=== PATIENT | female | born 1945 | race Caucasian/White ===

== ENCOUNTER 2018-09-21 08:41 | Emergency (ER) | payer MEDICARE, MEDICAID, SELFPAY ==
[2018-09-21] VITALS (13 sets, daily range): BP systolic 130–153; BP diastolic 58–78; PULSE 69–88; RESP 14–24; TEMP 36.5–36.7; O2SAT 95–97
--- NOTE | 2018-09-21 09:17 | W.ED.GENAD ---
Discharge Plan Disposition Patient Disposition: [facility] Discharge Details Chief Complaint: GI Bleed Clinical Impression: Acute GI bleeding Reason For Visit: [place] Primary Care Provider: Susana Apple ED Provider: Yfn Quijano Home Meds and New Rx's Prescriptions: No Action nitroglycerin 0.4 MG tablet, sublingual 0.4 mg Sublingual PRN PRNQty: 25 RF: 11 Oxygen EACH NS DAILY Qty: 2 RF: 12 POC 2 l NS continuous during da Qty: 2 RF: 12 cholecalciferol (vitamin D3) [Vitamin D3] 2,000 UNIT capsule 2,000 unit PO DAILY Qty: 90 RF: 3 shower seat w/ back 1 unit Miscellaneous DAILY PRNQty: 1 RF: 0 O2 portable device NS Qty: 1 RF: 0 diaper,brief,adult,disposable [Depend Underwear For Women S-M] 1 EACH misc 1 ea Miscellaneous QID Qty: 150 RF: 12 Atorvastatin Calcium 10 MG tablet 10 mg PO DAILY Qty: 90 RF: 3 port 02concentrator Inhalation as directed Qty: 1 RF: 1 albuterol sulfate [ProAir HFA] 8.5 GM HFA aerosol inhaler 2 puff Inhalation Q4H PRN Qty: 3 RF: 3 budesonide-formoterol [Symbicort] 10.2 GM HFA aerosol inhaler 2 puff Inhalation BID Qty: 3 RF: 4 magnesium oxide 250 MG tablet 250 mg PO DAILY Qty: 90 RF: 3 docusate sodium [Colace] 100 MG capsule 100 mg PO BID Qty: 60 RF: 12 potassium chloride 10 MEQ capsule, extended release 1 cap PO DAILY Qty: 180 RF: 3 mirtazapine 7.5 MG tablet 7.5 mg PO HS Qty: 30 RF: 3 furosemide 40 mg tablet 40 mg PO DAILY Qty: 90 RF: 3 pantoprazole 40 mg tablet,delayed release (DR/EC) 40 mg PO BID Qty: 180 RF: 3 ondansetron 4 MG tablet,disintegrating 4 mg Sublingual Q6H PRN PRN (Reason: Nausea / Vomiting) Qty: 12 RF: 0 Discharge Data Discharge Date/Time-TO BE ENTERED AT DEPARTURE: 09/21/18 11:46 Medical Decision Making Medical Records 9:22 --32-year-old female with multiple medical problems including history of alcohol dependence, GERD, gastric ulcer, status post remote gastric bypass, coronary artery disease, here with melena today as well as abdominal cramping and tender epigastric and left abdomen. Melena on rectal exam with heme positive. Concern for upper GI bleed. Hemodynamically stable. Plan to give Protonix IV bolus and drip. Will obtain CT abd/pelvis to assess for acute surgical pathology. Plan for transfer. 10:05 -- [place] with [facility] [place] (Dr. Gutierrez)and GI (Dr. Jackson) -- will accept. Awaiting CT. 11:00 --CT of the abdomen pelvis interpreted by radiology: Jejunum dilated, concern for possible partial bowel obstruction, no perforation. ECG Data Attestation: I personally reviewed and interpreted this ECG (s) as follows: (Sinus rhythm 69 bpm, left axis deviation, nonspecific QRS widening with QRS duration of 128, no STEMI, nondiagnostic) HPI General Mode of arrival: EMS. Date/Time Provider Initiated Documentation: 09/21/18 08:45. Limitations to Documentation: no limitations. Information obtained by: patient and EMS. HPI Narrative: 72-year-old female with multiple medical problems including coronary artery disease, CHF, COPD, GERD, gastric ulcer, remote gastric bite S, EtOH dependence, GI bleed in the past, presents with chief complaint of black stool. Black stool started this morning. This is severe. No modifiers. No associated bright red blood per rectum. Patient does have associated abdominal cramping. Associated nausea. She also notes associated generalized weakness. Related Data Home Medications Medication Instructions Recorded Confirmed nitroglycerin 0.4 mg SUBLINGUAL PRN PRN #25 07/16/16 09/21/18 tab-cap cholecalciferol (vitamin D3) 2,000 unit PO DAILY #90 tab-cap 05/18/17 [Vitamin D3] ondansetron 4 mg SUBLINGUAL Q6H PRN PRN #12 tab 08/30/17 09/21/18 diaper,brief,adult,disposable #150 ea 10/06/17 [Depend] albuterol sulfate [Proair Hfa] 2 puff INHALATION Q4H PRN #3 12/03/17 09/21/18 inhaler budesonide-formoterol [Symbicort 2 puff INHALATION BID #3 inhaler 12/03/17 09/21/18 80/4.5 Mcg Inhaler] magnesium oxide 250 mg PO DAILY #90 tab-cap 12/23/17 docusate sodium [Colace] 100 mg PO BID #60 cap 03/04/18 09/21/18 mirtazapine 7.5 mg PO HS #30 tab-cap 07/13/18 potassium chloride 1 cap PO DAILY #180 tab-cap 07/13/18 09/21/18 furosemide 40 mg tablet 40 mg PO DAILY #90 tab-cap 09/23/18 pantoprazole 40 mg tablet,delayed 40 mg PO BID #180 tab 09/23/18 release Previous Rx's Medication Instructions Recorded ondansetron 4 mg SUBLINGUAL Q6H PRN PRN #12 tab 08/30/17 diaper,brief,adult,disposable #150 ea 10/06/17 [Depend] albuterol sulfate [Proair Hfa] 2 puff INHALATION Q4H PRN #3 12/03/17 inhaler budesonide-formoterol [Symbicort 2 puff INHALATION BID #3 inhaler 12/03/17 80/4.5 Mcg Inhaler] magnesium oxide 250 mg PO DAILY #90 tab-cap 12/23/17 docusate sodium [Colace] 100 mg PO BID #60 cap 03/04/18 mirtazapine 7.5 mg PO HS #30 tab-cap 07/13/18 potassium chloride 1 cap PO DAILY #180 tab-cap 07/13/18 furosemide 40 mg tablet 40 mg PO DAILY #90 tab-cap 09/23/18 pantoprazole 40 mg tablet,delayed 40 mg PO BID #180 tab 09/23/18 release Allergies Allergy/AdvReac Type Severity Reaction Status Date / Time chlorpromazine Allergy Severe Skin Rash Unverified 07/13/18 13:45 Penicillins Allergy Severe HIVES Unverified 07/13/18 13:45 oxycodone Allergy Mild RASH/VOMITI Unverified 07/13/18 13:45 NG raspberry Allergy Unknown Unverified 07/13/18 13:45 General Stated Complaint: GI Bleed GENE: 2 Review of Systems Review of Systems All systems reviewed & are unremarkable except as noted in HPI and below Cardiovascular Reports chest pain (a few days ago, resolved with single nitro) Gastrointestinal Reports as per HPI PFSH Family History Mother COPD (chronic obstructive pulmonary disease) Father Diabetes Sister No problems noted. Brother No problems noted. Medical History Cor athrscl-uns vessel End stage COPD GERD (gastroesophageal reflux disease) GI bleed Marginal ulcer Oxygen dependent Sensorineural hearing loss Spinal stenosis Social History Smoking/Tobacco Use Status: Current every day Surgical History EGD - MAC Extraction of cataract (08/28/15) Gastric Bypass (~1989) Exam Const General: cooperative and no acute distress HENMT Head: normocephalic and atraumatic Mouth: moist mucous membranes Eyes Conjunctivae: normal conjunctivae Sclera: normal sclerae EOM: EOM intact bilaterally Neck Neck: trachea midline and supple Resp Auscultation: clear to auscultation bilaterally, no rales, no rhonchi and no wheezes Cardio Jugular venous pressure: no JVD Rate: regular rate and not tachycardic Rhythm: regular rhythm GI Palpation: soft, not firm, no guarding, no masses, not rigid and tender in the epigastrum, in the LLQ and in the LUQ Auscultation: normal bowel sounds Rectal Exam - female: heme positive stool (melena) Skin General skin exam: no rashes or lesions noted Neuro General: alert, awake, oriented x3 and tone normal Extrem General: no edema Psych Appearance: grossly normal Mental Status: mental status grossly normal Speech and Movement: speech and movement normal Course Vital Signs Temperature 36.5 C 09/21/18 08:50 Pulse 88 09/21/18 08:50 Respiratory Rate 18 09/21/18 08:50 Blood Pressure 130/69 09/21/18 08:50 Pulse Oximetry 97 09/21/18 08:50 Temperature 36.5 C 09/21/18 08:50 Temperature Source Skin 09/21/18 08:50 Pulse 88 09/21/18 08:50 Respiratory Rate 18 09/21/18 08:50 Blood Pressure 130/69 09/21/18 08:50 Pulse Oximetry 97 09/21/18 08:50 Oxygen Delivery Method Nasal Cannula 09/21/18 08:50 Oxygen Flow Rate 2 09/21/18 08:50 Comment 09/21/18 08:50
--- NOTE | 2018-09-21 09:23 | ED.GENADUL_ITS ---
Discharge Plan Disposition Patient Disposition: [facility] Discharge Details Chief Complaint: GI Bleed Clinical Impression: Acute GI bleeding Reason For Visit: [place] Primary Care Provider: Susana Apple ED Provider: Yfn Quijano Home Meds and New Rx's Prescriptions: No Action nitroglycerin 0.4 MG tablet, sublingual 0.4 mg Sublingual PRN PRNQty: 25 RF: 11 Oxygen EACH NS DAILY Qty: 2 RF: 12 POC 2 l NS continuous during da Qty: 2 RF: 12 cholecalciferol (vitamin D3) [Vitamin D3] 2,000 UNIT capsule 2,000 unit PO DAILY Qty: 90 RF: 3 shower seat w/ back 1 unit Miscellaneous DAILY PRNQty: 1 RF: 0 O2 portable device NS Qty: 1 RF: 0 diaper,brief,adult,disposable [Depend Underwear For Women S-M] 1 EACH misc 1 ea Miscellaneous QID Qty: 150 RF: 12 Atorvastatin Calcium 10 MG tablet 10 mg PO DAILY Qty: 90 RF: 3 port 02concentrator Inhalation as directed Qty: 1 RF: 1 albuterol sulfate [ProAir HFA] 8.5 GM HFA aerosol inhaler 2 puff Inhalation Q4H PRN Qty: 3 RF: 3 budesonide-formoterol [Symbicort] 10.2 GM HFA aerosol inhaler 2 puff Inhalation BID Qty: 3 RF: 4 magnesium oxide 250 MG tablet 250 mg PO DAILY Qty: 90 RF: 3 docusate sodium [Colace] 100 MG capsule 100 mg PO BID Qty: 60 RF: 12 potassium chloride 10 MEQ capsule, extended release 1 cap PO DAILY Qty: 180 RF: 3 mirtazapine 7.5 MG tablet 7.5 mg PO HS Qty: 30 RF: 3 furosemide 40 mg tablet 40 mg PO DAILY Qty: 90 RF: 3 pantoprazole 40 mg tablet,delayed release (DR/EC) 40 mg PO BID Qty: 180 RF: 3 ondansetron 4 MG tablet,disintegrating 4 mg Sublingual Q6H PRN PRN (Reason: Nausea / Vomiting) Qty: 12 RF: 0 Discharge Data Discharge Date/Time-TO BE ENTERED AT DEPARTURE: 09/21/18 11:46 Medical Decision Making Medical Records 9:22 --32-year-old female with multiple medical problems including history of alcohol dependence, GERD, gastric ulcer, status post remote gastric bypass, coronary artery disease, here with melena today as well as abdominal cramping and tender epigastric and left abdomen. Melena on rectal exam with heme positive. Concern for upper GI bleed. Hemodynamically stable. Plan to give Protonix IV bolus and drip. Will obtain CT abd/pelvis to assess for acute surgical pathology. Plan for transfer. 10:05 -- Spoke with [facility] [place] (Dr. Gutierrez)and GI (Dr. Jackson) -- will accept. Awaiting CT. 11:00 --CT of the abdomen pelvis interpreted by radiology: Jejunum dilated, concern for possible partial bowel obstruction, no perforation. ECG Data Attestation: I personally reviewed and interpreted this ECG (s) as follows: ( Sinus rhythm 69 bpm, left axis deviation, nonspecific QRS widening with QRS duration of 128, no STEMI, nondiagnostic) HPI General Mode of arrival: EMS . Date/Time Provider Initiated Documentation: 09/21/18 08:45 . Limitations to Documentation: no limitations . Information obtained by: patient and EMS . HPI Narrative: 72-year-old female with multiple medical problems including coronary artery disease, CHF, COPD, GERD, gastric ulcer, remote gastric bite S, EtOH dependence, GI bleed in the past, presents with chief complaint of black stool. Black stool started this morning. This is severe. No modifiers. No associated bright red blood per rectum. Patient does have associated abdominal cramping. Associated nausea. She also notes associated generalized weakness. Related Data Home Medications Medication Instructions Recorded Confirmed nitroglycerin 0.4 mg SUBLINGUAL PRN PRN #25 07/16/16 09/21/18 tab-cap cholecalciferol (vitamin D3) 2,000 unit PO DAILY #90 tab-cap 05/18/17 [Vitamin D3] ondansetron 4 mg SUBLINGUAL Q6H PRN PRN #12 tab 08/30/17 09/21/18 diaper,brief,adult,disposable #150 ea 10/06/17 [Depend] albuterol sulfate [Proair Hfa] 2 puff INHALATION Q4H PRN #3 12/03/17 09/21/18 inhaler budesonide-formoterol [Symbicort 2 puff INHALATION BID #3 inhaler 12/03/1709/21 80/4.5 Mcg Inhaler] magnesium oxide 250 mg PO DAILY #90 tab-cap 12/23/17 docusate sodium [Colace] 100 mg PO BID #60 cap 03/04/18 09/21/18 mirtazapine 7.5 mg PO HS #30 tab-cap 07/13/18 potassium chloride 1 cap PO DAILY #180 tab-cap 07/13/18 09/21/18 furosemide 40 mg tablet 40 mg PO DAILY #90 tab-cap 09/23/18 pantoprazole 40 mg tablet,delayed 40 mg PO BID #180 tab 09/23/18 release Previous Rx's Medication Instructions Recorded ondansetron 4 mg SUBLINGUAL Q6H PRN PRN #12 tab 08/30/17 diaper,brief,adult,disposable #150 ea 10/06/17 [Depend] albuterol sulfate [Proair Hfa] 2 puff INHALATION Q4H PRN #3 12/03/17 inhaler budesonide-formoterol [Symbicort 2 puff INHALATION BID #3 inhaler 12/03/17 80/4.5 Mcg Inhaler] magnesium oxide 250 mg PO DAILY #90 tab-cap 12/23/17 docusate sodium [Colace] 100 mg PO BID #60 cap 03/04/18 mirtazapine 7.5 mg PO HS #30 tab-cap 07/13/18 potassium chloride 1 cap PO DAILY #180 tab-cap 07/13/18 furosemide 40 mg tablet 40 mg PO DAILY #90 tab-cap 09/23/18 pantoprazole 40 mg tablet,delayed 40 mg PO BID #180 tab 09/23/18 release Allergies Allergy/AdvReac Type Severity Reaction Status Date / Time chlorpromazine Allergy Severe Skin Rash Unverified 07/13/18 13:45 Penicillins Allergy Severe HIVES Unverified 07/13/18 13:45 oxycodone Allergy Mild RASH/VOMITI Unverified 07/13/18 13:45 NG raspberry Allergy Unknown Unverified 07/13/18 13:45 General Stated Complaint: GI Bleed GENE: 2 Review of Systems Review of Systems All systems reviewed & are unremarkable except as noted in HPI and below Cardiovascular Reports chest pain (a few days ago, resolved with single nitro) Gastrointestinal Reports as per HPI PFSH Family History Mother COPD (chronic obstructive pulmonary disease) Father Diabetes Sister No problems noted. Brother No problems noted. Medical History Cor athrscl-uns vessel End stage COPD GERD (gastroesophageal reflux disease) GI bleed Marginal ulcer Oxygen dependent Sensorineural hearing loss Spinal stenosis Social History Smoking/Tobacco Use Status: Current every day Surgical History EGD - MAC Extraction of cataract (08/28/15) Gastric Bypass (~1989) Exam Const General: cooperative and no acute distress HENMT Head: normocephalic and atraumatic Mouth: moist mucous membranes Eyes Conjunctivae: normal conjunctivae Sclera: normal sclerae EOM: EOM intact bilaterally Neck Neck: trachea midline and supple Resp Auscultation: clear to auscultation bilaterally, no rales, no rhonchi and no wheezes Cardio Jugular venous pressure: no JVD Rate: regular rate and not tachycardic Rhythm: regular rhythm GI Palpation: soft, not firm, no guarding, no masses, not rigid and tender in the epigastrum, in the LLQ and in the LUQ Auscultation: normal bowel sounds Rectal Exam - female: heme positive stool (melena) Skin General skin exam: no rashes or lesions noted Neuro General: alert, awake, oriented x3 and tone normal Extrem General: no edema Psych Appearance: grossly normal Mental Status: mental status grossly normal Speech and Movement: speech and movement normal Course Vital Signs Temperature 36.5 C 09/21/18 08:50 Pulse 88 09/21/18 08:50 Respiratory Rate 18 09/21/18 08:50 Blood Pressure 130/69 09/21/18 08:50 Pulse Oximetry 97 09/21/18 08:50 Temperature 36.5 C 09/21/18 08:50 Temperature Source Skin 09/21/18 08:50 Pulse 88 09/21/18 08:50 Respiratory Rate 18 09/21/18 08:50 Blood Pressure 130/69 09/21/18 08:50 Pulse Oximetry 97 09/21/18 08:50 Oxygen Delivery Method Nasal Cannula 09/21/18 08:50 Oxygen Flow Rate 2 09/21/18 08:50 Comment 09/21/18 08:50
[2018-09-21] MEDS: Pantoprazole 40 MG VIAL IVP (09:28)
[2018-09-21 09:29] LABS: Abs Immature Grans 0.01 k/cumm (0.0-0.09); Absolute Basophil Count 0.06 k/cumm (0.0-0.2); Absolute Eosinophil Count 0.17 k/cumm (0.0-0.7); Absolute Lymphocyte Count 1.09 k/cumm (1.2-3.4); Absolute Monocyte Count 0.52 k/cumm (0.11-0.7); Basophils % 0.8; Eosinophils % 2.3; HCT 37.9 % (36.0-46.0); HGB 11.5 g/dL (12.0-15.5); Immature Grans % 0.1; Mean Corp. HGB Concentration 30.3 g/dL (32.0-36.0); Mean Corpuscular Hemoglobin 29.4 pg (27.0-33.0); Mean Corpuscular Volume 96.9 fL (80-95); Mean Platelet Volume 10.7 fL (8.0-11.0); Monocytes % 7.2; Neutrophils % 74.6; Platelet Count 209 x1000/uL (130-400); RBC 3.91 m/cumm (4.00-5.20); RBC Distribution Width 15.8 % (11.7-14.6); White Blood Cell Count 7.25 k/cumm (4.4-10.8)
[2018-09-21 09:31] LABS: Lactate-non-spesis 1.3 mmol/L (0.6-1.4)
[2018-09-21 09:36] LABS: Prothrombin Time 10.1 sec (9.3-10.8)
[2018-09-21 09:54] LABS: ALT 18 U/L (12-78); AST 19 U/L (15-37); Albumin 3.4 g/dL (3.4-5.0); Alkaline Phosphatase 91 U/L (46-116); Anion Gap 7.3 mmol/L (3-11); BUN 19 mg/dL (7-18); Bilirubin, Total 0.4 mg/dL (0.2-1.0); CO2 31.7 mmol/L (21.0-32.0); CREATININE 0.76 mg/dL (0.55-1.02); Chloride 101 mmol/L (98-107); Glucose 95 mg/dL (70-100); Lipase 94 U/L (73-393); Potassium 3.9 mmol/L (3.5-5.1); Sodium 140 mmol/L (136-145); Total Protein 7.3 g/dL (6.4-8.2)
[2018-09-21 09:57] LABS: Troponin I < 0.02 ng/mL (0.00-0.06)
--- NOTE | 2018-09-21 10:07 | DI.CT_ITS ---
SYMPTOM/DIAGNOSIS: EPIGASTRIC ABD PAIN ABDOMEN AND PELVIC CT: Comparison is made with 08/28/17. Images were performed from the lung bases through the ischial tuberosities after IV and without oral contrast. Suture material is again noted at the GE junction. There is a hiatal hernia. There is motion on the upper aspect of the scan, particularly in the region of the stomach. An area of air is again seen along the lesser curvature of the stomach which could represent a diverticulum. There is suture material in the jejunum. There is dilatation of a loop of jejunum near the area of the anastomosis which could indicate a partial small bowel obstruction. The distal bowel is unremarkable. There is no evidence of bowel wall thickening, free air or free fluid. The appendix appears normal. Diverticula are noted in the sigmoid colon. Gallstones are noted. There is no evidence of gallbladder wall thickening or biliary dilatation. A cyst is seen at the posterior liver. The spleen, adrenals and kidneys are unremarkable. The pancreas is not well evaluated due to motion. The aorta is normal in diameter and shows calcification. The bladder, uterus and ovaries are unremarkable. IMPRESSION: Mild dilatation of a loop of jejunum near an anastomosis. The findings could represent a partial small bowel obstruction. There has been no significant change in the appearance of the stomach with probable diverticulum along the lesser curvature. A previous surgery and hiatal hernia are also seen.
[2018-09-21] MEDS: Omnipaque 350 MG/ML 100 ML BTL IJ (10:35)
[2018-09-21] MEDS: PANTOPRAZOLE 80 MG in Normal Saline 100 ML 10 MG IV (11:42)
== END 2018-09-21 11:46 | disposition short-term general hospital (02) ==
PROVIDERS: Emergency Provider Student in an Organized Health Care Education/Training Program; PCP Nurse Practitioner
DX: K92.2 Gastrointestinal hemorrhage, unspecified (principal); J44.9 Chronic obstructive pulmonary disease, unspecified; F17.210 Nicotine dependence, cigarettes, uncomplicated
CPT/HCPCS: 36415; 80053; 83690; 86850; 86900; 86901; 93005; 96374; 99285; 74177; 83605; 84484; 85025; 85610; 93010; J3490

== ENCOUNTER 2019-01-04 14:56 | Inpatient (IN) | payer MEDICARE, MEDICAID, SELFPAY ==
[2019-01-04] VITALS (46 sets, daily range): BP systolic 91–156; BP diastolic 51–73; PULSE 72–90; RESP 8–24; TEMP 36.6–36.7; O2SAT 90–100
--- NOTE | 2019-01-04 15:51 | DI.RAD_ITS ---
SYMPTOMS/DIAGNOSIS: SHORTNESS OF BREATH, CHEST PAIN AP AND LATERAL CHEST: Comparison is made with [id number]. The heart is again noted to be grossly enlarged. Scarring is noted in the left upper lobe. Underlying emphysematous and chronic interstitial changes are seen. IMPRESSION: Cardiomegaly. No acute abnormality.
[2019-01-04] MEDS: Albuterol/Ipratropium 3 ML UPD VIAL UPD (16:00)
[2019-01-04 16:05] LABS: Abs Immature Grans 0.01 k/cumm (0.0-0.09); Absolute Basophil Count 0.05 k/cumm (0.0-0.2); Absolute Eosinophil Count 0.18 k/cumm (0.0-0.7); Absolute Monocyte Count 0.38 k/cumm (0.11-0.7); Absolute Neutrophil Count 4.41 k/cumm (1.2-6.7); Basophils % 0.8; Eosinophils % 2.8; HCT 36.2 % (36.0-46.0); HGB 10.7 g/dL (12.0-15.5); Immature Grans % 0.2; Mean Corp. HGB Concentration 29.6 g/dL (32.0-36.0); Mean Corpuscular Hemoglobin 28.9 pg (27.0-33.0); Mean Corpuscular Volume 97.8 fL (80-95); Mean Platelet Volume 10.2 fL (8.0-11.0); Monocytes % 5.8; Neutrophils % 67.4; Platelet Count 280 x1000/uL (130-400); RBC Distribution Width 16.4 % (11.7-14.6); White Blood Cell Count 6.53 k/cumm (4.4-10.8)
[2019-01-04 16:07] LABS: Lactate-non-spesis 1.1 mmol/l (0.6-1.4)
--- NOTE | 2019-01-04 16:16 | W.ED.GENAD ---
Discharge Plan Disposition Patient Disposition: [facility] INPATIENT Discharge Details Chief Complaint: GenMedical Clinical Impression: COPD with acute exacerbation, Toe necrosis, Noncompliance with medication regimen Reason For Visit: ASHLY Primary Care Provider: Susana Apple ED Provider: Yfn Quijano Home Meds and New Rx's Prescriptions: No Action furosemide 40 mg tablet 40 mg PO DAILY Qty: 90 RF: 3 nitroglycerin 0.4 MG tablet, sublingual 0.4 mg Sublingual PRN PRNQty: 25 RF: 11 POC 2 l NS continuous during da Qty: 2 RF: 12 shower seat w/ back 1 unit Miscellaneous DAILY PRNQty: 1 RF: 0 Depend Underwear For Women S-M 1 EACH misc 1 ea Miscellaneous QID Qty: 150 RF: 12 Atorvastatin Calcium 10 MG tablet 10 mg PO DAILY Qty: 90 RF: 3 port 02concentrator Inhalation as directed Qty: 1 RF: 1 ProAir HFA 8.5 GM HFA aerosol inhaler 2 puff Inhalation Q4H PRN Qty: 3 RF: 3 Symbicort 10.2 GM HFA aerosol inhaler 2 puff Inhalation BID Qty: 3 RF: 4 magnesium oxide 250 MG tablet 250 mg PO DAILY Qty: 90 RF: 3 docusate sodium [Colace] 100 MG capsule 100 mg PO BID Qty: 60 RF: 12 potassium chloride 10 MEQ capsule, extended release 1 cap PO DAILY Qty: 180 RF: 3 pantoprazole 40 mg tablet,delayed release (DR/EC) 40 mg PO BID Qty: 180 RF: 3 ondansetron 4 MG tablet,disintegrating 4 mg Sublingual Q6H PRN PRN (Reason: Nausea / Vomiting) Qty: 12 RF: 0 Medical Decision Making 73-year-old female with multiple medical problems including history of end-stage COPD, necrotic right 4th toe. Distal pulse not palpable but intact with doppler. Medication noncompliance -- Patient notes that she has not had her medications for 3 months. She has not been taking her oxygen as she is run out. ECG reviewed and interpreted by me: Sinus rhythm 76 bpm, first-degree AV block with IL interval of 276, nondiagnostic. Suspect acute COPD exacerbation complicated by medication noncompliance and lack of home O2. She has been given solu-medrol and duoneb and azithromycin IV. Considered PNA. Cxr interpreted by radiology: FINDINGS: Lungs: Stable pulmonary hyperinflation, compatible with known COPD related changes. Increased density over the left retrocardiac region is most likely related to known cardiomegaly and appears similar to the reference examination. No acute interstitial or airspace disease is grossly noted. Mild biapical scarring suggested. Pleural space: Unremarkable. No pleural effusion. No pneumothorax. Heart/Mediastinum: Stable cardiomegaly. Vasculature: Stable calcified aortic knob. Bones/joints: Degenerative changes of the a.c. joints and thoracic spine. No acute skeletal pathology. IMPRESSION: Stable examination without acute cardiopulmonary pathology grossly noted. Patient reassessed and has significantly improved here in the emergency department on oxygen. Unfortunately she does not have oxygen at home currently. I called and spoke with Dr. Barrientos who will admit the patient. HPI General Mode of arrival: ambulatory. Date/Time Provider Initiated Documentation: 01/04/19 15:14. Limitations to Documentation: no limitations. Information obtained by: patient and family. HPI Narrative: 73-year-old female with multiple medical problems including history of end-stage COPD, here with chief complaint of black toe. Patient notes she had some toe inflammation right fourth toe that started late October. Toe has been painful. More recently she is noted that the toe a black discoloration. Symptoms severe. No modifiers. No associated fever. EMS found the patient to be short of breath, hypoxic saturating in the 70s, in mild respiratory distress. She received solu-medrol 125mg and duoneb by medics. She is supposed to be on oxygen 2.5 L chronically and has run out and has none at home. Patient notes that she has not had her medications for 3 months. Related Data Home Medications Medication Instructions Recorded Confirmed nitroglycerin 0.4 mg SUBLINGUAL PRN PRN #25 07/16/16 10/07/18 tab-cap ondansetron 4 mg SUBLINGUAL Q6H PRN PRN #12 tab 08/30/17 10/07/18 diaper,brief,adult,disposable #150 ea 10/06/17 10/07/18 [Depend] albuterol sulfate [Proair Hfa] 2 puff INHALATION Q4H PRN #3 12/03/17 10/07/18 inhaler budesonide-formoterol [Symbicort 2 puff INHALATION BID #3 inhaler 12/03/17 10/07/18 80/4.5 Mcg Inhaler] magnesium oxide 250 mg PO DAILY #90 tab-cap 12/23/17 10/07/18 docusate sodium [Colace] 100 mg PO BID #60 cap 03/04/18 10/07/18 potassium chloride 1 cap PO DAILY #180 tab-cap 07/13/18 10/07/18 pantoprazole 40 mg tablet,delayed 40 mg PO BID #180 tab 09/23/18 10/07/18 release furosemide 40 mg tablet 40 mg PO DAILY #90 tab-cap 10/07/18 10/07/18 Previous Rx's Medication Instructions Recorded ondansetron 4 mg SUBLINGUAL Q6H PRN PRN #12 tab 08/30/17 diaper,brief,adult,disposable #150 ea 10/06/17 [Depend] albuterol sulfate [Proair Hfa] 2 puff INHALATION Q4H PRN #3 12/03/17 inhaler budesonide-formoterol [Symbicort 2 puff INHALATION BID #3 inhaler 12/03/17 80/4.5 Mcg Inhaler] magnesium oxide 250 mg PO DAILY #90 tab-cap 12/23/17 docusate sodium [Colace] 100 mg PO BID #60 cap 03/04/18 potassium chloride 1 cap PO DAILY #180 tab-cap 07/13/18 pantoprazole 40 mg tablet,delayed 40 mg PO BID #180 tab 09/23/18 release furosemide 40 mg tablet 40 mg PO DAILY #90 tab-cap 10/07/18 Allergies Allergy/AdvReac Type Severity Reaction Status Date / Time chlorpromazine Allergy Severe Skin Rash Unverified 10/07/18 16:16 Penicillins Allergy Severe HIVES Unverified 10/07/18 16:16 oxycodone Allergy Mild RASH/VOMITI Unverified 10/07/18 16:16 NG raspberry Allergy Unknown Unverified 10/07/18 16:16 General Stated Complaint: GenMedical GENE: 3 Review of Systems Review of Systems All systems reviewed & are unremarkable except as noted in HPI and below Constitutional Reports chills and Denies fever(s) Cardiovascular Reports dyspnea Respiratory Reports cough (chronic) and Reports dyspnea Musculoskeletal Reports as per HPI [facility] Medical History Cor athrscl-uns vessel End stage COPD GERD (gastroesophageal reflux disease) GI bleed Marginal ulcer Oxygen dependent Sensorineural hearing loss Spinal stenosis Surgical History EGD - MAC Extraction of cataract (08/28/15) Gastric Bypass (~1989) Family History Mother COPD (chronic obstructive pulmonary disease) Father Diabetes Sister No problems noted. Brother No problems noted. Social History Smoking/Tobacco Use Status: Current every day Exam Const General: cooperative Orientation: alert and awake Other: initially tachypneic HENMT Head: normocephalic Mouth: moist mucous membranes Eyes Conjunctivae: normal conjunctivae Sclera: normal sclerae EOM: EOM intact bilaterally Neck Neck: trachea midline and supple Resp Auscultation: clear to auscultation bilaterally, no rales, no rhonchi and no wheezes Cardio Rate: regular rate and not tachycardic Rhythm: regular rhythm Other: DP right not palpable, +pulse on doppler GI Palpation: soft, not firm, no guarding, no masses, not rigid and nontender Skin General skin exam: pallor Neuro General: alert, awake, oriented x3 and tone normal Extrem General: no edema Other: necrotic rt 4 th toe Psych Appearance: grossly normal Mental Status: mental status grossly normal Course Vital Signs Temperature 36.6 C 01/04/19 15:06 Pulse 73 01/04/19 15:06 Respiratory Rate 20 01/04/19 15:06 Blood Pressure 144/59 H 01/04/19 15:06 Pulse Oximetry 99 01/04/19 15:06 Temperature 36.6 C 01/04/19 15:06 Pulse 73 01/04/19 15:06 Respiratory Rate 20 01/04/19 15:06 Respiratory Effort Labored 01/04/19 15:11 Blood Pressure 144/59 H 01/04/19 15:06 Blood Pressure Position Sitting 01/04/19 15:06 Pulse Oximetry 99 01/04/19 15:06 Oxygen Delivery Method Nasal Cannula 01/04/19 15:06 Oxygen Flow Rate 2 01/04/19 15:06 Lab/Test Results Lab/Test Results: 01/04/19 15:48 Blood Blood Culture - Pending 01/04/19 15:52 Blood Blood Culture - Pending Laboratory Tests Range/Units 01/04/19 01/04/19 15:48 15:48 WBC (4.4-10.8) k/cumm 6.53 RBC (4.00-5.20) m/cumm 3.70 L Hgb (12.0-15.5) g/dL 10.7 L Hct (36.0-46.0) % 36.2 MCV (80-95) fL 97.8 H MCH (27.0-33.0) pg 28.9 MCHC (32.0-36.0) g/dL 29.6 L RDW (11.7-14.6) % 16.4 H Plt Count (130-400) x1000/uL 280 MPV (8.0-11.0) fL 10.2 Immature Gran % 0.2 Neutrophils % 67.4 Lymphocytes % 23.0 Monocytes % 5.8 Eosinophils % 2.8 Basophils % 0.8 Absolute Neutrophils (1.2-6.7) k/cumm 4.41 Absolute Lymphocytes (1.2-3.4) k/cumm 1.50 Absolute Monocytes (0.11-0.7) k/cumm 0.38 Absolute Eosinophils (0.0-0.7) k/cumm 0.18 Absolute Basophils (0.0-0.2) k/cumm 0.05 Lactate (0.6-1.4) mmol/l 1.1
[2019-01-04 16:32] LABS: ALT 13 U/L (12-78); AST 17 U/L (15-37); Albumin 3.2 g/dL (3.4-5.0); Alkaline Phosphatase 129 U/L (46-116); Anion Gap 5.5 mmol/L (3-11); BUN 16 mg/dL (7-18); Bilirubin, Total 0.3 mg/dL (0.2-1.0); CO2 32.5 mmol/L (21.0-32.0); CREATININE 0.86 mg/dL (0.55-1.02); Calcium 8.7 mg/dL (8.5-10.1); Chloride 104 mmol/L (98-107); Glucose 119 mg/dL (70-100); Magnesium 1.9 mg/dL (1.8-2.4); NT-proBNP 1122 pg/mL; Potassium 4.6 mmol/L (3.5-5.1); Sodium 142 mmol/L (136-145); Total Protein 7.6 g/dL (6.4-8.2)
[2019-01-04 16:47] LABS: Troponin I < 0.02 ng/mL (0.00-0.06)
[2019-01-04] MEDS: AZITHROMYCIN 500 MG in Normal Saline 250 ML 250 MG IVPB (17:02)
--- NOTE | 2019-01-04 17:40 | DI.VRAD_ITS ---
EXAM: XR Chest, 2 Views EXAM DATE/TIME: 01/04/2019 3:53 PM CLINICAL HISTORY: 73 years old, female; Signs and symptoms; Other: Shortness of breath, chest pain TECHNIQUE: XR of the chest, 2 views. COMPARISON: CR CHEST 2 VIEWS PA,LAT 05/31/2017 7:43 PM FINDINGS: Lungs: Stable pulmonary hyperinflation, compatible with known COPD related changes. Increased density over the left retrocardiac region is most likely related to known cardiomegaly and appears similar to the reference examination. No acute interstitial or airspace disease is grossly noted. Mild biapical scarring suggested. Pleural space: Unremarkable. No pleural effusion. No pneumothorax. Heart/Mediastinum: Stable cardiomegaly. Vasculature: Stable calcified aortic knob. Bones/joints: Degenerative changes of the a.c. joints and thoracic spine. No acute skeletal pathology. IMPRESSION: Stable examination without acute cardiopulmonary pathology grossly noted. Dictated and Authenticated by: Doug Cruz MD. Ordering:ARUN Coulter MD
--- NOTE | 2019-01-04 18:04 | ED.GENADUL_ITS ---
Discharge Plan Disposition Patient Disposition: [facility] INPATIENT Discharge Details Chief Complaint: GenMedical Clinical Impression: COPD with acute exacerbation, Toe necrosis, Noncompliance with medication regimen Reason For Visit: ASHLY Primary Care Provider: Susana Apple ED Provider: Yfn Quijano Home Meds and New Rx's Prescriptions: No Action furosemide 40 mg tablet 40 mg PO DAILY Qty: 90 RF: 3 nitroglycerin 0.4 MG tablet, sublingual 0.4 mg Sublingual PRN PRNQty: 25 RF: 11 POC 2 l NS continuous during da Qty: 2 RF: 12 shower seat w/ back 1 unit Miscellaneous DAILY PRNQty: 1 RF: 0 Depend Underwear For Women S-M 1 EACH misc 1 ea Miscellaneous QID Qty: 150 RF: 12 Atorvastatin Calcium 10 MG tablet 10 mg PO DAILY Qty: 90 RF: 3 port 02concentrator Inhalation as directed Qty: 1 RF: 1 ProAir HFA 8.5 GM HFA aerosol inhaler 2 puff Inhalation Q4H PRN Qty: 3 RF: 3 Symbicort 10.2 GM HFA aerosol inhaler 2 puff Inhalation BID Qty: 3 RF: 4 magnesium oxide 250 MG tablet 250 mg PO DAILY Qty: 90 RF: 3 docusate sodium [Colace] 100 MG capsule 100 mg PO BID Qty: 60 RF: 12 potassium chloride 10 MEQ capsule, extended release 1 cap PO DAILY Qty: 180 RF: 3 pantoprazole 40 mg tablet,delayed release (DR/EC) 40 mg PO BID Qty: 180 RF: 3 ondansetron 4 MG tablet,disintegrating 4 mg Sublingual Q6H PRN PRN (Reason: Nausea / Vomiting) Qty: 12 RF: 0 Medical Decision Making 73-year-old female with multiple medical problems including history of end-stage COPD, necrotic right 4th toe. Distal pulse not palpable but intact with doppler. Medication noncompliance -- Patient notes that she has not had her medications for 3 months. She has not been taking her oxygen as she is run out. ECG reviewed and interpreted by me: Sinus rhythm 76 bpm, first-degree AV block with [place] interval of 276, nondiagnostic. Suspect acute COPD exacerbation complicated by medication noncompliance and lack of home O2. She has been given solu-medrol and duoneb and azithromycin IV. Considered PNA. Cxr interpreted by radiology: FINDINGS: Lungs: Stable pulmonary hyperinflation, compatible with known COPD related changes. Increased density over the left retrocardiac region is most likely related to known cardiomegaly and appears similar to the reference examination. No acute interstitial or airspace disease is grossly noted. Mild biapical scarring suggested. Pleural space: Unremarkable. No pleural effusion. No pneumothorax. Heart/Mediastinum: Stable cardiomegaly. Vasculature: Stable calcified aortic knob. Bones/joints: Degenerative changes of the a.c. joints and thoracic spine. No acute skeletal pathology. IMPRESSION: Stable examination without acute cardiopulmonary pathology grossly noted. Patient reassessed and has significantly improved here in the emergency department on oxygen. Unfortunately she does not have oxygen at home currently. I called and spoke with Dr. Barrientos who will admit the patient. HPI General Mode of arrival: ambulatory . Date/Time Provider Initiated Documentation: 01/04/19 15:14 . Limitations to Documentation: no limitations . Information obtained by: patient and family . HPI Narrative: 73-year-old female with multiple medical problems including history of end-stage COPD, here with chief complaint of black toe. Patient notes she had some toe inflammation right fourth toe that started late October. Toe has been painful. More recently she is noted that the toe a black discoloration. Symptoms severe. No modifiers. No associated fever. EMS found the patient to be short of breath, hypoxic saturating in the 70s, in mild respiratory distress. She received solu-medrol 125mg and duoneb by medics. She is supposed to be on oxygen 2.5 L chronically and has run out and has none at home. Patient notes that she has not had her medications for 3 months. Related Data Home Medications Medication Instructions Recorded Confirmed nitroglycerin 0.4 mg SUBLINGUAL PRN PRN #25 07/16/16 10/07/18 tab-cap ondansetron 4 mg SUBLINGUAL Q6H PRN PRN #12 tab 08/30/17 10/07/18 diaper,brief,adult,disposable #150 ea 10/06/17 10/07/18 [Depend] albuterol sulfate [Proair Hfa] 2 puff INHALATION Q4H PRN #3 12/03/17 10/07/18 inhaler budesonide-formoterol [Symbicort 2 puff INHALATION BID #3 inhaler 12/03/17 10/07/18 80/4.5 Mcg Inhaler] magnesium oxide 250 mg PO DAILY #90 tab-cap 12/23/17 10/07/18 docusate sodium [Colace] 100 mg PO BID #60 cap 03/04/18 10/07/18 potassium chloride 1 cap PO DAILY #180 tab-cap 07/13/18 10/07/18 pantoprazole 40 mg tablet,delayed 40 mg PO BID #180 tab 09/23/18 10/07/18 release furosemide 40 mg tablet 40 mg PO DAILY #90 tab-cap 10/07/18 10/07/18 Previous Rx's Medication Instructions Recorded ondansetron 4 mg SUBLINGUAL Q6H PRN PRN #12 tab 08/30/17 diaper,brief,adult,disposable #150 ea 10/06/17 [Depend] albuterol sulfate [Proair Hfa] 2 puff INHALATION Q4H PRN #3 12/03/17 inhaler budesonide-formoterol [Symbicort 2 puff INHALATION BID #3 inhaler 12/03/17 80/4.5 Mcg Inhaler] magnesium oxide 250 mg PO DAILY #90 tab-cap 12/23/17 docusate sodium [Colace] 100 mg PO BID #60 cap 03/04/18 potassium chloride 1 cap PO DAILY #180 tab-cap 07/13/18 pantoprazole 40 mg tablet,delayed 40 mg PO BID #180 tab 09/23/18 release furosemide 40 mg tablet 40 mg PO DAILY #90 tab-cap 10/07/18 Allergies Allergy/AdvReac Type Severity Reaction Status Date / Time chlorpromazine Allergy Severe Skin Rash Unverified 10/07/18 16:16 Penicillins Allergy Severe HIVES Unverified 10/07/18 16:16 oxycodone Allergy Mild RASH/VOMITI Unverified 10/07/18 16:16 NG raspberry Allergy Unknown Unverified 10/07/18 16:16 General Stated Complaint: GenMedical GENE: 3 Review of Systems Review of Systems All systems reviewed & are unremarkable except as noted in HPI and below Constitutional Reports chills and Denies fever(s) Cardiovascular Reports dyspnea Respiratory Reports cough (chronic) and Reports dyspnea Musculoskeletal Reports as per HPI [facility] Medical History Cor athrscl-uns vessel End stage COPD GERD (gastroesophageal reflux disease) GI bleed Marginal ulcer Oxygen dependent Sensorineural hearing loss Spinal stenosis Surgical History EGD - MAC Extraction of cataract (08/28/15) Gastric Bypass (~1989) Family History Mother COPD (chronic obstructive pulmonary disease) Father Diabetes Sister No problems noted. Brother No problems noted. Social History Smoking/Tobacco Use Status: Current every day Exam Const General: cooperative Orientation: alert and awake Other: initially tachypneic HENMT Head: normocephalic Mouth: moist mucous membranes Eyes Conjunctivae: normal conjunctivae Sclera: normal sclerae EOM: EOM intact bilaterally Neck Neck: trachea midline and supple Resp Auscultation: clear to auscultation bilaterally, no rales, no rhonchi and no wheezes Cardio Rate: regular rate and not tachycardic Rhythm: regular rhythm Other: DP right not palpable, +pulse on doppler GI Palpation: soft, not firm, no guarding, no masses, not rigid and nontender Skin General skin exam: pallor Neuro General: alert, awake, oriented x3 and tone normal Extrem General: no edema Other: necrotic rt 4 th toe Psych Appearance: grossly normal Mental Status: mental status grossly normal Course Vital Signs Temperature 36.6 C 01/04/19 15:06 Pulse 73 01/04/19 15:06 Respiratory Rate 20 01/04/19 15:06 Blood Pressure 144/59 H 01/04/19 15:06 Pulse Oximetry 99 01/04/19 15:06 Temperature 36.6 C 01/04/19 15:06 Pulse 73 01/04/19 15:06 Respiratory Rate 20 01/04/19 15:06 Respiratory Effort Labored 01/04/19 15:11 Blood Pressure 144/59 H 01/04/19 15:06 Blood Pressure Position Sitting 01/04/19 15:06 Pulse Oximetry 99 01/04/19 15:06 Oxygen Delivery Method Nasal Cannula 01/04/19 15:06 Oxygen Flow Rate 2 01/04/19 15:06 Lab/Test Results Lab/Test Results: 01/04/19 15:48 Blood Blood Culture - Pending 01/04/19 15:52 Blood Blood Culture - Pending Laboratory Tests Range/Units 01/04/19 01/04/19 15:48 15:48 WBC (4.4-10.8) k/cumm 6.53 RBC (4.00-5.20) m/cumm 3.70 L Hgb (12.0-15.5) g/dL 10.7 L Hct (36.0-46.0) % 36.2 MCV (80-95) fL 97.8 H MCH (27.0-33.0) pg 28.9 MCHC (32.0-36.0) g/dL 29.6 L RDW (11.7-14.6) % 16.4 H Plt Count (130-400) x1000/uL 280 MPV (8.0-11.0) fL 10.2 Immature Gran % 0.2 Neutrophils % 67.4 Lymphocytes % 23.0 Monocytes % 5.8 Eosinophils % 2.8 Basophils % 0.8 Absolute Neutrophils (1.2-6.7) k/cumm 4.41 Absolute Lymphocytes (1.2-3.4) k/cumm 1.50 Absolute Monocytes (0.11-0.7) k/cumm 0.38 Absolute Eosinophils (0.0-0.7) k/cumm 0.18 Absolute Basophils (0.0-0.2) k/cumm 0.05 Lactate (0.6-1.4) mmol/l 1.1
--- NOTE | 2019-01-04 18:37 | W.PM.HP.N ---
Date of service: 01/04/19 Time of Service: 18:38 Assessment and Plan (1) COPD (chronic obstructive pulmonary disease): Current visit: Yes Status: Chronic COPD. Will use as needed albuterol and put her back on baseline Symbicort along with 2 L oxygen. Her cough seems to be somewhat worse than usual and will add oral antibiotics. As to the toe gangrene I will consult podiatry. Patient says she has had no help with Tylenol. She does have a history of upper GI bleeding, possibly alcohol-related, along with gastric bypass, so given the uncertainties I am inclined to avoid NSAIDs in the patient. Will try low dose as needed codeine for the pain if that Tylenol is not sufficient I did review advanced directives with the patient and she wishes to be full code. History of Present Illness Chief Complaint: foot pain Narrative: Patient is a 73-year-old female with end-stage COPD she has been out of her medications for several months now. She comes to the emergency room tonight reporting some 2 months of a painful black toe on the right. She does not recall any specific injury but does say that the heat has intermittently been off at her home. In the emergency room gangrene of the right fourth toe was noted along with O2 saturations in the 70s. The foot was reported to have a dopplerable pulse. She was put back on oxygen with saturations in the 90s. Note that she is usually on 2-1/2 L at home but, again, has been out of her medications, including oxygen. She is admitted for further evaluation and management. Past medical history: COPD, history of gastric bypass, gout, osteoporosis history of alcohol abuse Allergies to chlorpromazine, penicillin, oxycodone Medications not taking any at present Physical exam: Temp 36.6 pulse 73 blood pressure 144/59 respirations 20 O2 sat recorded at 99% on 2 L, during my exam approximately 94%.HEENT of note for poor dentition. Neck supple. Lungs diminished breath sounds but clear. Heart distant but regular rate and rhythm. Abdomen soft nontender. Pelvic and rectal exams deferred. Extremities without edema. Left pedal pulses palpable. The right the pedal pulses are nonpalpable but the foot is warm and capillary refill is less than 5 seconds. The tuft of the right fourth toe is gangrenous Laboratory: White count 6.5 hematocrit 36 platelet 280 sodium 142 potassium 4.6 chloride 104 bicarb 32 BUN 16 creatinine 0.8 glucose 119 chest x-ray shows no acute change, stable cardiomegaly Review of Systems Review of Systems All systems reviewed & are unremarkable except as noted in HPI and below PFSH Medical History Cor athrscl-uns vessel End stage COPD GERD (gastroesophageal reflux disease) GI bleed Marginal ulcer Oxygen dependent Sensorineural hearing loss Spinal stenosis Surgical History EGD - MAC Extraction of cataract (08/28/15) Gastric Bypass (~1989) Family History Mother COPD (chronic obstructive pulmonary disease) Father Diabetes Sister No problems noted. Brother No problems noted. Social History Smoking/Tobacco Use Status: Current every day Meds Home Medications Medication Instructions Recorded Confirmed Type nitroglycerin 0.4 mg SUBLINGUAL PRN PRN #25 07/16/16 01/04/19 History tab-cap Poc 2 l NS continuous during da #2 l 04/30/17 10/07/18 Clinic Shower Seat W/ Back 1 unit MISCELLANEOUS DAILY PRN #1 u 06/18/17 10/07/18 Clinic ondansetron 4 mg SUBLINGUAL Q6H PRN PRN #12 tab 08/30/17 01/04/19 Rx Atorvastatin Calcium 10 mg PO DAILY #90 tab-cap 10/06/17 10/07/18 Clinic diaper,brief,adult,disposable #150 ea 10/06/17 01/04/19 Rx [Depend] Port 02concentrator 0 INHALATION as directed #1 unit 10/26/17 10/07/18 Clinic albuterol sulfate [Proair Hfa] 2 puff INHALATION Q4H PRN #3 12/03/17 01/04/19 Rx inhaler budesonide-formoterol [Symbicort 2 puff INHALATION BID #3 inhaler 12/03/17 01/04/19 Rx 80/4.5 Mcg Inhaler] magnesium oxide 250 mg PO DAILY #90 tab-cap 12/23/17 01/04/19 Rx docusate sodium [Colace] 100 mg PO BID #60 cap 03/04/18 01/04/19 Rx potassium chloride 1 cap PO DAILY #180 tab-cap 07/13/18 01/04/19 Rx pantoprazole 40 mg tablet,delayed 40 mg PO BID #180 tab 09/23/18 01/04/19 Rx release furosemide 40 mg tablet 40 mg PO DAILY #90 tab-cap 10/07/18 01/04/19 Rx Allergies Allergy/AdvReac Type Severity Reaction Status Date / Time chlorpromazine Allergy Severe Skin Rash Unverified 10/07/18 16:16 Penicillins Allergy Severe HIVES Unverified 10/07/18 16:16 oxycodone Allergy Mild RASH/VOMITI Unverified 10/07/18 16:16 NG raspberry Allergy Unknown Unverified 10/07/18 16:16 Exam Narrative Exam Narrative: per HPI Results Labs : 01/04/19 15:48 01/04/19 15:48 Laboratory Results - last 24 hr 01/04/19 01/04/19 01/04/19 15:48 15:48 15:48 WBC 6.53 RBC 3.70 L Hgb 10.7 L Hct 36.2 MCV 97.8 H MCH 28.9 MCHC 29.6 L RDW 16.4 H Plt Count 280 MPV 10.2 Immature Gran % 0.2 Neutrophils % 67.4 Lymphocytes % 23.0 Monocytes % 5.8 Eosinophils % 2.8 Basophils % 0.8 Absolute Neutrophils 4.41 Absolute Lymphocytes 1.50 Absolute Monocytes 0.38 Absolute Eosinophils 0.18 Absolute Basophils 0.05 Sodium 142 Potassium 4.6 Chloride 104 Carbon Dioxide 32.5 H Anion Gap 5.5 BUN 16 Creatinine 0.86 Estimated GFR/1.73 m2 >= 60.00 Glucose 119 H Lactate 1.1 Calcium 8.7 Magnesium 1.9 Total Bilirubin 0.3 AST 17 ALT 13 Alkaline Phosphatase 129 H Troponin I < 0.02 NT-Pro-B Natriuret Pep 1122 H Total Protein 7.6 Albumin 3.2 L Last Vital Signs Temp 36.6 C 01/04/19 15:06 Pulse 73 01/04/19 15:06 Resp 20 01/04/19 17:25 BP 144/59 H 01/04/19 15:06 Pulse Ox 99 01/04/19 15:06
[2019-01-04] MEDS: Budesonide/Formoterol 80/4.5 6.9 GM 60 PUFF INH IH (20:51)
[2019-01-05 07:35] VITALS: BP 148/67; PULSE 71; RESP 20; TEMP 36.1; O2SAT 90
[2019-01-05] MEDS: Acetaminophen 500 MG TAB 1000 MG PO ×2 (07:40→15:46)
[2019-01-05] MEDS: Azithromycin 250 MG TAB PO (07:40)
[2019-01-05 07:52] VITALS: O2SAT 90
[2019-01-05 09:40] VITALS: O2SAT 88
[2019-01-05 09:41] VITALS: O2SAT 95
[2019-01-05] MEDS: Budesonide/Formoterol 80/4.5 6.9 GM 60 PUFF INH IH ×2 (09:41→19:47)
[2019-01-05] MEDS: Albuterol 2.5 MG/3 ML INH SOLN VIAL UPD (09:45)
--- NOTE | 2019-01-05 11:30 | PDOC.CMIN ---
- If Service Date Differs Date of service: 01/05/19 Time of Service: 11:30 Care Management Initial Assess REASON FOR HOSPITALIZATION:: COPD, (R) 4th toe gangrene PAST MEDICAL HISTORY/PAST SURGICAL HISTORY:: Cor athrscl-uns vessel. End stage COPD. GERD (gastroesophageal reflux disease). GI bleed. Marginal ulcer. Oxygen dependent. Sensorineural hearing loss. Spinal stenosis. EGD - MAC. Extraction of cataract (08/28/15). Gastric Bypass (~1989) PREVIOUS FUNCTIONAL STATUS/SOCIAL/FAMILY SUPPORTS:: Lauren is currently residing with her friend Kalen in [facility]. Lauren states that her son Brandon has been residing with Kalen as well, however is currently at . Lauren states that she was recently evicted from her home in [place]. Lauren does not drive and states that she depends on [facility] for transportation. Lauren states that the home that she is currently residing in at times does not have water in the kitchen, is not well kept, and at times has no gas. CURRENT FUNCTIONAL STATUS:: Lauren is sitting up in her chair when this marine underwriter visits this morning. She is pleasant and receptive to discussion. CM discussed the E-Cigarettes in Lauren's room, she is in agreement with these being put in the safe and using nicotine replacement which Dr. Albert will discuss with her. ADVANCE DIRECTIVES:: None on file Has patient been provided with information about the portal?: Yes Did the patient sign up for the portal?: No CODE STATUS:: Full Code INSURANCE COVERAGE / FINANCIAL ISSUES:: Medicare, Medicaid CURRENT HOME/COMMUNITY SERVICES/EQUIPMENT:: Currently Lauren has COA services and her CM is Cassy Taylor. She has oxygen through [employer] (Concentrator), a walker, shower chair, and raised toilet seat. PRIMARY CARE PHYSICIAN:: Susana Apple POTENTIAL DISCHARGE NEEDS:: F/U appointment with PCP. SNF Placement - Lauren is interested in SNF placement - She states that she is very weak and that this is ongoing. PATIENT/FAMILY EDUCATION NEEDS:: Review DC instructions, any limitations, and ongoing DC planning discussion. Discuss 'Ask Me Three' ANTICIPATED BARRIERS TO DISCHARGE:: None identified at this time. TRANSPORTATION:: Via [facility] PLAN:: Lauren is interested in SNF placement and has named [facility] as her choices. Per Elli RN, Dr. Bishop is unavailable until Thursday, CM notified Dr. Albert of this. CM to send referrals to [facility]. [facility] to transport when ready.
--- NOTE | 2019-01-05 11:49 | OT.INIE ---
Occupational Therapy Notes Inpatient Occupational Therapy Evaluation Date: 01/05/19 Referring Doctor:Cherelle Albert MD OT Orders: Eval and Treat Precautions: Fall, standard PATIENT PROFILE/ADMITTING DIAGNOSIS: Pt is a 73 year old female who was admitted through the ER on 01/04/19 for COPD exacerbation, 4th toe necrosis with black discoloration, and non compliance to medication regimen as pt has not been taking medication for 3 months. Past Medical History: Cor arthrscl- uns vessel, end stage COPD, GERD, GI bleed, marginal ulcaer, oxygen dependent, sensorineural hearing loss, spinal stenosis, EGD-MAC, extraction of cataract (2014), gastric bypass (1989), osteoporosis, alcohol abuse. Current Functional Limitations: Decreased strength (B) UE, decreased functional activity tolerance, nasal O2 canal, fall risk. Social History/Home Situation: Pt reports that she is not in a great living situation. She moved in 3 months ago with her boyfriend and her son from her apartment which she reports she lost. She bought this house with her boyfriend but left him 14 years ago and doesn't want to live with him any longer than she has too. She reports that her goal is to get an apartment with her son and that they will live together. She has 5 steps with a single rail to enter, she has multiple steps in her home but doesn't have to go up them. She reports that her son is out of the home at [facility] at this time for a self inflicted gunshot wound and she is just waited for him to get out to pursue an apartment. She reports that her baseline is (I) mobility without assistive device, she baths at the sink (I) she hasn't showered in 4 years except today with nursing which she reports was wonderful. She eats (I) at baseline, she dresses (I), she utilizes [facility] and her son/boyfriend for community mobility and toilets (I). She does not brush her teeth as she reports she only has 2 and she brushes her hair (I) standing at the sink. She has difficulty with socks and would like to get more (I) with this. She has a claw foot bath tub and this limits her (I) in showering as she does not feel safe transferring in and out of tub due to smaller seat in the shower that she reports does not have a lot of stability. Equipment owned/DME: [facility]- pt does not currently utilize SUBJECTIVE: Pt was sitting in chair when OT arrived. She was agreeable to OT consult. OBJECTIVE: General Observation: pleasant, answered questions appropriately Mental Status: A&Ox3 Pain: no c/o pain ROM: RUE AROM WNL L UE AROM WNL STRENGTH: RUE Shoulder flexion 3/5, bicep 3/5, ecosystem ecology professor is weak and symmetrical LUE Shoulder flexion 3/5, bicep 3/5, ecosystem ecology professor is weak and symmetrical BALANCE: Static sitting Normal Dynamic Sitting Normal SPECIAL TESTS: Daily Activity Limitations Standardized Measure [facility] AM -PAC ?6 clicks? Daily Activity Inpatient Short Form: Raw score: 21 Standardized score: 44.27 CMS score: 32.79% CMS modifier: CJ INFORMED CONSENT/EDUCATION: Pt instructed in purpose of OT Consult and plan of care. ASSESSMENT: Patient is a 73-year-old female referred to occupational therapy services with diagnosis of COPD exacerbation, 4th toe necrosis with black discoloration, and non compliance to medication regimen as pt has not been taking medication for 3 months.. Patient presents with clinical signs and symptoms consistent with dx, as demonstrated by the following impairment level findings/functional limitations: Decreased strength (B) UE, decreased functional activity tolerance, nasal O2 canal, fall risk. OT recommends that pt go to SNF when medically cleared per MD, pt is in agreement with this to increase her safety during ADL/IADL routines. OT also recommends that pt have shower bench if she returns home and grab bars to increase her (I) in bathing routine as this is a limitation as to why she does not perform showering routine. AMPAC score 21, CMS score 32.79% Patient is assessed as a Moderate 43608 complexity based on the following: History: See Above Examination: See Above Presentation: Evolving Decision Making: AMPAC score 21, CMS score 32.79% GOALS Goals x1 week 1. Dressing- Pt will be able to (I) don and doff socks with sock aid. 2. Bathing- Pt will be able to perform bathing routine standing at sink with progression to ideal transfer into shower with shower bench. PLAN OF CARE/TREATMENT PLAN: 1x/day, 5 days/ week x 1week Initiate Occupational Therapy Services for bathing, dressing, grooming, toileting, eating, transfer training. DISCHARGE RECOMMENDATIONS OT recommends that pt go to SNF when medically cleared per MD. Shower bench that comes out of tub/shower combination to increase pts (I) in showering routine TREATMENT TIME/MINUTES/CODES 10022, 15 minutes (11:35) Mer Ibrahim OTR/L [facility]
--- NOTE | 2019-01-05 11:53 | OTIE_ITS ---
Occupational Therapy Notes Inpatient Occupational Therapy Evaluation Date: 01/05/19 Referring Doctor:Cherelle Albert MD OT Orders: Eval and Treat Precautions: Fall, standard PATIENT PROFILE/ADMITTING DIAGNOSIS: Pt is a 73 year old female who was admitted through the ER on 01/04/19 for COPD exacerbation, 4th toe necrosis with black discoloration, and non compliance to medication regimen as pt has not been taking medication for 3 months. Past Medical History: Cor arthrscl- uns vessel, end stage COPD, GERD, GI bleed, marginal ulcaer, oxygen dependent, sensorineural hearing loss, spinal stenosis, EGD-MAC, extraction of cataract (2014), gastric bypass (1989), osteoporosis, alcohol abuse. Current Functional Limitations: Decreased strength (B) UE, decreased functional activity tolerance, nasal O2 canal, fall risk. Social History/Home Situation: Pt reports that she is not in a great living situation. She moved in 3 months ago with her boyfriend and her son from her apartment which she reports she lost. She bought this house with her boyfriend but left him 14 years ago and doesn't want to live with him any longer than she has too. She reports that her goal is to get an apartment with her son and that they will live together. She has 5 steps with a single rail to enter, she has multiple steps in her home but doesn't have to go up them. She reports that her son is out of the home at [facility] at this time for a self inflicted gunshot wound and she is just waited for him to get out to pursue an apartment. She reports that her baseline is (I) mobility without assistive device, she baths at the sink (I) she hasn't showered in 4 years except today with nursing which she reports was wonderful. She eats (I) at baseline, she dresses (I), she utilizes [facility] and her son/boyfriend for community mobility and toilets (I). She does not brush her teeth as she reports she only has 2 and she brushes her hair (I) standing at the sink. She has difficulty with socks and would like to get more (I) with this. She has a claw foot bath tub and this limits her (I) in showering as she does not feel safe transferring in and out of tub due to smaller seat in the shower that she reports does not have a lot of stability. Equipment owned/DME: [facility]- pt does not currently utilize SUBJECTIVE: Pt was sitting in chair when OT arrived. She was agreeable to OT consult. OBJECTIVE: General Observation: pleasant, answered questions appropriately Mental Status: A&Ox3 Pain: no c/o pain ROM: RUE AROM WNL L UE AROM WNL STRENGTH: RUE Shoulder flexion 3/5, bicep 3/5, ornamental metal fabricator apprentice is weak and symmetrical LUE Shoulder flexion 3/5, bicep 3/5, ornamental metal fabricator apprentice is weak and symmetrical BALANCE: Static sitting Normal Dynamic Sitting Normal SPECIAL TESTS: Daily Activity Limitations Standardized Measure [facility] AM -PAC ?6 clicks? Daily Activity Inpatient Short Form: Raw score: 21 Standardized score: 44.27 CMS score: 32.79% CMS modifier: CJ INFORMED CONSENT/EDUCATION: Pt instructed in purpose of OT Consult and plan of care. ASSESSMENT: Patient is a 73-year-old female referred to occupational therapy services with diagnosis of COPD exacerbation, 4th toe necrosis with black discoloration, and non compliance to medication regimen as pt has not been taking medication for 3 months.. Patient presents with clinical signs and symptoms consistent with dx, as demonstrated by the following impairment level findings/functional limitations: Decreased strength (B) UE, decreased functional activity tolerance, nasal O2 canal, fall risk. OT recommends that pt go to SNF when medically cleared per MD, pt is in agreement with this to increase her safety during ADL/IADL routines. OT also recommends that pt have shower bench if she returns home and grab bars to increase her (I) in bathing routine as this is a limitation as to why she does not perform showering routine. AMPAC score 21, CMS score 32.79% Patient is assessed as a Moderate 24108 complexity based on the following: History: See Above Examination: See Above Presentation: Evolving Decision Making: AMPAC score 21, CMS score 32.79% GOALS Goals x1 week 1. Dressing- Pt will be able to (I) don and doff socks with sock aid. 2. Bathing- Pt will be able to perform bathing routine standing at sink with progression to ideal transfer into shower with shower bench. PLAN OF CARE/TREATMENT PLAN: 1x/day, 5 days/ week x 1week Initiate Occupational Therapy Services for bathing, dressing, grooming, toileting, eating, transfer training. DISCHARGE RECOMMENDATIONS OT recommends that pt go to SNF when medically cleared per MD. Shower bench that comes out of tub/shower combination to increase pts (I) in showering routine TREATMENT TIME/MINUTES/CODES 58631, 15 minutes (11:35) Mer Ibrahim OTR/L [facility]
--- NOTE | 2019-01-05 13:15 | INITIAL_ITS ---
- If Service Date Differs Date of service: 01/05/19 Time of Service: 11:30 Care Management Initial Assess REASON FOR HOSPITALIZATION:: COPD, (R) 4th toe gangrene PAST MEDICAL HISTORY/PAST SURGICAL HISTORY:: Cor athrscl-uns vessel. End stage COPD. GERD (gastroesophageal reflux disease). GI bleed. Marginal ulcer. Oxygen dependent. Sensorineural hearing loss. Spinal stenosis. EGD - MAC. Extraction of cataract (08/28/15). Gastric Bypass (~1989) PREVIOUS FUNCTIONAL STATUS/SOCIAL/FAMILY SUPPORTS:: Lauren is currently residing with her friend Kalen in [facility]. Lauren states that her son Brandon has been residing with Kalen as well, however is currently at . Lauren states that she was recently evicted from her home in [place]. Lauren does not drive and states that she depends on [facility] for transportation. Lauren states that the home that she is currently residing in at times does not have water in the kitchen, is not well kept, and at times has no gas. CURRENT FUNCTIONAL STATUS:: Lauren is sitting up in her chair when this securities underwriter visits this morning. She is pleasant and receptive to discussion. CM discussed the E-Cigarettes in Lauren's room, she is in agreement with these being put in the safe and using nicotine replacement which Dr. Albert will discuss with her. ADVANCE DIRECTIVES:: None on file Has patient been provided with information about the portal?: Yes Did the patient sign up for the portal?: No CODE STATUS:: Full Code INSURANCE COVERAGE / FINANCIAL ISSUES:: Medicare, Medicaid CURRENT HOME/COMMUNITY SERVICES/EQUIPMENT:: Currently Lauren has COA services and her CM is Cassy Taylor. She has oxygen through [employer] (Concentrator), a walker, shower chair, and raised toilet seat. PRIMARY CARE PHYSICIAN:: Susana Apple POTENTIAL DISCHARGE NEEDS:: F/U appointment with PCP. SNF Placement - Lauren is interested in SNF placement - She states that she is very weak and that this is ongoing. PATIENT/FAMILY EDUCATION NEEDS:: Review DC instructions, any limitations, and ongoing DC planning discussion. Discuss 'Ask Me Three' ANTICIPATED BARRIERS TO DISCHARGE:: None identified at this time. TRANSPORTATION:: Via [facility] PLAN:: Lauren is interested in SNF placement and has named [facility] as her choices. Per Elli RN, Dr. Bishop is unavailable until Thursday, CM notifi ed Dr. Albert of this. CM to send referrals to [facility] for SNF. [facility] to transport when ready.
--- NOTE | 2019-01-05 13:32 | PT.INIE ---
Date of service: 01/05/19 Time of Service: 13:00 PT Notes Inpatient Physical Therapy Evaluation Date: 01/05/19 Referring Doctor:Cherelle Albert MD OT Orders: Eval and Treat Precautions: Fall, standard PATIENT PROFILE/ADMITTING DIAGNOSIS: Pt is a 73 year old female who was admitted through the ER on 01/04/19 for COPD exacerbation, 4th toe necrosis with black discoloration, and non compliance with medication regimen. Past Medical History: end stage COPD, GERD, GI bleed, marginal ulcaer, oxygen dependent, sensorineural hearing loss, spinal stenosis, EGD-MAC, extraction of cataract (2014), gastric bypass (1989), osteoporosis, alcohol abuse. Social History/Home Situation: Pt reports a complicated home situation. States that she recently lost her apartment, and has been staying with an ex-boyfriend. She is hoping to get an apartment with her son when she returns home. In her current living situation she does have multiple steps to enter the home. She states that she is extremely sedentary, and walks only to go to the bathroom or get food. She sometimes uses a walker or cane. She does have home supplemental oxygen, although states that she prefers not to use this as she continues to smoke. Equipment owned/DME: [facility] and cane, which patient reports she uses sometimes SUBJECTIVE: Pt was sitting in chair when PT arrived. She was agreeable to PT consult. Objective: General Observation: Resting in chair, with supplemental oxygen via nasal cannula. No additional lines. Mental Status: A and O x3 Pain: Patient reports right foot pain Vital Signs: Resting SaO2 on 1 L supplemental oxygen is 89%. Post ambulation she is a 87%, with significant PRATHER. ROM: Right Upper Extremity: WFL Left Upper Extremity: WFL Right Lower Extremity: WFL Left Lower Extremity: WFL Strength: Right Upper Extremity: Shoulder flexion 3+/5. Biceps 3+/5. Triceps 3+/5. Road Grader Operator is weak but equal. Left Upper Extremity: Shoulder flexion 3+/5. Biceps 3+/5. Triceps 3+/5. Road Grader Operator is weak but equal. Right Lower Extremity: Hip Flexion 3-/5. Quads 3+/5. Ankle dorsiflexion 3/5 or greater Left Lower Extremity: Hip Flexion 3-/5. Quads 3+/5. Ankle dorsiflexion 3/5 or greater Bed Mobility/Transfers: Stand: Supervision Stand to sit: Supervision Bed to chair: Contact-guard with FW W, with patient requiring max cues for technique and safety. Gait: Patient ambulates 30 feet with FW W, contact-guard, max cues for safety and assistance for management of O2 lines. Balance: Static Sitting: Normal Dynamic Sitting: good Static Standing: Fair Dynamic Standing: Fair Special Tests: Mobility Limitations Standardized Measure [facility] AM-PAC 6 clicks Basic Mobility Inpatient Short Form: Raw Score: 20 CMS Score: 36% deficit Informed Consent/Education: Patient instructed in purpose of PT consult and plan of care. Treatment: Today's session consisted of evaluation, followed by introduction of therapeutic exercise program. Patient's oxygen saturation was closely monitored throughout, with requirement of frequent breaks for pursed lip breathing due to dropping O2 saturations. Please see flow sheet for full program. Assessment: Patient is a 73 year old female referred to physical therapy services with the diagnosis of COPD exacerbation. Patient presents with clinical signs and symptoms consistent with diagnosis, as demonstrated by the following impairment level findings: 1. Decreased upper extremity strength 2. Decreased lower extremity strength 3. Decreased activity tolerance 4. Decreased safety awareness Impairments are contributing to the following functional limitations: 1. High fall risk 2. Unable to tolerate household distance ambulation due to oxygen desaturation 3. Decreased safety with transfers 4. Unable to manage stairs due to limitations in activity tolerance Patient is assessed as moderate complexity (91495) based on the following: History: 73-year-old female admitted for COPD exacerbation. Patient is a comp located medical history including recently identified necrosis in the fourth digit of the right foot. She is also been historically noncompliant with medications and supplemental oxygen use, and has a complicated social history, with no firm plan for discharge. Examination: Functional limitations as noted above Presentation: Unstable Decision Making: Moderate complexity Goals: Goals X1 week 1. Supine-Sit: Supervision 2. Sit-Supine : Supervision 3. Sit-Stand : Supervision 4. Stand-Sit : Supervision 5. Bed-Chair : Supervision with FWW 6. Chair-Bed : Supervision with FWW 7. Gait : Patient able to tolerate supervised ambulation with FW W times 50 feet Plan of Care/Treatment Plan: 1-2x/day, 7 days/week x 1 week. Plan of care has been reviewed with the RECEIVING DOCK CHECKER providing the service under Physical Therapy direction. Initiate Physical Therapy intervention for strengthening, bed mobility, transfers, gait, stairs, balance training, use of assistive device. DISCHARGE RECOMMENDATIONS: Anticipate need for transition to retirement facility due to patient's severe limitations in strength and activity tolerance. No equipment needs anticipated. TREATMENT CODE/TIME: 20 minutes ([id number])
--- NOTE | 2019-01-05 13:44 | IN_ITS ---
Date of service: 01/05/19 Time of Service: 13:00 PT Notes Inpatient Physical Therapy Evaluation Date: 01/05/19 Referring Doctor:Cherelle Albert MD OT Orders: Eval and Treat Precautions: Fall, standard PATIENT PROFILE/ADMITTING DIAGNOSIS: Pt is a 73 year old female who was admitted through the ER on 01/04/19 for COPD exacerbation, 4th toe necrosis with black discoloration, and non compliance with medication regimen. Past Medical History: end stage COPD, GERD, GI bleed, marginal ulcaer, oxygen dependent, sensorineural hearing loss, spinal stenosis, EGD-MAC, extraction of cataract (2014), gastric bypass (1989), osteoporosis, alcohol abuse. Social History/Home Situation: Pt reports a complicated home situation. States that she recently lost her apartment, and has been staying with an ex-boyfriend. She is hoping to get an apartment with her son when she returns home. In her current living situation she does have multiple steps to enter the home. She states that she is extremely sedentary, and walks only to go to the bathroom or get food. She sometimes uses a walker or cane. She does have home supplemental oxygen, although states that she prefers not to use this as she continues to smoke. Equipment owned/DME: FWW and cane, which patient reports she uses sometimes SUBJECTIVE: Pt was sitting in chair when PT arrived. She was agreeable to PT consult. Objective: General Observation: Resting in chair, with supplemental oxygen via nasal cannula. No additional lines. Mental Status: A and O x3 Pain: Patient reports right foot pain Vital Signs: Resting SaO2 on 1 L supplemental oxygen is 89%. Post ambulation she is a 87%, with significant PRATHER. ROM: Right Upper Extremity: WFL Left Upper Extremity: WFL Right Lower Extremity: WFL Left Lower Extremity: WFL Strength: Right Upper Extremity: Shoulder flexion 3+/5. Biceps 3+/5. Triceps 3+/5. Curtain Cleaner is weak but equal. Left Upper Extremity: Shoulder flexion 3+/5. Biceps 3+/5. Triceps 3+/5. Curtain Cleaner is weak but equal. Right Lower Extremity: Hip Flexion 3-/5. Quads 3+/5. Ankle dorsiflexion 3/5 or greater Left Lower Extremity: Hip Flexion 3-/5. Quads 3+/5. Ankle dorsiflexion 3/5 or greater Bed Mobility/Transfers: Stand: Supervision Stand to sit: Supervision Bed to chair: Contact-guard with FW W, with patient requiring max cues for technique and safety. Gait: Patient ambulates 30 feet with FW W, contact-guard, max cues for safety and assistance for management of O2 lines. Balance: Static Sitting: Normal Dynamic Sitting: good Static Standing: Fair Dynamic Standing: Fair Special Tests: Mobility Limitations Standardized Measure [facility] AM-PAC 6 clicks Basic Mobility Inpatient Short Form: Raw Score: 20 CMS Score: 36% deficit Informed Consent/Education: Patient instructed in purpose of PT consult and plan of care. Treatment: Today's session consisted of evaluation, followed by introduction of therapeutic exercise program. Patient's oxygen saturation was closely monitored throughout, with requirement of frequent breaks for pursed lip breathing due to dropping O2 saturations. Please see flow sheet for full program. Assessment: Patient is a 73 year old female referred to physical therapy services with the diagnosis of COPD exacerbation. Patient presents with clinical signs and symptoms consistent with diagnosis, as demonstrated by the following impairment level findings: 1. Decreased upper extremity strength 2. Decreased lower extremity strength 3. Decreased activity tolerance 4. Decreased safety awareness Impairments are contributing to the following functional limitations: 1. High fall risk 2. Unable to tolerate household distance ambulation due to oxygen desaturation 3. Decreased safety with transfers 4. Unable to manage stairs due to limitations in activity tolerance Patient is assessed as moderate complexity (83507) based on the following: History: 73-year-old female admitted for COPD exacerbation. Patient is a comp located medical history including recently identified necrosis in the fourth digit of the right foot. She is also been historically noncompliant with medications and supplemental oxygen use, and has a complicated social history, with no firm plan for discharge. Examination: Functional limitations as noted above Presentation: Unstable Decision Making: Moderate complexity Goals: Goals X1 week 1. Supine-Sit: Supervision 2. Sit-Supine : Supervision 3. Sit-Stand : Supervision 4. Stand-Sit : Supervision 5. Bed-Chair : Supervision with FWW 6. Chair-Bed : Supervision with FWW 7. Gait : Patient able to tolerate supervised ambulation with FW W times 50 feet Plan of Care/Treatment Plan: 1-2x/day, 7 days/week x 1 week. Plan of care has been reviewed with the PATIENT RELATIONS LIAISON providing the service under Physical Therapy direction. Initiate Physical Therapy intervention for strengthening, bed mobility, transfers, gait, stairs, balance training, use of assistive device. DISCHARGE RECOMMENDATIONS: Anticipate need for transition to longterm facility due to patient's severe limitations in strength and activity tolerance. No equipment needs anticipated. TREATMENT CODE/TIME: 20 minutes (02260)
[2019-01-05 15:47] VITALS: BP 108/65; PULSE 77; RESP 16; TEMP 36.9; O2SAT 94
--- NOTE | 2019-01-05 17:47 | PGE_ITS ---
Date of Service Date of service: 01/05/19 Time of Service: 15:00 Assessment and Plan (1) Acute exacerbation of chronic obstructive pulmonary disease (COPD): Current visit: Yes Status: Acute Continue azithromycin. I scheduled nebs, added PO steroids. Supplement O2. (2) Gangrene due to peripheral vascular disease: Current visit: Yes Status: Acute Obtain BHASKAR's. Will consult ortho in am. Patient advised that smoking is a big component of PAD which she clinically has. (3) Tobacco abuse: Current visit: Yes Status: Chronic Cessation advised. Nicotine patch + nicotrol inhaler ordered. (4) Macrocytic anemia: Current visit: Yes Status: Chronic Obtain anemia studies (5) Ambulatory dysfunction: Current visit: Yes Status: Acute PT/OT consults Recommend rehab on discharge (6) Discharge planning issues: Current visit: Yes Status: Acute Difficult living arrangement. Patient is recommended to go to rehab on discharge. (7) DVT prophylaxis: Current visit: Yes Status: Acute Lovenox - but checking hematest stool as well as patient has a history of a gastric ulcer. (8) History of GI bleed: Current visit: Yes Status: Chronic PPI Check hematest stool. Low threshold for d/c'ing lovenox Subjective Interval history since last seen: The patient states she understands that Dr Bishop of Podiatry is not here until Thursday, but that she does not want to see the orthopedist who is soa integration developer today for her gangrenous toe. She states her breathing is better. Cough has been productive of white sputum x 3 days. Denies dizziness, chest pain, nausea, vomiting. Exam Narrative Exam Narrative: General: elderly female, sitting in a chair, hard of hearing HEENT: EOMI, MMM Heart: RRR, no m/r/g Lungs: quiet wheezing on auscultation B, diminished GI: abdomen is soft, nontender, nondistended Extremities: trace pedal pulses B; both feet are warm. R 4th toe with distal phalanx gangrene Objective Objective Clinical Data: Vital Signs Temperature 36.9 C 01/05/19 15:47 Temperature Source Tympanic 01/05/19 15:47 Pulse 77 01/05/19 15:47 Pulse Rhythm Regular 01/05/19 16:59 Pulse 83 01/04/19 19:31 Respiratory Rate 16 01/05/19 15:47 Respiratory Effort 01/05/19 16:59 Respiratory Depth Normal 01/05/19 16:59 Respiratory Pattern Normal 01/05/19 16:59 Blood Pressure 108/65 01/05/19 15:47 Blood Pressure Mean 74 01/04/19 19:31 Blood Pressure Position Sitting 01/04/19 15:06 Pulse Oximetry 94 L 01/05/19 15:47 Oxygen Delivery Method Nasal Cannula 01/05/19 15:47 Oxygen Flow Rate 1 01/05/19 15:47 Pain Level 6 01/05/19 15:46 Intake & Output 01/04/19 01/05/19 01/05/19 23:59 11:59 23:59 Intake Total 250 / 250 240 / 480 240 / 480 Output Total 200 / 200 Balance 250 / 250 240 / 280 40 / 280 Weight 59.7 kg Intake: IV 250 / 250 Oral 240 / 480 240 / 480 Output: Urine 200 / 200 Other: Urine Color Yellow Yellow Urine Appearance Clear Urine Odor Normal Voiding Methods Incontinent Bedside Commode Laboratory Results WBC 6.53 k/cumm (4.4-10.8) 01/04/19 15:48 RBC 3.70 m/cumm (4.00-5.20) L 01/04/19 15:48 Hgb 10.7 g/dL (12.0-15.5) L 01/04/19 15:48 Hct 36.2 % (36.0-46.0) 01/04/19 15:48 MCV 97.8 fL (80-95) H 01/04/19 15:48 MCH 28.9 pg (27.0-33.0) 01/04/19 15:48 MCHC 29.6 g/dL (32.0-36.0) L 01/04/19 15:48 RDW 16.4 % (11.7-14.6) H 01/04/19 15:48 Plt Count 280 x1000/uL (130-400) 01/04/19 15:48 MPV 10.2 fL (8.0-11.0) 01/04/19 15:48 Immature Gran % 0.2 01/04/19 15:48 Neutrophils % 67.4 01/04/19 15:48 Lymphocytes % 23.0 01/04/19 15:48 Monocytes % 5.8 01/04/19 15:48 Eosinophils % 2.8 01/04/19 15:48 Basophils % 0.8 01/04/19 15:48 Absolute Neutrophils 4.41 k/cumm (1.2-6.7) 01/04/19 15:48 Absolute Lymphocytes 1.50 k/cumm (1.2-3.4) 01/04/19 15:48 Absolute Monocytes 0.38 k/cumm (0.11-0.7) 01/04/19 15:48 Absolute Eosinophils 0.18 k/cumm (0.0-0.7) 01/04/19 15:48 Absolute Basophils 0.05 k/cumm (0.0-0.2) 01/04/19 15:48 Sodium 142 mmol/L (136-145) 01/04/19 15:48 Potassium 4.6 mmol/L (3.5-5.1) 01/04/19 15:48 Chloride 104 mmol/L (98-107) 01/04/19 15:48 Carbon Dioxide 32.5 mmol/L (21.0-32.0) H 01/04/19 15:48 Anion Gap 5.5 mmol/L (3-11) 01/04/19 15:48 BUN 16 mg/dL (7-18) 01/04/19 15:48 Creatinine 0.86 mg/dL (0.55-1.02) 01/04/19 15:48 Estimated GFR/1.73 m2 >= 60.00 (mL/min/1.73m2) 01/04/19 15:48 Glucose 119 mg/dL (70-100) H 01/04/19 15:48 Lactate 1.1 mmol/l (0.6-1.4) 01/04/19 15:48 Calcium 8.7 mg/dL (8.5-10.1) 01/04/19 15:48 Magnesium 1.9 mg/dL (1.8-2.4) 01/04/19 15:48 Total Bilirubin 0.3 mg/dL (0.2-1.0) 01/04/19 15:48 AST 17 U/L (15-37) 01/04/19 15:48 ALT 13 U/L (12-78) 01/04/19 15:48 Alkaline Phosphatase 129 U/L (46-116) H 01/04/19 15:48 Troponin I < 0.02 ng/mL (0.00-0.06) 01/04/19 15:48 NT-Pro-B Natriuret Pep 1122 pg/mL (-299) H 01/04/19 15:48 Total Protein 7.6 g/dL (6.4-8.2) 01/04/19 15:48 Albumin 3.2 g/dL (3.4-5.0) L 01/04/19 15:48
[2019-01-05] MEDS: Nicotine 21 MG/24 HR PATCH TD (18:27)
[2019-01-05] MEDS: predniSONE 20 MG TAB 40 MG PO (18:55)
[2019-01-05] MEDS: Normal Saline Flush 10 ML SYR IVP (18:55)
[2019-01-05] MEDS: Thiamine 100 MG TAB PO (19:48)
[2019-01-05] MEDS: Docusate Sodium 100 MG CAP PO (19:48)
[2019-01-05 22:49] VITALS: BP 121/68; PULSE 72; RESP 19; TEMP 36; O2SAT 94
--- NOTE | 2019-01-06 04:46 | NUR.NOTE ---
Nursing Note: Patient was medicated for right 4th toe pain with tylenol with codeine and with good relief. She is hard of hearing, slept in short interval, watching TV in so loud sound. Minimal assist to bathroom. Educated on spacer use for puffer but refused , has poor understanding. Stated that I have that at home but I threw it away as if I'm not getting or benefit with it Voiding in large amount of pale urine. Bed alarm in progress.
[2019-01-06 07:22] LABS: Abs Immature Grans 0.01 k/cumm (0.0-0.09); Absolute Basophil Count 0.01 k/cumm (0.0-0.2); Absolute Lymphocyte Count 0.51 k/cumm (1.2-3.4); Absolute Monocyte Count 0.07 k/cumm (0.11-0.7); Basophils % 0.1; HCT 34.1 % (36.0-46.0); HGB 9.9 g/dL (12.0-15.5); Immature Grans % 0.1; Lymphocytes % 7.6; Mean Corpuscular Hemoglobin 28.7 pg (27.0-33.0); Mean Corpuscular Volume 98.8 fL (80-95); Mean Platelet Volume 10.5 fL (8.0-11.0); Neutrophils % 91.2; Platelet Count 251 x1000/uL (130-400); RBC 3.45 m/cumm (4.00-5.20); RBC Distribution Width 16.2 % (11.7-14.6)
[2019-01-06 07:30] VITALS: BP 159/64; PULSE 59; RESP 18; TEMP 36.3; O2SAT 95
[2019-01-06 07:40] LABS: Anion Gap 4.7 mmol/L (3-11); BUN 27 mg/dL (7-18); CO2 33.3 mmol/L (21.0-32.0); CREATININE 0.92 mg/dL (0.55-1.02); Calcium 8.9 mg/dL (8.5-10.1); Chloride 105 mmol/L (98-107); Cholesterol 184 mg/dL (50-200); Glucose 130 mg/dL (70-100); HDL Cholesterol 56 mg/dL (40-60); LDL CHOLESTEROL 115 mg/dL (<100); Potassium 5.2 mmol/L (3.5-5.1); Sodium 143 mmol/L (136-145); Triglyceride 58 mg/dL (30-150)
[2019-01-06 07:56] LABS: Iron 22 ug/dL (50-175); Total Iron Binding Capacity 333 ug/dL (250-450); Transferrin Sat 7 % (15-50)
[2019-01-06 08:06] LABS: Ferritin 10 ng/mL (8-388); Folate 9.3 ng/mL (8.6-20.0); Vitamin B12 305 pg/mL (193-986)
[2019-01-06] MEDS: predniSONE 20 MG TAB 40 MG PO (08:13)
[2019-01-06] MEDS: Nicotine 21 MG/24 HR PATCH TD (08:13)
[2019-01-06] MEDS: Enoxaparin 40 MG/0.4 ML SYR SC (08:14)
[2019-01-06] MEDS: Docusate Sodium 100 MG CAP PO ×2 (08:14→19:39)
[2019-01-06] MEDS: Aspirin 81 MG CHEW PO (08:14)
[2019-01-06] MEDS: Azithromycin 250 MG TAB PO (08:14)
[2019-01-06] MEDS: Acetaminophen 500 MG TAB 1000 MG PO ×2 (08:14→18:28)
[2019-01-06] MEDS: Thiamine 100 MG TAB PO (08:14)
[2019-01-06] MEDS: Pantoprazole 40 MG TABCR PO (08:14)
[2019-01-06] MEDS: Multivitamin TAB 1 TAB PO (08:14)
[2019-01-06] MEDS: Albuterol 2.5 MG/3 ML INH SOLN VIAL UPD (09:44)
[2019-01-06 09:45] VITALS: O2SAT 94
[2019-01-06] MEDS: Budesonide/Formoterol 80/4.5 6.9 GM 60 PUFF INH IH ×2 (09:46→19:30)
--- NOTE | 2019-01-06 11:16 | OT.INTREAT ---
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 She was agreeable to OT session. OBJECTIVE: PAIN:c/o pain in toe which she reports is just painful all the time. FUNCTIONAL MOBILITY with nasal canal O2 Sit-stand: S, FWW Stand-sit: S, FWW Bathroom-Chair: S, FWW Chair-Bathroom: S, FWW BATHING: Standing at sink with FWW Upper Body: (I) washing face, (B) UE and abdomen with min vc for weight shifting and using FWW for support Lower Body: (I) upper thighs, pt reports that she does not need to wash LE as she was washed up yesterday and she hasn't done anything to make her dirty. DRESSING: Standing at sink with FWW Upper Extremity: (I) don and doffing hospital gown. Lower Extremity: Sitting in chair (I) don and doff (B) socks GROOMING: Standing at sink with FWW (I) brushing hair. TOILETING: Device: Toilet Assist: S for functional mobility, (I) toileting hygiene. ASSESSMENT: Pt is demonstrating increased functional activity tolerance and (I) in ADLs/IADLs. She does require vc for use of FWW during ADLs. Pt would benefit from continued skilled OT intervention for progression of bathing routine with good technique for transferring to increase pts (I) in home setting. PLAN: Work with pt on transfer techniques into tub/shower combination to increase pts (I) in bathing routine. TREATMENT CODES/TIME: [id number], 20 minutes (10:20) Mer Ibrahim OTR/[facility]
--- NOTE | 2019-01-06 11:25 | OTTR_ITS ---
Date of service: 01/06/19 Time of Service: 10:20 Occupational Therapy Notes Occupational Therapy Inpatient Treatment Note Date: 01/06/19 PRECAUTIONS: standard, fall SUBJECTIVE: Pt was working with [employer]ODU[employer] DISTRICT SUPERVISOR when OT arrived. She was agreeable to OT session. OBJECTIVE: PAIN:c/o pain in toe which she reports is just painful all the time. FUNCTIONAL MOBILITY with nasal canal O2 Sit-stand: S, FWW Stand-sit: S, FWW Bathroom-Chair: S, FWW Chair-Bathroom: S, FWW BATHING: Standing at sink with FWW Upper Body: (I) washing face, (B) UE and abdomen with min vc for weight shifting and using FWW for support Lower Body: (I) upper thighs, pt reports that she does not need to wash LE as she was washed up yesterday and she hasn't done anything to make her dirty. DRESSING: Standing at sink with FWW Upper Extremity: (I) don and doffing hospital gown. Lower Extremity: Sitting in chair (I) don and doff (B) socks GROOMING: Standing at sink with FWW (I) brushing hair. TOILETING: Device: Toilet Assist: S for functional mobility, (I) toileting hygiene. ASSESSMENT: Pt is demonstrating increased functional activity tolerance and (I) in ADLs/IADLs. She does require vc for use of FWW during ADLs. Pt would benefit from continued skilled OT intervention for progression of bathing routine with good technique for transferring to increase pts (I) in home setting. PLAN: Work with pt on transfer techniques into tub/shower combination to increase pts (I) in bathing routine. TREATMENT CODES/TIME: [id number], 20 minutes (10:20) Mer Ibrahim OTR/[facility]
[2019-01-06 11:40] VITALS: BP 140/62; PULSE 66; RESP 18; TEMP 36.4; O2SAT 94
--- NOTE | 2019-01-06 12:00 | PHARADMIT ---
Admission Pharmacy Clinical Review COPD, TOE GANGRENE Code Status Full Code Current Weight Wgt-59.7 kg Renally Cleared and Narrow Therapeutic Index Meds CrCl~ 39.7 mL/min Meds-OK QTc Value / Action Taken QYc-465 BP Control, Fever BP-159/64 Tmax- 36.7C Electrolytes reviewed Na- 143 K+5.2 Mag- 2.0 DVT Prophylaxis ASA, Opiate Usage / Scheduled Bowel Regimen Ordered Yes Yes Plt/SCr for Heparin / Enoxaparin Plts-251 SCr-0.92 INR for Warfarin na H/H stable, WBC/Bands H&H- 9.9/34.1 WBC- 6.70 Antibiotic appropriateness Azithromycin, Cultures and Sensitivities Blood-No Growth Surgical ABX d/c within 24 hr na DM control / Insulin Dosing BG-130 Heart Failure (Check EF%) (HOLLIS's, B-Block, Diuretics) none IV to PO Switch No Home Meds Reviewed Yes Home Meds Not Ordered Lipitor,Lasix, Vit-D, MagOx,Mirtazapine, NTG, Zofran, kcl, Comments
--- NOTE | 2019-01-06 12:46 | PDOC.CMPRO ---
- If Service Date Differs Date of service: 01/06/19 Time of Service: 12:46 Care Management Progress Note S/O: Lauren is sitting up in her chair when this technical report writer visits this morning. Lauren states that she is doing okay. She reports that her friend Kalen is purchasing a laptop for her today and that he will be bringing it in for her to use at the hospital. Lauren has a patient laptop in her room, and states that it is old and slow, and that she likes to play pogo games. CM discussed SNF referrals with Lauren, she states that [facility] is her first choice and [facility] her second. CM faxed referrals to both facilities this morning. A: 73 y/o female admitted 01/04/19 for COPD, Toe Gangrene P: Referrals have been sent to [facility] and [facility] today, awaiting response.
--- NOTE | 2019-01-06 14:14 | CMPROGNOTE_ITS ---
- If Service Date Differs Date of service: 01/06/19 Time of Service: 12:46 Care Management Progress Note S/O: Lauren is sitting up in her chair when this conventional mortgage underwriter visits this morning. Lauren states that she is doing okay. She reports that her friend Kalen is purchasing a laptop for her today and that he will be bringing it in for her to use at the hospital. Lauren has a patient laptop in her room, and states that it is old and slow, and that she likes to play pogo games. CM discussed SNF re ferrals with Lauren, she states that [facility] is her first choice and [facility] her second. CM faxed referrals to both facilities this morning. A: 73 y/o female admitted 01/04/19 for COPD, Toe Gangrene P: Referrals have been sent to [facility] and [facility] today, awaiting response.
[2019-01-06 14:34] LABS: Anion Gap 5.1 mmol/L (3-11); BUN 30 mg/dL (7-18); CO2 30.9 mmol/L (21.0-32.0); CREATININE 1.18 mg/dL (0.55-1.02); Calcium 8.7 mg/dL (8.5-10.1); Chloride 103 mmol/L (98-107); Estimated GFR 45.02 (mL/min/1.73m2); Glucose 137 mg/dL (70-100); Potassium 5.1 mmol/L (3.5-5.1); Sodium 139 mmol/L (136-145)
--- NOTE | 2019-01-06 14:59 | CHAPLAIN ---
Dietary staff person, Gertrude Marshall, suggested I visit Lauren today. Lauren tells me that she needs vascular surgery and so she'll be transferred to [facility] later today. Then she'll llikely return to [facility], she said and eventually have a toe amputated, maybe a foot, and this scares her. She won't know the extent of the needed toe or foot surgery until after she has the vascular surgery at [facility]. Lauren said her brother and sister may be able to visit her at [facility], but they both work. She has been passing the time reading, and said at home she reads a book a day. She has borrowed book from the [facility] [email or web address] bookshelves to take with her to [facility]. I offered Lauren a prayer shawl and was able to find a yellow one, the color she requested, and also offered ongoing support.
[2019-01-06 15:30] VITALS: BP 124/71; PULSE 87; RESP 20; TEMP 37; O2SAT 94
--- NOTE | 2019-01-06 15:58 | PT.INTREAT ---
Date of service: 01/06/19 Time of Service: 15:58 PT Notes Inpatient Physical Therapy Treatment Note [facility] Date: 01/06/19 PRECAUTIONS: Fall SUBJECTIVE: Lauren is agreeable to participating in PT today. She is asking to speak with the hospitalist. OBJECTIVE: PAIN: No c/o pain BED MOBILITY/TRANSFERS Sit-stand: S Stand-sit: S GAIT Assistive Device: FWW Weight bearing: Full Assist: SBA Distance: 20' x4 in a.m.; 15 minutes in p.m. Deviation: Cueing for FWW mechanics THEREX: Patient completed a LE strengthening program in a seated position, as per flow sheet. Patient also completed functional squatting exercise as well as forward bending exercise in p.m. ASSESSMENT: Patient tolerated sessions well with some c/o increased fatigue and SOB. She was able to tolerate a progression in gait with FWW support and SBA, requiring cueing for safety with navigating a variety of surfaces with FWW. She would benefit from continued gait training and strengthening for improved activity tolerance. PLAN: Continue with PT's POC TREATMENT CODE/TIME: Session 1: 25 minutes; [id number], [id number] Session 2: 30 minutes; 21039 x2
--- NOTE | 2019-01-06 16:04 | PTTR_ITS ---
Date of service: 01/06/19 Time of Service: 15:58 PT Notes Inpatient Physical Therapy Treatment Note [facility] Date: 01/06/19 PRECAUTIONS: Fall SUBJECTIVE: Lauren is agreeable to participating in PT today. She is asking to speak with the hospitalist. OBJECTIVE: PAIN: No c/o pain BED MOBILITY/TRANSFERS Sit-stand: S Stand-sit: S GAIT Assistive Device: FWW Weight bearing: Full Assist: SBA Distance: 20' x4 in a.m.; 15 minutes in p.m. Deviation: Cueing for FWW mechanics THEREX: Patient completed a LE strengthening program in a seated position, as per flow sheet. Patient also completed functional squatting exercise as well as forward bending exercise in p.m. ASSESSMENT: Patient tolerated sessions well with some c/o increased fatigue and SOB. She was able to tolerate a progression in gait with FWW support and SBA, requiring cueing for safety with navigating a variety of surfaces with FWW. She would benefit from continued gait training and strengthening for improved activity tolerance. PLAN: Continue with PT's POC TREATMENT CODE/TIME: Session 1: 25 minutes; 40172, [id number] Session 2: 30 minutes; 71627 x2
--- NOTE | 2019-01-06 18:22 | W.PM.PROGNOT ---
Date of Service Date of service: 01/06/19 Time of Service: 13:25 Assessment and Plan (1) Acute exacerbation of chronic obstructive pulmonary disease (COPD): Current visit: Yes Status: Acute Continue azithromycin, PO steroids, nebs. (2) Gangrene due to peripheral vascular disease: Current visit: Yes Status: Acute BHASKAR with evidence of PAD, LLE >RLE. I have discussed the case briefly with Dr Faulkner, who feels the patient requires a vascular surgery consult. I have contacted [facility] to request a transfer - the patient is expected to be transferred tomorrow under the care of Dr Bills. Dr Ascencio of vascular surgery will be seing the patient in consult. Start atorvastatin. Continue asa. (3) Tobacco abuse: Current visit: Yes Status: Chronic Cessation advised - the patient states today that she is not having any cravings. Nicotine patch + nicotrol inhaler ordered. (4) Macrocytic anemia: Current visit: Yes Status: Chronic Obtain anemia studies (5) Ambulatory dysfunction: Current visit: Yes Status: Acute PT/OT consults Recommend rehab on discharge (6) Discharge planning issues: Current visit: Yes Status: Acute Difficult living arrangement. Being planned for transfer to [facility] tomorrow. Patient is recommended to go to rehab on discharge. (7) DVT prophylaxis: Current visit: Yes Status: Acute Lovenox d/c'ed due to borderline hyperkalemia. (8) History of GI bleed: Current visit: Yes Status: Chronic PPI Check hematest stool. Lovenox d/c'ed. Subjective Interval history since last seen: Ms Martel states that her R foot hurts - specifically, the 4th toe. She denies dizziness, chest pain, shortness of breath, nausea, vomiting. Her breathing, she feels, is much better. Exam Narrative Exam Narrative: General: elderly female, sitting in a chair, hard of hearing HEENT: EOMI, MMM Heart: RRR, no m/r/g Lungs: quiet wheezing on expiration B, diminished GI: abdomen is soft, nontender, nondistended Extremities: pulses harder to palpate today; both feet are warm. R 4th toe with distal phalanx gangrene Objective Objective Clinical Data: Abnormal lab results 01/06/19 01/06/19 01/06/19 Range/Units 06:45 06:45 06:45 RBC 3.45 L (4.00-5.20) m/cumm Hgb 9.9 L (12.0-15.5) g/dL Hct 34.1 L (36.0-46.0) % MCV 98.8 H (80-95) fL MCHC 29.0 L (32.0-36.0) g/dL RDW 16.2 H (11.7-14.6) % Absolute Lymphocytes 0.51 L (1.2-3.4) k/cumm Absolute Monocytes 0.07 L (0.11-0.7) k/cumm Potassium 5.2 H (3.5-5.1) mmol/L Carbon Dioxide 33.3 H (21.0-32.0) mmol/L BUN 27 H D (7-18) mg/dL Creatinine (0.55-1.02) mg/dL Glucose 130 H (70-100) mg/dL Iron 22 L (50-175) ug/dL Transferrin % Sat 7 L (15-50) % LDL Cholesterol Direct 115 H (<100) mg/dL 01/06/19 Range/Units 13:55 RBC (4.00-5.20) m/cumm Hgb (12.0-15.5) g/dL Hct (36.0-46.0) % MCV (80-95) fL MCHC (32.0-36.0) g/dL RDW (11.7-14.6) % Absolute Lymphocytes (1.2-3.4) k/cumm Absolute Monocytes (0.11-0.7) k/cumm Potassium (3.5-5.1) mmol/L Carbon Dioxide (21.0-32.0) mmol/L BUN 30 H (7-18) mg/dL Creatinine 1.18 H (0.55-1.02) mg/dL Glucose 137 H (70-100) mg/dL Iron (50-175) ug/dL Transferrin % Sat (15-50) % LDL Cholesterol Direct (<100) mg/dL Vital Signs Temperature 37.0 C 01/06/19 15:30 Temperature Source Tympanic 01/06/19 15:30 Pulse 87 01/06/19 15:30 Pulse Rhythm Regular 01/06/19 16:00 Pulse 83 01/04/19 19:31 Respiratory Rate 20 01/06/19 15:30 Respiratory Effort 01/06/19 16:00 Respiratory Depth Normal 01/06/19 16:00 Respiratory Pattern Normal 01/06/19 16:00 Blood Pressure 124/71 01/06/19 15:30 Blood Pressure Mean 74 01/04/19 19:31 Blood Pressure Position Sitting 01/04/19 15:06 Pulse Oximetry 94 L 01/06/19 15:30 Oxygen Delivery Method Nasal Cannula 01/06/19 15:30 Oxygen Flow Rate 2 01/06/19 15:30 Pain Level 3 01/06/19 07:30 Comment Left - PAD 01/05/19 19:08 Intake & Output 01/05/19 01/06/19 01/06/19 23:59 11:59 23:59 Intake Total 480 / 720 1120 / 1480 360 / 1480 Output Total 700 / 700 2500 / 3150 650 / 3150 Balance -220 / 20 -1380 / -1670 -290 / -1670 Intake: Oral 480 / 720 1120 / 1480 360 / 1480 Output: Urine 700 / 700 2500 / 3150 650 / 3150 Other: Urine Color Yellow Yellow Yellow Urine Appearance Clear Clear Clear Urine Odor Normal None None Stool Occult Blood Negative Stool Size Moderate Stool Characteristics Soft Formed Voiding Methods Toilet Toilet Toilet Laboratory Results WBC 6.70 k/cumm (4.4-10.8) 01/06/19 06:45 RBC 3.45 m/cumm (4.00-5.20) L 01/06/19 06:45 Hgb 9.9 g/dL (12.0-15.5) L 01/06/19 06:45 Hct 34.1 % (36.0-46.0) L 01/06/19 06:45 MCV 98.8 fL (80-95) H 01/06/19 06:45 MCH 28.7 pg (27.0-33.0) 01/06/19 06:45 MCHC 29.0 g/dL (32.0-36.0) L 01/06/19 06:45 RDW 16.2 % (11.7-14.6) H 01/06/19 06:45 Plt Count 251 x1000/uL (130-400) 01/06/19 06:45 MPV 10.5 fL (8.0-11.0) 01/06/19 06:45 Immature Gran % 0.1 01/06/19 06:45 Neutrophils % 91.2 01/06/19 06:45 Lymphocytes % 7.6 01/06/19 06:45 Monocytes % 1.0 01/06/19 06:45 Eosinophils % 0.0 01/06/19 06:45 Basophils % 0.1 01/06/19 06:45 Absolute Neutrophils 6.10 k/cumm (1.2-6.7) 01/06/19 06:45 Absolute Lymphocytes 0.51 k/cumm (1.2-3.4) L 01/06/19 06:45 Absolute Monocytes 0.07 k/cumm (0.11-0.7) L 01/06/19 06:45 Absolute Eosinophils 0.00 k/cumm (0.0-0.7) 01/06/19 06:45 Absolute Basophils 0.01 k/cumm (0.0-0.2) 01/06/19 06:45 Sodium 139 mmol/L (136-145) 01/06/19 13:55 Potassium 5.1 mmol/L (3.5-5.1) 01/06/19 13:55 Chloride 103 mmol/L (98-107) 01/06/19 13:55 Carbon Dioxide 30.9 mmol/L (21.0-32.0) 01/06/19 13:55 Anion Gap 5.1 mmol/L (3-11) 01/06/19 13:55 BUN 30 mg/dL (7-18) H 01/06/19 13:55 Creatinine 1.18 mg/dL (0.55-1.02) H 01/06/19 13:55 Estimated GFR/1.73 m2 45.02 (mL/min/1.73m2) 01/06/19 13:55 Glucose 137 mg/dL (70-100) H 01/06/19 13:55 Lactate 1.1 mmol/l (0.6-1.4) 01/04/19 15:48 Calcium 8.7 mg/dL (8.5-10.1) 01/06/19 13:55 Magnesium 2.0 mg/dL (1.8-2.4) 01/06/19 06:45 Iron 22 ug/dL (50-175) L 01/06/19 06:45 TIBC 333 ug/dL (250-450) 01/06/19 06:45 Transferrin % Sat 7 % (15-50) L 01/06/19 06:45 Ferritin 10 ng/mL (8-388) 01/06/19 06:45 Total Bilirubin 0.3 mg/dL (0.2-1.0) 01/04/19 15:48 AST 17 U/L (15-37) 01/04/19 15:48 ALT 13 U/L (12-78) 01/04/19 15:48 Alkaline Phosphatase 129 U/L (46-116) H 01/04/19 15:48 Troponin I < 0.02 ng/mL (0.00-0.06) 01/04/19 15:48 NT-Pro-B Natriuret Pep 1122 pg/mL (-299) H 01/04/19 15:48 Total Protein 7.6 g/dL (6.4-8.2) 01/04/19 15:48 Albumin 3.2 g/dL (3.4-5.0) L 01/04/19 15:48 Triglycerides 58 mg/dL (30-150) 01/06/19 06:45 Total Cholesterol 184 mg/dL (50-200) 01/06/19 06:45 LDL Cholesterol Direct 115 mg/dL (<100) H 01/06/19 06:45 HDL Cholesterol 56 mg/dL (40-60) 01/06/19 06:45 Vitamin B12 305 pg/mL (193-986) 01/06/19 06:45 Folate 9.3 ng/mL (8.6-20.0) 01/06/19 06:45
[2019-01-06] MEDS: Normal Saline Flush 10 ML SYR IVP (18:29)
[2019-01-06 19:32] VITALS: BP 126/54; PULSE 76; RESP 18; TEMP 36.9; O2SAT 95
[2019-01-06] MEDS: Ferrous Sulfate 325 MG TAB PO (19:39)
[2019-01-06] MEDS: Ascorbic Acid 500 MG TAB PO (19:39)
[2019-01-06] MEDS: Atorvastatin 20 MG TAB PO (19:39)
[2019-01-06 23:43] VITALS: BP 143/72; PULSE 87; RESP 18; TEMP 36.4; O2SAT 93
[2019-01-07 03:51] VITALS: BP 119/53; PULSE 72; RESP 18; TEMP 36.4; O2SAT 90
[2019-01-07 08:00] VITALS: BP 154/84; PULSE 61; RESP 18; TEMP 35.8; O2SAT 96
[2019-01-07] MEDS: Multivitamin TAB 1 TAB PO (08:15)
[2019-01-07] MEDS: Ascorbic Acid 500 MG TAB PO (08:15)
[2019-01-07] MEDS: Docusate Sodium 100 MG CAP PO (08:16)
[2019-01-07] MEDS: Azithromycin 250 MG TAB PO (08:16)
[2019-01-07] MEDS: Thiamine 100 MG TAB PO (08:16)
[2019-01-07] MEDS: Ferrous Sulfate 325 MG TAB PO (08:16)
[2019-01-07] MEDS: Cyanocobalamin 500 MCG TAB 1000 MCG PO (08:17)
[2019-01-07] MEDS: predniSONE 20 MG TAB 40 MG PO (08:17)
[2019-01-07] MEDS: Aspirin 81 MG CHEW PO (08:18)
[2019-01-07] MEDS: Pantoprazole 40 MG TABCR PO (08:18)
[2019-01-07] MEDS: Nicotine 21 MG/24 HR PATCH TD (08:20)
[2019-01-07] MEDS: Acetaminophen 500 MG TAB 1000 MG PO (10:32)
[2019-01-07] MEDS: Budesonide/Formoterol 80/4.5 6.9 GM 60 PUFF INH IH (11:03)
[2019-01-07 12:03] VITALS: BP 131/76; PULSE 71; RESP 20; TEMP 37.1; O2SAT 93
--- NOTE | 2019-01-07 13:06 | PT.INTREAT ---
Date of service: 01/07/19 Time of Service: 12:45 PT Notes Inpatient Physical Therapy Treatment Note [facility] Date: 01/07/19 PRECAUTIONS: Fall SUBJECTIVE: Lauren is agreeable to participating in PT today. She states that she is having worsened foot pain after walking, and would like to stay off her leg today. She's currently awaiting transfer to [facility] for vascular surgery consult. OBJECTIVE: GAIT : declines THEREX: Patient completed a LE strengthening program in a seated position, as per flow sheet. She required verbal cues throughout, as well as tactile cues for appropriate upright positioning. Requires rest period x 2 due to PRATHER. ASSESSMENT: Patient tolerated sessions well with some c/o increased fatigue and PRATHER. She's having increased foot pain with WBing activity; will plan to progress cardiovascular activity in NWB positions to reduce stress to her gangrenous foot. PLAN: Continue per established POC TREATMENT CODE/TIME: 20 minutes; 60710
--- NOTE | 2019-01-07 13:10 | PTTR_ITS ---
Date of service: 01/07/19 Time of Service: 12:45 PT Notes Inpatient Physical Therapy Treatment Note [facility] Date: 01/07/19 PRECAUTIONS: Fall SUBJECTIVE: Lauren is agreeable to participating in PT today. She states that she is having worsened foot pain after walking, and would like to stay off her leg today. She's currently awaiting transfer to [facility] for vascular surgery consult. OBJECTIVE: GAIT : declines THEREX: Patient completed a LE strengthening program in a seated position, as per flow sheet. She required verbal cues throughout, as well as tactile cues for appropriate upright positioning. Requires rest period x 2 due to PRATHER. ASSESSMENT: Patient tolerated sessions well with some c/o increased fatigue and PRATHER. She's having increased foot pain with WBing activity; will plan to progress cardiovascular activity in NWB positions to reduce stress to her gangrenous foot. PLAN: Continue per established POC TREATMENT CODE/TIME: 20 minutes; 85740
--- NOTE | 2019-01-07 13:48 | PDOC.CMPRO ---
- If Service Date Differs Date of service: 01/07/19 Time of Service: 13:48 Care Management Progress Note S/O: Lauren is sitting up in her chair when this technical writer and editor visits this morning. Lauren is playing on the laptop in her room. Per Dr. Albert, Lauren has been accepted at [facility] for transfer and we are currently awaiting a bed to become available. also spoke with [facility], today whom states that they could accept Lauren in transport. Discussed with [facility] that Lauren will be transferred to [facility] when a bed becomes available and that [facility] will potentially reach out to [facility] in regards to DC planning. A: 73 y/o female admitted 01/04/19 for COPD, Toe Gangrene P: Lauren will transfer to [facility] once a bed is available. She will transport via ambulance.
--- NOTE | 2019-01-07 14:16 | CMPROGNOTE_ITS ---
- If Service Date Differs Date of service: 01/07/19 Time of Service: 13:48 Care Management Progress Note S/O: Lauren is sitting up in her chair when this verse writer visits this morning. Lauren is playing on the laptop in her room. Per Dr. Albert, Lauren has been accepted at [facility] for transfer and we are currently awaiting a bed to become available. also spoke with [facility], today whom states that they could accept Lauren in transport. Discussed with Campbell that Lauren will be transferred to [facility] when a bed becomes available and that [facility] will potentially reach out to [facility] in regards to DC planning. A: 73 y/o female admitted 01/04/19 for COPD, Toe Gangrene P: Lauren will transfer to [facility] once a bed is available. She will transport via ambulance.
--- NOTE | 2019-01-07 14:28 | CHAPLAIN ---
Lauren was sitting up in her chair, using a laptop, when I visited. She said she is still waiting for a bed to open up at [facility]. She is nervous about having vascular surgery, she said, because she is not sure if it will lead to her having a toe amputated, or possibly a foot. She said her boyfriend complained about Lauren having to go to [facility], but she said she tried to explain to him that the vascular surgeons are at [facility]. The more she is asked about when she is going and how she is feeling, the worse she feels, Lauren said.
[2019-01-07 14:37] LABS: Abs Immature Grans 0.01 k/cumm (0.0-0.09); Absolute Basophil Count 0.01 k/cumm (0.0-0.2); Absolute Eosinophil Count 0.01 k/cumm (0.0-0.7); Absolute Lymphocyte Count 0.53 k/cumm (1.2-3.4); Absolute Monocyte Count 0.04 k/cumm (0.11-0.7); Absolute Neutrophil Count 8.03 k/cumm (1.2-6.7); Basophils % 0.1; Eosinophils % 0.1; HCT 36.3 % (36.0-46.0); HGB 10.7 g/dL (12.0-15.5); Immature Grans % 0.1; Lymphocytes % 6.1; Mean Corp. HGB Concentration 29.5 g/dL (32.0-36.0); Mean Corpuscular Hemoglobin 29.2 pg (27.0-33.0); Mean Corpuscular Volume 98.9 fL (80-95); Mean Platelet Volume 10.2 fL (8.0-11.0); Monocytes % 0.5; Neutrophils % 93.1; Platelet Count 269 x1000/uL (130-400); RBC 3.67 m/cumm (4.00-5.20); RBC Distribution Width 16.1 % (11.7-14.6); White Blood Cell Count 8.63 k/cumm (4.4-10.8)
[2019-01-07 14:38] LABS: Anion Gap 4.6 mmol/L (3-11); BUN 34 mg/dL (7-18); CO2 32.4 mmol/L (21.0-32.0); CREATININE 0.95 mg/dL (0.55-1.02); Calcium 8.6 mg/dL (8.5-10.1); Chloride 105 mmol/L (98-107); Estimated GFR 57.82 (mL/min/1.73m2); Glucose 188 mg/dL (70-100); Potassium 5.2 mmol/L (3.5-5.1); Sodium 142 mmol/L (136-145)
--- NOTE | 2019-01-07 15:31 | PT.INTREAT ---
Date of service: 01/07/19 Time of Service: 10:00 PT Notes Inpatient Physical Therapy Treatment Note [facility] Date: 01/07/19 PRECAUTIONS: Fall SUBJECTIVE: Lauren reports that her R foot is painful this morning. She attributes this to walking too much yesterday. OBJECTIVE: PAIN: Patient c/o R foot pain with weight bearing. BED MOBILITY/TRANSFERS Sit-stand: S Stand-sit: S GAIT Assistive Device: FWW Weight bearing: WBAT on R Assist: SBA Distance: 60' x2 Deviation: Cueing for FWW mechanics THEREX: Patient completed a LE strengthening program in a seated position, as per flow sheet. ASSESSMENT: Patient tolerated session well with complaints of pain in R foot with weight bearing. Patient continues to require cueing for FWW mechanics with gait training for safety. Patient would benefit from continued training as well as strengthening for improved activity tolerance. PLAN: Continue with PT's POC TREATMENT CODE/TIME: 25 minutes; 97649, [id number]
[2019-01-07 16:43] VITALS: BP 150/64; PULSE 78; RESP 20; TEMP 36.9; O2SAT 93
[2019-01-07] MEDS: Normal Saline Flush 10 ML SYR IVP (18:09)
--- NOTE | 2019-01-07 18:18 | W.PM.DS.N ---
Date of service: 01/07/19 Time of Service: 18:18 DS: Diagnosis Discharge Diagnosis (1) Acute exacerbation of chronic obstructive pulmonary disease (COPD): Status: Acute (2) Gangrene due to peripheral vascular disease: Status: Acute (3) Tobacco abuse: Status: Chronic (4) Macrocytic anemia: Status: Chronic (5) Ambulatory dysfunction: Status: Acute (6) History of GI bleed: Status: Chronic Discharge Plan Disposition Patient Disposition: [facility] Condition: Serious Discharge Details Reason For Visit: COPD, TOE GANGRENE Admit Date/Time: 01/04/19 18:51 Admit Provider: Radames Barrientos Attending Provider: Radames Barrinetos Primary Care Provider: Susana Apple Hospital Course Hospital Course: Mr Martel is a 73 year old female with PMHx of oxygen-dependent severe COPD, macrocytic anemia, hyperlipidemia, tobacco abuse, past alcohol abuse (abstinent for at least 1 year) who was admitted to [facility] on 01/04/19 for acute exacerbation of COPD as well as gangrene of her right 4th digit of RLE. The COPD is now near baseline, with patient's O2 sats in low 90's on 2L of O2 by NC and diminished breath sounds. As far as gangrene, BHASKAR's were obtained, results being 0.5 in RLE and <0.5 in LLE. Patient's pedal pulses are very difficult to palpate. She does not appear to be having infection in the toe, but it is quite painful to her. [facility] does not have vascular surgery consultants, and Ms Martel requires vascular surgery evaluation and intervention on this admission. She was accepted in transfer by the hospitalist service at [facility] (Dr Bills) with Dr Ascencio of vascular surgery consulting. Smoking cessation was reinforced on a number of occasions with this patient. We appreciate the help of our [facility] colleagues and wish the patient well! Home Meds and New Rx's Prescriptions: New multivitamin [Multiple Vitamins] Tablet 1 tab PO DAILY Qty: 0 RF: 0 atorvastatin [Lipitor] 20 mg Tablet 20 mg PO QPM Qty: 0 RF: 0 ipratropium-albuterol 0.5 mg-3 mg(2.5 mg base)/3 mL Solution For Nebulization 3 ml UPD Q6H PRN PRNQty: 0 RF: 0 albuterol sulfate 2.5 mg /3 mL (0.083 %) Solution For Nebulization 2.5 mg UPD Q2H PRN PRNQty: 0 RF: 0 azithromycin 250 mg Tablet 250 mg PO DAILY Qty: 0 RF: 0 prednisone 20 mg Tablet 40 mg PO DAILY Qty: 0 RF: 0 acetaminophen-codeine [Tylenol-Codeine #3] 300-30 mg Tablet 1 tab PO Q6H PRN PRNQty: 0 RF: 0 acetaminophen [Mapap Extra Strength] 500 mg Tablet 1,000 mg PO Q8H PRN PRNQty: 0 RF: 0 cyanocobalamin (vitamin B-12) [Vitamin B-12] 500 mcg Tablet 1,000 mcg PO DAILY Qty: 0 RF: 0 ascorbic acid (vitamin C) [Vitamin C] 500 mg Tablet 500 mg PO BID Qty: 0 RF: 0 pantoprazole 40 mg Tablet,Delayed Release (Dr/Ec) 40 mg PO DAILY@0730 Qty: 0 RF: 0 ferrous sulfate 325 mg (65 mg iron) Tablet 325 mg PO BID Qty: 0 RF: 0 docusate sodium [Colace] 100 mg Capsule 100 mg PO BID Qty: 0 RF: 0 aspirin 81 mg Tablet,Chewable 81 mg PO DAILY Qty: 0 RF: 0 thiamine mononitrate (vit B1) [Vitamin B-1 (mononitrate)] 100 mg Tablet 100 mg PO DAILY Qty: 0 RF: 0 Continued furosemide 40 mg tablet 40 mg PO DAILY Qty: 90 RF: 3 nitroglycerin 0.4 MG tablet, sublingual 0.4 mg Sublingual PRN PRNQty: 25 RF: 11 POC 2 l NS continuous during da Qty: 2 RF: 12 shower seat w/ back 1 unit Miscellaneous DAILY PRNQty: 1 RF: 0 Depend Underwear For Women S-M 1 EACH misc 1 ea Miscellaneous QID Qty: 150 RF: 12 port 02concentrator Inhalation as directed Qty: 1 RF: 1 Symbicort 10.2 GM HFA aerosol inhaler 2 puff Inhalation BID Qty: 3 RF: 4 magnesium oxide 250 MG tablet 250 mg PO DAILY Qty: 90 RF: 3 docusate sodium [Colace] 100 MG capsule 100 mg PO BID Qty: 60 RF: 12 pantoprazole 40 mg tablet,delayed release (DR/EC) 40 mg PO BID Qty: 180 RF: 3 ondansetron 4 MG tablet,disintegrating 4 mg Sublingual Q6H PRN PRN (Reason: Nausea / Vomiting) Qty: 12 RF: 0 Discontinued Atorvastatin Calcium 10 MG tablet 10 mg PO DAILY Qty: 90 RF: 3 ProAir HFA 8.5 GM HFA aerosol inhaler 2 puff Inhalation Q4H PRN Qty: 3 RF: 3 potassium chloride 10 MEQ capsule, extended release 1 cap PO DAILY Qty: 180 RF: 3 Discharge Instructions Activity:: Activity as Tolerated Equipment/Supplies:: No Equipment Needed Diet:: Heart Healthy Discharge Orders Discharge Orders: Discharge Order (Routine); Ordered 01/07/19 Ordered By: Cherelle Albert Exam Narrative Exam Narrative: General: elderly female, sitting in a chair, hard of hearing HEENT: EOMI, MMM Heart: RRR, no m/r/g Lungs: Diminished breath sounds B GI: abdomen is soft, nontender, nondistended Extremities: pedal pulses are difficult to appreciate; both feet are warm. R 4th toe with distal phalanx gangrene DS: Data Vitals/I&O Vitals and I&O: Vital Signs Temperature 36.9 C 01/07/19 16:43 Temperature Source Tympanic 01/07/19 16:43 Pulse 78 01/07/19 16:43 Pulse Rhythm Regular 01/07/19 17:44 Pulse 83 01/04/19 19:31 Respiratory Rate 20 01/07/19 16:43 Respiratory Effort Incrsd Work of Breathing 01/07/19 17:44 Respiratory Depth Normal 01/07/19 17:44 Respiratory Pattern Normal 01/07/19 17:44 Blood Pressure 150/64 H 01/07/19 16:43 Blood Pressure Mean 74 01/04/19 19:31 Blood Pressure Position Sitting 01/04/19 15:06 Pulse Oximetry 93 L 01/07/19 16:43 Oxygen Delivery Method Nasal Cannula 01/07/19 16:43 Oxygen Flow Rate 2 01/07/19 16:43 Pain Level 5 01/07/19 10:32 Comment Left - PAD 01/05/19 19:08 Intake & Output 01/06/19 01/07/19 01/07/19 23:59 11:59 23:59 Intake Total 370 / 1490 340 / 840 500 / 840 Output Total 800 / 3300 400 / 400 Balance -430 / -1810 -60 / 440 500 / 440 Intake: IV Oral 360 / 1480 340 / 830 490 / 830 Output: Urine 800 / 3300 400 / 400 Other: Urine Color Yellow Straw Urine Appearance Clear Clear Urine Odor None Strong Stool Occult Blood Negative Negative Stool Size Moderate Small Stool Characteristics Soft Soft Formed Formed Voiding Methods Toilet Toilet Completed studies during hospitalization [Text1]: CXR 01/04/19: Cardiomegaly. No acute abnormality. Labs on day of discharge: Labs from last 24 hours 01/07/19 01/07/19 14:25 14:25 WBC 8.63 RBC 3.67 L Hgb 10.7 L Hct 36.3 MCV 98.9 H MCH 29.2 MCHC 29.5 L RDW 16.1 H Plt Count 269 MPV 10.2 Immature Gran % 0.1 Neutrophils % 93.1 Lymphocytes % 6.1 Monocytes % 0.5 Eosinophils % 0.1 Basophils % 0.1 Absolute Neutrophils 8.03 H Absolute Lymphocytes 0.53 L Absolute Monocytes 0.04 L Absolute Eosinophils 0.01 Absolute Basophils 0.01 Sodium 142 Potassium 5.2 H Chloride 105 Carbon Dioxide 32.4 H Anion Gap 4.6 BUN 34 H Creatinine 0.95 Estimated GFR/1.73 m2 57.82 Glucose 188 H Calcium 8.6 Magnesium 2.0 Preliminary micro results at discharge 01/04/19 15:48 Blood Culture - Preliminary Blood NO GROWTH 72 HOURS 01/04/19 14:35 Blood Culture - Preliminary Blood NO GROWTH 48 HOURS [facility] Medical History Cor athrscl-uns vessel End stage COPD GERD (gastroesophageal reflux disease) GI bleed Marginal ulcer Oxygen dependent Sensorineural hearing loss Spinal stenosis Surgical History EGD - MAC Extraction of cataract (08/28/15) Gastric Bypass (~1989) Family History Mother COPD (chronic obstructive pulmonary disease) Father Diabetes Sister No problems noted. Brother No problems noted. Social History Smoking and Tabacco status: Current every day
--- NOTE | 2019-01-07 19:47 | NUR.NOTE ---
Nursing Note: Report phoned to Phyllis at [facility]. All questions answered
--- NOTE | 2019-01-10 08:07 | OT.INDS ---
Date of service: 01/10/19 Time of Service: 08:07 Occupational Therapy Notes Occupational Therapy Inpatient Discharge Summary Dates of Service: 01/05/19-01/06/19 Date: 01/10/19 for 01/06/19 Referring Doctor:Cherelle Albert MD OT Orders: Eval and Treat Precautions: Fall, standard THIS PROVIDES A SUMMARY OF CARE NO SKILLED OT SERVICES PERFORMED FOR THIS DOCUMENTATION: PATIENT PROFILE/ADMITTING DIAGNOSIS: Pt is a 73 year old female who was admitted through the ER on 01/04/19 for COPD exacerbation, 4th toe necrosis with black discoloration, and non compliance to medication regimen as pt has not been taking medication for 3 months. Past Medical History: Cor arthrscl- uns vessel, end stage COPD, GERD, GI bleed, marginal ulcaer, oxygen dependent, sensorineural hearing loss, spinal stenosis, EGD-MAC, extraction of cataract (2014), gastric bypass (1989), osteoporosis, alcohol abuse. Current Functional Limitations: Decreased strength (B) UE, decreased functional activity tolerance, nasal O2 canal, fall risk. Social History/Home Situation: Pt reported at initial evaluation that she is not in a great living situation. She moved in 3 months ago with her boyfriend and her son from her apartment which she reports she lost. She bought this house with her boyfriend but left him 14 years ago and doesn't want to live with him any longer than she has too. She reports that her goal is to get an apartment with her son and that they will live together. She has 5 steps with a single rail to enter, she has multiple steps in her home but doesn't have to go up them. She reports that her son is out of the home at [facility] at this time for a self inflicted gunshot wound and she is just waited for him to get out to pursue an apartment. She reports that her baseline is (I) mobility without assistive device, she baths at the sink (I) she hasn't showered in 4 years except today with nursing which she reports was wonderful. She eats (I) at baseline, she dresses (I), she utilizes [facility] and her son/boyfriend for community mobility and toilets (I). She does not brush her teeth as she reports she only has 2 and she brushes her hair (I) standing at the sink. She has difficulty with socks and would like to get more (I) with this. She has a claw foot bath tub and this limits her (I) in showering as she does not feel safe transferring in and out of tub due to smaller seat in the shower that she reports does not have a lot of stability. Equipment owned/DME: [facility]- pt does not currently utilize SUBJECTIVE: NT OBJECTIVE: General Observation: pleasant, answered questions appropriately Mental Status: A&Ox3 Pain: no c/o pain ROM: RUE AROM WNL L UE AROM WNL STRENGTH: RUE Shoulder flexion 3/5, bicep 3/5, workers' compensation claims supervisor is weak and symmetrical LUE Shoulder flexion 3/5, bicep 3/5, workers' compensation claims supervisor is weak and symmetrical BALANCE: Static sitting Normal Dynamic Sitting Normal SPECIAL TESTS: Daily Activity Limitations Standardized Measure [facility] AM -PAC ?6 clicks? Daily Activity Inpatient Short Form: Raw score: 21 Standardized score: 44.27 CMS score: 32.79% [facility] modifier: CJ INFORMED CONSENT/EDUCATION: Pt instructed in purpose of OT Consult and plan of care. ASSESSMENT: Patient is a 73-year-old female referred to occupational therapy services with diagnosis of COPD exacerbation, 4th toe necrosis with black discoloration, and non compliance to medication regimen as pt has not been taking medication for 3 months. Pt was seen for 2 OT sessions. She demonstrated (I) in ADLs/IADLs and was able to perform ADLs standing at sink which was her premorbid level of function. She was discharged on 01/06/19 and transferred to [facility]. GOALS Goals x1 week 1. Dressing- Pt will be able to (I) don and doff socks with sock aid. (MET) 2. Bathing- Pt will be able to perform bathing routine standing at sink with progression to ideal transfer into shower with shower bench. (Partially met, pt did not progress to shower) PLAN OF CARE/TREATMENT PLAN: Discharged on 01/06/19 DISCHARGE RECOMMENDATIONS OT recommends that pt go to SNF when medically cleared per MD. Shower bench that comes out of tub/shower combination to increase pts (I) in showering routine TREATMENT TIME/MINUTES/CODES N/A Mer Ibrahim OTR/[facility]
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
== END 2019-01-07 18:53 | DRG 191 ==
LOC: ER 19:13 → MS 19:48
PROVIDERS: Admitting Provider General Practice; Emergency Provider Student in an Organized Health Care Education/Training Program; PCP Nurse Practitioner; Visit Provider Internal Medicine
DX: J44.1 Chronic obstructive pulmonary disease with (acute) exacerbation (principal); I96 Gangrene, not elsewhere classified; I73.9 Peripheral vascular disease, unspecified; D53.9 Nutritional anemia, unspecified; R26.2 Difficulty in walking, not elsewhere classified; Z87.19 Personal history of other diseases of the digestive system; Z98.84 Bariatric surgery status
CPT/HCPCS: 36415; 80048; 80053; 80061; 83721; 87040; 93005; 94640; 96365; 97110; 97162; 97166; 97530; 97535; 99222; 99232; 99239; 99285; J1650; 71046; 82607; 82728; 82746; 83540; 83550; 83605; 83735; 83880; 84484; 85025; 93010; J0456; J7512; J7613; J7620

== ENCOUNTER 2019-02-24 19:23 | Emergency (ER) | payer MEDICARE, MEDICAID, SELFPAY ==
[2019-02-24] VITALS (52 sets, daily range): BP systolic 112–160; BP diastolic 49–101; PULSE 59–89; RESP 24; TEMP 38; O2SAT 93–98
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
[2019-02-24] MEDS: Acetaminophen 500 MG TAB 1000 MG PO (20:00)
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
--- NOTE | 2019-02-24 21:45 | NUR.NOTE ---
Nursing Note: VSP with patient at present
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
--- NOTE | 2019-02-25 00:08 | NUR.NOTE ---
Addendum entered by Patricia Pickens 02/25/19 00:10: patient resting quietly, noo complaiints offered Original Note: Nursing Note: 2330 patient eating, soft diet taken well.
[2019-02-25] MEDS: Apixaban 5 MG TAB PO ×2 (00:14→08:05)
--- NOTE | 2019-02-25 07:37 | CMPROGNOTE_ITS ---
Care Management Progress Note [phone] CM called the [facility] in [place] and spoke with Cece. Cece is unaware of Lauren at this time and states they have multiple admissions today. Cece states she will have Nora or Phuong call as soon as they get in. If [facility] can not offer a bed this am, will pursue returning back to [facility].
[2019-02-25 07:48] VITALS: BP 120/54; PULSE 84; RESP 18; TEMP 36.7; O2SAT 92
[2019-02-25] MEDS: Pantoprazole 40 MG TABCR PO (07:56)
[2019-02-25] MEDS: dilTIAZem CD 120 MG CAPCR PO (08:05)
[2019-02-25] MEDS: Magnesium Oxide 400 MG TAB PO (08:05)
[2019-02-25] MEDS: predniSONE 20 MG TAB 40 MG PO (08:05)
[2019-02-25] MEDS: Furosemide 40 MG TAB PO (08:05)
[2019-02-25] MEDS: Budesonide/Formoterol 160/4.5 6 GM 60 PUFF INH IH (08:15)
[2019-02-25 10:50] VITALS: BP 116/50; PULSE 83; RESP 18; TEMP 36.6; O2SAT 92
[2019-02-25 12:24] VITALS: BP 116/50; PULSE 83; RESP 18; TEMP 36.6; O2SAT 92
== END 2019-02-25 12:05 | disposition other institution (70) ==
PROVIDERS: Emergency Provider Student in an Organized Health Care Education/Training Program; PCP Nurse Practitioner
DX: S00.83XA Contusion of other part of head, initial encounter (principal); J44.9 Chronic obstructive pulmonary disease, unspecified; Y04.0XXA Assault by unarmed brawl or fight, initial encounter; Z99.11 Dependence on respirator [ventilator] status
CPT/HCPCS: 99284; 70450; 72125; J7512

== ENCOUNTER 2019-04-04 13:18 | Emergency (ER) | payer MEDICARE, MEDICAID, SELFPAY ==
--- NOTE | 2019-04-04 12:51 | NUR.NOTE ---
pt arrived via EMS for infection 4th digit right foot. toe is blackened +2 edema right lower leg +1 edema left lower leg. noted warmness on right leg
[2019-04-04 12:53] VITALS: BP 136/57; PULSE 81; RESP 17; O2SAT 94
--- NOTE | 2019-04-04 13:05 | DI.RAD_ITS ---
SYMPTOMS/DIAGNOSIS: RIGHT 4TH TOE GANGRENE, RIGHT FOOT/ANKLE PAIN, ? OSTEOMYELITIS RIGHT ANKLE AND RIGHT FOOT: Four views of the ankle and three views of the foot were obtained. There are multiple vascular calcifications noted in the soft tissues. There is soft tissue swelling adjacent to medial and lateral malleoli. Ankle mortise appears well maintained. There is diffuse patchy demineralization of the bones of the ankle and foot. There are degenerative changes of the joints of the ankle, hindfoot, mid foot and forefoot, which may be characterized as mild to moderate. No gross erosive or destructive lesions seen to suggest the presence of osteomyelitis. If there is a high clinical suspicion of osteomyelitis, additional evaluation with MRI may be considered.
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
[2019-04-04 13:35] LABS: Lactate-non-spesis 3.4 mmol/l (0.6-1.4)
--- NOTE | 2019-04-04 13:38 | NUR.NOTE ---
bilateral pedal pulses noted on doppler
[2019-04-04] MEDS: Normal Saline 250 ML 500 ML IV (13:44)
[2019-04-04 13:52] LABS: ALT 16 U/L (12-78); AST 21 U/L (15-37); Albumin 2.7 g/dL (3.4-5.0); Alkaline Phosphatase 106 U/L (46-116); Anion Gap 3.3 mmol/L (3-11); BUN 12 mg/dL (7-18); Bilirubin, Total 0.2 mg/dL (0.2-1.0); CO2 36.7 mmol/L (21.0-32.0); CREATININE 1.11 mg/dL (0.55-1.02); Calcium 8.4 mg/dL (8.5-10.1); Chloride 104 mmol/L (98-107); Estimated GFR 48.32 (mL/min/1.73m2); Glucose 109 mg/dL (70-100); Magnesium 1.9 mg/dL (1.8-2.4); Potassium 4.6 mmol/L (3.5-5.1); Sodium 144 mmol/L (136-145); Total Protein 6.5 g/dL (6.4-8.2); Troponin I 0.02 ng/mL (0.00-0.06)
[2019-04-04 14:55] LABS: Absolute Basophil Count 0.05 k/cumm (0.0-0.2); Absolute Eosinophil Count 0.14 k/cumm (0.0-0.7); Absolute Lymphocyte Count 1.47 k/cumm (1.2-3.4); Absolute Neutrophil Count 3.07 k/cumm (1.2-6.7); Eosinophils % 2.7; HGB 10.7 g/dL (12.0-15.5); Lymphocytes % 28.1; Mean Corp. HGB Concentration 29.7 g/dL (32.0-36.0); Mean Corpuscular Hemoglobin 30.1 pg (27.0-33.0); Mean Corpuscular Volume 101.1 fL (80-95); Mean Platelet Volume 10.2 fL (8.0-11.0); Monocytes % 9.6; Neutrophils % 58.6; Platelet Count 271 x1000/uL (130-400); RBC 3.56 m/cumm (4.00-5.20); RBC Distribution Width 14.8 % (11.7-14.6); White Blood Cell Count 5.23 k/cumm (4.4-10.8)
[2019-04-04] MEDS: VANCOMYCIN 1,250 MG in Normal Saline 250 ML 166.6666 MG IVPB (15:26)
[2019-04-04] MEDS: Ciprofloxacin 500 MG TAB PO ×2 (15:34→18:22)
--- NOTE | 2019-04-04 16:41 | NUR.NOTE ---
Nursing Note: Appointment made with [facility] Vascular Surgery for April 06 @ 3pm. [place] [facility] will arrange a ride for the patient with [facility] for this appointment. If there are any changes for the ride the patient will contact [facility] herself with the change. Nora Seo.
--- NOTE | 2019-04-04 17:43 | NUR.NOTE ---
RN recommended that PT go by wheelchair. strongly encouraged but refused
--- NOTE | 2019-04-04 18:23 | NUR.NOTE ---
recommended to PT that she take RCT home with wheelchair however PT refuse and states my sister will pick me up no way im waiting for that pt the preceded to use her vape pen after being asked not to
[2019-04-04 18:26] VITALS: BP 138/58; PULSE 78; RESP 17; O2SAT 96
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
== END 2019-04-04 18:30 | disposition left against medical advice (07) ==
PROVIDERS: Emergency Provider Physician Assistant; PCP Nurse Practitioner
DX: I96 Gangrene, not elsewhere classified (principal); I73.9 Peripheral vascular disease, unspecified; I50.9 Heart failure, unspecified; R60.9 Edema, unspecified; J44.9 Chronic obstructive pulmonary disease, unspecified; Z87.891 Personal history of nicotine dependence
CPT/HCPCS: 36415; 80053; 87040; 96361; 96365; 96366; 99284; 73610; 73630; 83605; 83735; 84484; 85025

== ENCOUNTER 2019-04-18 15:09 | Outpatient (CLI) | payer MEDICARE, MEDICAID, SELFPAY ==
[2019-04-18 15:36] LABS: Abs Immature Grans 0.02 k/cumm (0.0-0.09); Absolute Basophil Count 0.05 k/cumm (0.0-0.2); Absolute Eosinophil Count 0.14 k/cumm (0.0-0.7); Absolute Lymphocyte Count 1.18 k/cumm (1.2-3.4); Absolute Monocyte Count 0.89 k/cumm (0.11-0.7); Absolute Neutrophil Count 7.88 k/cumm (1.2-6.7); Basophils % 0.5; Eosinophils % 1.4; HCT 31.9 % (36.0-46.0); HGB 9.6 g/dL (12.0-15.5); Immature Grans % 0.2; Lymphocytes % 11.6; Mean Corp. HGB Concentration 30.1 g/dL (32.0-36.0); Mean Corpuscular Hemoglobin 29.7 pg (27.0-33.0); Mean Corpuscular Volume 98.8 fL (80-95); Mean Platelet Volume 10.5 fL (8.0-11.0); Monocytes % 8.8; Neutrophils % 77.5; Platelet Count 217 x1000/uL (130-400); RBC 3.23 m/cumm (4.00-5.20); RBC Distribution Width 14.5 % (11.7-14.6); White Blood Cell Count 10.16 k/cumm (4.4-10.8)
--- NOTE | 2019-04-18 15:42 | DI.RAD_ITS ---
SYMPTOMS/DIAGNOSIS: CELLULITIS, TOE OF RIGHT FOOT; GANGRENE, TOE OF RIGHT FOOT; ASSESS FOR OSTEOMYELITIS, J96, L03.031 RIGHT FOOT: Comparison is made with March,. There is soft tissue swelling over the metatarsal region. There is soft tissue swelling over the 4th toe. There is some erosion of the distal phalanx compared with the previous exam, which is suspicious for osteomyelitis. A chronic-appearing deformity is seen of the middle phalanx of the 4th toe. The bones are again noted to be demineralized. IMPRESSION: Bony erosion of the distal phalanx of the 4th toe suspicious for osteomyelitis.
[2019-04-18 16:50] LABS: Diff Comment RBC Morph Reviewed
[2019-04-18 16:51] LABS: Basophilic Stippling Present; Macrocytosis 2+; Polychromasia Present
== END 2019-04-18 15:29 ==
PROVIDERS: PCP Nurse Practitioner; Visit Provider Nurse Practitioner Adult Health
DX: M86.671 Other chronic osteomyelitis, right ankle and foot (principal); L03.031 Cellulitis of right toe; L03.119 Cellulitis of unspecified part of limb; I96 Gangrene, not elsewhere classified
CPT/HCPCS: 36415; 73630; 85025

== ENCOUNTER 2019-04-19 16:48 | Inpatient (IN) | payer MEDICARE, MEDICAID, SELFPAY ==
[2019-04-19 16:56] VITALS: BP 141/49; PULSE 91; RESP 20; TEMP 36.6; O2SAT 87
[2019-04-19 18:09] LABS: Absolute Basophil Count 0.02 k/cumm (0.0-0.2); Absolute Eosinophil Count 0.37 k/cumm (0.0-0.7); Absolute Lymphocyte Count 0.48 k/cumm (1.2-3.4); Absolute Monocyte Count 0.33 k/cumm (0.11-0.7); Absolute Neutrophil Count 6.78 k/cumm (1.2-6.7); Basophils % 0.3; Eosinophils % 4.6; HCT 31.2 % (36.0-46.0); HGB 9.4 g/dL (12.0-15.5); Mean Corp. HGB Concentration 30.1 g/dL (32.0-36.0); Mean Corpuscular Hemoglobin 29.8 pg (27.0-33.0); Mean Platelet Volume 10.6 fL (8.0-11.0); Monocytes % 4.1; Platelet Count 221 x1000/uL (130-400); RBC 3.15 m/cumm (4.00-5.20); RBC Distribution Width 14.4 % (11.7-14.6); White Blood Cell Count 7.98 k/cumm (4.4-10.8)
[2019-04-19 18:21] LABS: ALT 17 U/L (12-78); AST 16 U/L (15-37); Albumin 2.7 g/dL (3.4-5.0); Alkaline Phosphatase 104 U/L (46-116); Anion Gap 3.8 mmol/L (3-11); BUN 23 mg/dL (7-18); Bilirubin, Total 0.3 mg/dL (0.2-1.0); CO2 35.2 mmol/L (21.0-32.0); CREATININE 1.11 mg/dL (0.55-1.02); Calcium 8.4 mg/dL (8.5-10.1); Chloride 102 mmol/L (98-107); Estimated GFR 48.32 (mL/min/1.73m2); Glucose 108 mg/dL (70-100); Potassium 3.9 mmol/L (3.5-5.1); Sodium 141 mmol/L (136-145); Total Protein 6.8 g/dL (6.4-8.2)
[2019-04-19] MEDS: VANCOMYCIN 1,000 MG in Normal Saline 250 ML 166.6666 MG IVPB (19:02)
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
[2019-04-19 20:52] VITALS: BP 110/92; PULSE 88; RESP 18; TEMP 36.6; O2SAT 94
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
[2019-04-19 21:30] VITALS: BP 136/65; PULSE 61; RESP 21; TEMP 36.4; O2SAT 90
[2019-04-19] MEDS: Budesonide/Formoterol 80/4.5 6.9 GM 60 PUFF INH IH (23:06)
[2019-04-19 23:45] VITALS: BP 99/48; PULSE 83; RESP 21; TEMP 37.3; O2SAT 86
[2019-04-19 23:57] VITALS: O2SAT 90
[2019-04-20] MEDS: Acetaminophen 500 MG TAB 1000 MG PO ×2 (06:42→20:29)
[2019-04-20 07:10] VITALS: BP 121/52; PULSE 86; RESP 20; TEMP 36.8; O2SAT 90
[2019-04-20 07:40] VITALS: O2SAT 92
[2019-04-20] MEDS: Budesonide/Formoterol 80/4.5 6.9 GM 60 PUFF INH IH (07:43)
[2019-04-20 07:47] LABS: CREATININE 0.88 mg/dL (0.55-1.02)
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
[2019-04-20] MEDS: Pantoprazole 40 MG TABCR PO ×2 (08:30→16:31)
[2019-04-20] MEDS: Magnesium Oxide 400 MG TAB PO (08:30)
[2019-04-20] MEDS: Atorvastatin 40 MG TAB PO (08:30)
[2019-04-20] MEDS: Normal Saline Flush 10 ML SYR IVP ×2 (08:31→20:32)
[2019-04-20] MEDS: Furosemide 40 MG TAB PO (08:31)
[2019-04-20] MEDS: Docusate Sodium 100 MG CAP PO ×3 (09:56→20:29)
[2019-04-20] MEDS: Doxycycline Hyclate 100 MG CAP PO ×2 (11:20→20:29)
[2019-04-20] MEDS: Nicotine 21 MG/24 HR PATCH TD (11:20)
[2019-04-20] MEDS: Ciprofloxacin 250 MG TAB PO ×2 (11:21→20:30)
[2019-04-20] MEDS: Furosemide 20 MG TAB PO (11:21)
--- NOTE | 2019-04-20 12:59 | PDOC.CMIN ---
- If Service Date Differs Date of service: 04/20/19 Time of Service: 13:01 Care Management Initial Assess REASON FOR HOSPITALIZATION:: Cellulitis PAST MEDICAL HISTORY/PAST SURGICAL HISTORY:: Cor athrscl-uns vessel. End stage COPD. GERD (gastroesophageal reflux disease). GI bleed. Marginal ulcer. Oxygen dependent. Sensorineural hearing loss. Spinal stenosisEGD - MAC. Extraction of cataract (08/28/15). Gastric Bypass (~1989) PREVIOUS FUNCTIONAL STATUS/SOCIAL/FAMILY SUPPORTS:: Lauren resides at the [facility] in [place]. She reports that she has been staying there for a while and that things are going well for her. Lauren states that she has been working with [employer] , and that her main supports locally are her son and other family members. Lauren does not drive, and depends on [facility] for transportation. CURRENT FUNCTIONAL STATUS:: Currently Lauren is lying in bed when this mortgage underwriter visits, she is pleasant and receptive to discussion ADVANCE DIRECTIVES:: None on file Has patient been provided with information about the portal?: Yes Did the patient sign up for the portal?: No CODE STATUS:: Full Code INSURANCE COVERAGE / FINANCIAL ISSUES:: MCR, HOLLY CURRENT HOME/COMMUNITY SERVICES/EQUIPMENT:: Currently Lauren has home health RN services in the community, as well [facility] Lauren has home oxygen through [facility] as well as a 4ww PRIMARY CARE PHYSICIAN:: Susana Apple POTENTIAL DISCHARGE NEEDS:: F/U appointment with PCP. Resume home health services. [facility] for transportation PATIENT/FAMILY EDUCATION NEEDS:: Review DC instructions, any limitations, and ongoing DC planning discussion. Discuss 'Ask Me Three' ANTICIPATED BARRIERS TO DISCHARGE:: None identified at this time TRANSPORTATION:: Via private vehicle with [facility] PLAN:: Lauren will return to the [facility] once medically cleared. She will F/U with PCP and plan of care as prescribed. Lauren to also continue to receive home health as well as VNA support. Lauren to transport via [facility].
--- NOTE | 2019-04-20 13:41 | INITIAL_ITS ---
- If Service Date Differs Date of service: 04/20/19 Time of Service: 13:01 Care Management Initial Assess REASON FOR HOSPITALIZATION:: Cellulitis PAST MEDICAL HISTORY/PAST SURGICAL HISTORY:: Cor athrscl-uns vessel. End stage COPD. GERD (gastroesophageal reflux disease). GI bleed. Marginal ulcer. Oxygen dependent. Sensorineural hearing loss. Spinal stenosisEGD - MAC. Extraction of cataract (08/28/15). Gastric Bypass (~1989) PREVIOUS FUNCTIONAL STATUS/SOCIAL/FAMILY SUPPORTS:: Lauren resides at the [facility] in [place]. She reports that she has been staying there for a while and that things are going well for her. Lauren states that she has been working with [employer] , and that her main supports locally are her son and other family members. Lauren does not drive, and depends on [facility] for transportation. CURRENT FUNCTIONAL STATUS:: Currently Lauren is lying in bed when this typewriter assembler visits, she is pleasant and receptive to discussion ADVANCE DIRECTIVES:: None on file Has patient been provided with information about the portal?: Yes Did the patient sign up for the portal?: No CODE STATUS:: Full Code INSURANCE COVERAGE / FINANCIAL ISSUES:: MCR, [place]LLY CURRENT HOME/COMMUNITY SERVICES/EQUIPMENT:: Currently Lauren has home health RN services in the community, as well as [facility]. Lauren has home oxygen through [facility] as well as a 4ww PRIMARY CARE PHYSICIAN:: Susana Apple POTENTIAL DISCHARGE NEEDS:: F/U appointment with PCP. Resume home health services. [facility] for transportation PATIENT/FAMILY EDUCATION NEEDS:: Review DC instructions, any limitations, and ongoing DC planning discussion. Discuss 'Ask Me Three' ANTICIPATED BARRIERS TO DISCHARGE:: None identified at this time TRANSPORTATION:: Via private vehicle with [facility] PLAN:: Lauren will return to the [facility] once medically cleared. She will F/U with PCP and plan of care as prescribed. Lauren to also continue to receive home health as well as VNA support. Lauren to transport via [facility].
--- NOTE | 2019-04-20 14:58 | CHAPLAIN ---
Lauren and I remembered each other from a previous stay. 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 She said she is comfortable there. She asked me to find her some books to read, mysteries, and Jimena Nugent, so I did.
--- NOTE | 2019-04-20 16:48 | W.PM.PROGNOT ---
Date of Service Date of service: 04/20/19 Time of Service: 16:48 Assessment and Plan (1) Cellulitis of both lower extremities: Current visit: Yes Status: Acute Switched to cipro + doxy, per my discussion with Dr Bishop. Will reassess tomorrow - if erythema has improved, can be discharged home on PO abx. If not, will speak with [facility] vascular. (2) Gangrene due to peripheral vascular disease: Current visit: No Status: Acute For amputation R foot scheduled for the end of March at [facility] (3) Tobacco dependence syndrome: Current visit: Yes Status: Acute provide nicotine replacement (4) Ambulatory dysfunction: Current visit: No Status: Acute PT eval (5) COPD (chronic obstructive pulmonary disease): Current visit: No Status: Chronic Not in acute exacerbation. Continue home therapy. (6) Gastroesophageal reflux disease: Current visit: No Status: Acute PPI (7) Discharge planning issues: Current visit: Yes Status: Acute full code. Likely discharge home tomorrow with PO abx and outpatient follow up with [facility] vascular (8) DVT prophylaxis: Current visit: Yes Status: Acute TEDs + SCD's (no chemical DVT ppx due to history of GI bleed). Subjective Interval history since last seen: Ms Martel states that her feet don't hurt. She does not want to go to [facility] on this admission. She wants to follow up with them as outpatient. She denies dizziness, chest pain, shortness of breath, nausea, vomiting. Exam Narrative Exam Narrative: General: Frail elderly male, appears older than stated age, sitting comfortably in bed, A&Ox3, hard of hearing HEENT: EOMI, MMM Heart: RRR with occasional extra beats Lungs: CTAB GI: abdomen is soft, nontender, nondistended Extremities: 1+ Bilateral foot edema and erythema, R 4th digit gangrene - dry Objective Objective Clinical Data: Abnormal lab results 04/19/19 04/19/19 Range/Units 17:55 17:55 RBC 3.15 L (4.00-5.20) m/cumm Hgb 9.4 L (12.0-15.5) g/dL Hct 31.2 L (36.0-46.0) % MCV 99.0 H (80-95) fL MCHC 30.1 L (32.0-36.0) g/dL Absolute Neutrophils 6.78 H (1.2-6.7) k/cumm Absolute Lymphocytes 0.48 L (1.2-3.4) k/cumm Carbon Dioxide 35.2 H (21.0-32.0) mmol/L BUN 23 H (7-18) mg/dL Creatinine 1.11 H (0.55-1.02) mg/dL Glucose 108 H (70-100) mg/dL Calcium 8.4 L (8.5-10.1) mg/dL Albumin 2.7 L (3.4-5.0) g/dL Vital Signs Temperature 36.8 C 04/20/19 07:10 Temperature Source Tympanic 04/20/19 07:10 Pulse 86 04/20/19 07:10 Pulse Rhythm Regular 04/20/19 16:14 Respiratory Rate 20 04/20/19 07:10 Respiratory Effort Non-Labored 04/20/19 16:14 Respiratory Depth Normal 04/20/19 16:14 Respiratory Pattern Irregular 04/20/19 16:14 Blood Pressure 121/52 L 04/20/19 07:10 Pulse Oximetry 92 L 04/20/19 07:40 Oxygen Delivery Method Nasal Cannula 04/20/19 07:40 Oxygen Flow Rate 2 04/20/19 07:40 Pain Level 0 04/20/19 07:10 Comment 04/19/19 23:57 Intake & Output 04/19/19 04/20/19 04/20/19 23:59 11:59 23:59 Intake Total 250 / 250 240 / 240 Output Total 350 / 600 250 / 600 Balance 250 / 250 -350 / -360 -10 / -360 Weight 58.967 kg Intake: IV 250 / 250 Oral 240 / 240 Output: Urine 350 / 600 250 / 600 Other: Urine Color Yellow Light Maria Guadalupe Urine Appearance Clear Urine Odor Strong Voiding Methods Bedside Commode Bedside Commode Laboratory Results WBC 7.98 k/cumm (4.4-10.8) 04/19/19 17:55 RBC 3.15 m/cumm (4.00-5.20) L 04/19/19 17:55 Hgb 9.4 g/dL (12.0-15.5) L 04/19/19 17:55 Hct 31.2 % (36.0-46.0) L 04/19/19 17:55 MCV 99.0 fL (80-95) H 04/19/19 17:55 MCH 29.8 pg (27.0-33.0) 04/19/19 17:55 MCHC 30.1 g/dL (32.0-36.0) L 04/19/19 17:55 RDW 14.4 % (11.7-14.6) 04/19/19 17:55 Plt Count 221 x1000/uL (130-400) 04/19/19 17:55 MPV 10.6 fL (8.0-11.0) 04/19/19 17:55 Immature Gran % 0.0 04/19/19 17:55 Neutrophils % 85.0 04/19/19 17:55 Lymphocytes % 6.0 04/19/19 17:55 Monocytes % 4.1 04/19/19 17:55 Eosinophils % 4.6 04/19/19 17:55 Basophils % 0.3 04/19/19 17:55 Absolute Neutrophils 6.78 k/cumm (1.2-6.7) H 04/19/19 17:55 Absolute Lymphocytes 0.48 k/cumm (1.2-3.4) L 04/19/19 17:55 Absolute Monocytes 0.33 k/cumm (0.11-0.7) 04/19/19 17:55 Absolute Eosinophils 0.37 k/cumm (0.0-0.7) 04/19/19 17:55 Absolute Basophils 0.02 k/cumm (0.0-0.2) 04/19/19 17:55 Sodium 141 mmol/L (136-145) 04/19/19 17:55 Potassium 3.9 mmol/L (3.5-5.1) 04/19/19 17:55 Chloride 102 mmol/L (98-107) 04/19/19 17:55 Carbon Dioxide 35.2 mmol/L (21.0-32.0) H 04/19/19 17:55 Anion Gap 3.8 mmol/L (3-11) 04/19/19 17:55 BUN 23 mg/dL (7-18) H 04/19/19 17:55 Creatinine 0.88 mg/dL (0.55-1.02) 04/20/19 07:20 Estimated GFR/1.73 m2 >= 60.00 (mL/min/1.73m2) 04/20/19 07:20 Glucose 108 mg/dL (70-100) H 04/19/19 17:55 Lactate 1.0 mmol/L (0.6-1.4) 04/19/19 17:55 Calcium 8.4 mg/dL (8.5-10.1) L 04/19/19 17:55 Total Bilirubin 0.3 mg/dL (0.2-1.0) 04/19/19 17:55 AST 16 U/L (15-37) 04/19/19 17:55 ALT 17 U/L (12-78) 04/19/19 17:55 Alkaline Phosphatase 104 U/L (46-116) 04/19/19 17:55 Total Protein 6.8 g/dL (6.4-8.2) 04/19/19 17:55 Albumin 2.7 g/dL (3.4-5.0) L 04/19/19 17:55
--- NOTE | 2019-04-20 16:51 | PGE_ITS ---
Date of Service Date of service: 04/20/19 Time of Service: 16:48 Assessment and Plan (1) Cellulitis of both lower extremities: Current visit: Yes Status: Acute Switched to cipro + doxy, per my discussion with Dr Bishop. Will reassess tomorrow - if erythema has improved, can be discharged home on PO abx. If not, will speak with [facility] vascular. (2) Gangrene due to peripheral vascular disease: Current visit: No Status: Acute For amputation R foot scheduled for the end of March at [facility] (3) Tobacco dependence syndrome: Current visit: Yes Status: Acute provide nicotine replacement (4) Ambulatory dysfunction: Current visit: No Status: Acute PT eval (5) COPD (chronic obstructive pulmonary disease): Current visit: No Status: Chronic Not in acute exacerbation. Continue home therapy. (6) Gastroesophageal reflux disease: Current visit: No Status: Acute PPI (7) Discharge planning issues: Current visit: Yes Status: Acute full code. Likely discharge home tomorrow with PO abx and outpatient follow up with [facility] vascular (8) DVT prophylaxis: Current visit: Yes Status: Acute TEDs + SCD's (no chemical DVT ppx due to history of GI bleed). Subjective Interval history since last seen: Ms Martel states that her feet don't hurt. She does not want to go to [facility] on this admission. She wants to follow up with them as outpatient. She denies dizziness, chest pain, shortness of breath, nausea, vomiting. Exam Narrative Exam Narrative: General: Frail elderly male, appears older than stated age, sitting comfortably in bed, A&Ox3, hard of hearing HEENT: EOMI, MMM Heart: RRR with occasional extra beats Lungs: CTAB GI: abdomen is soft, nontender, nondistended Extremities: 1+ Bilateral foot edema and erythema, R 4th digit gangrene - dry Objective Objective Clinical Data: Abnormal lab results 04/19/19 04/19/19 Range/Units 17:55 17:55 RBC 3.15 L (4.00-5.20) m/cumm Hgb 9.4 L (12.0-15.5) g/dL Hct 31.2 L (36.0-46.0) % MCV 99.0 H (80-95) fL MCHC 30.1 L (32.0-36.0) g/dL Absolute Neutrophils 6.78 H (1.2-6.7) k/cumm Absolute Lymphocytes 0.48 L (1.2-3.4) k/cumm Carbon Dioxide 35.2 H (21.0-32.0) mmol/L BUN 23 H (7-18) mg/dL Creatinine 1.11 H (0.55-1.02) mg/dL Glucose 108 H (70-100) mg/dL Calcium 8.4 L (8.5-10.1) mg/dL Albumin 2.7 L (3.4-5.0) g/dL Vital Signs Temperature 36.8 C 04/20/19 07:10 Temperature Source Tympanic 04/20/19 07:10 Pulse 86 04/20/19 07:10 Pulse Rhythm Regular 04/20/19 16:14 Respiratory Rate 20 04/20/19 07:10 Respiratory Effort Non-Labored 04/20/19 16:14 Respiratory Depth Normal 04/20/19 16:14 Respiratory Pattern Irregular 04/20/19 16:14 Blood Pressure 121/52 L 04/20/19 07:10 Pulse Oximetry 92 L 04/20/19 07:40 Oxygen Delivery Method Nasal Cannula 04/20/19 07:40 Oxygen Flow Rate 2 04/20/19 07:40 Pain Level 0 04/20/19 07:10 Comment 04/19/19 23:57 Intake & Output 04/19/19 04/20/19 04/20/19 23:59 11:59 23:59 Intake Total 250 / 250 240 / 240 Output Total 350 / 600 250 / 600 Balance 250 / 250 -350 / -360 -10 / -360 Weight 58.967 kg Intake: IV 250 / 250 Oral 240 / 240 Output: Urine 350 / 600 250 / 600 Other: Urine Color Yellow Light Maria Guadalupe Urine Appearance Clear Urine Odor Strong Voiding Methods Bedside Commode Bedside Commode Laboratory Results WBC 7.98 k/cumm (4.4-10.8) 04/19/19 17:55 RBC 3.15 m/cumm (4.00-5.20) L 04/19/19 17:55 Hgb 9.4 g/dL (12.0-15.5) L 04/19/19 17:55 Hct 31.2 % (36.0-46.0) L 04/19/19 17:55 MCV 99.0 fL (80-95) H 04/19/19 17:55 MCH 29.8 pg (27.0-33.0) 04/19/19 17:55 MCHC 30.1 g/dL (32.0-36.0) L 04/19/19 17:55 RDW 14.4 % (11.7-14.6) 04/19/19 17:55 Plt Count 221 x1000/uL (130-400) 04/19/19 17:55 MPV 10.6 fL (8.0-11.0) 04/19/19 17:55 Immature Gran % 0.0 04/19/19 17:55 Neutrophils % 85.0 04/19/19 17:55 Lymphocytes % 6.0 04/19/19 17:55 Monocytes % 4.1 04/19/19 17:55 Eosinophils % 4.6 04/19/19 17:55 Basophils % 0.3 04/19/19 17:55 Absolute Neutrophils 6.78 k/cumm (1.2-6.7) H 04/19/19 17:55 Absolute Lymphocytes 0.48 k/cumm (1.2-3.4) L 04/19/19 17:55 Absolute Monocytes 0.33 k/cumm (0.11-0.7) 04/19/19 17:55 Absolute Eosinophils 0.37 k/cumm (0.0-0.7) 04/19/19 17:55 Absolute Basophils 0.02 k/cumm (0.0-0.2) 04/19/19 17:55 Sodium 141 mmol/L (136-145) 04/19/19 17:55 Potassium 3.9 mmol/L (3.5-5.1) 04/19/19 17:55 Chloride 102 mmol/L (98-107) 04/19/19 17:55 Carbon Dioxide 35.2 mmol/L (21.0-32.0) H 04/19/19 17:55 Anion Gap 3.8 mmol/L (3-11) 04/19/19 17:55 BUN 23 mg/dL (7-18) H 04/19/19 17:55 Creatinine 0.88 mg/dL (0.55-1.02) 04/20/19 07:20 Estimated GFR/1.73 m2 >= 60.00 (mL/min/1.73m2) 04/20/19 07:20 Glucose 108 mg/dL (70-100) H 04/19/19 17:55 Lactate 1.0 mmol/L (0.6-1.4) 04/19/19 17:55 Calcium 8.4 mg/dL (8.5-10.1) L 04/19/19 17:55 Total Bilirubin 0.3 mg/dL (0.2-1.0) 04/19/19 17:55 AST 16 U/L (15-37) 04/19/19 17:55 ALT 17 U/L (12-78) 04/19/19 17:55 Alkaline Phosphatase 104 U/L (46-116) 04/19/19 17:55 Total Protein 6.8 g/dL (6.4-8.2) 04/19/19 17:55 Albumin 2.7 g/dL (3.4-5.0) L 04/19/19 17:55
[2019-04-20 17:04] VITALS: BP 109/46; PULSE 81; RESP 20; TEMP 36.1; O2SAT 92
[2019-04-20 17:47] VITALS: O2SAT 92
[2019-04-20 20:33] VITALS: O2SAT 93
[2019-04-21 05:43] VITALS: BP 132/53; PULSE 85; RESP 18; TEMP 37; O2SAT 92
[2019-04-21 07:18] LABS: Absolute Basophil Count 0.02 k/cumm (0.0-0.2); Absolute Eosinophil Count 0.58 k/cumm (0.0-0.7); Absolute Monocyte Count 0.47 k/cumm (0.11-0.7); Absolute Neutrophil Count 2.97 k/cumm (1.2-6.7); Basophils % 0.4; HCT 30.8 % (36.0-46.0); HGB 8.9 g/dL (12.0-15.5); Lymphocytes % 16.5; Mean Corp. HGB Concentration 28.9 g/dL (32.0-36.0); Mean Corpuscular Hemoglobin 28.9 pg (27.0-33.0); Mean Platelet Volume 10.7 fL (8.0-11.0); Monocytes % 9.7; Neutrophils % 61.4; Platelet Count 227 x1000/uL (130-400); RBC 3.08 m/cumm (4.00-5.20); RBC Distribution Width 14.7 % (11.7-14.6); White Blood Cell Count 4.84 k/cumm (4.4-10.8)
[2019-04-21 07:35] VITALS: O2SAT 94
[2019-04-21 07:37] LABS: Anion Gap 4.9 mmol/L (3-11); BUN 21 mg/dL (7-18); C-Reactive Protein 5.72 mg/dL (0.0-0.3); CO2 35.1 mmol/L (21.0-32.0); CREATININE 1.03 mg/dL (0.55-1.02); Calcium 8.6 mg/dL (8.5-10.1); Chloride 103 mmol/L (98-107); Estimated GFR 52.67 (mL/min/1.73m2); Glucose 90 mg/dL (70-100); Magnesium 1.8 mg/dL (1.8-2.4); Potassium 3.8 mmol/L (3.5-5.1); Sodium 143 mmol/L (136-145)
[2019-04-21] MEDS: Budesonide/Formoterol 80/4.5 6.9 GM 60 PUFF INH IH (07:37)
[2019-04-21] MEDS: Nicotine 21 MG/24 HR PATCH TD (07:46)
[2019-04-21] MEDS: Normal Saline Flush 10 ML SYR IVP (07:46)
[2019-04-21] MEDS: Furosemide 20 MG TAB 60 MG PO (07:47)
[2019-04-21] MEDS: Docusate Sodium 100 MG CAP PO (07:48)
[2019-04-21] MEDS: Doxycycline Hyclate 100 MG CAP PO (07:48)
[2019-04-21] MEDS: Atorvastatin 40 MG TAB PO (07:48)
[2019-04-21] MEDS: Ciprofloxacin 250 MG TAB PO (07:49)
[2019-04-21] MEDS: Magnesium Oxide 400 MG TAB PO (07:49)
[2019-04-21] MEDS: Pantoprazole 40 MG TABCR PO (07:49)
[2019-04-21 08:01] VITALS: BP 129/70; PULSE 72; RESP 22; TEMP 36.9; O2SAT 94
[2019-04-21 08:12] VITALS: O2SAT 94
[2019-04-21 08:28] LABS: Vancomycin, Trough 6.1 ug/mL (10.0-20.0)
--- NOTE | 2019-04-21 11:45 | PDOC.CMPRO ---
- If Service Date Differs Date of service: 04/21/19 Time of Service: 11:45 Care Management Progress Note S/O:Lauren was sitting up in bed dozing when CM came to visit. She was easily aroused and willing to converse. Lauren states she feels pretty well. She relayed that she currently lives alone and has nurses, Meals on Wheels and other assistance at home. Her brother also helps her. Lauren feels that she is managing quite well at home. She is scheduled for surgery on her foot at [facility] on 04/26/19 but is afraid that she may need to have the surgery postponed because of the infection. She says that she may need short term rehab after surgery but does not feel she will need to be therefor very long. A:Lauren is a 73 year old woman admitted to [facility] on 04/19/19 with a diagnosis of cellulitis. P:Lauren will return to the [facility] later today. She will F/U with PCP and plan of care as prescribed. Lauren to also continue to receive home health as well as VNA support. Lauren will be transported by her brother via private automobile. CM coordinated with RT to provide an oxygen tank for the ride home. cc:
--- NOTE | 2019-04-21 12:28 | PT.INIE ---
Date of service: 04/21/19 Time of Service: 12:28 PT Notes Date: 04/21/2019 Referring: Tierra Albert MD MD diagnosis: Cellulitis lower extremities PT orders: Evaluate and treat Precautions: Fall risk Patient profile/admitting diagnosis: 73-year-old female with COPD, GERD, spinal stenosis, gangrenous fourth toe right foot who was recently admitted with lower leg cellulitis. Social history/Home situation: Was a resident of the [facility] up until 5 weeks ago and she has been staying at the [facility], which is a motel room with a microwave. She is estranged from her boyfriend, who apparently she had home with and her belongings are still there. She is hoping to eventually rent an apartment. Current functional limitations: She spends most of her day in the room, and walks about with a extended O2 hose by holding onto the furniture. She owns a cane and a walker but she prefers not using these. Her brother will take her out periodically and she holds onto his arm for stability. She has wheels on meals once per day, and home health nurse periodically. She takes sponge baths and notes that she is independent with her dressing Equipment owned: Raised toilet seat, she does not use the shower tub for bathing Subjective: No complaints of pain offered and is anxious to return to the [facility]. Objective: General observation: Pleasant, cooperative and set in her ways. Sitting upright in bed while wearing lower extremity compressive devices which she dislikes Mental status: Alert and oriented x3 Pain: No complaints of pain offered Vital signs: Her resting pulse is 80 bpm and O2 sat is 98%; following ambulation her O2 sat is 92% and her pulse is 94 bpm Articular: She has full functional range of motion actively of her upper extremities. Her active assistive hip motion is not irritable with good range of motion and her knees are limited to approximately 110 degrees of flexion with full extension. Her talocrural and subtalar movements are hypomobile Strength: Has full motor control throughout and strength is generally rated 4/5 Neuro: Reflexes not tested, fingertips to nose is accurate without ataxia and rapid repetitive arm movements are intact Bed mobility/transfers: Independent with assuming the supine to sitting to standing positions Gait: Ambulate approximately 30 feet with a wheeled walker with contact guarding. She is able to walk without the walker but requires significant contact guarding Balance: Her static and dynamic sitting balance is good, static standing balance is fair and her dynamic standing balance is poor. She is unable to balance herself on one foot and this requires contact guarding Special test: Pedal pulses are nonpalpable she has poor capillary refill AM-PAC scores: Raw score is 21, standardized score: 50.21, CMS score 28.97%, and CMS modifier CJ Informed consent/education: Patient instructed the purpose of PT consult and plan of care Assessment: Patient is a 73-year-old female referred to PT services diagnosis of bilateral lower extremity cellulitis. Patient presents with clinical signs and symptoms consistent with his diagnosis as demonstrated by the following impairment level findings of poor exercise tolerance, fall risk. These impairments contribute the following function limitations of limited distance walking, etc. Because she is a fall risk, I discussed use of a walker or at least a cane around her room rather than hand furniture, but she had no interest in doing so. She is comfortable with her current functional status and has no interest in modifying it. Patient is assessed as a moderate 55508 complexity based on the following: History: See comorbidities and social history Examination: See above for functional limitations and impairments Presentation: Evolving Decision making: Moderate complexity based on her functional status Plan: Patient is independent with her bed mobility and has a stable gait function is using a wheeled walker. She is now interested in and using a walker or cane and feels content with her current ambulatory status and function, even though she is a fall risk. She is being discharged from the hospital later today or tomorrow and will not require formalized physical therapy. Treatment time/minutes/codes 11:40 AM to 12:10 PM/30 minutes/9 [id number] Disclaimer: This note was created using [employer] voice recognition software. It was reviewed for major content. However, there may be multiple small discrepancies and errors due to the voice recognition aspects of the software.
--- NOTE | 2019-04-21 12:49 | IN_ITS ---
Date of service: 04/21/19 Time of Service: 12:28 PT Notes Date: 04/21/2019 Referring: Tierra Albert MD MD diagnosis: Cellulitis lower extremities PT orders: Evaluate and treat Precautions: Fall risk Patient profile/admitting diagnosis: 73-year-old female with COPD, GERD, spinal stenosis, gangrenous fourth toe right foot who was recently admitted with lower leg cellulitis. Social history/Home situation: Was a resident of the [facility] up until 5 weeks ago and she has been staying at the [facility], which is a motel room with a microwave. She is estranged from her boyfriend, who apparently she had home with and her belongings are still there. She is hoping to eventually rent an apartment. Current functional limitations: She spends most of her day in the room, and walks about with a extended O2 hose by holding onto the furniture. She owns a cane and a walker but she prefers not using these. Her brother will take her out periodically and she holds onto his arm for stability. She has wheels on meals once per day, and home health nurse periodically. She takes sponge baths and notes that she is independent with her dressing Equipment owned: Raised toilet seat, she does not use the shower tub for bathing Subjective: No complaints of pain offered and is anxious to return to the [facility]. Objective: General observation: Pleasant, cooperative and set in her ways. Sitting upright in bed while wearing lower extremity compressive devices which she dislikes Mental status: Alert and oriented x3 Pain: No complaints of pain offered Vital signs: Her resting pulse is 80 bpm and O2 sat is 98%; following ambulation her O2 sat is 92% and her pulse is 94 bpm Articular: She has full functional range of motion actively of her upper extremities. Her active assistive hip motion is not irritable with good range of motion and her knees are limited to approximately 110 degrees of flexion with full extension. Her talocrural and subtalar movements are hypomobile Strength: Has full motor control throughout and strength is generally rated 4/5 Neuro: Reflexes not tested, fingertips to nose is accurate without ataxia and rapid repetitive arm movements are intact Bed mobility/transfers: Independent with assuming the supine to sitting to standing positions Gait: Ambulate approximately 30 feet with a wheeled walker with contact guarding. She is able to walk without the walker but requires significant contact guarding Balance: Her static and dynamic sitting balance is good, static standing balance is fair and her dynamic standing balance is poor. She is unable to balance herself on one foot and this requires contact guarding Special test: Pedal pulses are nonpalpable she has poor capillary refill AM-PAC scores: Raw score is 21, standardized score: 50.21, CMS score 28.97%, and CMS modifier CJ Informed consent/education: Patient instructed the purpose of PT consult and plan of care Assessment: Patient is a 73-year-old female referred to PT services diagnosis of bilateral lower extremity cellulitis. Patient presents with clinical signs and symptoms consistent with his diagnosis as demonstrated by the following impairment level findings of poor exercise tolerance, fall risk. These impairments contribute the following function limitations of limited distance walking, etc. Because she is a fall risk, I discussed use of a walker or at least a cane around her room rather than hand furniture, but she had no interest in doing so. She is comfortable with her current functional status and has no interest in modifying it. Patient is assessed as a moderate [id number] complexity based on the following: History: See comorbidities and social history Examination: See above for functional limitations and impairments Presentation: Evolving Decision making: Moderate complexity based on her functional status Plan: Patient is independent with her bed mobility and has a stable gait functi on is using a wheeled walker. She is now interested in and using a walker or cane and feels content with her current ambulatory status and function, even though she is a fall risk. She is being discharged from the hospital later today or tomorrow and will not require formalized physical therapy. Treatment time/minutes/codes 11:40 AM to 12:10 PM/30 minutes/9 [id number] Disclaimer: This note was created using [employer] voice recognition software. It was reviewed for major content. However, there may be multiple small discrepancies and errors due to the voice recognition aspects of the software.
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
[2019-04-21 16:14] VITALS: BP 128/58; PULSE 91; RESP 18; TEMP 36.5; O2SAT 96
== END 2019-04-21 16:30 | disposition home health service (06) | DRG 603 ==
LOC: ER 20:50 → MS 21:14
PROVIDERS: Admitting Provider General Practice; Emergency Provider Nurse Practitioner Family; PCP Nurse Practitioner; Visit Provider Internal Medicine
DX: L03.115 Cellulitis of right lower limb (principal); J96.11 Chronic respiratory failure with hypoxia; L03.116 Cellulitis of left lower limb; I73.9 Peripheral vascular disease, unspecified; F17.210 Nicotine dependence, cigarettes, uncomplicated; R26.2 Difficulty in walking, not elsewhere classified; K21.9 Gastro-esophageal reflux disease without esophagitis; J44.9 Chronic obstructive pulmonary disease, unspecified; Z79.01 Long term (current) use of anticoagulants; Z99.81 Dependence on supplemental oxygen; Z87.891 Personal history of nicotine dependence; Z88.0 Allergy status to penicillin
CPT/HCPCS: 36415; 80048; 80053; 87040; 94640; 96365; 96366; 97161; 99222; 99232; 99239; 99285; 80202; 82565; 83605; 83735; 85025; 86140; 99284; J3490

== ENCOUNTER 2019-05-02 13:34 | Emergency (ER) | payer MEDICARE, MEDICAID, SELFPAY ==
[2019-05-02 13:36] VITALS: BP 151/64; PULSE 82; RESP 20; TEMP 37.1; O2SAT 94
[2019-05-02 13:45] VITALS: O2SAT 94
--- NOTE | 2019-05-02 13:48 | DI.RAD_ITS ---
SYMPTOMS/DIAGNOSIS: H/O OSTEOMYELITIS, EVALUATE 4TH TOE RIGHT FOOT: Three views were obtained. Examination is compared with previous examination of 04/18/2019. Note is again made of suspected erosion or destruction of the distal phalanx of the 4th toe, little interval change in appearance in comparison with the previous examination. No other focal abnormality seen. Diffuse patchy demineralization of the bones of the foot noted. Moderate degenerative changes noted at multiple sites. CONCLUSION: Findings raising the possibility of osteomyelitis of the distal phalanx of the 4th toe as described above.
--- NOTE | 2019-05-02 13:50 | W.ED.GENAD ---
Discharge Plan Disposition Patient Disposition: HOME Condition: Good Discharge Details Chief Complaint: GenMedical Clinical Impression: Chronic osteomyelitis Primary Care Provider: Susana Apple ED Provider: Wade Tirado Home Meds and New Rx's Prescriptions: No Action furosemide 40 mg tablet 40 mg PO DAILY Qty: 90 RF: 3 nicotine 21 mg/24 hr patch 24 hour 1 patch TD Q24H Qty: 28 RF: 1 Depend Underwear For Women S-M misc 1 ea Miscellaneous QID Qty: 150 RF: 12 ciprofloxacin HCl 500 mg tablet 500 mg PO BID Qty: 20 RF: 0 diltiazem HCl [Tiazac] 120 mg capsule,extended release 24 hr 120 mg PO DAILY Qty: 90 RF: 3 Spiriva with HandiHaler 18 mcg capsule, w/inhalation device 1 cap IH BID Qty: 180 RF: 3 magnesium oxide 400 mg (241.3 mg magnesium) tablet 400 mg PO DAILY Qty: 90 RF: 3 nitroglycerin 0.4 mg tablet, sublingual 0.4 mg Sublingual PRN PRN (Reason: chest pain) Qty: 25 RF: 12 atorvastatin 40 mg tablet 40 mg PO DAILY RF: 0 albuterol sulfate 90 mcg/actuation HFA aerosol inhaler 2 puff IH Q6H PRNRF: 0 port 02concentrator Inhalation as directed Qty: 1 RF: 1 Symbicort 10.2 GM HFA aerosol inhaler 2 puff Inhalation BID Qty: 3 RF: 4 Oxygen Tank .ROUTE .MEDSUPPLY Qty: 1 RF: 0 aspirin [Adult Low Dose Aspirin] 81 mg tablet,delayed release (DR/EC) 81 mg PO DAILY RF: 0 clopidogrel [Plavix] 75 mg tablet 75 mg PO DAILY RF: 0 acetaminophen [Mapap Extra Strength] 500 mg Tablet 1,000 mg PO Q8H PRN PRNQty: 0 RF: 0 calcium carbonate 200 mg calcium (500 mg) Tablet,Chewable 200 mg PO QID PRN (Reason: Acid Reflux) RF: 0 pantoprazole 40 mg tablet,delayed release (DR/EC) 40 mg PO BID RF: 0 docusate sodium [Colace] 100 mg capsule 100 mg PO BID PRN (Reason: Constipation) RF: 0 doxycycline hyclate 100 mg Capsule 100 mg PO BID Qty: 20 RF: 0 Discharge Instructions Additional Instructions: Please continue taking the doxycycline and Plavix as directed by the [facility]. Please follow-up promptly with your primary care provider tomorrow, and your vascular surgeon later this week. If you notice any redness, warmth, pain, or change in your chronic symptoms in your toe please return immediately for reassessment. If you notice any worsening of your symptoms, or any new symptoms such as vomiting, diarrhea, fever, chills, shortness of breath, chest pain, numbness, weakness, or fainting , please return immediately to the emergency department for reevaluation. Please follow up with your primary care provider as soon as possible for reassessment and reevaluation. As always, it was a pleasure participating in your medical care today. 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 She recently had vascular evaluation and surgery at the [facility] less than a week ago, and she is scheduled to see the vascular surgeon for reevaluation and potential toe removal on 11 May which is in less than 10 days. At the [facility] on 27 April she had ballooning of the right popliteal artery and ballooning of the right superficial femoral artery which was felt to be therapeutic for her chronic recurrent episodes of cellulitis. Patient states that her home health nurse evaluated the toe today and recommended that she come in for evaluation to the ED for further assessment out of concern for infection. The patient states that her symptoms are unchanged, she states that she has been taking the antibiotic doxycycline she was prescribed from the [facility] as directed. She is taking the Plavix that she was discharged with. we will get CBC to evaluate for leukocytosis, and an x-ray to evaluate for any worsening of her chronic condition. 3:32 PM Patient's laboratory work-up has returned, she has no elevation of white count, x-ray of the toe shows unchanged osteomyelitis, no significant worsening per radiology when compared to previous x-rays. Patient continues to remain asymptomatic, stable, and in no acute distress. No evidence of tachycardia or fever. I do not think that there is any acute component to her symptoms, and she does have the follow-up as needed on an outpatient basis with her vascular surgeon, and her family doctor tomorrow. No indication for admission for IV antibiotics clinically at this time. Recommend continuation of the doxycycline and Plavix, as this seems to be keeping down any significant infection with no evidence of erythema, abscess or redness. Discussed the importance of prompt follow-up with her PCP tomorrow. I have extensively reviewed the treatment plan and discharge instructions with the patient. I have addressed all patient concerns at this time. The patient was made aware of what symptoms to monitor for that would warrant a return to the emergency department. Discussed the plan with the patient, they demonstrate verbal understanding and agreement with our assessment and plan at this time. HPI General Date/Time Provider Initiated Documentation: 05/02/19 13:37. HPI Narrative: This is a 73-year-old female with a past medical history of PAD, CHF, COPD, GERD, GI bleed and cor pulmonale who is seen at the [facility] for her gangrenous toes, she had surgery on 26 April which was 5 days ago, and is scheduled for follow-up in 9 days at the [facility]. She is currently on doxycycline. The patient's home health nurse saw her today and recommended that she come in to be evaluated for infection. Patient denies any redness, change in her symptoms of her chronic gangrenous right fourth toe. She denies any significant changes since surgery. She denies fever or chills. She denies any other complaints or modifying factors. She states that she feels fine, has been taking her doxycycline as prescribed, has no other complaints. Related Data Home Medications Medication Instructions Recorded Confirmed Symbicort 2 puff INHALATION BID #3 inhaler 12/03/17 05/02/19 furosemide 40 mg tablet 40 mg PO DAILY #90 tab-cap 10/07/18 05/02/19 acetaminophen [Mapap Extra 1,000 mg PO Q8H PRN PRN #0 tab 01/07/19 05/02/19 Strength] Oxygen #1 each 02/23/19 04/18/19 albuterol sulfate HFA 90 2 puff IH Q6H PRN 02/24/19 05/02/19 mcg/actuation aerosol inhaler atorvastatin 40 mg tablet 40 mg PO DAILY 02/24/19 05/02/19 calcium carbonate 200 mg PO QID PRN 02/24/19 05/02/19 docusate sodium [Colace] 100 mg PO BID PRN 02/24/19 05/02/19 pantoprazole 40 mg PO BID 02/24/19 05/02/19 diaper,brief,adult,disposable #150 each 03/16/19 04/18/19 nicotine 21 mg/24 hr daily 1 patch TD Q24H #28 each 03/16/19 05/02/19 transdermal patch ciprofloxacin 500 mg tablet 500 mg PO BID #20 tab 04/18/19 05/02/19 diltiazem ER 120 mg capsule,24 120 mg PO DAILY #90 cap 04/18/19 05/02/19 hr,extended release magnesium oxide 400 mg (241.3 mg 400 mg PO DAILY #90 tab 04/18/19 05/02/19 magnesium) tablet nitroglycerin 0.4 mg sublingual 0.4 mg SUBLINGUAL PRN PRN #25 04/18/19 05/02/19 tablet tab-cap tiotropium bromide 18 mcg capsule 1 cap IH BID #180 inh 04/18/19 05/02/19 with inhalation device doxycycline hyclate 100 mg PO BID #20 cap 04/21/19 05/02/19 aspirin 81 mg tablet,delayed 81 mg PO DAILY 04/27/19 05/02/19 release clopidogrel 75 mg tablet 75 mg PO DAILY 04/27/19 05/02/19 Previous Rx's Medication Instructions Recorded Symbicort 2 puff INHALATION BID #3 inhaler 12/03/17 furosemide 40 mg tablet 40 mg PO DAILY #90 tab-cap 10/07/18 acetaminophen [Mapap Extra 1,000 mg PO Q8H PRN PRN #0 tab 01/07/19 Strength] diaper,brief,adult,disposable #150 each 03/16/19 nicotine 21 mg/24 hr daily 1 patch TD Q24H #28 each 03/16/19 transdermal patch ciprofloxacin 500 mg tablet 500 mg PO BID #20 tab 04/18/19 diltiazem ER 120 mg capsule,24 120 mg PO DAILY #90 cap 04/18/19 hr,extended release magnesium oxide 400 mg (241.3 mg 400 mg PO DAILY #90 tab 04/18/19 magnesium) tablet nitroglycerin 0.4 mg sublingual 0.4 mg SUBLINGUAL PRN PRN #25 05/20/19 tablet tab-cap tiotropium bromide 18 mcg capsule 1 cap IH BID #180 inh 04/18/19 with inhalation device doxycycline hyclate 100 mg PO BID #20 cap 04/21/19 Allergies Allergy/AdvReac Type Severity Reaction Status Date / Time chlorpromazine Allergy Severe Skin Rash Unverified 05/02/19 13:40 Penicillins Allergy Severe HIVES Unverified 05/02/19 13:40 oxycodone Allergy Mild RASH/VOMITI Unverified 05/02/19 13:40 NG raspberry Allergy Unknown Unverified 05/02/19 13:40 General Stated Complaint: GenMedical GENE: 3 Review of Systems Review of Systems All systems reviewed & are unremarkable except as noted in HPI and below PFSH Social History Smoking/Tobacco Use Status: Former Tobacco Use Alcohol Intake: never Drug use: Never In current or past relationships, have you been: threatened and made to feel afraid Do you feel safe at home: Yes Do you feel safe in your relationship?: Yes Exam Narrative Exam Narrative: 1.Const: Well-nourished, Well-developed, appearing stated age 2.Eyes: PERRL, no conjunctival injection, and symmetrical lids. 3.ENT: Atraumatic external nose and ears. Moist MM. Neck: Symmetric, trachea midline, No thyromegaly. 4.CVS: +S1/S2, No murmurs or gallops. Peripheral pulses 2+ and equal in all extremities. Brisk capillary refill in all extremities. 5.RESP: Unlabored respiratory effort. Clear to auscultation bilaterally. No wheezes rales or rhonchi 6.GI: Soft, Nontender/Nondistended, No hepatosplenomegaly. No guarding or rebound. 7.MSK: Normocephalic/Atraumatic. No cyanosis or clubbing. Patient's feet bilaterally the same temperature, and appropriate. They are not cold and pale, or hot or erythematous. Patient's demonstrates capillary refill less than 3 seconds on all toes on both feet. Dorsalis pedis pulses present but reduced. The patient's right fourth toe demonstrates a chronically necrotic distal tip, no pain, no swelling, or significant redness. No tracking redness up the foot. 8.Skin: Warm, Dry. No rashes or lesions. 9.Neuro: job trainer II-XII grossly intact. Sensation grossly intact, no focal neurologic deficits. 10.Psych: (AAO) x3. Appropriate mood and affect Course Vital Signs Temperature 37.1 C 05/02/19 13:36 Pulse 82 05/02/19 13:36 Respiratory Rate 20 05/02/19 13:36 Blood Pressure 151/64 H 05/02/19 13:36 Pulse Oximetry 94 L 05/02/19 13:36 Temperature 37.1 C 05/02/19 13:36 Temperature Source Temporal Artery Scan 05/02/19 13:36 Pulse 82 05/02/19 13:36 Respiratory Rate 20 05/02/19 13:36 Respiratory Effort 05/02/19 13:36 Blood Pressure 151/64 H 05/02/19 13:36 Blood Pressure Position Sitting 05/02/19 13:36 Pulse Oximetry 94 L 05/02/19 13:36 Oxygen Delivery Method Nasal Cannula 05/02/19 13:36 Oxygen Flow Rate 3 05/02/19 13:36 Pain Level 2 05/02/19 13:36
--- NOTE | 2019-05-02 13:54 | ED.GENADUL_ITS ---
Discharge Plan Disposition Patient Disposition: HOME Condition: Good Discharge Details Chief Complaint: GenMedical Clinical Impression: Chronic osteomyelitis Primary Care Provider: Susana Apple ED Provider: Wade Tirado Home Meds and New Rx's Prescriptions: No Action furosemide 40 mg tablet 40 mg PO DAILY Qty: 90 RF: 3 nicotine 21 mg/24 hr patch 24 hour 1 patch TD Q24H Qty: 28 RF: 1 Depend Underwear For Women S-M misc 1 ea Miscellaneous QID Qty: 150 RF: 12 ciprofloxacin HCl 500 mg tablet 500 mg PO BID Qty: 20 RF: 0 diltiazem HCl [Tiazac] 120 mg capsule,extended release 24 hr 120 mg PO DAILY Qty: 90 RF: 3 Spiriva with HandiHaler 18 mcg capsule, w/inhalation device 1 cap IH BID Qty: 180 RF: 3 magnesium oxide 400 mg (241.3 mg magnesium) tablet 400 mg PO DAILY Qty: 90 RF: 3 nitroglycerin 0.4 mg tablet, sublingual 0.4 mg Sublingual PRN PRN (Reason: chest pain) Qty: 25 RF: 12 atorvastatin 40 mg tablet 40 mg PO DAILY RF: 0 albuterol sulfate 90 mcg/actuation HFA aerosol inhaler 2 puff IH Q6H PRNRF: 0 port 02concentrator Inhalation as directed Qty: 1 RF: 1 Symbicort 10.2 GM HFA aerosol inhaler 2 puff Inhalation BID Qty: 3 RF: 4 Oxygen Tank .ROUTE .MEDSUPPLY Qty: 1 RF: 0 aspirin [Adult Low Dose Aspirin] 81 mg tablet,delayed release (DR/EC) 81 mg PO DAILY RF: 0 clopidogrel [Plavix] 75 mg tablet 75 mg PO DAILY RF: 0 acetaminophen [Mapap Extra Strength] 500 mg Tablet 1,000 mg PO Q8H PRN PRNQty: 0 RF: 0 calcium carbonate 200 mg calcium (500 mg) Tablet,Chewable 200 mg PO QID PRN (Reason: Acid Reflux) RF: 0 pantoprazole 40 mg tablet,delayed release (DR/EC) 40 mg PO BID RF: 0 docusate sodium [Colace] 100 mg capsule 100 mg PO BID PRN (Reason: Constipation) RF: 0 doxycycline hyclate 100 mg Capsule 100 mg PO BID Qty: 20 RF: 0 Discharge Instructions Additional Instructions: Please continue taking the doxycycline and Plavix as directed by the [facility]. Please follow-up promptly with your primary care provider tomorrow, and your vascular surgeon later this week. If you notice any redness, warmth, pain, or change in your chronic symptoms in your toe please return immediately for reassessment. If you notice any worsening of your symptoms, or any new symptoms such as vomiting, diarrhea, fever, chills, shortness of breath, chest pain, numbness, weakness, or fainting , please return immediately to the emergency department for reevaluation. Please follow up with your primary care provider as soon as possible for reassessment and reevaluation. As always, it was a pleasure participating in your medical care today. 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 She recently had vascular evaluation and surgery at the [facility] less than a week ago, and she is scheduled to see the vascular surgeon for reevaluation and potential toe removal on 11 May which is in less than 10 days. At the [facility] on 27 April she had ballooning of the right popliteal artery and ballooning of the right superficial femoral artery which was felt to be therapeutic for her chronic recurrent episodes of cellulitis. Patient states that her home health nurse evaluated the toe today and recommended that she come in for evaluation to the ED for further assessment out of concern for infection. The patient states that her symptoms are unchanged, she states that she has been taking the antibiotic doxycycline she was prescribed from the [facility] as directed. She is taking the Plavix that she was discharged with. we will get CBC to evaluate for leukocytosis, and an x-ray to evaluate for any worsening of her chronic condition. 3:32 PM Patient's laboratory work-up has returned, she has no elevation of white count, x-ray of the toe shows unchanged osteomyelitis, no significant worsening per radiology when compared to previous x-rays. Patient continues to remain asymp tomatic, stable, and in no acute distress. No evidence of tachycardia or fever. I do not think that there is any acute component to her symptoms, and she does have the follow-up as needed on an outpatient basis with her vascular surgeon, and her family doctor tomorrow. No indication for admission for IV antibiotics clinically at this time. Recommend continuation of the doxycycline and Plavix, as this seems to be keeping down any significant infection with no evidence of erythema, abscess or redness. Discussed the importance of prompt follow-up with her PCP tomorrow. I have extensively reviewed the treatment plan and discharge instructions with the patient. I have addressed all patient concerns at this time. The patient was made aware of what symptoms to monitor for that would warrant a return to the emergency department. Discussed the plan with the patient, they demonstrate verbal understanding and agreement with our assessment and plan at this time. HPI General Date/Time Provider Initiated Documentation: 05/02/19 13:37 . HPI Narrative: This is a 73-year-old female with a past medical history of PAD, CHF, COPD, GERD, GI bleed and cor pulmonale who is seen at the [facility] for her gangrenous toes, she had surgery on 26 April which was 5 days ago, and is scheduled for follow-up in 9 days at the [facility]. She is currently on doxycycline. The patient's home health nurse saw her today and recommended that she come in to be evaluated for infection. Patient denies any redness, change in her symptoms of her chronic gangrenous right fourth toe. She denies any significant changes since surgery. She denies fever or chills. She denies any other complaints or modifying factors. She states that she feels fine, has been taking her doxycycline as prescribed, has no other complaints. Related Data Home Medications Medication Instructions Recorded Confirmed Symbicort 2 puff INHALATION BID #3 inhaler 12/03/17 05/02/19 furosemide 40 mg tablet 40 mg PO DAILY #90 tab-cap 10/07/18 05/02/19 acetaminophen [Mapap Extra 1,000 mg PO Q8H PRN PRN #0 tab 01/07/19 05/02/19 Strength] Oxygen #1 each 02/23/19 04/18/19 albuterol sulfate HFA 90 2 puff IH Q6H PRN 02/24/19 05/02/19 mcg/actuation aerosol inhaler atorvastatin 40 mg tablet 40 mg PO DAILY 02/24/19 05/02/19 calcium carbonate 200 mg PO QID PRN 02/24/19 05/02/19 docusate sodium [Colace] 100 mg PO BID PRN 02/24/19 05/02/19 pantoprazole 40 mg PO BID 02/24/19 05/02/19 diaper,brief,adult,disposable #150 each 03/16/19 04/18/19 nicotine 21 mg/24 hr daily 1 patch TD Q24H #28 each 03/16/19 05/02/19 transdermal patch ciprofloxacin 500 mg tablet 500 mg PO BID #20 tab 04/18/19 05/02/19 diltiazem ER 120 mg capsule,24 120 mg PO DAILY #90 cap 04/18/19 05/02/19 hr,extended release magnesium oxide 400 mg (241.3 mg 400 mg PO DAILY #90 tab 04/18/19 05/02/19 magnesium) tablet nitroglycerin 0.4 mg sublingual 0.4 mg SUBLINGUAL PRN PRN #25 04/18/19 05/02/19 tablet tab-cap tiotropium bromide 18 mcg capsule 1 cap IH BID #180 inh 04/18/19 05/02/19 with inhalation device doxycycline hyclate 100 mg PO BID #20 cap 04/21/19 05/02/19 aspirin 81 mg tablet,delayed 81 mg PO DAILY 04/27/19 05/02/19 release clopidogrel 75 mg tablet 75 mg PO DAILY 04/27/19 05/02/19 Previous Rx's Medication Instructions Recorded Symbicort 2 puff INHALATION BID #3 inhaler 12/03/17 furosemide 40 mg tablet 40 mg PO DAILY #90 tab-cap 10/07/18 acetaminophen [Mapap Extra 1,000 mg PO Q8H PRN PRN #0 tab 01/07/19 Strength] diaper,brief,adult,disposable #150 each 03/16/19 nicotine 21 mg/24 hr daily 1 patch TD Q24H #28 each 03/16/19 transdermal patch ciprofloxacin 500 mg tablet 500 mg PO BID #20 tab 04/18/19 diltiazem ER 120 mg capsule,24 120 mg PO DAILY #90 cap 04/18/19 hr,extended release magnesium oxide 400 mg (241.3 mg 400 mg PO DAILY #90 tab 04/18/19 magnesium) tablet nitroglycerin 0.4 mg sublingual 0.4 mg SUBLINGUAL PRN PRN #25 04/18/19 tablet tab-cap tiotropium bromide 18 mcg capsule 1 cap IH BID #180 inh 04/18/19 with inhalation device doxycycline hyclate 100 mg PO BID #20 cap 04/21/19 Allergies Allergy/AdvReac Type Severity Reaction Status Date / Time chlorpromazine Allergy Severe Skin Rash Unverified 05/02/19 13:40 Penicillins Allergy Severe HIVES Unverified 05/02/19 13:40 oxycodone Allergy Mild RASH/VOMITI Unverified 05/02/19 13:40 NG raspberry Allergy Unknown Unverified 05/02/19 13:40 General Stated Complaint: GenMedical GENE: 3 Review of Systems Review of Systems All systems reviewed & are unremarkable except as noted in HPI and below PFSH Social History Smoking/Tobacco Use Status: Former Tobacco Use Alcohol Intake: never Drug use: Never In current or past relationships, have you been: threatened and made to feel afraid Do you feel safe at home: Yes Do you feel safe in your relationship?: Yes Exam Narrative Exam Narrative: 1.Const: Well-nourished, Well-developed, appearing stated age 2.Eyes: PERRL, no conjunctival injection, and symmetrical lids. 3.ENT: Atraumatic external nose and ears. Moist MM. Neck: Symmetric, trachea midline, No thyromegaly. 4.CVS: +S1/S2, No murmurs or gallops. Peripheral pulses 2+ and equal in all extremities. Brisk capillary refill in all extremities. 5.RESP: Unlabored respiratory effort. Clear to auscultation bilaterally. No wheezes rales or rhonchi 6.GI: Soft, Nontender/Nondistended, No hepatosplenomegaly. No guarding or rebound. 7.MSK: Normocephalic/Atraumatic. No cyanosis or clubbing. Patient's feet bilat erally the same temperature, and appropriate. They are not cold and pale, or hot or erythematous. Patient's demonstrates capillary refill less than 3 seconds on all toes on both feet. Dorsalis pedis pulses present but reduced. The patient's right fourth toe demonstrates a chronically necrotic distal tip, no pain, no swelling, or significant redness. No tracking redness up the foot. 8.Skin: Warm, Dry. No rashes or lesions. 9.Neuro: job training specialist II-XII grossly intact. Sensation grossly intact, no focal neurologic deficits. 10.Psych: (AAO) x3. Appropriate mood and affect Course Vital Signs Temperature 37.1 C 05/02/19 13:36 Pulse 82 05/02/19 13:36 Respiratory Rate 20 05/02/19 13:36 Blood Pressure 151/64 H 05/02/19 13:36 Pulse Oximetry 94 L 05/02/19 13:36 Temperature 37.1 C 05/02/19 13:36 Temperature Source Temporal Artery Scan 05/02/19 13:36 Pulse 82 05/02/19 13:36 Respiratory Rate 20 05/02/19 13:36 Respiratory Effort 05/02/19 13:36 Blood Pressure 151/64 H 05/02/19 13:36 Blood Pressure Position Sitting 05/02/19 13:36 Pulse Oximetry 94 L 05/02/19 13:36 Oxygen Delivery Method Nasal Cannula 05/02/19 13:36 Oxygen Flow Rate 3 05/02/19 13:36 Pain Level 2 05/02/19 13:36
[2019-05-02 14:15] LABS: Abs Immature Grans 0.04 k/cumm (0.0-0.09); Absolute Basophil Count 0.05 k/cumm (0.0-0.2); Absolute Eosinophil Count 0.33 k/cumm (0.0-0.7); Absolute Lymphocyte Count 1.29 k/cumm (1.2-3.4); Absolute Monocyte Count 0.39 k/cumm (0.11-0.7); Absolute Neutrophil Count 4.23 k/cumm (1.2-6.7); Basophils % 0.8; Eosinophils % 5.2; HCT 30.6 % (36.0-46.0); Immature Grans % 0.6; Lymphocytes % 20.4; Mean Corp. HGB Concentration 29.4 g/dL (32.0-36.0); Mean Corpuscular Volume 98.7 fL (80-95); Monocytes % 6.2; Neutrophils % 66.8; Platelet Count 270 x1000/uL (130-400); RBC Distribution Width 14.1 % (11.7-14.6); White Blood Cell Count 6.33 k/cumm (4.4-10.8)
[2019-05-02 15:02] VITALS: BP 131/41; PULSE 73; RESP 18; TEMP 36.6; O2SAT 100
== END 2019-05-02 16:41 | disposition home or self-care (01) ==
PROVIDERS: Emergency Provider Student in an Organized Health Care Education/Training Program; PCP Nurse Practitioner
DX: M86.671 Other chronic osteomyelitis, right ankle and foot (principal); I73.9 Peripheral vascular disease, unspecified; I50.9 Heart failure, unspecified; J44.9 Chronic obstructive pulmonary disease, unspecified
CPT/HCPCS: 36415; 99283; 73630; 85025; 99282

== ENCOUNTER 2019-06-09 11:42 | Emergency (ER) | payer MEDICARE, MEDICAID, SELFPAY ==
[2019-06-09 11:46] VITALS: BP 138/90; PULSE 93; RESP 20; TEMP 36.6; O2SAT 94
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
[2019-06-09 13:15] VITALS: BP 132/88; PULSE 87; RESP 18; TEMP 37.6; O2SAT 97
[2019-06-09 13:58] VITALS: BP 138/90; PULSE 93; RESP 20; TEMP 36.6; O2SAT 94
--- NOTE | 2019-06-09 14:00 | NUR.NOTE ---
pt dc home ambulatory steady with o2 in place Nursing Note:
--- NOTE | 2019-06-09 14:20 | PDOC.ERCMPRO ---
- If Service Date Differs Date of service: 06/09/19 Time of Service: 14:21 Care Management Progress Note S/O: CM met with Lauren at the bedside she states she has kasaan on aging, Cassy Taylor who is helping her with housing. 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 [facility] she states she will not return to the [facility]. Lauren states she has meals on wheels, daily home health nursing. She states the last time she went home with antibiotics she did not take them states she is to busy to take her medications. CM reviewed the importance of taking her medications, contacted Donna Sanders RN CCC reviewed concerns related to Lauren's follow through with treatment. Lauren is not willing to be discharged to a rehab today but will consider it in the future. A:Lauren is a 73 year old female being evaluated in the ED for complaints of right 4th toe, she also has a large fluid blister on the left melvin She has a significance history of CAD, CHF, O2 dependence and arterial vascular disease. She missed her vascular appointment this week at [facility]. P: Lauren will return to [facility] today and continued community supports through [facility], HH, and [facility]. CM will contact [facility] and schedule trip for pcp office on Thursday. CM contacted home health to follow up antibiotic regimen and request medication management through the agency.
--- NOTE | 2019-06-10 09:31 | PDOC.ERCMPRO ---
- If Service Date Differs Date of service: 06/10/19 Time of Service: 09:31 Care Management Progress Note CM contacted [facility] and set up transport for Lauren's appointment this morning. Lauren reports that she will be riding with her family to her doctors appointment today and does not need transportation. CM canceled [facility] as requested per the patient.
== END 2019-06-09 14:06 | disposition home or self-care (01) ==
PROVIDERS: Emergency Provider Physician Assistant; PCP Nurse Practitioner
DX: L03.116 Cellulitis of left lower limb (principal); I73.9 Peripheral vascular disease, unspecified; J44.9 Chronic obstructive pulmonary disease, unspecified; Z87.891 Personal history of nicotine dependence; I10 Essential (primary) hypertension; Z99.81 Dependence on supplemental oxygen
CPT/HCPCS: 99283

== ENCOUNTER 2019-06-30 10:55 | Emergency (ER) | payer MEDICARE, MEDICAID, SELFPAY ==
[2019-06-30] VITALS (7 sets, daily range): BP systolic 77–148; BP diastolic 28–68; PULSE 78–84; RESP 16–29; TEMP 36.4; O2SAT 99–100
--- NOTE | 2019-06-30 10:54 | ED.GENADUL_ITS ---
Discharge Plan Disposition Patient Disposition: SNF (LEVEL 1) [facility] Condition: Good Discharge Details Chief Complaint: Chest Pain Clinical Impression: End stage COPD, Depressive disorder Primary Care Provider: Suasna Apple ED Provider: Lucía Handy Home Meds and New Rx's Prescriptions: Continued nicotine 21 mg/24 hr patch 24 hour 1 patch TD Q24H Qty: 28 RF: 1 diltiazem HCl [Tiazac] 120 mg capsule,extended release 24 hr 120 mg PO DAILY Qty: 90 RF: 3 Spiriva with HandiHaler 18 mcg capsule, w/inhalation device 1 cap IH BID Qty: 180 RF: 3 magnesium oxide 400 mg (241.3 mg magnesium) tablet 400 mg PO DAILY Qty: 90 RF: 3 nitroglycerin 0.4 mg tablet, sublingual 0.4 mg Sublingual PRN PRN (Reason: chest pain) Qty: 25 RF: 12 atorvastatin 40 mg tablet 40 mg PO DAILY RF: 0 albuterol sulfate 90 mcg/actuation HFA aerosol inhaler 2 puff IH Q6H PRNRF: 0 furosemide 40 mg tablet 60 mg PO DAILY Qty: 135 RF: 3 potassium chloride 20 mEq tablet extended release 40 meq PO BID Qty: 180 RF: 1 prednisone 20 mg tablet 40 mg PO DAILY Qty: 10 RF: 0 (DME) Depend Underwear For Women S-M misc 1 ea Miscellaneous QID Qty: 150 RF: 12 Probiotic 15 billion cell capsule, sprinkle 1 cap PO DAILY Qty: 30 RF: 1 port 02concentrator 0 Inhalation as directed Qty: 1 RF: 1 Symbicort 10.2 GM HFA aerosol inhaler 2 puff Inhalation BID Qty: 3 RF: 4 (DME) Oxygen Tank See Dose Instructions .ROUTE .MEDSUPPLY Qty: 1 RF: 0 aspirin [Adult Low Dose Aspirin] 81 mg tablet,delayed release (DR/EC) 81 mg PO DAILY RF: 0 clopidogrel [Plavix] 75 mg tablet 75 mg PO DAILY RF: 0 acetaminophen [Mapap Extra Strength] 500 mg Tablet 1,000 mg PO Q8H PRN PRNQty: 0 RF: 0 calcium carbonate 200 mg calcium (500 mg) Tablet,Chewable 200 mg PO QID PRN (Reason: Acid Reflux) RF: 0 pantoprazole 40 mg tablet,delayed release (DR/EC) 40 mg PO BID RF: 0 docusate sodium [Colace] 100 mg capsule 100 mg PO BID PRN (Reason: Constipation) RF: 0 clindamycin HCl 150 mg capsule 450 mg PO Q6H Qty: 84 RF: 0 Discharge Instructions Instructions: COPD (Chronic Obstructive Pulmonary Disease) (ED) Additional Instructions: You are being transferred to [facility] for further care. Stop smoking. You will need to have a urinalysis to evaluate for possible infection. If you develop increased shortness of breath, difficulty breathing, or other new/worsening symptoms please seek care urgently once again. Please follow up with primary care in one week for reevaluation. Referrals: Susana Apple NP [Primary Care Provider] - Discharge Data Discharge Date/Time-TO BE ENTERED AT DEPARTURE: 06/30/19 15:12 Medical Decision Making Patient 71-year-old female presenting today because she is not safe in her current residence. Patient is hoping to get placement into facility. Is also endorsing chest tightness. She does not feel this is cardiac or respiratory nature. Patient does have history of COPD and is chronically on 3 L nasal cannula oxygen. She is not currently endorsing any change in her shortness of breath. States the tightness is associated only with moments of increased anxiety. Feels that this is subsided at this time, is feeling safer now that she is here. Patient has been working with care coordinators regarding placement into permanent facility. She has been residing at local in for quite some time now. She is endorsing audible hallucinations which is not new for her. States she often hears her sister's voice. Also hearing a male voice. These are not threatening or prompting her to do anything. Rather, they are talking to her and trying to hypnotized me. States that she is been having this for quite some time and that this is exacerbated with stress. She reports that she had a recent change in her room which greatly exacerbated her auditory hallucinations. EKg reviewed by Dr. Reyes, no acute changes from previous. NSR, rate 85. First degree block noted, again unchanged from previous dated 01/18 Laboratory evaluation obtained, patient is anemic but this is stable compared to her baseline. Bicarb is elevated 34.2, this is typical for the patient. Labs are otherwise unremarkable. Initial urinalysis is heavily contaminated and not appropriate for testing. Will order repeat. Spoke with respiratory care specialist who is aware of the patient's current situation. She right consistent with respiratory care specialist regarding disposition of the patient. UA pending. CXR reviewed by radiologist. COPD and cardiomegatly noted, no evidence of acute cardiopulmonary disease. UA heavily contaminated, will obtain another, coil cleaner catch. Patient does not want straight cath. At this time, with no evidence of acute medical concern. I would like to further evaluate the patient for urinary tract infection but she is able to get another sample at this time. Patient has been except [facility] for placement. I feel this will be very beneficial for the patient. She does appear disheveled and does not appear to be able to care for herself at this time. They will continue with analysis for possible urinary tract infection given her exacerbation of auditory hallucinations. Patient was cooperative and appropriate while here. She is alert and oriented x4. Patient transferred to their facility. She is excited about this transfer HPI General Mode of arrival: EMS . Date/Time Provider Initiated Documentation: 06/30/19 11:01 . Limitations to Documentation: no limitations . Information obtained by: patient, EMS and RN notes reviewed . HPI Narrative: Patient is a 73-year-old female presenting today, brought in via EMS, feeling that she needs to get away from where I am living. Patient is currently residing at the [facility]. Patient was recently homeless and was placed there by local facility. She is awaiting placement at local group home. States she is having chest tightness at this time but reports this also with anxiety. She does not feel safe where she currently is. She reports that she often hears people talking and is concerned for her safety. States that she has been hearing voices. Seems very concerned about where she is no with. Reports that recently, she had to change rooms, this was greatly distressing to the patient and will increase her anxiety. She reports she has been taking her medications as prescribed, denies any recent medication changes. Denies any chest pain. Is not having exertional chest discomfort. Feels that this tightness she is been experiencing it has been associated purely with anxiety. States that when she arrived here, it subsided. Patient has history of COPD and is oxygen dependent. Patient also has history of GI bleed, anemia, continues to smoke, has hearing loss, spinal stenosis, hyperlipidemia, obesity, GERD, edema, depression. Surgical history of gastric bypass Related Data Home Medications Medication Instructions Recorded Confirmed Symbicort 2 puff INHALATION BID #3 inhaler 12/03/17 06/30/19 acetaminophen [Mapap Extra 1,000 mg PO Q8H PRN PRN #0 tab 01/07/19 06/30/19 Strength] Oxygen #1 each 02/23/19 06/13/19 albuterol sulfate 90 mcg/actuation 2 puff IH Q6H PRN 02/24/19 06/30/19 aerosol inhaler atorvastatin 40 mg tablet 40 mg PO DAILY 02/24/19 06/30/19 calcium carbonate 200 mg PO QID PRN 02/24/19 06/30/19 docusate sodium [Colace] 100 mg PO BID PRN 02/24/19 06/30/19 pantoprazole 40 mg PO BID 02/24/19 06/30/19 nicotine 21 mg/24 hr daily 1 patch TD Q24H #28 each 03/16/19 06/30/19 transdermal patch diltiazem HCl 120 mg capsule,24 120 mg PO DAILY #90 cap 04/18/19 06/30/19 hr,extended release magnesium oxide 400 mg (241.3 mg 400 mg PO DAILY #90 tab 04/18/19 06/30/19 magnesium) tablet nitroglycerin 0.4 mg sublingual 0.4 mg SUBLINGUAL PRN PRN #25 04/18/19 06/30/19 tablet tab-cap tiotropium bromide 18 mcg capsule 1 cap IH BID #180 inh 04/18/19 06/30/19 with inhalation device aspirin 81 mg tablet,delayed 81 mg PO DAILY 04/27/19 06/30/19 release clopidogrel 75 mg tablet 75 mg PO DAILY 04/27/19 06/30/19 furosemide 40 mg tablet 60 mg PO DAILY #135 tab-cap 05/16/19 06/30/19 potassium chloride 20 mEq 40 meq PO BID #180 tab 05/16/19 06/30/19 tablet,extended release clindamycin HCl 450 mg PO Q6H #84 cap 06/09/19 06/30/19 lactobacillus combo no.11 15 1 cap PO DAILY #30 cap 06/10/19 06/30/19 billion cell sprinkle capsule diaper,brief,adult,disposable #150 each 06/13/19 06/13/19 prednisone 20 mg tablet 40 mg PO DAILY #10 tab 06/13/19 06/30/19 Previous Rx's Medication Instructions Recorded Symbicort 2 puff INHALATION BID #3 inhaler 12/03/17 acetaminophen [Mapap Extra 1,000 mg PO Q8H PRN PRN #0 tab 01/07/19 Strength] nicotine 21 mg/24 hr daily 1 patch TD Q24H #28 each 03/16/19 transdermal patch diltiazem HCl 120 mg capsule,24 120 mg PO DAILY #90 cap 04/18/19 hr,extended release magnesium oxide 400 mg (241.3 mg 400 mg PO DAILY #90 tab 04/18/19 magnesium) tablet nitroglycerin 0.4 mg sublingual 0.4 mg SUBLINGUAL PRN PRN #25 04/18/19 tablet tab-cap tiotropium bromide 18 mcg capsule 1 cap IH BID #180 inh 04/18/19 with inhalation device furosemide 40 mg tablet 60 mg PO DAILY #135 tab-cap 05/16/19 potassium chloride 20 mEq 40 meq PO BID #180 tab 05/16/19 tablet,extended release clindamycin HCl 450 mg PO Q6H #84 cap 06/09/19 lactobacillus combo no.11 15 1 cap PO DAILY #30 cap 06/10/19 billion cell sprinkle capsule diaper,brief,adult,disposable #150 each 06/13/19 prednisone 20 mg tablet 40 mg PO DAILY #10 tab 06/13/19 Allergies Allergy/AdvReac Type Severity Reaction Status Date / Time chlorpromazine Allergy Severe Skin Rash Verified 06/30/19 12:27 Penicillins Allergy Severe HIVES Verified 06/30/19 12:27 oxycodone Allergy Mild RASH/VOMITI Verified 06/30/19 12:27 NG raspberry Allergy Unknown Verified 06/30/19 12:27 General GENE: 3 Review of Systems Constitutional Reports as per HPI, Denies chills, Denies fever(s), Denies headache(s), Denies lethargy and Denies poor appetite Eyes Denies change in vision ENT Denies dizziness and Denies headache(s) Cardiovascular Reports as per HPI, Denies chest pain, Denies chest pain at rest, Denies chest pain with activity, Denies syncope, Denies rapid heart rate, Denies lightheadedness, Denies radiating jaw, neck or arm pain, Denies palpitations and Reports dyspnea on exertion (baseline, on home O2 associated with COPD) Respiratory Reports as per HPI, Denies chest congestion, Denies cough, Denies pain on inspiration, Denies pain with cough, Reports dyspnea on exertion (baseline, on home O2 associated with COPD) and Denies wheezing Gastrointestinal Reports as per HPI, Denies abdominal pain, Denies diarrhea, Denies nausea and Denies vomiting Musculoskeletal Reports as per HPI and Denies back pain Integumentary/Breasts Reports as per HPI and Denies rash Neurologic Reports as per HPI, Denies dizziness, Denies syncope and Denies headache(s) Psychiatric Reports hallucinations (patient admits to long standing auditory hallucinations that have been incr), Denies homicidal ideation and Denies suicidal ideation Endocrine Denies palpitations Allergic/Immunologic Denies wheezing PFSH Medical History Cor athrscl-uns vessel End stage COPD GERD (gastroesophageal reflux disease) GI bleed Marginal ulcer Oxygen dependent Sensorineural hearing loss Spinal stenosis Surgical History EGD - MAC Extraction of cataract (08/28/15) Gastric Bypass (~1989) Social History Smoking/Tobacco Use Status: Former Tobacco Use Tobacco: How many years used: 57 Alcohol Intake: never Drug use: Never Adopted: No Household members: none Number of Children: 2 Communication Needs: Hard of Hearing and Corrective Lenses Do you need help understanding health information?: Rarely current occupation: disabled What is your relationship status?: Panel score (0-1 are the most socially isolated patients): 0 What type of physical activity do you participate in: none Seatbelt use: always Drive intox or ride w/intox patient transportation driver: No Working smoke detector in home: Yes Carbon monox detector in home: Yes In current or past relationships, have you been: threatened and made to feel afraid Do you feel safe at home: Yes Do you feel safe in your relationship?: Yes Exam Const General: cooperative, comfortable, well developed, No well groomed (disheveled), anxious and ill appearing chronically Nutritional Appearance: average body habitus and well nourished Orientation: alert, awake and oriented x3 HENMT Head: normal to inspection Ears: hearing grossly normal bilaterally Mouth: moist mucous membranes Chest Chest: normal inspection of the chest, normal palpation of entire chest wall and no crepitus Resp Effort & Inspection: normal respiratory effort, able to speak in complete sentences and no respiratory distress Auscultation: clear to auscultation bilaterally, no rales, no rhonchi and no wheezes Cardio Rate: regular rate Rhythm: regular rhythm Heart Sounds: S1 normal and S2 normal GI Inspection: normal to inspection, no edema and non-distended Palpation: soft, no hepatosplenomegaly, not firm, no guarding, not rigid and nontender Auscultation: normal bowel sounds Back/Spine/Pelvis Back: no CVA tenderness Thoracic/Lumbar Spine: thoracic and lumbar spine normal to inspection Skin General skin exam: no rashes or lesions noted Trauma: no lacerations or abrasions Neuro General: alert, awake and oriented x3 Cognition: normal cognition Speech: speech normal Extrem General: normal to inspection, normal capillary refill, no pedal edema, no calf tenderness and normal gait Psych Appearance: grossly normal and well kempt Mental Status: mental status grossly normal Speech and Movement: speech and movement normal
--- NOTE | 2019-06-30 11:01 | DI.RAD_ITS ---
SYMPTOM/DIAGNOSIS: CHEST TIGHTNESS AP AND LATERAL CHEST: There is evidence of COPD. No infiltrate, mass or pleural effusion is identified. The heart is enlarged. The hilar structures, mediastinum and tracheal air column are intact. SUMMARY COPD and cardiomegaly. No evidence of acute cardiopulmonary disease.
[2019-06-30 11:34] LABS: Absolute Basophil Count 0.04 k/cumm (0.0-0.2); Absolute Eosinophil Count 0.18 k/cumm (0.0-0.7); Absolute Lymphocyte Count 1.13 k/cumm (1.2-3.4); Absolute Neutrophil Count 4.01 k/cumm (1.2-6.7); Basophils % 0.7; Eosinophils % 3.1; HCT 32.5 % (36.0-46.0); HGB 9.7 g/dL (12.0-15.5); Lymphocytes % 19.3; Mean Corp. HGB Concentration 29.8 g/dL (32.0-36.0); Mean Corpuscular Hemoglobin 27.1 pg (27.0-33.0); Mean Corpuscular Volume 90.8 fL (80-95); Mean Platelet Volume 9.7 fL (8.0-11.0); Monocytes % 8.5; Neutrophils % 68.4; Platelet Count 253 x1000/uL (130-400); RBC 3.58 m/cumm (4.00-5.20); RBC Distribution Width 14.9 % (11.7-14.6); White Blood Cell Count 5.86 k/cumm (4.4-10.8)
[2019-06-30 11:46] LABS: Anisocytosis 1+; Diff Comment RBC Morph Reviewed; Polychromasia Present
[2019-06-30 11:48] LABS: PTT Activated 21.9 sec (21.0-31.4); Prothrombin Time 9.7 sec (9.3-11.0)
[2019-06-30 11:56] LABS: ALT 15 U/L (12-78); AST 13 U/L (15-37); Albumin 3.5 g/dL (3.4-5.0); Alkaline Phosphatase 114 U/L (46-116); Anion Gap 5.8 mmol/L (3-11); BUN 13 mg/dL (7-18); Bilirubin, Total 0.3 mg/dL (0.2-1.0); CO2 34.2 mmol/L (21.0-32.0); CREATININE 0.99 mg/dL (0.55-1.02); Calcium 9.2 mg/dL (8.5-10.1); Chloride 100 mmol/L (98-107); Estimated GFR 55.14 (mL/min/1.73m2); Glucose 110 mg/dL (70-100); Magnesium 2.2 mg/dL (1.8-2.4); Potassium 3.5 mmol/L (3.5-5.1); Sodium 140 mmol/L (136-145); Total Protein 7.9 g/dL (6.4-8.2)
[2019-06-30 11:59] LABS: Troponin I < 0.05 ng/mL (0.00-0.06)
[2019-06-30 13:25] LABS: Bacteria Moderate HPF (Negative); C & S Indicated? No/Sq. Contamination; Epithelial Cells Many HPF (Negative); WBC >50 HPF (0-5)
--- NOTE | 2019-06-30 14:40 | PDOC.ERCMPRO ---
Care Management Progress Note CM coordinated SNF placement at [facility] for Lauren. CM completed forms and faxed to [facility], as well as notified [facility] that Lauren was currently on 3L O2. CM coordinated transport through [facility] private vehicle. CM met with Lauren who was sitting up on the side of her bed. She reported Cassy Taylor from [facility] had been working towards [facility] Medicaid and Lauren had identified [facility] as her disposition of choice. She did report wanting to find a way to the Bank to retrieve money for needs as well as her medication. CM rec'd call from [facility] after discharge stating Lauren wanted to leave via taxi. She was supported to stay. MARTI notified Donna Martinez CCC and Cassy Taylor CM of this information and requested they support Lauren to stay. Donna offered alternatives but did not offer to support the patient. Cassy reported this is baseline behavior for Lauren.
== END 2019-06-30 15:12 | disposition skilled nursing facility (03) ==
PROVIDERS: Emergency Provider Physician Assistant; PCP Nurse Practitioner
DX: J44.9 Chronic obstructive pulmonary disease, unspecified (principal); R07.9 Chest pain, unspecified
CPT/HCPCS: 36415; 80053; 93005; 99285; 71046; 81003; 81015; 82140; 83735; 84484; 85025; 85610; 85730; 93010

== ENCOUNTER 2019-07-09 14:09 | Outpatient (REF) | payer MEDICARE, MEDICAID, SELFPAY ==
[2019-07-09 14:34] LABS: Bilirubin Negative (Negative); Blood Negative (Negative); Clarity Clear (Clear); Glucose Negative (Negative); Ketones Negative (Negative); Leukocyte Esterase Negative (Negative); Nitrite Negative (Negative); Urobilinogen 0.2 EU/dL (Up TO 0.2); pH 5.5 (5-8)
== END 2019-07-09 14:29 ==
LOC: LBN 14:09
PROVIDERS: PCP Nurse Practitioner; Visit Provider Nurse Practitioner Adult Health
DX: N39.0 Urinary tract infection, site not specified (principal)
CPT/HCPCS: 81003

== ENCOUNTER 2019-07-14 20:25 | Observation (INO) | payer MEDICARE, MEDICAID, SELFPAY ==
[2019-07-14] VITALS (44 sets, daily range): BP systolic 110–145; BP diastolic 41–74; PULSE 62–88; RESP 15–30; TEMP 36.8; O2SAT 94–100
--- NOTE | 2019-07-14 20:48 | W.ED.GENAD ---
Discharge Plan Discharge Details Chief Complaint: Chest Pain Primary Care Provider: Susana Apple ED Provider: Chrissie Quijano Home Meds and New Rx's Prescriptions: No Action nicotine 21 mg/24 hr patch 24 hour 1 patch TD Q24H Qty: 28 RF: 1 diltiazem HCl [Tiazac] 120 mg capsule,extended release 24 hr 120 mg PO DAILY Qty: 90 RF: 3 Spiriva with HandiHaler 18 mcg capsule, w/inhalation device 1 cap IH BID Qty: 180 RF: 3 magnesium oxide 400 mg (241.3 mg magnesium) tablet 400 mg PO DAILY Qty: 90 RF: 3 nitroglycerin 0.4 mg tablet, sublingual 0.4 mg Sublingual PRN PRN (Reason: chest pain) Qty: 25 RF: 12 atorvastatin 40 mg tablet 40 mg PO DAILY RF: 0 albuterol sulfate 90 mcg/actuation HFA aerosol inhaler 2 puff IH Q6H PRNRF: 0 furosemide 40 mg tablet 60 mg PO DAILY Qty: 135 RF: 3 potassium chloride 20 mEq tablet extended release 40 meq PO BID Qty: 180 RF: 1 prednisone 20 mg tablet 40 mg PO DAILY Qty: 10 RF: 0 (DME) Depend Underwear For Women S-M misc 1 ea Miscellaneous QID Qty: 150 RF: 12 Probiotic 15 billion cell capsule, sprinkle 1 cap PO DAILY Qty: 30 RF: 1 port 02concentrator 0 Inhalation as directed Qty: 1 RF: 1 Symbicort 10.2 GM HFA aerosol inhaler 2 puff Inhalation BID Qty: 3 RF: 4 (DME) Oxygen Tank See Dose Instructions .ROUTE .MEDSUPPLY Qty: 1 RF: 0 aspirin [Adult Low Dose Aspirin] 81 mg tablet,delayed release (DR/EC) 81 mg PO DAILY RF: 0 clopidogrel [Plavix] 75 mg tablet 75 mg PO DAILY RF: 0 acetaminophen [Mapap Extra Strength] 500 mg Tablet 1,000 mg PO Q8H PRN PRNQty: 0 RF: 0 calcium carbonate 200 mg calcium (500 mg) Tablet,Chewable 200 mg PO QID PRN (Reason: Acid Reflux) RF: 0 pantoprazole 40 mg tablet,delayed release (DR/EC) 40 mg PO BID RF: 0 docusate sodium [Colace] 100 mg capsule 100 mg PO BID PRN (Reason: Constipation) RF: 0 clindamycin HCl 150 mg capsule 450 mg PO Q6H Qty: 84 RF: 0 Medical Decision Making Lauren Martel is a 73-year-old woman with a history of COPD, CHF, coronary artery disease with stent placement 2004 on Plavix, hyperlipidemia who resides at [facility] for difficulty caring for herself who presented to the emergency department with chest pressure and lightheadedness. On exam patient is elderly but nontoxic appearing. Benign cardiopulmonary exam. Benign abdominal exam. Concern for ACS versus GERD versus other, doubt PE. Exam/history is not consistent with acute aortic etiology, sepsis, acute emergent abdominal process. Plan for EKG, chest x-ray, screening labs, nitroglycerin, telemetry, IV. Patient received aspirin from EMS en route. Will monitor and reassess. D-dimer elevated but within normal range when adjusted for age. Troponin negative. Patient with anemia essentially at baseline. BNP at baseline. Patient now reporting some worsening of her chest pain. Plan for nitroglycerin. Chest pain resolved after sublingual nitroglycerin 0.4 mg x 1. Plan for admission for chest pain, heart score is not low risk. Medical Records Medical records reviewed: Yes I reviewed the patient's medical records. Imaging Data Radiologic Study: Attestation: I personally reviewed and interpreted this imaging study as follows: Radiologist's impression: EXAM: XR Chest, 1 View EXAM DATE/TIME: 07/14/2019 8:51 PM CLINICAL HISTORY: 73 years old, female; Other: Chest pain TECHNIQUE: Imaging protocol: XR of the chest, 1 view. COMPARISON: CR XR CHEST 2V PA LATERAL 06/30/2019 11:39 AM. 01/04/2019 FINDINGS: Lungs: There is a persistent hyperaerated appearance to the lungs most consistent with COPD. No consolidation. Pleural space: No pneumothorax. Heart/Mediastinum: There is cardiomegaly, similar to prior exam. The mediastinal contours are not well assessed secondary to patient rotation. If there is concern for abnormality, a repeat frontal radiograph, nonrotated, could be considered. Vasculature: Vascular calcifications are seen. Bones/joints: Skeletal degenerative changes. IMPRESSION: 1. No focal consolidation or pneumothorax. 2.The mediastinal contours are not well assessed secondary to patient rotation. If there is concern for abnormality, a repeat frontal radiograph, nonrotated, could be considered. 3. other findings/details as above. Lab Data Lab results reviewed: Yes I reviewed the patient's lab results. 07/14/19 22:46 Nose MRSA Screen - Pending Laboratory Tests Range/Units 07/14/19 07/14/19 07/14/19 21:10 21:10 21:10 WBC (4.4-10.8) k/cumm 6.72 RBC (4.00-5.20) m/cumm 3.43 L Hgb (12.0-15.5) g/dL 9.1 L Hct (36.0-46.0) % 31.3 L MCV (80-95) fL 91.3 MCH (27.0-33.0) pg 26.5 L MCHC (32.0-36.0) g/dL 29.1 L RDW (11.7-14.6) % 15.7 H Plt Count (130-400) x1000/uL 282 MPV (8.0-11.0) fL 9.9 Immature Gran % 0.0 Neutrophils % 74.9 Lymphocytes % 14.9 Monocytes % 6.5 Eosinophils % 3.3 Basophils % 0.4 Absolute Neutrophils (1.2-6.7) k/cumm 5.03 Absolute Lymphocytes (1.2-3.4) k/cumm 1.00 L Absolute Monocytes (0.11-0.7) k/cumm 0.44 Absolute Eosinophils (0.0-0.7) k/cumm 0.22 Absolute Basophils (0.0-0.2) k/cumm 0.03 RBC Morphology See below Hypochromasia 2+ Anisocytosis 1+ D-Dimer (<500) ng/mlFEU 689 H Sodium (136-145) mmol/L 144 Potassium (3.5-5.1) mmol/L 4.1 Chloride (98-107) mmol/L 105 Carbon Dioxide (21.0-32.0) mmol/L 32.1 H Anion Gap (3-11) mmol/L 6.9 BUN (7-18) mg/dL 28 H Creatinine (0.55-1.02) mg/dL 1.20 H Estimated GFR/1.73 m2 (mL/min/1.73m2) 44.16 Glucose (70-100) mg/dL 128 H Calcium (8.5-10.1) mg/dL 8.2 L Magnesium (1.8-2.4) mg/dL 1.8 Total Bilirubin (0.2-1.0) mg/dL 0.3 AST (15-37) U/L 36 ALT (12-78) U/L 45 Alkaline Phosphatase (46-116) U/L 161 H Troponin I (0.00-0.06) ng/mL < 0.05 NT-Pro-B Natriuret Pep ( - 299) pg/mL 963 H Total Protein (6.4-8.2) g/dL 7.1 Albumin (3.4-5.0) g/dL 3.2 L ECG Data Attestation: I personally reviewed and interpreted this ECG (s) as follows: Interpretation: EKG #1 shows likely sinus rhythm with first-degree AV block at rate of 80, ectopic beats, left axis, bundle branch block, no STEMI, nondiagnostic EKG EKG #2 shows likely sinus rhythm at 78 with first-degree AV block and frequent ectopic beats, left axis, bundle branch block no STEMI, nondiagnostic EKG HPI General Mode of arrival: EMS. Date/Time Provider Initiated Documentation: 07/14/19 20:48. Limitations to Documentation: no limitations. Information obtained by: patient, EMS, RN notes reviewed and old records reviewed. HPI Narrative: Lauren Martel is a 73-year-old woman with history of COPD, coronary artery disease, CHF, GERD, high cholesterol presenting to the emergency department chest pain. Patient resides at [facility], was previously homeless and unable to take her medications as prescribed and care for herself. Patient reports that this afternoon she developed chest pressure and lightheadedness. She denies shortness of breath, cough, fainting. No diarrhea, no vomiting, no fever. Previously in her usual state of health. Patient is a poor historian. It is unclear if her pain has modifiers or is exertional. Per [facility] patient is at her baseline mental status. Related Data Home Medications Medication Instructions Recorded Confirmed Symbicort 2 puff INHALATION BID #3 inhaler 12/03/17 07/14/19 acetaminophen [Mapap Extra 1,000 mg PO Q8H PRN PRN #0 tab 01/07/19 07/14/19 Strength] Oxygen #1 each 02/23/19 06/13/19 albuterol sulfate 90 mcg/actuation 2 puff IH Q6H PRN 02/24/19 07/14/19 aerosol inhaler atorvastatin 40 mg tablet 40 mg PO DAILY 02/24/19 07/14/19 calcium carbonate 200 mg PO QID PRN 02/24/19 07/14/19 docusate sodium [Colace] 100 mg PO BID PRN 02/24/19 07/14/19 pantoprazole 40 mg PO BID 02/24/19 07/14/19 nicotine 21 mg/24 hr daily 1 patch TD Q24H #28 each 03/16/19 07/14/19 transdermal patch diltiazem HCl 120 mg capsule,24 120 mg PO DAILY #90 cap 04/18/19 07/14/19 hr,extended release magnesium oxide 400 mg (241.3 mg 400 mg PO DAILY #90 tab 04/18/19 07/14/19 magnesium) tablet nitroglycerin 0.4 mg sublingual 0.4 mg SUBLINGUAL PRN PRN #25 04/18/19 07/14/19 tablet tab-cap tiotropium bromide 18 mcg capsule 1 cap IH BID #180 inh 04/18/19 07/14/19 with inhalation device aspirin 81 mg tablet,delayed 81 mg PO DAILY 04/27/19 07/14/19 release clopidogrel 75 mg tablet 75 mg PO DAILY 04/27/19 07/14/19 furosemide 40 mg tablet 60 mg PO DAILY #135 tab-cap 05/16/19 07/14/19 potassium chloride 20 mEq 40 meq PO BID #180 tab 05/16/19 07/14/19 tablet,extended release clindamycin HCl 450 mg PO Q6H #84 cap 06/09/19 07/14/19 lactobacillus combo no.11 15 1 cap PO DAILY #30 cap 06/10/19 07/14/19 billion cell sprinkle capsule diaper,brief,adult,disposable #150 each 06/13/19 06/13/19 prednisone 20 mg tablet 40 mg PO DAILY #10 tab 06/13/19 07/14/19 Previous Rx's Medication Instructions Recorded Symbicort 2 puff INHALATION BID #3 inhaler 12/03/17 acetaminophen [Mapap Extra 1,000 mg PO Q8H PRN PRN #0 tab 01/07/19 Strength] nicotine 21 mg/24 hr daily 1 patch TD Q24H #28 each 03/16/19 transdermal patch diltiazem HCl 120 mg capsule,24 120 mg PO DAILY #90 cap 04/18/19 hr,extended release magnesium oxide 400 mg (241.3 mg 400 mg PO DAILY #90 tab 04/18/19 magnesium) tablet nitroglycerin 0.4 mg sublingual 0.4 mg SUBLINGUAL PRN PRN #25 04/18/19 tablet tab-cap tiotropium bromide 18 mcg capsule 1 cap IH BID #180 inh 04/18/19 with inhalation device furosemide 40 mg tablet 60 mg PO DAILY #135 tab-cap 05/16/19 potassium chloride 20 mEq 40 meq PO BID #180 tab 05/16/19 tablet,extended release clindamycin HCl 450 mg PO Q6H #84 cap 06/09/19 lactobacillus combo no.11 15 1 cap PO DAILY #30 cap 06/10/19 billion cell sprinkle capsule diaper,brief,adult,disposable #150 each 06/13/19 prednisone 20 mg tablet 40 mg PO DAILY #10 tab 06/13/19 Allergies Allergy/AdvReac Type Severity Reaction Status Date / Time chlorpromazine Allergy Severe Skin Rash Verified 07/14/19 20:30 Penicillins Allergy Severe HIVES Verified 07/14/19 20:30 oxycodone Allergy Mild RASH/VOMITI Verified 07/14/19 20:30 NG raspberry Allergy Unknown Verified 07/14/19 20:30 General Stated Complaint: Chest Pain GENE: 3 Review of Systems Review of Systems Constitutional: denies fevers Eyes: denies eye pain ENT: denies facial pain, dental pain, sore throat Cardiovascular: denies edema, reports lightheadedness, chest pain Respiratory: denies SOB, cough GI: denies abdominal pain, vomiting, diarrhea : denies flank pain MSK: denies back pain, neck pain, arthralgias, myalgias Skin: denies rash Neuro: denies headaches, numbness, weakness PFSH Medical History Cor athrscl-uns vessel End stage COPD GERD (gastroesophageal reflux disease) GI bleed Marginal ulcer Oxygen dependent Sensorineural hearing loss Spinal stenosis Social History Smoking/Tobacco Use Status: Former Tobacco Use Tobacco: How many years used: 57 Alcohol Intake: never Drug use: Never Adopted: No Household members: none Number of Children: 2 Communication Needs: Hard of Hearing and Corrective Lenses Do you need help understanding health information?: Rarely current occupation: disabled What is your relationship status?: Panel score (0-1 are the most socially isolated patients): 0 What type of physical activity do you participate in: none Seatbelt use: always Drive 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 Working smoke detector in home: Yes Carbon monox detector in home: Yes In current or past relationships, have you been: threatened and made to feel afraid Do you feel safe at home: Yes Do you feel safe in your relationship?: Yes Exam Narrative Exam Narrative: Constitutional: Elderly and frail but [id number], pleasant, conversing normally, hard of hearing HENT: head atraumatic/normocephalic/normal inspection, mucous membranes moist Eyes: conjunctiva normal, sclera normal, pupils 3mm b/l Neck: no stridor, normal ROM, trachea midline Chest: normal inspection Resp: normal work of breathing, LCTAB Cardio: normal rate, normal rhythm, no murmur appreciated GI: abdomen soft, non-tender, non-distended Back: normal inspection, no rash Skin: warm, dry, normal color, no rash Neuro: alert, not altered, grossly non-focal, normal tone Ext: no edema Psych: normal mood, normal affect, normal behavior Course Vital Signs Temperature 36.8 C 07/14/19 20:29 Pulse 73 07/14/19 20:29 Respiratory Rate 23 07/14/19 20:29 Blood Pressure 145/56 H 07/14/19 20:29 Pulse Oximetry 100 07/14/19 20:29 Temperature 36.8 C 07/14/19 20:29 Pulse 73 07/14/19 20:29 Respiratory Rate 20 07/14/19 20:32 Respiratory Effort Non-Labored 07/14/19 20:32 Respiratory Depth Normal 07/14/19 20:32 Respiratory Pattern Normal 07/14/19 20:32 Blood Pressure 145/56 H 07/14/19 20:29 Pulse Oximetry 100 07/14/19 20:29 Oxygen Delivery Method Room Air 07/14/19 20:29 Oxygen Flow Rate 0 07/14/19 20:29 Pain Level 0 07/14/19 20:29
[2019-07-14 21:17] LABS: Absolute Basophil Count 0.03 k/cumm (0.0-0.2); Absolute Eosinophil Count 0.22 k/cumm (0.0-0.7); Absolute Monocyte Count 0.44 k/cumm (0.11-0.7); Absolute Neutrophil Count 5.03 k/cumm (1.2-6.7); Basophils % 0.4; Eosinophils % 3.3; HCT 31.3 % (36.0-46.0); HGB 9.1 g/dL (12.0-15.5); Lymphocytes % 14.9; Mean Corp. HGB Concentration 29.1 g/dL (32.0-36.0); Mean Corpuscular Hemoglobin 26.5 pg (27.0-33.0); Mean Corpuscular Volume 91.3 fL (80-95); Mean Platelet Volume 9.9 fL (8.0-11.0); Monocytes % 6.5; Neutrophils % 74.9; Platelet Count 282 x1000/uL (130-400); RBC 3.43 m/cumm (4.00-5.20); RBC Distribution Width 15.7 % (11.7-14.6); White Blood Cell Count 6.72 k/cumm (4.4-10.8)
--- NOTE | 2019-07-14 21:25 | DI.RAD_ITS ---
SYMPTOM/DIAGNOSIS: CHEST PAIN PORTABLE AP CHEST: 2130 HOURS 07/14 Patient is rotated to the left. Cardiac size may be mildly enlarged. Diffuse changes of presumed pulmonary fibrosis noted. No focal consolidation. No pleural effusion. CONCLUSION: No evidence of acute change.
[2019-07-14 21:37] LABS: ALT 45 U/L (12-78); AST 36 U/L (15-37); Albumin 3.2 g/dL (3.4-5.0); Alkaline Phosphatase 161 U/L (46-116); Anion Gap 6.9 mmol/L (3-11); Anisocytosis 1+; BUN 28 mg/dL (7-18); Bilirubin, Total 0.3 mg/dL (0.2-1.0); CO2 32.1 mmol/L (21.0-32.0); Calcium 8.2 mg/dL (8.5-10.1); Chloride 105 mmol/L (98-107); Estimated GFR 44.16 (mL/min/1.73m2); Glucose 128 mg/dL (70-100); Hypochromasia 2+; Magnesium 1.8 mg/dL (1.8-2.4); Potassium 4.1 mmol/L (3.5-5.1); Sodium 144 mmol/L (136-145); Total Protein 7.1 g/dL (6.4-8.2)
[2019-07-14 21:43] LABS: Troponin I < 0.05 ng/mL (0.00-0.06)
--- NOTE | 2019-07-14 21:46 | DI.VRAD_ITS ---
EXAM: XR Chest, 1 View EXAM DATE/TIME: 07/14/2019 8:51 PM CLINICAL HISTORY: 73 years old, female; Other: Chest pain TECHNIQUE: Imaging protocol: XR of the chest, 1 view. COMPARISON: CR XR CHEST 2V PA LATERAL 06/30/2019 11:39 AM. 01/04/2019 FINDINGS: Lungs: There is a persistent hyperaerated appearance to the lungs most consistent with COPD. No consolidation. Pleural space: No pneumothorax. Heart/Mediastinum: There is cardiomegaly, similar to prior exam. The mediastinal contours are not well assessed secondary to patient rotation. If there is concern for abnormality, a repeat frontal radiograph, nonrotated, could be considered. Vasculature: Vascular calcifications are seen. Bones/joints: Skeletal degenerative changes. IMPRESSION: 1. No focal consolidation or pneumothorax. 2.The mediastinal contours are not well assessed secondary to patient rotation. If there is concern for abnormality, a repeat frontal radiograph, nonrotated, could be considered. 3. other findings/details as above. Dictated and Authenticated by: Millie Corey MD. Ordering:MARINA Dickens MD
[2019-07-14 21:57] LABS: D-Dimer 689 ng/mlFEU (<500)
[2019-07-14 22:02] LABS: NT-proBNP 963 pg/mL
--- NOTE | 2019-07-14 23:30 | W.PM.HP.N ---
Date of service: 07/14/19 Time of Service: 23:30 Assessment and Plan (1) Chest pain: Current visit: Yes Status: Acute continue to cycle her troponin levels and if negative then arrange stress MPI w/ Lexiscan either here or as outpatient; (echocardiogram was done in Dec 2018 at [facility] and was normal (i.e. normal LV size and function and RV size and function; LVEF 60-65%). Therefore I am not going to repeat it unless her enzymes rise or she has signs/symptoms of acute CHF. Her pro-BNP is actually lower than her prior levels. I have held her lasix for now d/t prerenal azotemia. Her d-dimer is within her age adjusted normal levels and therefore I do not feel she needs CTA to rule out P.E. Qualifiers: Chest pain type: unspecified Qualified Code(s): R07.9 - Chest pain, unspecified (2) Prerenal azotemia: Current visit: Yes Status: Acute hold her lasix and potassium for now. probably can resume later at a lower dose. She has no signs of CHF. (3) COPD (chronic obstructive pulmonary disease): Current visit: No Status: Chronic stable. continue her current meds. Need to get MAR from [facility] and have pharmacy reconcile her list in the a.m. Qualifiers: COPD type: emphysema Emphysema type: unspecified Qualified Code(s): J43.9 - Emphysema, unspecified (4) Macrocytic anemia: Current visit: No Status: Chronic she no longer has macrocytic changes on her CBC but she has a stable chronic anemia. I will recheck her iron stores in the a.m. She has hx of GI bleed and given her anemia, I have not put her on enoxaparin for DVT prophylaxis. I will resume her PPI. Further treatment of her anemia such as iron replacement (either po or iv)can be determined on outpatient management. History of Present Illness Chief Complaint: chest pain Narrative: 73 yr old female w/ COPD requiring oxygen 3 lpm constantly, CAD s/p stent, HLD, PAD w/ gangreen of her R. 4th toe, GERD, remote GI bleeding, spinal stenosis w/ neurogenic claudication, chronic anemia, who resides at [facility] and was sent to [facility] ER this evening d/t acute SSCP pressure and dyspnea. No nausea or vomiting and no radiation of her CP into her arms or back. Initially CP was more a pressure but then became more severe. CP was relieve w/ one NTG. She is now free of any CP or dyspnea. Evaluation in the ER included labs, CXR, EKG. Labs demonstrated stable chronic anemia w/ Hb 9.1 gm/HCT 31%, normocytic w/ incr. RDW 15.7%, No leukocytosis or thrombocytopenia. CMP demonstrated mild azotemia BUN 28, creatinine 1.20 (baseline is 13 and 0.99). Troponin less than 0.05 and proBNP of 963. Chest x-ray demonstrated cardiomegaly with no pleural effusions and no infiltrates but demonstrated emphysema. EKG demonstrated sinus rhythm at a rate of 80 bpm with first-degree AV block and left anterior fascicular block along with poor R wave progression across the anterior precordial leads and isolated PVCs and PACs. Patient is now admitted for further evaluation of chest pain. Review of Systems Review of Systems All systems reviewed & are unremarkable except as noted in HPI and below Cardiovascular Reports as per HPI Respiratory Reports as per HPI Gastrointestinal Denies abdominal pain, Denies nausea and Denies vomiting PFSH Medical History Cor athrscl-uns vessel End stage COPD GERD (gastroesophageal reflux disease) GI bleed Marginal ulcer Oxygen dependent Sensorineural hearing loss Spinal stenosis Surgical History EGD - MAC Extraction of cataract (08/28/15) Gastric Bypass (~1989) Family History Mother COPD (chronic obstructive pulmonary disease) Father Diabetes Sister No problems noted. Brother No problems noted. 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 Working smoke detector in home: Yes Carbon monox detector in home: Yes In current or past relationships, have you been: threatened and made to feel afraid Do you feel safe at home: Yes Do you feel safe in your relationship?: Yes Meds Home Medications Medication Instructions Recorded Confirmed Type Port 02concentrator 0 INHALATION as directed #1 unit 10/26/17 06/13/19 Clinic Symbicort 2 puff INHALATION BID #3 inhaler 12/03/17 07/14/19 Rx acetaminophen [Mapap Extra 1,000 mg PO Q8H PRN PRN #0 tab 01/07/19 07/14/19 Rx Strength] Oxygen #1 each 02/23/19 06/13/19 History albuterol sulfate 90 mcg/actuation 2 puff IH Q6H PRN 02/24/19 07/14/19 History aerosol inhaler atorvastatin 40 mg tablet 40 mg PO DAILY 02/24/19 07/14/19 History calcium carbonate 200 mg PO QID PRN 02/24/19 07/14/19 History docusate sodium [Colace] 100 mg PO BID PRN 02/24/19 07/14/19 History pantoprazole 40 mg PO BID 02/24/19 07/14/19 History nicotine 21 mg/24 hr daily 1 patch TD Q24H #28 each 03/16/19 07/14/19 Rx transdermal patch diltiazem HCl 120 mg capsule,24 120 mg PO DAILY #90 cap 04/18/19 07/14/19 Rx hr,extended release magnesium oxide 400 mg (241.3 mg 400 mg PO DAILY #90 tab 04/18/19 07/14/19 Rx magnesium) tablet nitroglycerin 0.4 mg sublingual 0.4 mg SUBLINGUAL PRN PRN #25 04/18/19 07/14/19 Rx tablet tab-cap tiotropium bromide 18 mcg capsule 1 cap IH BID #180 inh 04/18/19 07/14/19 Rx with inhalation device aspirin 81 mg tablet,delayed 81 mg PO DAILY 04/27/19 07/14/19 History release clopidogrel 75 mg tablet 75 mg PO DAILY 04/27/19 07/14/19 History furosemide 40 mg tablet 60 mg PO DAILY #135 tab-cap 05/16/19 07/14/19 Rx potassium chloride 20 mEq 40 meq PO BID #180 tab 05/16/19 07/14/19 Rx tablet,extended release clindamycin HCl 450 mg PO Q6H #84 cap 06/09/19 07/14/19 Rx lactobacillus combo no.11 15 1 cap PO DAILY #30 cap 06/10/19 07/14/19 Rx billion cell sprinkle capsule diaper,brief,adult,disposable #150 each 06/13/19 06/13/19 Rx prednisone 20 mg tablet 40 mg PO DAILY #10 tab 06/13/19 07/14/19 Rx Allergies Allergy/AdvReac Type Severity Reaction Status Date / Time chlorpromazine Allergy Severe Skin Rash Verified 07/14/19 20:30 Penicillins Allergy Severe HIVES Verified 07/14/19 20:30 oxycodone Allergy Mild RASH/VOMITI Verified 07/14/19 20:30 NG raspberry Allergy Unknown Verified 07/14/19 20:30 Exam Const General: cooperative, no acute distress, frail appearing and ill appearing chronically Nutritional Appearance: underweight Orientation: alert, awake and oriented x3 Eyes Visual Valladares: normal visual valladares by confrontation Alignment and Position: alignment normal Periorbital: periorbital findings normal Eyelids: eyelids normal Conjunctivae: conjunctivae normal Sclera: sclerae normal Cornea: corneas normal Pupils: PERRL EOM: EOM intact bilaterally Neck Neck: normal visual inspection, full ROM, no lymphadenopathy, no meningeal signs, trachea midline, supple and no JVD Thyroid: thyroid normal Carotids: bruit on the right Lymphatic: no lymphadenopathy noted Resp Effort & Inspection: normal respiratory effort, able to speak in complete sentences and prolonged expiratory phase Auscultation: clear to auscultation bilaterally Cardio Jugular venous pressure: no JVD Palpation: normal PMI Rate: regular rate Rhythm: regular rhythm Heart Sounds: S1 normal, S2 normal, normal, physiologic split S2, no gallops, no murmurs and no rubs Bruits: no abdominal aortic bruits and carotid bruit on the right Pulses: posterior tibial pulses present bilaterally 1+ and diminished and dorsalis pedis pulses present on the right 2+ and on the left 2+ GI Inspection: normal to inspection Palpation: soft and no hepatosplenomegaly Percussion: normal to percussion Auscultation: normal bowel sounds Extrem General: full ROM and no clubbing, cyanosis or edema Right lower extremity: foot Details: other (right 4th toe w/ dry gangrene to distal tip) Psych Appearance: grossly normal Mental Status: mental status grossly normal Mood: congruent mood Affect: normal affect Attitude: cooperative Thought Process: normal Thought Content: normal Insight: insight good Judgment: judgment good Results Imaging Chest x-ray: image reviewed EKG: image reviewed Labs : 07/14/19 21:10 07/14/19 21:10 Laboratory Results - last 24 hr 07/14/19 07/14/19 07/14/19 21:10 21:10 21:10 WBC 6.72 RBC 3.43 L Hgb 9.1 L Hct 31.3 L MCV 91.3 MCH 26.5 L MCHC 29.1 L RDW 15.7 H Plt Count 282 MPV 9.9 Immature Gran % 0.0 Neutrophils % 74.9 Lymphocytes % 14.9 Monocytes % 6.5 Eosinophils % 3.3 Basophils % 0.4 Absolute Neutrophils 5.03 Absolute Lymphocytes 1.00 L Absolute Monocytes 0.44 Absolute Eosinophils 0.22 Absolute Basophils 0.03 RBC Morphology See below Hypochromasia 2+ Anisocytosis 1+ D-Dimer 689 H Sodium 144 Potassium 4.1 Chloride 105 Carbon Dioxide 32.1 H Anion Gap 6.9 BUN 28 H Creatinine 1.20 H Estimated GFR/1.73 m2 44.16 Glucose 128 H Calcium 8.2 L Magnesium 1.8 Total Bilirubin 0.3 AST 36 ALT 45 Alkaline Phosphatase 161 H Troponin I < 0.05 NT-Pro-B Natriuret Pep 963 H Total Protein 7.1 Albumin 3.2 L Last Vital Signs Temp 36.8 C 07/14/19 20:29 Pulse 70 07/14/19 23:01 Resp 23 07/14/19 23:01 BP 128/57 L 07/14/19 23:01 Pulse Ox 97 07/14/19 23:01
[2019-07-15 00:25] VITALS: BP 155/52; PULSE 72; RESP 24; TEMP 36.2; O2SAT 100
[2019-07-15 00:43] LABS: Troponin I < 0.05 ng/mL (0.00-0.06)
[2019-07-15 01:05] LABS: Iron 16 ug/dL (50-175); Total Iron Binding Capacity 322 ug/dL (250-450); Transferrin Sat 5 % (15-50)
[2019-07-15 01:19] LABS: Ferritin 11 ng/mL (8-388)
[2019-07-15 03:21] VITALS: BP 95/52; PULSE 79; RESP 18; TEMP 36.7; O2SAT 95
[2019-07-15 07:21] LABS: Abs Immature Grans 0.01 k/cumm (0.0-0.09); Absolute Basophil Count 0.04 k/cumm (0.0-0.2); Absolute Eosinophil Count 0.32 k/cumm (0.0-0.7); Absolute Lymphocyte Count 1.04 k/cumm (1.2-3.4); Absolute Monocyte Count 0.49 k/cumm (0.11-0.7); Absolute Neutrophil Count 3.69 k/cumm (1.2-6.7); Basophils % 0.7; Eosinophils % 5.7; HCT 27.6 % (36.0-46.0); Immature Grans % 0.2; Lymphocytes % 18.6; Mean Corpuscular Hemoglobin 26.7 pg (27.0-33.0); Mean Platelet Volume 10.6 fL (8.0-11.0); Monocytes % 8.8; Platelet Count 241 x1000/uL (130-400); RBC Distribution Width 15.6 % (11.7-14.6); White Blood Cell Count 5.59 k/cumm (4.4-10.8)
[2019-07-15 07:38] VITALS: PULSE 87
[2019-07-15 07:40] VITALS: BP 121/68; PULSE 66; RESP 17; TEMP 36.4; O2SAT 100
[2019-07-15 07:44] LABS: Anion Gap 5.7 mmol/L (3-11); BUN 27 mg/dL (7-18); CO2 31.3 mmol/L (21.0-32.0); CREATININE 1.11 mg/dL (0.55-1.02); Calcium 8.1 mg/dL (8.5-10.1); Chloride 109 mmol/L (98-107); Estimated GFR 48.32 (mL/min/1.73m2); Glucose 94 mg/dL (70-100); Potassium 4.2 mmol/L (3.5-5.1); Sodium 146 mmol/L (136-145)
[2019-07-15 07:46] LABS: Troponin I < 0.05 ng/mL (0.00-0.06)
[2019-07-15] MEDS: dilTIAZem CD 120 MG CAPCR PO (09:22)
[2019-07-15] MEDS: Normal Saline Flush 10 ML SYR IVP (09:22)
[2019-07-15] MEDS: Magnesium Oxide 400 MG TAB PO (09:22)
[2019-07-15] MEDS: Pantoprazole 40 MG TABCR PO (09:22)
[2019-07-15] MEDS: Aspirin E.C. 81 MG TABEC PO (09:23)
[2019-07-15] MEDS: predniSONE 20 MG TAB 40 MG PO (09:23)
[2019-07-15] MEDS: Clopidogrel 75 MG TAB PO (09:23)
[2019-07-15] MEDS: Lactobacillus Acidophilus CAP 1 CAP PO (09:23)
[2019-07-15] MEDS: Atorvastatin 40 MG TAB PO (09:24)
[2019-07-15] MEDS: Tiotropium Bromide-Respimat 10 PUFF INH IH (10:10)
[2019-07-15] MEDS: Budesonide/Formoterol 80/4.5 6.9 GM 60 PUFF INH IH (10:12)
[2019-07-15 12:09] VITALS: BP 164/74; PULSE 73; RESP 20; TEMP 36.5; O2SAT 97
--- NOTE | 2019-07-15 12:52 | CMDISCH_ITS ---
- If Service Date Differs Date of service: 07/15/19 Time of Service: 12:52 LACE Index Scoring Tool - Questions: Length of Stay (in days): 1 Acuity (Admit via E.D.?): Yes Comorbidities: Chronic Pulmonary Disease E.D. Visits: 9 - Answers: Total Score: 10 Risk of Readmission: High Risk Care Management Discharge Reason for Hospitalization: chest pain Discharge Plan: Lauren will be discharged back to [facility]. She will resume her prescribed plan of care. She will transport via wheelchair van provided by the facility. Patient/Family Education Needs: Determined by providers at [facility]. Discharge plan, limitations, Ask Me Three. Services Needed at Discharge: [facility]
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
[2019-07-15 13:19] VITALS: PULSE 67
== END 2019-07-15 15:44 | disposition skilled nursing facility (03) ==
LOC: ER 23:30 → MS 07-15 00:19
PROVIDERS: Admitting Provider Internal Medicine; Emergency Provider Student in an Organized Health Care Education/Training Program; PCP Nurse Practitioner; Visit Provider Internal Medicine
DX: R07.9 Chest pain, unspecified (principal); R39.2 Extrarenal uremia; I49.9 Cardiac arrhythmia, unspecified; J44.9 Chronic obstructive pulmonary disease, unspecified; D53.9 Nutritional anemia, unspecified; F17.210 Nicotine dependence, cigarettes, uncomplicated; F17.290 Nicotine dependence, other tobacco product, uncomplicated
CPT/HCPCS: 36415; 80048; 80053; 87081; 93005; 94640; 99217; 99220; 99285; 71045; 82728; 83540; 83550; 83735; 83880; 84484; 85025; 85379; 93010; G0378; J7512

== ENCOUNTER 2019-07-17 20:56 | Outpatient (REF) | payer MEDICARE, MEDICAID, SELFPAY | END 2019-07-17 21:16 | LOC: LBN 20:56 | PROVIDERS: PCP Nurse Practitioner; Visit Provider Family Medicine | DX: K92.2 Gastrointestinal hemorrhage, unspecified (principal) | CPT/HCPCS: 82272 ==

== ENCOUNTER 2019-10-23 03:16 | Emergency (ER) | payer MEDICARE, MEDICAID, SELFPAY ==
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
[2019-10-23 03:24] VITALS: BP 162/72; PULSE 72; RESP 22; TEMP 37.7; O2SAT 94
--- NOTE | 2019-10-23 03:28 | DI.CT_ITS ---
EXAM: CT HEAD WO CLINICAL HISTORY: confusion TECHNIQUE: The exam was performed according to the usual protocol without contrast material. COMPARISON: CT HEAD CERVICAL SPINE WO from 02/24/2019 FINDINGS: There is no significant atrophy. There is stable symmetric dilatation of the lateral ventricles. No a cute hemorrhage, mass or infarct is seen. No skull fracture or sinus opacification is seen. Mastoid a ir cells appear clear. IMPRESSION: No acute abnormality.
--- NOTE | 2019-10-23 04:28 | DI.VRAD_ITS ---
PROCEDURE INFORMATION: Exam: CT Head Without Contrast Exam date and time: 10/23/2019 3:29 AM Age: 73 years old Clinical history: Altered mental status/memory loss; Confusion or disorientation TECHNIQUE: Imaging protocol: Computed tomography of the head without contrast. COMPARISON: CT HEAD CERVICAL SPINE WO 02/24/2019 8:20 PM FINDINGS: Brain: Minimal chronic ischemic white matter disease. No acute territorial infarct. Ventricles: Normal. No ventriculomegaly. Bones/joints: Unremarkable. No acute fracture. Sinuses: Visualized sinuses are unremarkable. No fluid levels. Mastoid air cells: Visualized mastoid air cells are well aerated. Soft tissues: Unremarkable. IMPRESSION: No acute intracranial findings. Dictated and Authenticated by: Campbell Song MD. Ordering:DORINDA Olvera MD
[2019-10-23 05:21] VITALS: BP 146/65; PULSE 68; RESP 22; TEMP 37.7; O2SAT 94
== END 2019-10-23 06:33 | disposition home or self-care (01) ==
PROVIDERS: Emergency Provider Student in an Organized Health Care Education/Training Program; PCP Nurse Practitioner
DX: R41.0 Disorientation, unspecified (principal); J44.9 Chronic obstructive pulmonary disease, unspecified; Z99.81 Dependence on supplemental oxygen; Z53.29 Procedure and treatment not carried out because of patient's decision for other reasons; Z87.891 Personal history of nicotine dependence
CPT/HCPCS: 36415; 80053; 82805; 99284; 70450; 82140; 84443; 85025

== ENCOUNTER 2019-10-25 16:06 | Outpatient (REF) | payer MEDICARE, MEDICAID, SELFPAY ==
[2019-10-25 18:23] LABS: HCT 39.9 % (36.0-46.0); HGB 12.1 g/dL (12.0-15.5); Mean Corp. HGB Concentration 30.3 g/dL (32.0-36.0); Mean Corpuscular Hemoglobin 28.9 pg (27.0-33.0); Mean Corpuscular Volume 95.2 fL (80-95); Mean Platelet Volume 12.1 fL (8.0-11.0); Platelet Count 215 x1000/uL (130-400); RBC 4.19 m/cumm (4.00-5.20); RBC Distribution Width 15.8 % (11.7-14.6); White Blood Cell Count 6.11 k/cumm (4.4-10.8)
[2019-10-25 18:54] LABS: ALT 21 U/L (14-59); AST 25 U/L (15-37); Albumin 4.1 g/dL (3.4-5.0); Alkaline Phosphatase 140 U/L (46-116); Anion Gap 6.8 mmol/L (3-11); BUN 17 mg/dL (7-18); Bilirubin, Direct 0.15 mg/dL (0.00-0.20); Bilirubin, Total 0.5 mg/dL (0.2-1.0); CO2 35.2 mmol/L (21.0-32.0); CREATININE 1.06 mg/dL (0.55-1.02); Calcium 9.4 mg/dL (8.5-10.1); Chloride 106 mmol/L (98-107); Estimated GFR 50.96 (mL/min/1.73m2); Glucose 121 mg/dL (74-106); Potassium 4.8 mmol/L (3.5-5.1); Sodium 148 mmol/L (136-145); TSH (W/Ref FT4) 1.71 uIU/mL (0.36-3.74); Total Protein 7.8 g/dL (6.4-8.2)
[2019-10-25 19:32] LABS: Vitamin B12 443 pg/mL (193-986)
[2019-10-28 10:27] LABS: HIV-1/2 Ag & Ab Screen Negative (Negative)
[2019-10-28 11:54] LABS: Syphilis Serology (RPR) Negative (Negative)
== END 2019-10-25 16:26 ==
LOC: LBN 16:06
PROVIDERS: PCP Nurse Practitioner; Visit Provider Nurse Practitioner
DX: I10 Essential (primary) hypertension (principal); J43.9 Emphysema, unspecified; R44.0 Auditory hallucinations; Z11.4 Encounter for screening for human immunodeficiency virus [HIV]
CPT/HCPCS: 80053; 80076; 85027; 87389; 82607; 84443; 86592

== ENCOUNTER 2019-11-22 13:45 | Outpatient (REF) | payer MEDICARE, MEDICAID, SELFPAY ==
[2019-11-22 14:23] LABS: Bilirubin Negative (Negative); Blood Trace-intact (Negative); Clarity Clear (Clear); Glucose Negative (Negative); Ketones Trace mg/dL (Negative); Leukocyte Esterase Small (Negative); Nitrite Negative (Negative); Specific Gravity 1.025 (1.005-1.025); Urobilinogen 0.2 EU/dL (Up TO 0.2); pH 5.5 (5-8)
[2019-11-22 14:36] LABS: Bacteria Many HPF (Negative); C & S Indicated? No; Casts Negative LPF (Negative); Crystals Negative HPF (Negative); Epithelial Cells Many HPF (Negative); Mucus Negative (Negative); RBC Negative HPF (0-2)
== END 2019-11-22 14:05 ==
LOC: LBN 13:45
PROVIDERS: PCP Nurse Practitioner; Visit Provider Family Medicine
DX: N39.0 Urinary tract infection, site not specified (principal); R41.3 Other amnesia
CPT/HCPCS: 81003; 81015

== ENCOUNTER → 2019-12-21 12:15 | Outpatient (BNVA) | payer MEDICARE, MEDICAID, SELFPAY | PROVIDERS: PCP Nurse Practitioner; Referring Provider Nurse Practitioner; Visit Provider Psychiatry & Neurology Neurology | DX: R44.0 Auditory hallucinations (principal); G20 Parkinson's disease; H90.3 Sensorineural hearing loss, bilateral; G91.9 Hydrocephalus, unspecified | CPT/HCPCS: 99205; 99215 ==

== ENCOUNTER 2019-12-27 01:01 | Outpatient (CLI) | payer MEDICARE, MEDICAID, SELFPAY ==
--- NOTE | 2019-12-27 10:32 | DI.MRI_ITS ---
EXAM: MR BRAIN WO CLINICAL HISTORY: NPH vs early FTD AUDITORY HALLUCINATIONS R44.0. TECHNIQUE: Multiplanar multisequence MRI was performed. The exam is limited by patient motion. COMPARISON: CT HEAD WO from 10/23/2019 FINDINGS: There is again noted to be dilatation of the ventricles, particularly the lateral ventricles. There is mild to moderate cerebral atrophy. There is no gross interval change. There are scattered high s ignal foci in the white matter consistent with small vessel disease. No acute infarct, hemorrhage or mass is seen. Vascular flow voids appear intact. The orbits, sinuses and pituitary are unremarkabl e as visualized. IMPRESSION: Limited exam due to patient motion. There is stable ventricular dilatation. No mass, hemorrhage or acute infarct is seen.
== END 2019-12-27 01:21 ==
PROVIDERS: PCP Nurse Practitioner; Visit Provider Psychiatry & Neurology Neurology
DX: R44.0 Auditory hallucinations (principal); I67.89 Other cerebrovascular disease
CPT/HCPCS: 70551

== ENCOUNTER 2020-06-02 06:24 | Emergency (ER) | payer MEDICARE, MEDICAID, SELFPAY ==
--- NOTE | 2020-06-02 06:15 | DI.RAD_ITS ---
EXAM: XR FOREARM RT CLINICAL HISTORY: PAIN S/P FALL. TECHNIQUE: 2D digital imaging was performed. COMPARISON: CR,XR XR WRIST RT COMPLETE from 06/02/2020 FINDINGS: There is a fracture seen extending transversely through the distal radial metaphysis. There is poste rior displacement as well as impaction and comminution. Bones appear osteoporotic. There is extensi on to the articular surface. The distal ulna is also fractured, but not significantly displaced. Th e elbow is unremarkable as visualized. There is soft tissue swelling around the wrist and distal for earm. IMPRESSION: Distal radial and ulnar fractures. DATA REPOSITORY: RADIATION DOSE DELIVERED:
--- NOTE | 2020-06-02 06:15 | DI.RAD_ITS ---
EXAM: XR CHEST 2V PA LATERAL CLINICAL HISTORY: FALL, RIGHT SIDED PAIN TECHNIQUE: 2D digital imaging was performed. COMPARISON: CR XR PORTABLE CHEST AP from 07/14/2019 FINDINGS: The cardiac and mediastinal contours have a stable appearance. The lungs are well inflated. There i s scarring in the left upper lobe. There are underlying emphysematous changes. No infiltrate, effus ion or pneumothorax is seen. No spine or rib fracture is identified. IMPRESSION: Emphysematous changes and left upper lobe scarring. No acute abnormality.
[2020-06-02 06:24] VITALS: BP 148/65; PULSE 70; RESP 16; TEMP 36.8; O2SAT 95
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
[2020-06-02] MEDS: Acetaminophen 500 MG TAB 1000 MG PO (06:38)
[2020-06-02] MEDS: Ibuprofen 600 MG TAB PO (06:39)
--- NOTE | 2020-06-02 07:16 | DI.VRAD_ITS ---
PROCEDURE INFORMATION: Exam: XR Chest, 2 Views Exam date and time: 06/02/2020 6:50 AM Age: 74 years old Clinical indication: Injury or trauma; Fall; Initial encounter; Blunt trauma (contusions or hematomas); Injury date: 06/02/20 TECHNIQUE: Imaging protocol: XR of the chest Views: 2 views. COMPARISON: CR XR PORTABLE CHEST AP 07/14/2019 9:23 PM FINDINGS: Lungs: Hyperinflation compatible with COPD Linear atelectasis left paramediastinal upper lobe Pleural space: Unremarkable. No pleural effusion. No pneumothorax. Heart/Mediastinum: Unremarkable. No cardiomegaly. Bones/joints: Subtle contour irregularity involving right lateral basilar ribs. A right lateral inferior fracture is not excluded. Clinical correlation is recommended. IMPRESSION: Subtle contour irregularity involving right lateral basilar ribs. A right lateral inferior fracture is not excluded. Clinical correlation is recommended. Dictated and Authenticated by: Paxton Tena MD. Ordering:APPLE Hightower MD
--- NOTE | 2020-06-02 07:18 | DI.VRAD_ITS ---
PROCEDURE INFORMATION: Exam: XR Right Forearm Exam date and time: 06/02/2020 6:59 AM Age: 74 years old Clinical indication: Injury or trauma; Fall; Initial encounter; Blunt trauma (contusions or hematomas; Arm, lower; Right; Injury date: 06/02/20 TECHNIQUE: Imaging protocol: XR Right forearm. Views: 2 views. COMPARISON: No relevant prior studies available. FINDINGS: Bones/joints: Displaced/impacted Colles fracture of the distal radius. Impacted distal ulnar fracture. Soft tissues: Normal. IMPRESSION: 1. Displaced/impacted Colles fracture of the distal radius. 2. Impacted distal ulnar fracture. Dictated and Authenticated by: Paxton Tena MD. Ordering:APPLE Hightower MD
--- NOTE | 2020-06-02 07:21 | DI.VRAD_ITS ---
PROCEDURE INFORMATION: Exam: XR Right Wrist Exam date and time: 06/02/2020 6:55 AM Age: 74 years old Clinical indication: Injury or trauma; Fall; Initial encounter; Blunt trauma (contusions or hematomas; Wrist; Right; Injury date: 06/02/20 TECHNIQUE: Imaging protocol: XR Right wrist. Views: 3 or more views. COMPARISON: No relevant prior studies available. FINDINGS: Bones/joints: Impacted angulated slightly displaced distal radial Colles fracture. Angulated impacted fracture of the distal ulna. Soft tissues: Normal. IMPRESSION: 1. Impacted angulated slightly displaced distal radial Colles fracture. 2. Angulated impacted fracture of the distal ulna. Dictated and Authenticated by: Paxton Tena MD. Ordering:APPLE Hightower MD
[2020-06-02 19:04] VITALS: BP 148/65; PULSE 70; RESP 16; TEMP 36.8; O2SAT 95
--- NOTE | 2020-06-05 09:46 | CMPROGNOTE_ITS ---
- If Service Date Differs Date of service: 06/05/20 Time of Service: 09:46 Care Management Progress Note CM received a telephone call from Donna, chronic care transport nurse at [facility], yesterday. Donna advised Lauren is not doing well at home and is in need of in-home services. CM coordinates a new referral to Home Health for RN, PT, OT, and BUDGET CLERK.
== END 2020-06-02 10:25 | disposition home or self-care (01) ==
PROVIDERS: Emergency Provider Student in an Organized Health Care Education/Training Program; PCP Nurse Practitioner
DX: S52.531A Colles' fracture of right radius, initial encounter for closed fracture (principal); S52.691A Other fracture of lower end of right ulna, initial encounter for closed fracture; S20.221A Contusion of right back wall of thorax, initial encounter; W01.0XXA Fall on same level from slipping, tripping and stumbling without subsequent striking against object, initial encounter; J44.9 Chronic obstructive pulmonary disease, unspecified; Z87.891 Personal history of nicotine dependence; Z99.81 Dependence on supplemental oxygen
CPT/HCPCS: 25600; 99284; 71046; 73090; 73110; 99283; L3908

== ENCOUNTER 2020-06-13 00:43 | Outpatient (CLI) | payer MEDICARE, MEDICAID, SELFPAY ==
--- NOTE | 2020-06-13 13:45 | DI.RAD_ITS ---
EXAM: XR CHEST 2V PA LATERAL CLINICAL HISTORY: R05 cough, R06.02 SOB, J44.9 COPD TECHNIQUE: COMPARISON: CR XR CHEST 2V PA LATERAL from 06/30/2019 CR XR PORTABLE CHEST AP from 07/14/2019 CR,XR XR CHEST 2V PA LATERAL from 06/02/2020 FINDINGS: The heart is not enlarged. There is linear radiodensity in the left upper lobe consistent with atele ctasis and/or scarring. Mild fibrotic changes seen bilaterally. No significant pleural effusion. N o gross consolidation. No gross interval change in appearance in comparison with previous examinatio n of June 02. IMPRESSION:
== END 2020-06-13 01:03 ==
PROVIDERS: PCP Nurse Practitioner; Visit Provider Nurse Practitioner
DX: R06.02 Shortness of breath (principal); R05 Cough; J44.9 Chronic obstructive pulmonary disease, unspecified; J98.4 Other disorders of lung; S52.501A Unspecified fracture of the lower end of right radius, initial encounter for closed fracture; S52.611A Displaced fracture of right ulna styloid process, initial encounter for closed fracture; W01.0XXA Fall on same level from slipping, tripping and stumbling without subsequent striking against object, initial encounter; Z99.81 Dependence on supplemental oxygen
CPT/HCPCS: 99204; 99215; L3984; 71046

== ENCOUNTER 2020-06-13 15:28 | Outpatient (CLI) | payer MEDICARE, MEDICAID, SELFPAY ==
--- NOTE | 2020-06-13 14:45 | DI.RAD_ITS ---
EXAM: XR WRIST RT COMPLETE CLINICAL HISTORY: right wrist pain TECHNIQUE: COMPARISON: CR,XR XR WRIST RT COMPLETE from 06/02/2020 FINDINGS: Two views of the wrist were obtained. In comparison with the prior radiographs of June 02, there is a question of increased impaction and mildly increased dorsal angulation of distal radial fracture f ragments. There is evidence of callus formation at the radial fracture site and also at the fracture site of the fracture of the distal ulna, which appears grossly unchanged in alignment. IMPRESSION:
== END 2020-06-13 15:48 ==
PROVIDERS: PCP Nurse Practitioner; Referring Provider Nurse Practitioner; Visit Provider Student in an Organized Health Care Education/Training Program
DX: M25.531 Pain in right wrist (principal); S52.531D Colles' fracture of right radius, subsequent encounter for closed fracture with routine healing; S52.691D Other fracture of lower end of right ulna, subsequent encounter for closed fracture with routine healing; R06.02 Shortness of breath; R05 Cough; J44.9 Chronic obstructive pulmonary disease, unspecified; J98.4 Other disorders of lung; S52.501A Unspecified fracture of the lower end of right radius, initial encounter for closed fracture; S52.611A Displaced fracture of right ulna styloid process, initial encounter for closed fracture; W01.0XXA Fall on same level from slipping, tripping and stumbling without subsequent striking against object, initial encounter; Z99.81 Dependence on supplemental oxygen
CPT/HCPCS: 99215; L3984; 71046; 73110

== ENCOUNTER 2020-07-11 13:28 | Outpatient (CLI) | payer MEDICARE, MEDICAID, SELFPAY ==
--- NOTE | 2020-07-11 13:40 | DI.RAD_ITS ---
EXAM: XR WRIST RT LIMITED CLINICAL HISTORY: f/u of right wrist fracture. TECHNIQUE: 2D digital imaging was performed. COMPARISON: CR XR WRIST RT COMPLETE from 06/13/2020 FINDINGS: BONES: There has been no change in alignment of the distal radial and ulnar fractures. Callus format ion has developed about both fracture sites. No bony destructive lesion is seen. Diffuse osteopenia. JOINTS: The carpal bones are normally aligned. Mild degenerative changes of the hand and wrist. SOFT TISSUE: Mild diffuse soft tissue swelling. IMPRESSION: Stable distal radial and ulnar fractures. DATA REPOSITORY: RADIATION DOSE DELIVERED:
== END 2020-07-11 13:48 ==
PROVIDERS: PCP Nurse Practitioner; Referring Provider Nurse Practitioner; Visit Provider Student in an Organized Health Care Education/Training Program
DX: S52.611D Displaced fracture of right ulna styloid process, subsequent encounter for closed fracture with routine healing; S52.501D Unspecified fracture of the lower end of right radius, subsequent encounter for closed fracture with routine healing; W01.0XXD Fall on same level from slipping, tripping and stumbling without subsequent striking against object, subsequent encounter; J44.9 Chronic obstructive pulmonary disease, unspecified
CPT/HCPCS: 99213; 73100

== ENCOUNTER 2020-08-22 13:41 | Outpatient (CLI) | payer MEDICARE, MEDICAID, SELFPAY ==
--- NOTE | 2020-08-22 13:15 | DI.RAD_ITS ---
EXAM: XR WRIST RT LIMITED CLINICAL HISTORY: fu fracture. TECHNIQUE: 2D digital imaging was performed. COMPARISON: CR XR WRIST RT LIMITED from 07/11/2020 FINDINGS: BONES: The distal radial and ulnar fractures are stable in alignment. Increased sclerosis is seen ab out the fractures consistent with interval healing. Osteopenia. No new fractures. JOINTS: The carpal bones are normally aligned. Mild degenerative changes in the wrist. SOFT TISSUE: Normal. IMPRESSION: Stable healing radial and ulnar fractures. DATA REPOSITORY: RADIATION DOSE DELIVERED:
== END 2020-08-22 14:01 ==
PROVIDERS: PCP Nurse Practitioner; Referring Provider Nurse Practitioner; Visit Provider Student in an Organized Health Care Education/Training Program
DX: S52.591A Other fractures of lower end of right radius, initial encounter for closed fracture; S52.691A Other fracture of lower end of right ulna, initial encounter for closed fracture; S52.611D Displaced fracture of right ulna styloid process, subsequent encounter for closed fracture with routine healing; S52.501D Unspecified fracture of the lower end of right radius, subsequent encounter for closed fracture with routine healing; W01.0XXD Fall on same level from slipping, tripping and stumbling without subsequent striking against object, subsequent encounter; J44.9 Chronic obstructive pulmonary disease, unspecified; Z99.81 Dependence on supplemental oxygen
CPT/HCPCS: 99213; 73100

== ENCOUNTER 2021-08-01 19:32 | Outpatient (REF) | payer MEDICARE, MEDICAID, SELFPAY ==
[2021-08-01 19:56] LABS: HCT 34.6 % (36.0-46.0); HGB 10.4 g/dL (11.2-15.7); MCH 29.7 pg (27.0-33.0); MCHC 30.1 % (32.0-36.0); MCV 98.9 fL (80-95); MPV 10.9 fL (8.0-11.0); Platelet Count 194 10^3/uL (130-400); RDW 13.5 % (11.7-14.6); RDW-SD 49.6 fL; WBC 5.86 10^3/uL (4.4-10.8)
[2021-08-01 20:01] LABS: ALT 28 U/L (14-59); AST 24 U/L (15-37); Albumin 3.7 g/dL (3.4-5.0); Alkaline Phosphatase 105 U/L (46-116); Anion Gap 5.2 mmol/L (3-11); BUN 22 mg/dL (7-18); Bilirubin, Total 0.4 mg/dL (0.2-1.0); CO2 38.8 mmol/L (21.0-32.0); Calcium 8.8 mg/dL (8.5-10.1); Calculated LDL 84 mg/dL (<100); Chloride 98 mmol/L (98-107); Cholesterol 179 mg/dL (<200); Glucose 94 mg/dL (74-106); HDL Cholesterol 85 mg/dL (40-60); Potassium 4.1 mmol/L (3.5-5.1); Sodium 142 mmol/L (136-145); Total Protein 7.1 g/dL (6.4-8.2); Triglyceride 50 mg/dL (<150)
== END 2021-08-01 19:33 | disposition home or self-care (01) ==
LOC: LBN 19:32
PROVIDERS: PCP Nurse Practitioner; Visit Provider Nurse Practitioner
DX: I25.10 Atherosclerotic heart disease of native coronary artery without angina pectoris (principal); E78.5 Hyperlipidemia, unspecified; J44.9 Chronic obstructive pulmonary disease, unspecified; M48.061 Spinal stenosis, lumbar region without neurogenic claudication
CPT/HCPCS: 80053; 80061; 85027

== ENCOUNTER 2021-09-01 15:56 | Emergency (ER) | payer MEDICARE, MEDICAID, SELFPAY ==
[2021-09-01] VITALS (27 sets, daily range): BP systolic 112–155; BP diastolic 39–87; PULSE 66–100; RESP 17–34; TEMP 36.9; O2SAT 97–100
--- NOTE | 2021-09-01 16:00 | RT.EKG_ITS ---
APPROVED REPORT Exam: Resting ECG Reason for Exam: sob Patient Location: E HR:92 bpm ECG Measurements Heart Rate 92 AXIS AR 274 P 36 QRSd 125 QRS -65 QT 374 T 84 QTc 463 Conclusion Sinus rhythm...normal P axis, V-rate 60- 99 Prolonged AR interval...AR >215, V-rate 91-120 Left bundle branch block...QRSd>120, broad/notched R negative sgarbossa criteria
--- NOTE | 2021-09-01 16:30 | DI.RAD_ITS ---
Exam(s) XR PORTABLE CHEST AP EXAM: XR PORTABLE CHEST AP CLINICAL HISTORY: shortness of breath TECHNIQUE: 2D digital imaging was performed. COMPARISON: CR XR CHEST 2V PA LATERAL from 06/13/2020 FINDINGS: The exam is limited by poor pulmonary inflation. There are chronic interstitial changes. Increased densities at the left lung base which could indicate infiltrate versus atelectasis. Heart size is wi thin normal limits. The aorta is calcified. No effusion or pneumothorax. IMPRESSION: Left lower lobe infiltrate versus atelectasis. Underlying emphysematous and fibrotic changes. DATA REPOSITORY: RADIATION DOSE DELIVERED:
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
[2021-09-01 16:41] LABS: Source Nasal/Nares
[2021-09-01] MEDS: methylPREDNISolone SUCC 125 MG VIAL IVP (16:43)
[2021-09-01 16:48] LABS: Abs Immature Grans 0.27 10^3/uL (0.0-0.06); Absolute Basophil Count 0.07 10^3/uL (0.0-0.2); Absolute Monocyte Count 1.62 10^3/uL (0.1-0.8); Basophils % 0.3; HCT 37.5 % (36.0-46.0); HGB 11.2 g/dL (11.2-15.7); Immature Grans % 1.2; Lymphocytes % 3.1; MCH 30.6 pg (27.0-33.0); MCHC 29.9 % (32.0-36.0); MCV 102.5 fL (80-95); MPV 10.7 fL (8.0-11.0); Monocytes % 7.2; Neutrophils % 88.2; Nucleated RBC 0 %; Platelet Count 208 10^3/uL (130-400); RBC 3.66 10^6/uL (3.93-5.22); RDW 13.8 % (11.7-14.6); RDW-SD 52.1 fL; WBC 22.45 10^3/uL (4.4-10.8)
[2021-09-01] MEDS: Albuterol/Ipratropium 3 ML UPD VIAL UPD (16:52)
[2021-09-01 17:05] LABS: ALT 21 U/L (14-59); AST 18 U/L (15-37); Alkaline Phosphatase 98 U/L (46-116); Anion Gap 0.2 mmol/L (3-11); BUN 19 mg/dL (7-18); Bilirubin, Total 0.4 mg/dL (0.2-1.0); CO2 40.8 mmol/L (21.0-32.0); CREATININE 1.1 mg/dL (0.55-1.02); Calcium 9.1 mg/dL (8.5-10.1); Chloride 103 mmol/L (98-107); Diff Comment Agrees w/ Instrument; Estimated GFR 48.55 (mL/min/1.73m2); Glucose 122 mg/dL (74-106); Hypochromasia 1+; Magnesium 1.8 mg/dL (1.8-2.4); NT-proBNP 3299 pg/mL (<300); Potassium 3.8 mmol/L (3.5-5.1); Sodium 144 mmol/L (136-145); Total Protein 8.3 g/dL (6.4-8.2)
[2021-09-01 17:06] LABS: Poikilocytes 1+
[2021-09-01 17:08] LABS: Troponin I < 0.05 ng/mL (<0.06)
--- NOTE | 2021-09-01 17:17 | DI.VRAD_ITS ---
PROCEDURE INFORMATION: Exam: XR Chest Exam date and time: 09/01/2021 4:33 PM Age: 75 years old Clinical indication: Other: Shortness of breath TECHNIQUE: Imaging protocol: XR of the chest. Views: 1 view. COMPARISON: CR XR CHEST 2V PA LATERAL 06/13/2020 2:05 PM FINDINGS: Lungs: Hyperexpanded lungs suggestive of COPD. There are ill-defined hazy opacities at the right lung base.. Dense retrocardiac opacity. Pleural spaces: No pneumothorax. No sizable pleural effusion. Heart/Mediastinum: Cardiac silhouette similarly enlarged compared to prior exam. Vasculature: Aortic arch calcifications. Bones/joints: Osteopenia. No acute displaced fracture. Bony degenerative changes. IMPRESSION: Findings concerning for multifocal pneumonia/infection. Hyperexpanded lungs suggestive of COPD. Dictated and Authenticated by: Fadi Berrios MD. Ordering:CHARLENE Gunn MD
[2021-09-01 17:18] LABS: D-Dimer 993 ng/mlFEU (<500)
--- NOTE | 2021-09-01 17:28 | NUR.NOTE ---
1656 Duo-Neb completed. Nursing Note:
[2021-09-01 17:40] LABS: COVID-19 PCR Negative (Negative)
[2021-09-01 18:52] LABS: Procalcitonin 0.4 ng/mL
--- NOTE | 2021-09-01 19:30 | DI.CT_ITS ---
Exam(s) CT CHEST WO EXAM: CT CHEST WO CLINICAL HISTORY: elevated ddimer TECHNIQUE: Imaging Protocol: Axial computed tomography images with coronal and sagittal reformatted images were created and reviewed CONTRAST MATERIAL: Noncontrast. No IV access could be obtained. COMPARISON: CR,XR XR CHEST 2V PA LATERAL from 06/02/2020 CR,XR XR CHEST 2V PA LATERAL from 06/02/2020 CR,XR XR PORTABLE CHEST AP from 09/01/2021 CR,XR XR PORTABLE CHEST AP from 09/01/2021 FINDINGS: Exam is somewhat limited by patient motion. There is no evidence of pleural or pericardial effusion or pneumothorax. The aorta is normal in diameter and shows moderate calcification. There are saldaña es of moderate centrilobular emphysema. There is scarring at the right upper lobe. There are patchy infiltrates in the left lower lobe, at the lung base is well as at the superior segment. No adenopa thy. No compression fractures. Suture material noted at the stomach with anastomosis. Portion of t he stomach projects above the diaphragm. Visualized portion of liver and spleen are unremarkable. IMPRESSION: Left lower lobe infiltrates. Underlying emphysematous changes. RADIATION DOSE DELIVERED: 344.51mGy.cm Total DLP DATA REPOSITORY: All CT scans at this facility are submitted to the National Radiology Data Registry (NRDR) Dose Index Registry (DIR) with the [employer] (A[employer]). RADIATION OPTIMIZATION: All CT scans at this facility use at least one of these dose optimization te chniques: automated exposure control; mA and/or kV adjustment per patient size (includes targeted exa ms where dose is matched to clinical indication); or iterative reconstruction.
--- NOTE | 2021-09-01 20:24 | DI.VRAD_ITS ---
PROCEDURE INFORMATION: Exam: CT Chest Without Contrast; Diagnostic Exam date and time: 09/01/2021 7:41 PM Age: 75 years old Clinical indication: Patient HX: Chest pain, elevated d-dimer TECHNIQUE: Imaging protocol: Diagnostic computed tomography of the chest without contrast. 3D rendering (Not supervised by radiologist): MIP and/or 3D reconstructed images were created by the technologist. Radiation optimization: All CT scans at this facility use at least one of these dose optimization techniques: automated exposure control; mA and/or kV adjustment per patient size (includes targeted exams where dose is matched to clinical indication); or iterative reconstruction. COMPARISON: CT CHEST PE CTA 09/01/2021 6:31 PM not available or not performed. Chest radiograph 09/01/2021 at 4:45 p.m. FINDINGS: Lungs: Moderate centrilobular emphysema. Pleuroparenchymal scar right lung apex. Multifocal consolidations noted in the left lower lobe, superior segment and also the posterior and anteromedial basilar segment. No significant ground-glass opacity observed. Pleural spaces: Negative for pleural effusion or pneumothorax. Heart: Unremarkable. No cardiomegaly. No pericardial effusion. Aorta: Thoracic aorta is negative for aneurysm. Moderate calcifications are present. Lymph nodes: Unremarkable. No enlarged lymph nodes. Stomach: Complex hiatal hernia noted, with postoperative changes also noted on the stomach. Correlate for Merissa-en-Y gastric bypass. The gastro jejunal anastomosis appears displaced into the chest. Bones/joints: Negative for compression fracture. Thoracic kyphosis is exaggerated. Mild retrolisthesis noted of L1 and L2. Moderate degenerative changes in the cervical spine are partially visualized. Soft tissues: Unremarkable. IMPRESSION: 1. Left lower lobe consolidations concerning for pneumonia. 2. Moderate centrilobular emphysema. Dictated and Authenticated by: Campbell Benson MD. Ordering:CHARLENE Gunn MD
[2021-09-01] MEDS: levoFLOXacin 500 MG, levoFLOXacin 250 MG 750 MG PO (21:06)
== END 2021-09-01 21:00 | disposition home or self-care (01) ==
PROVIDERS: Emergency Provider Nurse Practitioner Acute Care; PCP Nurse Practitioner
DX: J18.9 Pneumonia, unspecified organism (principal); R06.02 Shortness of breath; F17.210 Nicotine dependence, cigarettes, uncomplicated; R79.1 Abnormal coagulation profile
CPT/HCPCS: 36415; 71250; 80053; 84145; 87040; 87635; 93005; 94640; 96374; 99285; 71045; 83735; 83880; 84484; 85025; 85379; 93010; 99284; J2930; J7620

== ENCOUNTER 2021-09-05 13:17 | Inpatient (IN) | payer MEDICARE, MEDICAID, SELFPAY ==
[2021-09-05] VITALS (50 sets, daily range): BP systolic 122–190; BP diastolic 55–128; PULSE 63–99; RESP 4–31; TEMP 36.6–37.3; O2SAT 77–99
--- NOTE | 2021-09-05 13:15 | DI.RAD_ITS ---
Exam(s) XR PORTABLE CHEST AP EXAM: XR PORTABLE CHEST AP CLINICAL HISTORY: Cough, hypoxia TECHNIQUE: 2D digital imaging was performed of the chest. One image was obtained. An AP view was ob tained. COMPARISON: CR,XR XR PORTABLE CHEST AP from 09/01/2021 FINDINGS: MEDIASTINUM: Normal. HEART: Normal. PULMONARY VASCULATURE: Atherosclerosis of the thoracic aorta. LUNGS: No focal consolidating infiltrates. PLEURAL SPACE: No pleural effusion or pneumothorax. BONE:Within normal limits for the patient's age. OTHER FINDINGS:Normal. IMPRESSION: No acute pulmonary findings. DATA REPOSITORY: RADIATION DOSE DELIVERED:
--- NOTE | 2021-09-05 13:15 | RT.EKG_ITS ---
APPROVED REPORT Exam: Resting ECG Reason for Exam: cough, hypoxia Patient Location: E HR:83 bpm ECG Measurements Heart Rate 83 AXIS IL 76 P 0 QRSd 125 QRS -60 QT 427 T 67 QTc 485 Conclusion Sinus rhythm.. Left bundle branch block, similar to previous
--- NOTE | 2021-09-05 13:32 | ED.GENADUL_ITS ---
Discharge Plan Disposition Patient Disposition: [facility] INPATIENT Condition: Stable Discharge Details Clinical Impression: Acute right-sided CHF (congestive heart failure) Primary Care Provider: Susana Apple ED Provider: José Worthy Home Meds and New Rx's Prescriptions: No Action nicotine 21 mg/24 hr patch 24 hour 1 patch TD Q24H Qty: 28 RF: 1 divalproex [Depakote] 250 mg tablet,delayed release (DR/EC) 250 mg PO HS RF: 0 isosorbide mononitrate 30 mg tablet extended release 24 hr 30 mg PO DAILY RF: 0 atorvastatin 40 mg tablet 40 mg PO DAILY Qty: 90 RF: 3 budesonide-formoterol [Symbicort] 80-4.5 mcg/actuation HFA aerosol inhaler 2 puff Inhalation BID Qty: 3 RF: 4 Proair Digihaler 90 mcg/actuation aero powdr breath act w/sensor 180 mcg inhalation Q4H PRN (Reason: shortness of breath or wheezing) Qty: 1 RF: 12 port 02concentrator 0 Inhalation as directed Qty: 1 RF: 1 (DME) Oxygen Tank See Rx Instructions .ROUTE .MEDSUPPLY Qty: 1 RF: 0 ondansetron HCl [Zofran] 4 mg tablet 4 mg PO Q8H PRN (Reason: nausea and vomiting) Qty: 20 RF: 0 (DME) Depend Underwear For Women S-M Misc 1 ea Miscellaneous QID Qty: 150 RF: 12 magnesium oxide 400 mg (241.3 mg magnesium) tablet 400 mg PO DAILY Qty: 90 RF: 3 pantoprazole 40 mg tablet,delayed release (DR/EC) 40 mg PO DAILY Qty: 30 RF: 2 nitroglycerin 0.4 mg tablet, sublingual 0.4 mg Sublingual PRN PRN (Reason: chest pain) Qty: 25 RF: 12 diltiazem HCl [Tiazac] 120 mg capsule,extended release 24 hr 120 mg PO DAILY Qty: 90 RF: 0 potassium chloride 20 mEq tablet extended release 40 meq PO BID Qty: 180 RF: 1 furosemide 40 mg tablet 60 mg PO DAILY Qty: 135 RF: 0 acetaminophen [Tylenol] 325 mg Tablet 650 mg PO Q6H PRNRF: 0 ibuprofen 600 mg Tablet 600 mg PO Q6H PRNRF: 0 Spiriva with HandiHaler 18 mcg capsule, w/inhalation device 18 mcg INHALATION BID RF: 0 prednisone 20 mg tablet 40 mg PO DAILY Qty: 10 RF: 0 levofloxacin 750 mg tablet 750 mg PO DAILY Qty: 6 RF: 0 Medical Decision Making 75-year-old female presents via EMS from a local [facility]. She was seen in emergency [place] on September 01 where she was diagnosed with a left lower lobe pneumonia, COPD exacerbation, and was discharged home on Levaquin and prednisone. The custodial noted hypoxia with question of confusion today and also note of incontinence. At that previous visit she had tested negative for COVID-[address] scan of the chest without evidence of PE. Patient is oxygen dependent 3 to 5 L at home, has a history of COPD. She presents to the ER interactive, alert and not confused on my exam, able to tell me that she is 5 L ambulatory, 3 L at rest. She is quite wheezy throughout her lung valladares. Patient placed on a bus driver/monitor, screening labs and EKG obtained, she is given DuoNeb updraft, retested for COVID-19. The patient's laboratories note a white blood cell count of 8.4, hematocrit 34, platelets 211. Procalcitonin is normal. Renal function has worsened to a BUN of 52 with creatinine 1.7. AST and ALT are elevated with a normal total bili. Troponin is 0.36 and BNP is 17,537. The elevated liver enzymes likely represent congestive hepatopathy. Chest x-ray: No pulmonary infiltrates, see formal report. Patient has an exacerbation of congestive heart failure, likely right-sided, congestive hepatopathy, renal insufficiency, and elevated troponin. Patient is on a bus driver/monitor, repeat troponin obtained and remains in the indeterminate range but has decreased. Case discussed with Dr. Purvis and patient to be admitted. HPI General Mode of arrival: EMS . Date/Time Provider Initiated Documentation: 09/05/21 14:28 . Limitations to Documentation: no limitations . Information obtained by: patient and EMS . History of Present Illness 75 year old F presents to the emergency department with the chief complaint of Recent pneumonia, dropped oxygen and seemed confused earlier at [facility], described as moderate, and is localized to the chest. Patient reports no radiation. Patient started experiencing this day(s) No relieving factors improve symptom(s), No exacerbating factors reported . Patient notes cough and shortness of breath; denies nausea/vomiting. Patient did receive the following treatments prior to arrival, other (On Levaquin) Related Data Home Medications Medication Instructions Recorded Confirmed nicotine 21 mg/24 hr daily 1 patch TD Q24H #28 each 03/16/19 09/05/21 transdermal patch isosorbide mononitrate 30 mg 30 mg PO DAILY 12/21/19 09/05/21 tablet,extended release 24 hr Oxygen #1 each 06/06/20 08/01/21 divalproex 250 mg tablet,delayed 250 mg PO HS tab 06/06/20 09/05/21 release ondansetron HCl 4 mg tablet 4 mg PO Q8H PRN #20 tab 06/15/20 09/05/21 diaper,brief,adult,disposable #150 each 06/28/20 08/01/21 magnesium oxide 400 mg (241.3 mg 400 mg PO DAILY #90 tab 09/08/20 09/05/21 magnesium) tablet pantoprazole 40 mg tablet,delayed 40 mg PO DAILY #30 tab 01/08/21 09/05/21 release albuterol sulfate 90 mcg/actuation 180 mcg INHALATION Q4H PRN #1 ea 03/12/21 09/05/21 breath activated powder inhaler,sensor atorvastatin 40 mg tablet 40 mg PO DAILY #90 tab 03/12/21 09/05/21 budesonide-formoterol HFA 80 2 puff INHALATION BID #3 inhaler 03/12/21 09/05/21 mcg-4.5 mcg/actuation aerosol inhaler nitroglycerin 0.4 mg sublingual 0.4 mg SUBLINGUAL PRN PRN #25 06/27/21 09/05/21 tablet tab-cap diltiazem HCl 120 mg capsule,24 120 mg PO DAILY #90 cap 07/25/21 09/05/21 hr,extended release potassium chloride 20 mEq 40 meq PO BID #180 tab 08/19/21 09/05/21 tablet,extended release levofloxacin 750 mg PO DAILY #6 tab 09/01/21 09/05/21 prednisone 40 mg PO DAILY #10 tab 09/01/21 09/05/21 furosemide 40 mg tablet 60 mg PO DAILY #135 tab-cap 09/02/21 09/05/21 acetaminophen [Tylenol] 650 mg PO Q6H PRN 09/05/21 09/05/21 ibuprofen 600 mg PO Q6H PRN 09/05/21 09/05/21 tiotropium bromide [Spiriva with 18 mcg INHALATION BID 09/05/21 09/05/21 HandiHaler] Previous Rx's Medication Instructions Recorded nicotine 21 mg/24 hr daily 1 patch TD Q24H #28 each 03/16/19 transdermal patch ondansetron HCl 4 mg tablet 4 mg PO Q8H PRN #20 tab 06/15/20 diaper,brief,adult,disposable #150 each 06/28/20 magnesium oxide 400 mg (241.3 mg 400 mg PO DAILY #90 tab 09/08/20 magnesium) tablet pantoprazole 40 mg tablet,delayed 40 mg PO DAILY #30 tab 01/08/21 release albuterol sulfate 90 mcg/actuation 180 mcg INHALATION Q4H PRN #1 ea 03/12/21 breath activated powder inhaler,sensor atorvastatin 40 mg tablet 40 mg PO DAILY #90 tab 03/12/21 budesonide-formoterol HFA 80 2 puff INHALATION BID #3 inhaler 03/12/21 mcg-4.5 mcg/actuation aerosol inhaler nitroglycerin 0.4 mg sublingual 0.4 mg SUBLINGUAL PRN PRN #25 06/27/21 tablet tab-cap diltiazem HCl 120 mg capsule,24 120 mg PO DAILY #90 cap 07/25/21 hr,extended release potassium chloride 20 mEq 40 meq PO BID #180 tab 08/19/21 tablet,extended release levofloxacin 750 mg PO DAILY #6 tab 09/01/21 prednisone 40 mg PO DAILY #10 tab 09/01/21 furosemide 40 mg tablet 60 mg PO DAILY #135 tab-cap 09/02/21 Allergies Allergy/AdvReac Type Severity Reaction Status Date / Time chlorpromazine Allergy Severe Skin Rash Verified 09/05/21 14:16 Penicillins Allergy Severe HIVES Verified 09/05/21 14:16 oxycodone Allergy Mild RASH/VOMITI Verified 09/05/21 14:16 NG raspberry Allergy Unknown Verified 09/05/21 14:16 General Stated Complaint: SOB GENE: 2 Review of Systems Narrative: Seen in the emergency department on September 01, prescribed Levaquin and prednisone. Covid negative at that time. Reports that she feels worse today. Ported to have urinary incontinence and some transient confusion at halfway. [facility] Medical History (Updated 09/05/21 @ 18:19 by José Worthy MD) Auditory hallucination CAD (coronary artery disease) Cellulitis of both lower extremities CHF (congestive heart failure) Depressive disorder (02/19/12) 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) 06/2008 FEV1 35% severe, nocturnal hypoxia; nocturnal O2 2.5LPM 10/2016 FEV1 26% difffusion mod reduced GERD (gastroesophageal reflux disease) Gout, unspecified (04/27/13) H/O ETOH abuse History of GI bleed Low back pain without sciatica (02/19/12) Macrocytosis (05/05/13) nl B12 Marginal ulcer Obesity, unspecified (02/19/12) Gastric Bypass Osteoarth NOS-unspec (02/19/12) Other and unspecified hyperlipidemia (04/27/13) ASCVD; LDL baseline 170-180 Oxygen dependent PAD (peripheral artery disease) RLS (restless legs syndrome) Sensorineural hearing loss Spinal stenosis Tobacco dependence syndrome (11/25/13) Surgical History Bariatric surgery status (07/08/17) EGD - MAC 08/2017-Dr. Thornton Extraction of cataract (08/28/15) right eye with lens implantation Dr. Landry History of umbilical hernia repair S/P carpal tunnel release S/P peripheral artery angioplasty Family History Mother , COPD at age 79. COPD (chronic obstructive pulmonary disease) Heart disease Father Diabetes Dementia Social History (Updated 06/13/20 @ 14:40 by Donna Jung RN, RN) Smoking/Tobacco Use Status: Current every day Tobacco Type: cigarettes and e- cigarettes Tobacco: How many years used: 57 Smokeless tobacco user: other Smoking risk assessment performed?: Yes Alcohol Intake: never Drug use: Never Substance use type: does not use Adopted: No Household members: none Number of Children: 2 Communication Needs: Hard of Hearing and Corrective Lenses Education Level: college Details: did 3 years Do you need help understanding health information?: Rarely 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 Pleasant, well groomed, interactive. HEAD: Normocephalic, atraumatic ENT: Mucous membranes dry, oropharynx edentulous, External ear exam unremarkable EYES: PERRL, EOMI NECK: Full ROM, no RON, no menigismus CHEST/RESP: Nontender, bilateral end expiratory wheeze, left base rhonchi CARDIOVASCULAR: Distant, RRR, no murmur, rub saira. 2+ Rad pulse bilateral ABDOMEN: Soft, nontender, no mass. +Bowel sounds EXT: Full ROM, no edema, no rash Neuro: Grossly normal neurologic exam, conversant, interactive. Psych: Speech fluent, thoughts congruent, affect normal Course Vital Signs Vital signs: Vital Signs Pulse 89 09/05/21 13:25 Respiratory Rate 20 09/05/21 13:25 Blood Pressure 148/70 H 09/05/21 13:25 Pulse Oximetry 96 09/05/21 13:25 Pulse 89 09/05/21 13:25 Respiratory Rate 20 09/05/21 13:25 Blood Pressure 148/70 H 09/05/21 13:25 Blood Pressure Position Sitting 09/05/21 13:25 Pulse Oximetry 96 09/05/21 13:25 Oxygen Delivery Method Nasal Cannula 09/05/21 13:25 Oxygen Flow Rate 3 09/05/21 13:25 Lab/Test Results Lab/Test Results: 09/05/21 13:22 Blood Blood Culture - Pending 09/05/21 13:22 Blood Blood Culture - Pending
[2021-09-05] MEDS: Normal Saline 1,000 ML 125 ML IV (13:45)
[2021-09-05] MEDS: methylPREDNISolone SUCC 125 MG VIAL IVP (13:48)
[2021-09-05 13:56] LABS: Lactate 1.1 mmol/L (0.6-1.4)
[2021-09-05 14:00] LABS: Abs Immature Grans 0.07 10^3/uL (0.0-0.06); Absolute Basophil Count 0.01 10^3/uL (0.0-0.2); Absolute Lymphocyte Count 0.59 10^3/uL (1.2-3.4); Absolute Neutrophil Count 7.32 10^3/uL (1.2-6.7); Basophils % 0.1; HCT 34.6 % (36.0-46.0); HGB 10.1 g/dL (11.2-15.7); Immature Grans % 0.8; Lymphocytes % 6.9; MCH 29.5 pg (27.0-33.0); MCHC 29.2 % (32.0-36.0); MCV 101.2 fL (80-95); MPV 10.5 fL (8.0-11.0); Monocytes % 5.9; Neutrophils % 86.3; Nucleated RBC 0 %; Platelet Count 211 10^3/uL (130-400); RBC 3.42 10^6/uL (3.93-5.22); RDW 14.1 % (11.7-14.6); RDW-SD 52.5 fL; WBC 8.49 10^3/uL (4.4-10.8)
[2021-09-05 14:03] LABS: Source Nasal/Nares
[2021-09-05 14:18] LABS: ALT 903 U/L (14-59); Albumin 3.3 g/dL (3.4-5.0); Alkaline Phosphatase 73 U/L (46-116); Anion Gap 0.6 mmol/L (3-11); BUN 52 mg/dL (7-18); Bilirubin, Total 0.3 mg/dL (0.2-1.0); CO2 38.4 mmol/L (21.0-32.0); CREATININE 1.7 mg/dL (0.55-1.02); Calcium 8.6 mg/dL (8.5-10.1); Chloride 106 mmol/L (98-107); Estimated GFR 29.38 (mL/min/1.73m2); Glucose 135 mg/dL (74-106); Potassium 4.1 mmol/L (3.5-5.1); Sodium 145 mmol/L (136-145); Total Protein 7.1 g/dL (6.4-8.2)
[2021-09-05 14:19] LABS: AST 1084 U/L (15-37)
[2021-09-05 14:20] LABS: Troponin I 0.36 ng/mL (<0.06)
[2021-09-05 14:31] LABS: Procalcitonin 0.1 ng/mL
[2021-09-05 14:55] LABS: COVID-19 PCR Negative (Negative)
[2021-09-05 14:57] LABS: NT-proBNP 17537 pg/mL (<300)
[2021-09-05 14:59] LABS: Bilirubin Negative (Negative); Blood Negative (Negative); Clarity Clear (Clear); Glucose Negative (Negative); Ketones Negative (Negative); Leukocyte Esterase Negative (Negative); Nitrite Negative (Negative); Specific Gravity 1.025 (1.005-1.025); Urobilinogen 0.2 EU/dL (Up TO 0.2); pH 5.5 (5-8)
[2021-09-05] MEDS: Aspirin 325 MG TAB PO (15:01)
[2021-09-05] MEDS: Albuterol/Ipratropium 3 ML UPD VIAL UPD ×2 (15:06→16:15)
[2021-09-05 15:46] LABS: INR 1.2 (0.9-1.1); PTT Activated 23.1 sec (21.0-27.5); Prothrombin Time 12.2 sec (9.3-11.0)
[2021-09-05] MEDS: Furosemide 40 MG/4 ML VIAL IVP (16:14)
--- NOTE | 2021-09-05 17:15 | RT.EKG_ITS ---
APPROVED REPORT Exam: Resting ECG Reason for Exam: difficulty breathing Patient Location: E HR:72 bpm ECG Measurements Heart Rate 72 AXIS TX 220 P 0 QRSd 135 QRS -63 QT 414 T 81 QTc 476 Conclusion Sinus rhythm...normal P axis, V-rate 60- 99 Left bundle branch block.
[2021-09-05 18:00] LABS: Troponin I 0.32 ng/mL (<0.06)
--- NOTE | 2021-09-05 21:43 | W.PM.HP.N ---
Date of service: 09/05/21 Time of Service: 21:44 Assessment and Plan Assessment and plan (1) Transaminitis: Start date: 09/06/21 Start time: 21:30 Status: Acute Assessment and plan: Dx with LLL CAP and placed on levaquin returns today with no leukocytosis however AST and [place] 1084/903 [place] [address], as patient does not appear to be volume overloaded but very dry. Her mucus membranes are very dry her skin is very dry, therefore will hydrate her IVF and monitor levels. Hold lasix at this time Repeat labs in am Will treat CAP with ceftriaxone and doxy Hold statin This could have also caused a troponin leak vs NSTEMI will monitor trop and place patient on telemetry for the time being. EKG was SR with L BBB which is not new shown on previous EKGs Echo for tomorrow (2) NSTEMI (non-ST elevated myocardial infarction): Start date: 09/06/21 Start time: 21:30 Status: Suspected Assessment and plan: Being r/o as above trend trop (3) Community acquired pneumonia: Start date: 09/06/21 Start time: 21:30 Status: Chronic Assessment and plan: Found [employer] [facility] on 09/01, as above Qualifiers: Laterality: left Lung location: lower lobe of lung Qualified Code(s): J18.9 - Pneumonia, unspecified organism (4) Acute right-sided CHF (congestive heart failure): Start date: 09/06/21 Start time: 21:30 Status: Chronic Assessment and plan: Even with elevated BNP patient appears very dry this is likely not due to acute exacerbation rather elevated liver enzymes She has not had an echo since 2019 will repeat one tomorrow (5) End stage COPD: Start date: 09/06/21 Start time: 21:30 Status: Chronic Assessment and plan: Oxygen dependent. Continue home regimen (6) Ambulatory dysfunction: Start date: 09/06/21 Start time: 21:30 Status: Chronic Assessment and plan: Will have PT work with Patient (7) DVT prophylaxis: Start date: 09/06/21 Start time: 21:30 Status: Acute Assessment and plan: Enoxaparin 30 mg (8) Discharge planning issues: Start date: 09/06/21 Start time: 21:30 Status: Acute Assessment and plan: Back to Center home when medically stable Discussed with Dr. Vazquez History of Present Illness History of Present Illness Chief Complaint: PNA,Transnaminitis, NSTEMI ? Narrative: 75 y.o female with PMH of CHF, End stage COPD oxygen dependant, OA, Hydrocephalus, presented to ED from from group home with question of hypoixa, confusion and incontinence. She was previously seen on 09/01 and diagnosed with LLL pneumonia, discharged home on levaquin and prednisone. Returning today. ED labs significant for no WBC on 09/01 noted to be 22 however creatinine is 1.7, elevated from baseline, Cardiac troponin of 0.36 second one was 0.32 will trend, BNP 17,537 with AST of 1084 and ALT of 903. Patient has been asked to be admitted to hospitalists group for further management. Upon evaluation patient appears very dry. Will hold diuretics, d/c levaquin, blood cultures done in the ED. Procal was 0.1. Place on ceftriaxone and doxy at this time. Monitor on telemetry, trend trops. Give LR at 125, hold statin. Monitor I/O with bonilla. Repeat labs in am. Patient states she is already feeling better from arrival to the ED. Review of Systems All systems reviewed & are unremarkable except as noted in HPI and below [facility] Medical History (Updated 09/06/21 @ 00:25 by Veronique Samayoa NP) Auditory hallucination CAD (coronary artery disease) Cellulitis of both lower extremities CHF (congestive heart failure) Depressive disorder (02/19/12) DVT prophylaxis 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) 06/2008 FEV1 35% severe, nocturnal hypoxia; nocturnal O2 2.5LPM 10/2016 FEV1 26% difffusion mod reduced GERD (gastroesophageal reflux disease) Gout, unspecified (04/27/13) H/O ETOH abuse History of GI bleed Low back pain without sciatica (02/19/12) Macrocytosis (05/05/13) nl B12 Marginal ulcer Obesity, unspecified (02/19/12) Gastric Bypass Osteoarth NOS-unspec (02/19/12) Other and unspecified hyperlipidemia (04/27/13) ASCVD; LDL baseline 170-180 Oxygen dependent PAD (peripheral artery disease) RLS (restless legs syndrome) Sensorineural hearing loss Spinal stenosis Tobacco dependence syndrome (11/25/13) Surgical History Bariatric surgery status (07/08/17) EGD - MAC 08/2017-Dr. Thornton Extraction of cataract (08/28/15) right eye with lens implantation Dr. Landry History of umbilical hernia repair S/P carpal tunnel release S/P peripheral artery angioplasty Family History Mother , COPD at age 79. COPD (chronic obstructive pulmonary disease) Heart disease Father Diabetes Dementia Social History (Updated 06/13/20 @ 14:40 by Donna Jung RN, RN) Smoking/Tobacco Use Status: Current every day Tobacco Type: cigarettes and e-cigarettes Tobacco: How many years used: 57 Smokeless tobacco user: other Smoking risk assessment performed?: Yes Alcohol Intake: never Drug use: Never Substance use type: does not use Adopted: No Household members: none Number of Children: 2 Communication Needs: Hard of Hearing and Corrective Lenses Education Level: college Details: did 3 years Do you need help understanding health information?: Rarely 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; 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 Current gender identity: female What is your relationship status?: Panel score (0-1 are the most socially isolated patients): 0 What type of physical activity do you participate in: none Seatbelt use: always Drive intox or ride w/intox port cdl a driver: No Working smoke detector in home: Yes Carbon monox detector in home: Yes In current or past relationships, have you been: threatened and made to feel afraid Do you feel safe at home: Yes Do you feel safe in your relationship?: Yes Meds Allergies and Home Medications Allergies Allergy/AdvReac Type Severity Reaction Status Date / Time chlorpromazine Allergy Severe Skin Rash Verified 09/05/21 14:16 Penicillins Allergy Severe HIVES Verified 09/05/21 14:16 oxycodone Allergy Mild RASH/VOMITI Verified 09/05/21 14:16 NG raspberry Allergy Unknown Verified 09/05/21 14:16 Home Medications Medication Instructions Recorded Confirmed Type Port 02concentrator 0 INHALATION as directed #1 unit 10/26/17 06/13/19 Clinic nicotine 21 mg/24 hr daily 1 patch TD Q24H #28 each 03/16/19 09/05/21 Rx transdermal patch isosorbide mononitrate 30 mg 30 mg PO DAILY 12/21/19 09/05/21 History tablet,extended release 24 hr Oxygen #1 each 06/06/20 08/01/21 History divalproex 250 mg tablet,delayed 250 mg PO HS tab 06/06/20 09/05/21 History release ondansetron HCl 4 mg tablet 4 mg PO Q8H PRN #20 tab 06/15/20 09/05/21 Rx diaper,brief,adult,disposable #150 each 06/28/20 08/01/21 Rx magnesium oxide 400 mg (241.3 mg 400 mg PO DAILY #90 tab 09/08/20 09/05/21 Rx magnesium) tablet pantoprazole 40 mg tablet,delayed 40 mg PO DAILY #30 tab 01/08/21 09/05/21 Rx release albuterol sulfate 90 mcg/actuation 180 mcg INHALATION Q4H PRN #1 ea 03/12/21 09/05/21 Rx breath activated powder inhaler,sensor atorvastatin 40 mg tablet 40 mg PO DAILY #90 tab 03/12/21 09/05/21 Rx budesonide-formoterol HFA 80 2 puff INHALATION BID #3 inhaler 03/12/21 09/05/21 Rx mcg-4.5 mcg/actuation aerosol inhaler nitroglycerin 0.4 mg sublingual 0.4 mg SUBLINGUAL PRN PRN #25 06/27/21 09/05/21 Rx tablet tab-cap diltiazem HCl 120 mg capsule,24 120 mg PO DAILY #90 cap 07/25/21 09/05/21 Rx hr,extended release potassium chloride 20 mEq 40 meq PO BID #180 tab 08/19/21 09/05/21 Rx tablet,extended release levofloxacin 750 mg PO DAILY #6 tab 09/01/21 09/05/21 Rx prednisone 40 mg PO DAILY #10 tab 09/01/21 09/05/21 Rx furosemide 40 mg tablet 60 mg PO DAILY #135 tab-cap 09/02/21 09/05/21 Rx acetaminophen [Tylenol] 650 mg PO Q6H PRN 09/05/21 09/05/21 History ibuprofen 600 mg PO Q6H PRN 09/05/21 09/05/21 History tiotropium bromide [Spiriva with 18 mcg INHALATION BID 09/05/21 09/05/21 History HandiHaler] Exam Const General: cooperative, comfortable, no acute distress and frail appearing Nutritional Appearance: thin Orientation: alert, awake, oriented x3 and other (cognitively slow) HENMT Mouth: moist mucous membranes abnormal (DRY) Eyes Eyelids: eyelids normal Pupils: PERRL EOM: EOM intact bilaterally Neck Neck: normal visual inspection, no lymphadenopathy and no JVD Lymphatic: no lymphadenopathy noted Resp Effort & Inspection: normal respiratory effort and able to speak in complete sentences Auscultation: wheezes scattered wheezes Other: requires oxygen at all times Cardio Jugular venous pressure: no JVD Rate: regular rate Rhythm: regular rhythm Heart Sounds: S1 normal GI Inspection: normal to inspection Palpation: soft Auscultation: normal bowel sounds General: No CVA tenderness and deferred Skin General skin exam: decreased turgor (tenting) and dry skin Neuro General: patient alert, patient awake and patient oriented x3 Speech: speech normal Gait: normal gait Extrem General: full ROM and no clubbing, cyanosis or edema Results Labs Result diagrams: 09/05/21 13:35 09/05/21 13:35 Labs: Laboratory Results - last 24 hr 09/05/21 09/05/21 09/05/21 13:25 13:35 13:35 WBC 8.49 RBC 3.42 L Hgb 10.1 L Hct 34.6 L MCV 101.2 H MCH 29.5 MCHC 29.2 L RDW 14.1 Plt Count 211 MPV 10.5 Immature Gran % 0.8 Neutrophils % 86.3 Lymphocytes % 6.9 Monocytes % 5.9 Eosinophils % 0.0 Basophils % 0.1 Nucleated RBC % 0 Absolute Neutrophils 7.32 H Absolute Lymphocytes 0.59 L Absolute Monocytes 0.50 Absolute Eosinophils 0.00 Absolute Basophils 0.01 PT INR APTT VBG Lactate Sodium 145 Potassium 4.1 Chloride 106 Carbon Dioxide 38.4 H Anion Gap 0.6 L BUN 52 H Creatinine 1.7 H Estimated GFR/1.73 m2 29.38 Glucose 135 H Calcium 8.6 Total Bilirubin 0.3 AST 1084 H ALT 903 H Alkaline Phosphatase 73 Troponin I 0.36 H* NT-Pro-B Natriuret Pep Total Protein 7.1 Albumin 3.3 L Procalcitonin Urine Color Urine Clarity Urine pH Ur Specific [place] Urine Protein Urine Ketones Urine Blood Urine Nitrite Urine Bilirubin Urine Urobilinogen Ur Leukocyte Esterase Urine Glucose COVID-19 Source Nasal/Nares SARS-CoV-2 (PCR) Negative 09/05/21 09/05/21 09/05/21 13:35 13:35 13:35 WBC RBC Hgb Hct MCV MCH MCHC RDW Plt Count MPV Immature Gran % Neutrophils % Lymphocytes % Monocytes % Eosinophils % Basophils % Nucleated RBC % Absolute Neutrophils Absolute Lymphocytes Absolute Monocytes Absolute Eosinophils Absolute Basophils PT 12.2 H INR 1.2 H APTT 23.1 VBG Lactate 1.1 Sodium Potassium Chloride Carbon Dioxide Anion Gap BUN Creatinine Estimated GFR/1.73 m2 Glucose Calcium Total Bilirubin AST ALT Alkaline Phosphatase Troponin I NT-Pro-B Natriuret Pep 35224 H Total Protein Albumin Procalcitonin 0.1 Urine Color Urine Clarity Urine pH Ur Specific [place] Urine Protein Urine Ketones Urine Blood Urine Nitrite Urine Bilirubin Urine Urobilinogen Ur Leukocyte Esterase Urine Glucose COVID-19 Source SARS-CoV-2 (PCR) 09/05/21 09/05/21 14:30 17:05 WBC RBC Hgb Hct MCV MCH MCHC RDW Plt Count MPV Immature Gran % Neutrophils % Lymphocytes % Monocytes % Eosinophils % Basophils % Nucleated RBC % Absolute Neutrophils Absolute Lymphocytes Absolute Monocytes Absolute Eosinophils Absolute Basophils PT INR APTT VBG Lactate Sodium Potassium Chloride Carbon Dioxide Anion Gap BUN Creatinine Estimated GFR/1.73 m2 Glucose Calcium Total Bilirubin AST ALT Alkaline Phosphatase Troponin I 0.32 H* NT-Pro-B Natriuret Pep Total Protein Albumin Procalcitonin Urine Color Yellow Urine Clarity Clear Urine pH 5.5 Ur Specific [place] 1.025 Urine Protein Negative Urine Ketones Negative Urine Blood Negative Urine Nitrite Negative Urine Bilirubin Negative Urine Urobilinogen 0.2 Ur Leukocyte Esterase Negative Urine Glucose Negative COVID-19 Source SARS-CoV-2 (PCR) Last Vital Signs Temp 37.3 C 09/05/21 20:36 Pulse 77 09/05/21 20:36 Resp 18 09/05/21 20:36 BP 143/74 H 09/05/21 20:36 Pulse Ox 95 09/05/21 20:36
[2021-09-05] MEDS: DOXYCYCLINE 100 MG in Normal Saline 100 ML IVPB (22:08)
[2021-09-05] MEDS: Divalproex 250 MG TABEC PO (22:17)
[2021-09-05] MEDS: Enoxaparin 30 MG/0.3 ML SYR SC (22:17)
[2021-09-05] MEDS: Normal Saline Flush 10 ML SYR IVP (22:30)
[2021-09-05] MEDS: cefTRIAXone 1 GM/50 ML BAG IVPB (23:28)
[2021-09-06] VITALS (9 sets, daily range): BP systolic 121–139; BP diastolic 57–77; PULSE 69–89; RESP 4–22; TEMP 36.2–36.7; O2SAT 91–96
--- NOTE | 2021-09-06 | DI.US_ITS ---
Exam(s) US EXTREMITY VENOUS BI EXAM: US EXTREMITY VENOUS BI CLINICAL HISTORY: r/o dvt TECHNIQUE: Grayscale, color, and doppler imaging of the deep venous system of both lower extremities was performed. COMPARISON: US US ABDOMEN from 09/06/2021 FINDINGS: There is no evidence of intraluminal thrombus and there is normal compression and augmentation demons trated within the common femoral veins, femoral veins, and popliteal veins of both lower extremities. In the calves the interrogated veins also exhibit normal compression/ augmentation properties. The greater saphenous veins also appear patent as do the saphenofemoral junctions bilaterally.. IMPRESSION: 1. No ultrasound evidence of DVT in either lower extremity. Incidentally noted is a Thomas cyst in the left popliteal fossa measuring 3.6 x 2.3 x 0.9 cm. DATA REPOSITORY:
--- NOTE | 2021-09-06 | DI.US_ITS ---
Exam(s) US ABDOMEN EXAM: US ABDOMEN CLINICAL HISTORY: elevated liver enzymes TECHNIQUE: Ultrasound performed using standard protocol. COMPARISON: US ABDOMEN ULTRASOUND (P) from 08/13/2016 FINDINGS: Abdominal aorta is not well visualized due to overlying bowel gas. Liver is incompletely visualized due to patient's body habitus. However no focal abnormality of the liver is seen. There is no evidence of cholelithiasis or biliary dilatation. No gallbladder wall thickening seen. Portal venous flow is normal directional. Pancreas is unremarkable as visualized. Spleen appears intact. Kidneys are unremarkable in appearance with no evidence of hydronephrosis or nephrolithiasis. IMPRESSION: Negative abdominal ultrasound. DATA REPOSITORY:
[2021-09-06] MEDS: Lactated Ringers 1,000 ML 125 ML IV (00:23)
[2021-09-06 07:38] LABS: Abs Immature Grans 0.07 10^3/uL (0.0-0.06); Absolute Basophil Count 0.01 10^3/uL (0.0-0.2); Absolute Lymphocyte Count 0.38 10^3/uL (1.2-3.4); Absolute Monocyte Count 0.18 10^3/uL (0.1-0.8); Absolute Neutrophil Count 4.64 10^3/uL (1.2-6.7); Basophils % 0.2; HCT 31.7 % (36.0-46.0); HGB 9.3 g/dL (11.2-15.7); Immature Grans % 1.3; Lymphocytes % 7.2; MCH 29.5 pg (27.0-33.0); MCHC 29.3 % (32.0-36.0); MCV 100.6 fL (80-95); MPV 10.8 fL (8.0-11.0); Monocytes % 3.4; Neutrophils % 87.9; Nucleated RBC 0 %; Platelet Count 162 10^3/uL (130-400); RBC 3.15 10^6/uL (3.93-5.22); RDW 13.8 % (11.7-14.6); WBC 5.28 10^3/uL (4.4-10.8)
[2021-09-06] MEDS: Isosorbide Mononitrate 30 MG TABCR PO (07:40)
[2021-09-06] MEDS: Pantoprazole 40 MG TABCR PO (07:40)
[2021-09-06] MEDS: predniSONE 20 MG TAB 40 MG PO (07:40)
[2021-09-06] MEDS: Potassium Chloride 20 MEQ TABCR 40 MEQ PO ×3 (07:40→19:38)
[2021-09-06] MEDS: dilTIAZem CD 120 MG CAPCR PO (07:40)
--- NOTE | 2021-09-06 07:45 | RT.EKG_ITS ---
APPROVED REPORT Exam: Resting ECG Reason for Exam: elevated trops Patient Location: I HR:67 bpm ECG Measurements Heart Rate 67 AXIS NY 240 P 69 QRSd 142 QRS -55 QT 467 T 60 QTc 494 Conclusion Sinus rhythm...normal P axis, V-rate 60- 99 Prolonged NY interval...NY >220, V-rate 50- 90 Left bundle branch block...QRSd>120, broad/notched R
[2021-09-06 08:12] LABS: ALT 717 U/L (14-59); AST 526 U/L (15-37); Albumin 2.7 g/dL (3.4-5.0); Alkaline Phosphatase 66 U/L (46-116); BUN 48 mg/dL (7-18); Bilirubin, Total 0.2 mg/dL (0.2-1.0); CREATININE 1.3 mg/dL (0.55-1.02); Calcium 7.9 mg/dL (8.5-10.1); Chloride 108 mmol/L (98-107); Estimated GFR 40.04 (mL/min/1.73m2); Glucose 133 mg/dL (74-106); Magnesium 2.1 mg/dL (1.8-2.4); NT-proBNP 9462 pg/mL (<300); Potassium 3.4 mmol/L (3.5-5.1); Sodium 149 mmol/L (136-145); Total Protein 6.4 g/dL (6.4-8.2)
[2021-09-06] MEDS: Albuterol/Ipratropium 3 ML UPD VIAL UPD (08:33)
[2021-09-06] MEDS: Aspirin 81 MG CHEW PO (08:46)
[2021-09-06 08:51] LABS: D-Dimer 6567 ng/mlFEU (<500)
[2021-09-06 09:30] LABS: Salicylate 4.5 mg/dL (<2.8)
--- NOTE | 2021-09-06 09:35 | INITIAL_ITS ---
- If Service Date Differs Date of service: 09/06/21 Time of Service: 09:35 Care Management Initial Assess REASON FOR HOSPITALIZATION:: Transaminitis,NSTEMI,Community acquired pneumonia, Acute right-sided CHF PAST MEDICAL HISTORY/PAST SURGICAL HISTORY:: Medical History (Updated 09/06/21 @ 00:25 by Veronique Samayoa NP). Auditory hallucination. CAD (coronary artery disease). Cellulitis of both lower extremities. CHF (congestive heart failure). Depressive disorder (02/19/12). DVT prophylaxis. 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 06/2008 FEV1 35% severe, nocturnal hypoxia; nocturnal O2 2.5LPM. 10/2016 FEV1 26% difffusion mod reduced. GERD (gastroesophageal reflux disease). Gout, unspecified (04/27/13). H/O ETOH abuse. History of GI bleed. Low back pain without sciatica (02/19/12). Macrocytosis (05/05/13). nl B12. Marginal ulcer. Obesity, unspecified (02/19/12). Gastric Bypass. Osteoarth NOS-unspec (02/19/12). Other and unspecified hyperlipidemia (04/27/13). ASCVD; LDL baseline 170-180. Oxygen dependent. PAD (peripheral artery disease). RLS (restless legs syndrome). Sensorineural hearing loss. Spinal stenosis. Tobacco dependence syndrome (11/25/13). Surgical History . Bariatric surgery status (07/08/17). EGD - MAC. 08/2017-Dr. Thornton. Extraction of cataract (08/28/15). right eye with lens implantation Dr. Landry. History of umbilical hernia repair. S/P carpal tunnel release. S/P peripheral artery angioplasty PREVIOUS FUNCTIONAL STATUS/SOCIAL/FAMILY SUPPORTS:: Lauren lives at the [facility] in [facility]. She has her own room and has caregivers. She uses a walker and a cane. She does not drive and uses [facility] for transportation. She shares that her sister Mone used to provider her transportation however Mone recently disowned her because she chooses to smoke and drink. CURRENT FUNCTIONAL STATUS:: Lauren was laying in bed when met with her. She is hoping to be discharged back to the residental home where she lives when she is ready for discharge although she is open to going to a SNF if they will let her smoke and drink. Lauren shares that she smokes three cigarettes and drinks two beers per day and has no intention to give them up. ADVANCE DIRECTIVES:: COLST Form on file Has patient been provided with info about the portal/API?: Yes Did the patient sign up for the portal?: No CODE STATUS:: Full Code INSURANCE COVERAGE / FINANCIAL ISSUES:: Medicaid. Medicare CURRENT HOME/COMMUNITY SERVICES/EQUIPMENT:: Lives at the [facility]. Has a cane and walker PRIMARY CARE PHYSICIAN:: Susana Apple PATIENT/FAMILY EDUCATION NEEDS:: Review discharge instructions, limitations and plan to follow up with community providers. ask me three. TRANSPORTATION:: via [facility] to be arranged by CM. PLAN:: Anticipate Lauren will return back to the residential custodial she currenlty lives with no new services via [facility] when medically cleared by MD. She will follow up with community providers and plan of care as prescribed.
[2021-09-06 09:39] LABS: Acetaminophen < 2 ug/mL (10-30)
--- NOTE | 2021-09-06 10:20 | DI.US_ITS ---
APPROVED REPORT EXAM: Comprehensive 2D, Doppler, and color-flow Echocardiogram Patient Location: In-Patient Room/Bed: [address] Faller: Lorraine Cole RDCS (AE) Indications: CHF Other Information Study Quality: Good Conclusion Normal left ventricular wall thickness and chamber size. Estimated ejection fraction is 60%. Wall m otion is normal Both atria are normal in size Normal right ventricular size and systolic function Structurally normal aortic valve without stenosis or regurgitation Mild mitral annular calcification. Moderate mitral regurgitation Normal tricuspid valve. Moderate tricuspid regurgitation. Estimated right ventricular systolic pres sure is 44 mmHg Mildly dilated ascending aorta 3.4 cm Wall motion Left Ventricle The left ventricle is normal size. The left ventricular systolic function is normal. The left ventric ular ejection fraction is within the normal range. There is normal left ventricular wall thickness. T here is normal LV segmental wall motion. There is no ventricular septal defect visualized. LVEF is 60 %. Right Ventricle The right ventricle is normal size. The right ventricular systolic function is normal. The RVSP is 44 .3 mmHg. Atria The left atrium size is normal. The right atrium size is normal. The interatrial septum is intact wit h no evidence for an atrial septal defect. Aortic Valve The aortic valve is normal in structure. Aortic valve is trileaflet. There is no aortic valvular sten osis. No aortic regurgitation is present. Mitral Valve Mild mitral annular calcification. No evidence of mitral valve stenosis. moderate mitral regurgitatio n. Tricuspid Valve The tricuspid valve is normal in structure. There is no tricuspid valve stenosis. moderate tricuspid regurgitation. Pulmonic Valve The pulmonary valve is normal in structure. There is no pulmonic valvular stenosis. Trace pulmonic re gurgitation. Great Vessels The aortic root is normal in size. The ascending aorta is mildly dilated. Aortic arch is not well vis ualized. The IVC collapses <50% with inspiration. Pericardium There is no pericardial effusion. 2D Dimensions IVSD d PLAX 0.88 cm F: 0.6-1.0 LV Vol A2C d MOD 99.9 mL LVPW d PLAX 0.91 cm F: 0.6 - 1.0 LV Vol A4C d MOD 78.4 mL LVID d PLAX 4.90 cm F: 3.8 - 5.2 LA vol/ BSA A2C s A-L 38.7 mL/m2 LVDs 3.30 cm F: 2.2 - 3.5 LA vol/ BSA A4C s A-L 40.4 mL/m2 Ao Root d 3.17 cm F: 2.7 - 3.3 LA Vol/ BSA Biplane s A-L 40.8 mL/m2 RA Area A4C 16.08 cm2 LA Area A4C s MOD 21.06 cm2 RA Vol/ BSA A4C s A-L 26.5 mL/m2 LA Area A2C s MOD 19.97 cm2 Ao Asc Diam d 3.40 cm F: 2.3 - 3.1 LV EF A4C MOD 60.8 % LV EF Teichholz 60.7 % LV EF A2C MOD 60.7 % LVEF (Garnica's) 61.15 % F: 54 - 74 LV EF Biplane MOD 61.2 % LV Volume 72.91 mL F: 46 - 106 SV 54.80 mL LV Volume Index 45.85 mL/m2 F: 29 - 61 SV Index 34.37 mL/m2 LV Vol Biplane MOD 89.6 mL FS 32.55 % M-Mode TAPSE 2.50 cm (M/F) >1.7 LV Diastology MV E' medial 0.105 (>0.07 m/s) E/A Ratio 1.5 LV E/e MED 8.10 (<14) MV E Vmax 0.85 (0.4-1.3 m/s) MV E' lateral 0.123 (>0.1 m/s) MV A Vmax 0.55 (0.4-1.3 m/s) LV E/e LAT 6.90 (<14) MV E/A Ratio 1.53 MV E/E' medial 8.12 MV E/E' lateral 6.92 Aortic Valve LVOT Area 3.02 cm2 AoV Area Vmax 2.23 cm2 LVOT Vmax 0.96 m/s AoV Area/ BSA (Vmax) 1.40 cm2/m2 LVOT Mean Sterling. 0.58 m/s FARZANEH Mean Sterling. 2.15 cm2 LVOT Peak Grad 3.7 mmHg FARZANEH Mean Sterling. Index 1.35 cm2/m2 LVOT Mean Grad 1.6 mmHg LVOT VTI 0.216 m LVOT Diam s 1.95 cm AoV Vmax 1.30 m/s Velocity Ratio 0.73 AoV Mean Sterling. 0.82 m/s AoV Peak Grad 6.8 mmHg LVOT SV 65.13 mL AoV Mean Grad 3.1 mmHg AoV VTI 0.273 m AoV Area VTI 2.38 cm2 AoV Area/ BSA (VTI) 1.49 cm/m2 Mitral Valve MV DT 205 (160-240 msec) MR Vmax 6.16 m/s MV PHT 59 msec MR VTI 2.162 m MV Area PHT 3.70 cm2 MR Peak Grad 151.8 mmHg MV VTI 0.344 m MR Mean Grad 108.9 mmHg MV VTI Annulus 0.297 m MV Area VTI 1.67 (4.0-6.0 cm2) Pulmonary Valve PV Vmax 1.01 (0.5-1.5 m/s) RVOT Peak Gr. 1.43 mmHg PV Peak Grad 4.1 mmHg RVOT Mean Gr. 0.80 mmHg PV Mean Grad 1.8 mmHg RVOT VTI 0.151 m PV VTI 0.223 m RVOT Vmax 0.60 m/s Tricuspid Valve TR Peak Grad 36.3 mmHg TR Vmax 3.01 m/s RA Pressure 8.00 mmHg RVSP (TR) 44.3 mmHg
[2021-09-06] MEDS: DOXYCYCLINE 100 MG in Normal Saline 100 ML IVPB (12:33)
[2021-09-06] MEDS: Ondansetron O.D.T. 4 MG TABEF PO (12:35)
--- NOTE | 2021-09-06 12:50 | NUR.NOTE ---
Nursing Note: 18g IV infiltrated in the beginning of the CTA contrast infusion, Right upper arm with small swelling and redness. Radius of upper right arm 30cm, lower right arm 20, upper left arm 27cm, lower left arm 20cm. Pharmacist contacted, elevation of affected arm and application of warm compresses, continuous observation recommended.
[2021-09-06] MEDS: Cefpodoxime 200 MG TAB PO (14:48)
[2021-09-06] MEDS: Azithromycin 250 MG TAB 500 MG PO (14:49)
--- NOTE | 2021-09-06 14:49 | CHAPLAIN ---
Lauren was resting in bed when I visited. We remembered each other from a previous admission. Lauren was pleasant, and engaged in brief conversation. I will continue to visit if she stays.
--- NOTE | 2021-09-06 16:09 | PGE_ITS ---
Date of Service Date of service: 09/06/21 Time of Service: 11:00 Assessment and Plan Assessment and plan (1) Transaminitis: Start date: 09/06/21 Start time: 11:30 Status: Acute Assessment and plan: Improved with IV hydration Hold all hepatoxic medications including statin, tylenol AST down to 526, ALT 717 Trop down to 0.2 per cardiology does not feel this is significant or that the patient is in HF. At this time will trend labs, hold IVF and lasix Abd u/s negative Will also r/o PE though wells score for both PE and DVT negative, however Ddimer is 6567, awaiting results at this time (2) NSTEMI (non-ST elevated myocardial infarction): Start date: 09/06/21 Start time: 11:30 Status: Ruled-out Assessment and plan: Spoke with cardiology not impressed did not feel this was NSTEMI no CP, EKG with SR LBBB ECHO revealing Conclusion Normal left ventricular wall thickness and chamber size. Estimated ejection fraction is 60%. Wall motion is normal Both atria are normal in size Normal right ventricular size and systolic function Structurally normal aortic valve without stenosis or regurgitation Mild mitral annular calcification. Moderate mitral regurgitation Normal tricuspid valve. Moderate tricuspid regurgitation. Estimated right ventricular systolic pressure is 44 mmHg Mildly dilated ascending aorta 3.4 cm (3) Community acquired pneumonia: Start date: 09/06/21 Start time: 16:27 Status: Chronic Assessment and plan: Found SAW SUPERINTENDENT on 09/01, switched to oral cefpodime and azithromycin due to IV failure Qualifiers: Laterality: left Lung location: lower lobe of lung Qualified Code(s): J18.9 - Pneumonia, unspecified organism (4) Acute right-sided CHF (congestive heart failure): Start date: 09/06/21 Start time: 11:30 Status: Chronic Assessment and plan: stable at this time, not in HF (5) End stage COPD: Start date: 09/06/21 Start time: 11:30 Status: Chronic Assessment and plan: Oxygen dependent. Continue home regimen (6) Ambulatory dysfunction: Start date: 09/06/21 Start time: 11:30 Status: Chronic Assessment and plan: Will have PT work with Patient (7) DVT prophylaxis: Start date: 09/06/21 Start time: 11:30 Status: Acute Assessment and plan: Enoxaparin 30 mg (8) Discharge planning issues: Start date: 09/06/21 Start time: 11:30 Status: Acute Assessment and plan: Back to [facility] when medically stable Discussed with Dr. Vazquez Subjective Subjective Patient reports: no new complaints Interval history since last seen: Feeling better since admission. When she went for her CTA, her IV blew and 3 attempts were made, patient did not want IV replaced. She was placed back in her bed. At this time she was agreeable to midline, this has been placed and she is getting CTA now to r/o PE. DDimer was 6567, her labs came down nicely with IV hydration. which was discontinued. She was very dry appearing. BNP down from 17 to 9, AST and ALT are improving. Fluids stopped, will hold lasix as well and monitor labs. continue antibiotics for CAP found on 09/01. Trops trending down. Dr. Lopez does not feel this is significant given presentation. Therefore she does not need heparin especially in setting of no Chest pain. EKG this am with SR LBBB no change from previous. US of abd negative for any acute findings. Echo : Conclusion Normal left ventricular wall thickness and chamber size. Estimated ejection fraction is 60%. Wall motion is normal Both atria are normal in size Normal right ventricular size and systolic function Structurally normal aortic valve without stenosis or regurgitation Mild mitral annular calcification. Moderate mitral regurgitation Normal tricuspid valve. Moderate tricuspid regurgitation. Estimated right ventricular systolic pressure is 44 mmHg Mildly dilated ascending aorta 3.4 cm Exam Const General: cooperative, comfortable, no acute distress and frail appearing Nutritional Appearance: thin Orientation: alert, awake, oriented x3 and other (cognitively slow) [facility] Mouth: moist mucous membranes abnormal (DRY) Eyes Eyelids: eyelids normal Pupils: PERRL EOM: EOM intact bilaterally Neck Neck: normal visual inspection, no lymphadenopathy and no JVD Lymphatic: no lymphadenopathy noted Resp Effort & Inspection: normal respiratory effort and able to speak in complete sentences Auscultation: diminished lung sounds Cardio Jugular venous pressure: no JVD Rate: regular rate Rhythm: regular rhythm Heart Sounds: S1 normal GI Inspection: normal to inspection Palpation: soft Auscultation: normal bowel sounds General: No CVA tenderness and deferred Skin General skin exam: dry skin Lesions: lesion noted (left lower extremity) Neuro General: patient alert, patient awake and patient oriented x3 Speech: speech normal Gait: normal gait Extrem General: full ROM and no clubbing, cyanosis or edema Objective Last Vital Signs Temp 36.2 C L 09/06/21 05:17 Pulse 77 09/06/21 12:55 Resp 22 09/06/21 08:33 BP 139/77 09/06/21 05:17 Pulse Ox 96 09/06/21 12:55 Laboratory Results - last 24 hr 09/05/21 09/06/21 09/06/21 17:05 02:00 06:42 WBC RBC Hgb Hct MCV MCH MCHC RDW Plt Count MPV Immature Gran % Neutrophils % Lymphocytes % Monocytes % Eosinophils % Basophils % Nucleated RBC % Absolute Neutrophils Absolute Lymphocytes Absolute Monocytes Absolute Eosinophils Absolute Basophils D-Dimer Sodium 149 H Potassium 3.4 L Chloride 108 H Carbon Dioxide 40.0 H Anion Gap 1.0 L BUN 48 H Creatinine 1.3 H Estimated GFR/1.73 m2 40.04 Glucose 133 H Calcium 7.9 L Magnesium 2.1 Total Bilirubin 0.2 AST 526 H ALT 717 H Alkaline Phosphatase 66 Troponin I 0.32 H* 0.20 H* NT-Pro-B Natriuret Pep 9462 H Total Protein 6.4 Albumin 2.7 L Salicylates Acetaminophen 09/06/21 09/06/21 09/06/21 06:42 08:10 08:10 WBC 5.28 D RBC 3.15 L Hgb 9.3 L Hct 31.7 L MCV 100.6 H MCH 29.5 MCHC 29.3 L RDW 13.8 Plt Count 162 MPV 10.8 Immature Gran % 1.3 Neutrophils % 87.9 Lymphocytes % 7.2 Monocytes % 3.4 Eosinophils % 0.0 Basophils % 0.2 Nucleated RBC % 0 Absolute Neutrophils 4.64 Absolute Lymphocytes 0.38 L Absolute Monocytes 0.18 Absolute Eosinophils 0.00 Absolute Basophils 0.01 D-Dimer 6567 H Sodium Potassium Chloride Carbon Dioxide Anion Gap BUN Creatinine Estimated GFR/1.73 m2 Glucose Calcium Magnesium Total Bilirubin AST ALT Alkaline Phosphatase Troponin I NT-Pro-B Natriuret Pep Total Protein Albumin Salicylates 4.5 Acetaminophen 09/06/21 08:10 WBC RBC Hgb Hct MCV MCH MCHC RDW Plt Count MPV Immature Gran % Neutrophils % Lymphocytes % Monocytes % Eosinophils % Basophils % Nucleated RBC % Absolute Neutrophils Absolute Lymphocytes Absolute Monocytes Absolute Eosinophils Absolute Basophils D-Dimer Sodium Potassium Chloride Carbon Dioxide Anion Gap BUN Creatinine Estimated GFR/1.73 m2 Glucose Calcium Magnesium Total Bilirubin AST ALT Alkaline Phosphatase Troponin I NT-Pro-B Natriuret Pep Total Protein Albumin Salicylates Acetaminophen < 2
--- NOTE | 2021-09-06 16:30 | DI.CT_ITS ---
Exam(s) CT CHEST PE CTA EXAM: CT CHEST PE CTA CLINICAL HISTORY: r/o PE. TECHNIQUE: Imaging Protocol: CT angiography of the chest was performed using pulmonary embolus ruby col. Multi planar reconstructions were performed. CONTRAST MATERIAL: Intravenous: Omnipaque 350 Contrast volume: 62 cc COMPARISON: CR XR PORTABLE CHEST AP from 09/05/2021 FINDINGS: CHEST: Less than optimal bolus timing PULMONARY ARTERIES: There are no obvious intraluminal filling defects to suggest acute pulmonary embo li. LUNGS: There are COPD emphysematous changes.. There is an area of infiltrate in superior segment of the left lower lobe. Also some subpleural infiltrate noted posteriorly in the left lower lobe, this measuring 10 x 9 millimeters. No associated left pleural effusion. Some scar-like infiltrate is see n in the right lung apex and sub apical region. Small right pleural effusion. No obvious focal find ings in trachea and mainstem bronchi MEDIASTINUM: There is no hilar nor mediastinal adenopathy. Visualized thyroid unremarkable.Fluid seen in the esophagus. CARDIAC: Cardiomegaly. No obvious pericardial effusioncaliber of the thoracic aorta is within normal limits. RV/LV ratio is approximately 1-1. However, there is no significant shift of the interventri cular septum. PARTIALLY VISUALIZED UPPERMOST ABDOMEN: No obvious findings OSSEOUS: No significant osseous lesions.. IMPRESSION: 1. No evidence of obvious acute pulmonary emboli.No pulmonary infarction. 2. COPD emphysematous changes with multiple nodular infiltrates as described above in the left lung a nd small amount of right pleural fluid. No intrathoracic adenopathy evident. Recommend repeat CT sc an in 3 months to ensure stability of the above described lung findings. 3. Cardiomegaly. No pericardial effusion. No aortic dissection. RADIATION DOSE DELIVERED: 179.79mGy.cm Total DLP DATA REPOSITORY: All CT scans at this facility are submitted to the National Radiology Data Registry (NRDR) Dose Index Registry (DIR) with the [employer] (ACR). RADIATION OPTIMIZATION: All CT scans at this facility use at least one of these dose optimization te chniques: automated exposure control; mA and/or kV adjustment per patient size (includes targeted exa ms where dose is matched to clinical indication); or iterative reconstruction.
--- NOTE | 2021-09-06 16:44 | DI.VRAD_ITS ---
PROCEDURE INFORMATION: Exam: US Duplex Lower Extremity Veins, Bilateral Exam date and time: 09/06/2021 1:35 PM Age: 75 years old Clinical indication: Edema, localized; Lower extremity, bilateral TECHNIQUE: Imaging protocol: Real-time duplex ultrasound of the extremities with 2-D mata scale, color Doppler flow and spectral waveform analysis with image documentation. Complete exam focused on the bilateral lower extremity veins. COMPARISON: CT Abdomen^ROUTINE ABDOMEN PELVIS WITH CONTRAST (Adult) 09/21/2018 10:20 AM FINDINGS: Right deep veins: Unremarkable. The common femoral, femoral, proximal profunda femoral and popliteal veins are patent without thrombus. Normal Doppler waveforms. Normal compressibility and/or augmentation response. Right superficial veins: Saphenofemoral junction is patent without thrombus. Left deep veins: Unremarkable. The common femoral, femoral, proximal profunda femoral and popliteal veins are patent without thrombus. Normal Doppler waveforms. Normal compressibility and/or augmentation response. Left superficial veins: Saphenofemoral junction is patent without thrombus. Soft tissues: There is a left popliteal cyst measuring 3.6 x 0.9 x 2.3 cm. IMPRESSION: No evidence of deep vein thrombosis. Left popliteal cyst. Dictated and Authenticated by: Chris Padilla MD. Ordering:KEO Piper MD
[2021-09-06] MEDS: Normal Saline - Diluent 50 ML VIAL IV (17:22)
[2021-09-06] MEDS: Omnipaque 350 MG/ML 100 ML BTL IJ (17:23)
--- NOTE | 2021-09-06 17:47 | DI.VRAD_ITS ---
PROCEDURE INFORMATION: Exam: CTA Chest With Contrast Exam date and time: 09/06/2021 4:39 PM Age: 75 years old Clinical indication: Other: R/O pe TECHNIQUE: Imaging protocol: Computed tomographic angiography of the chest with contrast. 3D rendering (Not supervised by radiologist): MIP and/or 3D reconstructed images were created by the technologist. Radiation optimization: All CT scans at this facility use at least one of these dose optimization techniques: automated exposure control; mA and/or kV adjustment per patient size (includes targeted exams where dose is matched to clinical indication); or iterative reconstruction. Contrast material: OMNIPAQUE; Contrast volume: 62 ml; Contrast route: INTRAVENOUS (IV); COMPARISON: CT CHEST PE CTA 09/06/2021 11:26 AM FINDINGS: Pulmonary arteries: There is no evidence of a pulmonary embolus. Aorta: There are arteriosclerotic changes of the aorta. Lungs: The tracheobronchial tree is patent bilaterally. There is fibrosis and scarring within the right upper lobe. There are bilateral emphysematous changes. There is a focal area of increased interstitial markings within the superior segment of the left upper lobe. There is slight fibrosis and scarring within the left lower lobe. There is a nodule within the left lower lobe measuring approximately 1.0 cm. There is an additional nodule within the left lower lobe measuring approximately 6 mm. There are atelectatic changes at the right lung base. There is a nodule within the left upper lobe measuring approximately 8 mm. Pleural spaces: There is a small right pleural effusion. Heart: There is cardiomegaly. Mediastinal space: There is fluid within the esophagus. Lymph nodes: No enlarged lymph nodes. Bones/joints: There are degenerative changes of the thoracic spine. There is an anterior flowing osteophyte at multiple levels involving the thoracic spine. Soft tissues: Unremarkable. Other findings: The study is somewhat limited due to motion artifact. IMPRESSION: 1. No evidence of a pulmonary embolus. 2. Bilateral emphysematous changes. Chronic lung findings as above. 3. Pulmonary nodules as above.For both low risk and high risk patients, consider CT Chest at 3 months, PET/CT, or biopsy. (Reference: Robin). 4. Small right pleural effusion. 5. Cardiomegaly. Arteriosclerotic changes of the aorta. The 6. Limited study as above. 7. Fluid within the esophagus. REFERENCES: Robin De La Cruz, et al. Guidelines for Management of Incidental Pulmonary Nodules Detected on CT Images: From the Fleischner Society 2017. Radiology. 2017;284(1):228-243. Dictated and Authenticated by: Chris Padilla MD. Ordering:KAYLAH Villarreal MD
[2021-09-06 19:08] LABS: Creatine Kinase 82 U/L (26-192)
[2021-09-06] MEDS: Budesonide/Formoterol 80/4.5 6.9 GM 60 PUFF INH IH (19:38)
[2021-09-06] MEDS: Normal Saline Flush 10 ML SYR IVP (19:39)
[2021-09-06] MEDS: Enoxaparin 30 MG/0.3 ML SYR SC (21:16)
[2021-09-06] MEDS: Divalproex 250 MG TABEC PO (21:16)
[2021-09-07] VITALS (8 sets, daily range): BP systolic 115–130; BP diastolic 63–82; PULSE 60–87; RESP 16–21; TEMP 36.1–36.6; O2SAT 91–96
[2021-09-07] MEDS: Cefpodoxime 200 MG TAB PO (02:12)
[2021-09-07] MEDS: Azithromycin 250 MG TAB PO (08:28)
[2021-09-07] MEDS: Isosorbide Mononitrate 30 MG TABCR PO (08:28)
[2021-09-07] MEDS: Pantoprazole 40 MG TABCR PO ×2 (08:28→19:47)
[2021-09-07] MEDS: Aspirin 81 MG CHEW PO (08:28)
[2021-09-07] MEDS: Potassium Chloride 20 MEQ TABCR 40 MEQ PO ×2 (08:28→19:47)
[2021-09-07] MEDS: Normal Saline Flush 10 ML SYR IVP ×2 (08:28→19:48)
[2021-09-07] MEDS: dilTIAZem CD 120 MG CAPCR PO (08:28)
[2021-09-07] MEDS: predniSONE 20 MG TAB 40 MG PO (08:33)
[2021-09-07 08:36] LABS: Abs Immature Grans 0.08 10^3/uL (0.0-0.06); Absolute Monocyte Count 0.25 10^3/uL (0.1-0.8); Absolute Neutrophil Count 6.61 10^3/uL (1.2-6.7); HCT 31.1 % (36.0-46.0); HGB 9.2 g/dL (11.2-15.7); Immature Grans % 1.1; Lymphocytes % 5.4; MCH 29.8 pg (27.0-33.0); MCHC 29.6 % (32.0-36.0); MCV 100.6 fL (80-95); MPV 11.5 fL (8.0-11.0); Monocytes % 3.4; Nucleated RBC 0 %; RBC 3.09 10^6/uL (3.93-5.22); RDW 14.1 % (11.7-14.6); RDW-SD 51.9 fL; WBC 7.34 10^3/uL (4.4-10.8)
[2021-09-07 09:11] LABS: Diff Comment Agrees w/ Instrument
[2021-09-07 09:12] LABS: Hypochromasia 1+; Neutrophils % 90.1; Poikilocytes 1+; Polychromasia Present
[2021-09-07 10:12] LABS: ALT 546 U/L (14-59); AST 181 U/L (15-37); Albumin 2.7 g/dL (3.4-5.0); Alkaline Phosphatase 64 U/L (46-116); Anion Gap 0.6 mmol/L (3-11); BUN 38 mg/dL (7-18); Bilirubin, Total 0.2 mg/dL (0.2-1.0); CO2 37.4 mmol/L (21.0-32.0); CREATININE 1.3 mg/dL (0.55-1.02); Calcium 8.3 mg/dL (8.5-10.1); Chloride 110 mmol/L (98-107); Estimated GFR 40.04 (mL/min/1.73m2); Glucose 207 mg/dL (74-106); NT-proBNP 6288 pg/mL (<300); Potassium 4.9 mmol/L (3.5-5.1); Sodium 148 mmol/L (136-145); Total Protein 6.1 g/dL (6.4-8.2)
[2021-09-07 10:14] LABS: Troponin I 0.09 ng/mL (<0.06)
--- NOTE | 2021-09-07 10:38 | IN_ITS ---
Date of service: 09/07/21 Time of Service: 10:15 PT Notes Visit Reasons: NSTEMI?,transnaminitis, PNA Inpatient Physical Therapy Evaluation Date: 09/07/2021 Referring Doctor: Veronique Samayoa PT Orders: PT CONSULT: Nonurgent Precautions: Standard, fall risk Patient Profile/Admitting Diagnosis: 75-year-old female patient admitted to ED on 09/05/21 with hypoxia confusion and incontinence, with medical work-up diagnosing transnaminitis, CHF exacerbation, pneumonia, and NSTEMI. She had prior admission on 09/01/2021 for management of pneumonia, was treated and [facility]. PMHX: Medical History (Updated 09/06/21 @ 00:25 by Veronique Samayoa, FARM OPERATIONS TECHNICAL DIRECTOR) Auditory hallucination CAD (coronary artery disease) Cellulitis of both lower extremities CHF (congestive heart failure) Depressive disorder (02/19/12) DVT prophylaxis 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) 06/2008 FEV1 35% severe, nocturnal hypoxia; nocturnal O2 2.5LPM 10/2016 FEV1 26% difffusion mod reduced GERD (gastroesophageal reflux disease) Gout, unspecified (04/27/13) H/O ETOH abuse History of GI bleed Low back pain without sciatica (02/19/12) Macrocytosis (05/05/13) nl B12 Marginal ulcer Obesity, unspecified (02/19/12) Gastric Bypass Osteoarth NOS-unspec (02/19/12) Other and unspecified hyperlipidemia (04/27/13) ASCVD; LDL baseline 170-180 Oxygen dependent PAD (peripheral artery disease) RLS (restless legs syndrome) Sensorineural hearing loss Spinal stenosis Tobacco dependence syndrome (11/25/13) Surgical History Bariatric surgery status (07/08/17) EGD - MAC 08/2017-Dr. Thornton Extraction of cataract (08/28/15) right eye with lens implantation Dr. Landry History of umbilical hernia repair S/P carpal tunnel release S/P peripheral artery angioplasty Family History Mother , COPD at age 79. COPD (chronic obstructive pulmonary disease) Heart disease Father Diabetes Dementia Social History/Home Situation: [facility] a pen[facility], primarily pending her daily is isolated to her room and on her oxygen. Only leaves her room to smoke a cigarette. Patient independent transferring from bed to chair, and with toileting. She is not happy with her home situation, offers little description of her home environment, irritated at request. She does not elaborate. Does not generally utilize an assistive device. Dependent on 3 L of O2 at rest, 5 L with ambulation. She does not have a portable O2 unit, limiting her activities outside of her room. At baseline, patient states she generally ambulates without assistive device. Current Functional Limitations: Contact-guard with functional transfers and standing activities, independent with bed mobility Equipment Owned/DME: Wall-mounted oxygen, no walking device Subjective: Irritated and frustrated with her hospital stay, she would like to consume some Mountain Dew but we do not have any. She feels very weak and di zzy, she has no energy. She has no desire to move or walk, as her usual functional activity is sitting in a chair all day. Only desire at this time is to be able to walk and to be able to get to her deck to smoke. She has never liked physical exercise Objective: General Observation: Sitting on Markell baker. She has remarkable ecchymosis throughout bilateral elbows due to attempts of IV placements Mental Status: A&O x3, unpleasant and irritated Pain: 0/10 Vital Signs: O2 saturation in static position on 3 L of O2 is 90%, with change of position and static standing decreases to 84% on 3 L O2. ROM: Patient uncooperative with request of upper extremity movements, but with observation with functional activities she is demonstrating at least functional range of motion throughout upper and lower extremities with change of position with arms below shoulder level. Strength: Again, patient uncooperative with testing demonstrating strength to tolerate functional transfers, and at least 3/5 upper extremities Sensation: Not assessed, patient uncooperative Bed Mobility/Transfers: Commode to stand contact-guard, at RW Sit to stand bed, supervision Bed mobility independent Gait: RW, CG x1, 20 steps, with NC 3 L O2. O2 saturation decreased to 84% on 3 L of O2 Balance: Stage 4 Balance Test Time (seconds) Feet together 10 Partial tandem 10 Tandem Unsteady One foot [] Static Sitting: Good Dynamic Sitting: Poor Static Standing: Good Dynamic Standing: Poor Special Tests: Mobility Limitations Standardized Measure [employer] AM-PAC 6 clicks Basic Mobility Inpatient Short Form: 41% disability Informed Consent/Education: Patient instructed in purpose of PT consult and plan of care. Assessment: Patient is a 75 year old female referred to physical therapy services with the diagnosis of ambulatory dysfunction requiring need for PT service in the setting of transnaminitis, CHF exacerbation, pneumonia, and NSTEMI. Patient presents with clinical signs and symptoms consistent with generalized weakness, poor activity tolerance and dependence on O2, and poor balance, demanding need for PT service to improve global strength and stability with functional transfers and functional ambulation. At baseline, she is not overly motivated nor is she generally physically active already leaving her vulnerable situation. She is 41% disabled her impact score, primary needs being improved balance and strength with functional transfers and household distance ambulation Patient is assessed as a Moderate 35819 complexity based on the following: History: See comorbidities Examination: Generalized weakness, O2 dependence, and poor balance limiting safety with functional transfers Presentation: Evolving Decision Making: Moderate Goals: Goals X1 week 1. Supine-Sit independent 2. Sit-Supine independent 3. Sit-Stand independent 4. Stand-Sit independent 5. Bed-Chair independent 6. Chair-Bed independent 7. Gait 50 feet, distant supervision, SPC 9. Stage IV balance test demonstrating ability to complete tandem for 10 seconds Plan of Care/Treatment Plan: 1-2x/day, 7 days/week x 1 week. Plan of care has been reviewed with the DELIVERY CREW MEMBER providing the service under Physical Therapy direction. Initiate Physical Therapy intervention for strengthening, bed mobility, transfers, gait, stairs, balance training, use of assistive device. Patient may require use of SPC at time of discharge for support with household ambulation DISCHARGE RECOMMENDATIONS: Return to home care center when medically stable. Home health PT would be of benefit to improve her physical capabilities and encourage physical activity. Patient to discuss with case management about her concerns of current living situation TREATMENT CODE/TIME: 30 minutes, [id number]. 10-10:45 AM Thank you for this referral Millie Negron, MPT
[2021-09-07] MEDS: Budesonide/Formoterol 80/4.5 6.9 GM 60 PUFF INH IH ×2 (11:05→19:45)
[2021-09-07] MEDS: cefTRIAXone 1 GM/50 ML BAG IVPB (11:06)
[2021-09-07] MEDS: Tiotropium Bromide-Respimat 10 PUFF INH 2 PUFF IH (11:06)
--- NOTE | 2021-09-07 11:34 | W.PM.PROGNOT ---
Date of Service Date of service: 09/07/21 Time of Service: Assessment and Plan Assessment and plan (1) Transaminitis: Start date: 09/07/21 Start time: :15 Status: Acute Assessment and plan: Improving without any hydration or lasix. Due to levaquin most likely from being treated with CAP Hold all hepatoxic medications including statin, tylenol AST down to 181, ALT 546 continue to trend Trop down to 0.09 will stop trending Abd u/s negative CTA revealed no PE however lung nodules that will need follow up with either PET or CT scan in 3 months (2) Pulmonary nodule: Start date: 09/07/21 Start time: :15 Status: Acute Assessment and plan: as above new finding (3) Choking due to food (regurgitated): Start date: 09/07/21 Start time: :15 Status: Acute Assessment and plan: Also found to be choking when eating and drinking breakfast, she states this happens all the time and she was found to have fluid in her esophagus on CT. Speech consult placed. Qualifiers: Encounter type: initial encounter Qualified Code(s): T17.320A - Food in larynx causing asphyxiation, initial encounter (4) NSTEMI (non-ST elevated myocardial infarction): Start date: 09/07/21 Start time: 15 Status: Ruled-out Assessment and plan: R/o trops trending down ECHO revealing Conclusion Normal left ventricular wall thickness and chamber size. Estimated ejection fraction is 60%. Wall motion is normal Both atria are normal in size Normal right ventricular size and systolic function Structurally normal aortic valve without stenosis or regurgitation Mild mitral annular calcification. Moderate mitral regurgitation Normal tricuspid valve. Moderate tricuspid regurgitation. 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 Continue home regimen She states she is always SOB however this is no different (8) Ambulatory dysfunction: Start date: 09/07/21 Start time: 09:15 Status: Chronic Assessment and plan: Will have PT work with Patient (9) DVT prophylaxis: Start date: 09/07/21 Start time: :15 Status: Acute Assessment and plan: Enoxaparin 30 mg (10) Discharge planning issues: Start date: 09/07/21 Start time: :15 Status: Acute Assessment and plan: Back to [facility] when medically stable Discussed with Dr. Luna Subjective Subjective Patient reports: no new complaints and feels better Interval history since last seen: Patient feels better, however while drinking milk and eating cheerios she is coughing and she states this happens all the time. Will consult Speech. CTA r/o PE however did reveal . No evidence of a pulmonary embolus. 2. Bilateral emphysematous changes. Chronic lung findings as above. 3. Pulmonary nodules as above.For both low risk and high risk patients, consider CT Chest at 3 months, PET/CT, or biopsy. (Reference: Robin). 4. Small right pleural effusion. 5. Cardiomegaly. Arteriosclerotic changes of the aorta. The 6. Limited study as above. 7. Fluid within the esophagus. Continue ceftriaxone, switched to azithromycin both switched back to IV now that she has a midline. Monitor labs, improving, ast alt trop is trending down and bnp is improving without IVF or lasix will continue to monitor. Exam Const General: cooperative, comfortable, no acute distress and frail appearing Nutritional Appearance: thin Orientation: alert, awake, oriented x3 and other (cognitively slow) HENMT Ears: hearing grossly abnormal bilaterally and hearing grossly impaired bilaterally Mouth: moist mucous membranes abnormal (DRY) Eyes Eyelids: eyelids normal Pupils: PERRL EOM: EOM intact bilaterally Neck Neck: normal visual inspection, no lymphadenopathy and no JVD Lymphatic: no lymphadenopathy noted Resp Effort & Inspection: normal respiratory effort and able to speak in complete sentences Auscultation: diminished lung sounds Cardio Jugular venous pressure: no JVD Rate: regular rate Rhythm: regular rhythm Heart Sounds: S1 normal GI Inspection: normal to inspection Palpation: soft Auscultation: normal bowel sounds General: No CVA tenderness and deferred Skin General skin exam: dry skin Lesions: lesion noted (left lower extremity) Neuro General: patient alert, patient awake and patient oriented x3 Speech: speech normal Gait: normal gait Extrem General: full ROM and no clubbing, cyanosis or edema Objective Last Vital Signs Temp 36.5 C 09/07/21 02:15 Pulse 62 09/07/21 08:05 Resp 16 09/07/21 02:15 BP 130/82 09/07/21 02:15 Pulse Ox 91 L 09/07/21 02:15 Laboratory Results - last 24 hr 09/06/21 09/07/21 09/07/21 06:42 08:10 09:44 WBC 7.34 D RBC 3.09 L Hgb 9.2 L Hct 31.1 L MCV 100.6 H MCH 29.8 MCHC 29.6 L RDW 14.1 Plt Count MPV 11.5 H Immature Gran % 1.1 Neutrophils % 90.1 Lymphocytes % 5.4 Monocytes % 3.4 Eosinophils % 0.0 Basophils % 0.0 Nucleated RBC % 0 Absolute Neutrophils 6.61 Absolute Lymphocytes 0.40 L Absolute Monocytes 0.25 Absolute Eosinophils 0.00 Absolute Basophils 0.00 RBC Morphology See Below Polychromasia Present Hypochromasia 1+ Poikilocytosis 1+ Sodium 148 H Potassium 4.9 D Chloride 110 H Carbon Dioxide 37.4 H Anion Gap 0.6 L BUN 38 H D Creatinine 1.3 H Estimated GFR/1.73 m2 40.04 Glucose 207 H Calcium 8.3 L Total Bilirubin 0.2 AST 181 H ALT 546 H Alkaline Phosphatase 64 Creatine Kinase 82 Troponin I 0.09 H* NT-Pro-B Natriuret Pep 6288 H Total Protein 6.1 L Albumin 2.7 L
[2021-09-07] MEDS: Sucralfate 1 GM TAB PO ×2 (16:29→21:04)
[2021-09-07] MEDS: Divalproex 250 MG TABEC PO (21:04)
[2021-09-07] MEDS: Zolpidem 5 MG TAB PO (21:04)
[2021-09-07] MEDS: Albuterol 2.5 MG/3 ML INH SOLN VIAL UPD (22:40)
--- NOTE | 2021-09-07 22:42 | NUR.NOTE ---
Nursing Note: Pt pulled out midline IV from Left upper arm. Line appeared to be intact measuring 14CM. Charge nurse called to bedside, updated.
[2021-09-08] VITALS (11 sets, daily range): BP systolic 101–125; BP diastolic 58–69; PULSE 48–74; RESP 16–24; TEMP 36–37; O2SAT 90–97
[2021-09-08] MEDS: Normal Saline Flush 10 ML SYR IVP ×3 (00:42→20:26)
--- NOTE | 2021-09-08 03:04 | NUR.NOTE ---
Nursing Note: 09/08/[address] Albert ordered labs to be drawn and possibly Bipap to be applied. Respiratory and lab personnel at patient bedside. This nurse explained purpose of orders for labs, patient refused lab draw and states she would also refuse bipap at this time. Patient states she may have labs drawn in morning, but not at this time. Patient agreeable to have this nurse take vital signs. Vitals stable at this time. Patient belongings and call sanford provided to patient and lights turned low. This nurse checked on patient shortly after leaving room and patient had eyes closed, breathing normally, and looking restful in bed.
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
[2021-09-08] MEDS: Tiotropium Bromide-Respimat 10 PUFF INH 2 PUFF IH (08:30)
[2021-09-08] MEDS: Budesonide/Formoterol 80/4.5 6.9 GM 60 PUFF INH IH ×2 (08:30→20:25)
--- NOTE | 2021-09-08 08:32 | PGE_ITS ---
Date of Service Date of service: 09/08/21 Time of Service: 08:33 Assessment and Plan Assessment and plan (1) Heme + stool: Start date: 09/08/21 Start time: 08:39 Status: Acute Assessment and plan: Found to have dark stool, heme positive All anticoagulation stopped will heme all stools SCD and TEDs PPI BID, Carafate, clears at this time. monitor. will likely need outpatient scope (2) Transaminitis: Start date: 09/08/21 Start time: 08:36 Status: Acute Assessment and plan: At this time labs pending as she was confused earlier and would not let anyone draw labs, however now she is more alert and will allow lab draws. She was given ambien last night likely this is from the ambien. Hold all hepatoxic medications including statin, tylenol Abd u/s negative CTA revealed no PE however lung nodules that will need follow up with either PET or CT scan in 3 months (3) Pulmonary nodule: Start date: 09/08/21 Start time: 08:38 Status: Acute Assessment and plan: as above new finding Follow up with PET/CT scan in 3 months (4) Choking due to food (regurgitated): Start date: 09/08/21 Start time: 08:38 Status: Acute Assessment and plan: Also found to be choking when eating and drinking breakfast, she states this happens all the time and she was found to have fluid in her esophagus on CT. Speech consult placed. Changed to clears mild thickened. Qualifiers: Encounter type: initial encounter Qualified Code(s): T17.320A - Food in larynx causing asphyxiation, initial encounter (5) NSTEMI (non-ST elevated myocardial infarction): Start date: 09/08/21 Start time: 08:41 Status: Ruled-out Assessment and plan: R/o trops trending down ECHO revealing Conclusion Normal left ventricular wall thickness and chamber size. Estimated ejection fraction is 60%. Wall motion is normal Both atria are normal in size Normal right ventricular size and systolic function Structurally normal aortic valve without stenosis or regurgitation Mild mitral annular calcification. Moderate mitral regurgitation Normal tricuspid valve. Moderate tricuspid regurgitation. 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 Continue home regimen She states she is always SOB however this is no different (9) Ambulatory dysfunction: Start date: 09/08/21 Start time: 08:43 Status: Chronic Assessment and plan: continue PT, recommend discharge back to senior care with PT (10) DVT prophylaxis: Start date: 09/08/21 Start time: 08:44 Status: Acute Assessment and plan: due to bleeding contraindication with chemical anticoagulation therefore she will have Teds and SCDS (11) Discharge planning issues: Start date: 09/08/21 Start time: 08:44 Status: Acute Assessment and plan: Back to [facility] when medically stable Discussed with Dr. Luna Subjective Subjective Patient reports: no new complaints Interval history since last seen: Awaiting speech eval. Found to have heme positive stool. Hold all anticogaulation. SCD and Teds. Was given ambien last night, confused, discontinued, now allowing lab draws, will give melatonin. Placed on PPI BID and carafate, clear thickened diet until seen by speech for swallow eval. 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 LSC diminished. No complaints. SOB at baseline. Exam Const General: cooperative, comfortable, no acute distress and frail appearing Nutritional Appearance: thin Orientation: alert, awake, oriented x3 and other (cognitively slow) HENMT Ears: hearing grossly abnormal bilaterally and hearing grossly impaired bilaterally Mouth: moist mucous membranes abnormal (DRY) Eyes Eyelids: eyelids normal Pupils: PERRL EOM: EOM intact bilaterally Neck Neck: normal visual inspection, no lymphadenopathy and no JVD Lymphatic: no lymphadenopathy noted Resp Effort & Inspection: abnormal respiratory effort (baseline SOB, normal for her she states not any worse ) and able to speak in complete sentences Auscultation: diminished lung sounds Cardio Jugular venous pressure: no JVD Rate: regular rate Rhythm: regular rhythm Heart Sounds: S1 normal GI Inspection: normal to inspection Palpation: soft Auscultation: normal bowel sounds General: No CVA tenderness and deferred Skin General skin exam: dry skin Lesions: lesion noted (left lower extremity) Neuro General: patient alert, patient awake and patient oriented x3 Speech: speech normal Gait: normal gait Extrem General: full ROM and no clubbing, cyanosis or edema Objective Last Vital Signs Temp 36.4 C L 09/08/21 07:35 Pulse 48 L 09/08/21 07:35 Resp 16 09/08/21 07:35 BP 125/61 09/08/21 07:35 Pulse Ox 93 09/08/21 07:35 Laboratory Results - last 24 hr 09/07/21 09/07/21 08:10 09:44 WBC 7.34 D RBC 3.09 L Hgb 9.2 L Hct 31.1 L MCV 100.6 H MCH 29.8 MCHC 29.6 L RDW 14.1 Plt Count MPV 11.5 H Immature Gran % 1.1 Neutrophils % 90.1 Lymphocytes % 5.4 Monocytes % 3.4 Eosinophils % 0.0 Basophils % 0.0 Nucleated RBC % 0 Absolute Neutrophils 6.61 Absolute Lymphocytes 0.40 L Absolute Monocytes 0.25 Absolute Eosinophils 0.00 Absolute Basophils 0.00 RBC Morphology See Below Polychromasia Present Hypochromasia 1+ Poikilocytosis 1+ Sodium 148 H Potassium 4.9 D Chloride 110 H Carbon Dioxide 37.4 H Anion Gap 0.6 L BUN 38 H D Creatinine 1.3 H Estimated GFR/1.73 m2 40.04 Glucose 207 H Calcium 8.3 L Total Bilirubin 0.2 AST 181 H ALT 546 H Alkaline Phosphatase 64 Troponin I 0.09 H* NT-Pro-B Natriuret Pep 6288 H Total Protein 6.1 L Albumin 2.7 L
[2021-09-08] MEDS: Potassium Chloride 20 MEQ TABCR 40 MEQ PO ×2 (09:07→20:14)
[2021-09-08] MEDS: predniSONE 20 MG TAB 40 MG PO (09:08)
[2021-09-08] MEDS: dilTIAZem CD 120 MG CAPCR PO (09:08)
[2021-09-08] MEDS: Sucralfate 1 GM TAB PO ×4 (09:08→23:57)
[2021-09-08] MEDS: Pantoprazole 40 MG TABCR PO ×2 (09:08→20:14)
[2021-09-08] MEDS: Isosorbide Mononitrate 30 MG TABCR PO (09:08)
[2021-09-08] MEDS: cefTRIAXone 1 GM/50 ML BAG IVPB (09:34)
--- NOTE | 2021-09-08 10:37 | PTTR_ITS ---
PT Notes Visit Reasons: NSTEMI?,transnaminitis, PNA 09/08/2021 SUBJECTIVE: Pt stating she is not an active person. Sit lies in bed or sits in her chair on her computer most all the time. She does get up to go to the bathroom. She does not use a walker. She notes she does not want to perform exercises. She does have to get up to go to the bathroom. OBJECTIVE: TRANSFERS Supine to sit: I Sit to stand: CGA Stand to sit: CGA GAIT Device: FWW Weight bearing: Full Assist: CGA Distance: 15'+5' Deviation: Forward flexed at the trunk, ASSESSMENT: Pt transfers without difficulty. Demonstrates steady gait for short distances using FWW without signs of LOB or path deviations. Very low motivation level. PLAN: Continue per current POC. Treatment time: Sara Mayer PTA Clinic location: [facility] [place], [place]
[2021-09-08] MEDS: AZITHROMYCIN 250 MG in Normal Saline 250 ML 125 MG IVPB (10:54)
--- NOTE | 2021-09-08 18:20 | NUR.NOTE ---
Nursing Note: Spoke with sister, Lavonne, verified with secretary administrative assistant on HIPAA, inquiring about Lauren's status, advised of most current updates. Advised resistive to care today, refusing labs and repositioning despite reminding her of pressure sore. Patient's sister advised she will come visit tomorrow and see if she can get her to be more cooperative.
[2021-09-08] MEDS: Melatonin 3 MG TAB 6 MG PO (23:57)
[2021-09-08] MEDS: Divalproex 250 MG TABEC PO (23:57)
[2021-09-09] VITALS (7 sets, daily range): BP systolic 109–129; BP diastolic 64–88; PULSE 58–82; RESP 16–22; TEMP 36.3–37.6; O2SAT 88–95
[2021-09-09] MEDS: predniSONE 20 MG TAB 40 MG PO (07:23)
[2021-09-09] MEDS: Isosorbide Mononitrate 30 MG TABCR PO (07:23)
[2021-09-09] MEDS: Pantoprazole 40 MG TABCR PO ×2 (07:23→19:44)
[2021-09-09] MEDS: dilTIAZem CD 120 MG CAPCR PO (07:23)
[2021-09-09] MEDS: Sucralfate 1 GM TAB PO ×4 (07:24→21:23)
[2021-09-09] MEDS: Normal Saline Flush 10 ML SYR IVP ×2 (07:24→19:49)
[2021-09-09] MEDS: Potassium Chloride 20 MEQ TABCR 40 MEQ PO (07:24)
[2021-09-09] MEDS: Budesonide/Formoterol 80/4.5 6.9 GM 60 PUFF INH IH ×2 (09:08→19:45)
[2021-09-09] MEDS: Tiotropium Bromide-Respimat 10 PUFF INH 2 PUFF IH (09:09)
[2021-09-09] MEDS: cefTRIAXone 1 GM/50 ML BAG IVPB (09:51)
--- NOTE | 2021-09-09 09:57 | W.PM.PROGNOT ---
Date of Service Date of service: 09/09/21 Time of Service: 09:58 Assessment and Plan Assessment and plan (1) Heme + stool: Status: Acute Assessment and plan: Found to have dark stool, heme positive All anticoagulation stopped will heme all stools SCD and TEDs PPI BID, Carafate, clears at this time. monitor. will likely need outpatient scope (2) Transaminitis: Status: Acute Assessment and plan: At this time labs pending as she was confused earlier and would not let anyone draw labs, however now she is more alert and will allow lab draws. She was given ambien last night likely this is from the ambien. Hold all hepatoxic medications including statin, tylenol Abd u/s negative CTA revealed no PE however lung nodules that will need follow up with either PET or CT scan in 3 months (3) Pulmonary nodule: Status: Acute Assessment and plan: as above new finding Follow up with PET/CT scan in 3 months (4) Choking due to food (regurgitated): Status: Acute Assessment and plan: Also found to be choking when eating and drinking breakfast, she states this happens all the time and she was found to have fluid in her esophagus on CT. Speech consult completed. cleared for thin liquids and soft/bite sized foods. Qualifiers: Encounter type: initial encounter Qualified Code(s): T17.320A - Food in larynx causing asphyxiation, initial encounter (5) NSTEMI (non-ST elevated myocardial infarction): Status: Ruled-out Assessment and plan: R/o trops trending down ECHO revealing Conclusion Normal left ventricular wall thickness and chamber size. Estimated ejection fraction is 60%. Wall motion is normal Both atria are normal in size Normal right ventricular size and systolic function Structurally normal aortic valve without stenosis or regurgitation Mild mitral annular calcification. Moderate mitral regurgitation Normal tricuspid valve. Moderate tricuspid regurgitation. 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 Continue home regimen She states she is always SOB however this is no different (9) Ambulatory dysfunction: Status: Chronic Assessment and plan: continue PT, recommend discharge back to long term with PT (10) DVT prophylaxis: Status: Acute Assessment and plan: due to bleeding contraindication with chemical anticoagulation therefore she will have Teds and SCDS (11) Discharge planning issues: Status: Acute Assessment and plan: Back to [facility] when medically stable Discussed with Dr. Luna Subjective Subjective Patient reports: shortness of breath and afebrile Exam Const General: cooperative, comfortable, no acute distress and frail appearing Nutritional Appearance: thin Orientation: alert, awake, oriented x3 and other (cognitively slow) HENMT Ears: hearing grossly abnormal bilaterally and hearing grossly impaired bilaterally Mouth: moist mucous membranes abnormal (DRY) Eyes Eyelids: eyelids normal Pupils: PERRL EOM: EOM intact bilaterally Neck Neck: normal visual inspection, no lymphadenopathy and no JVD Lymphatic: no lymphadenopathy noted Resp Effort & Inspection: abnormal respiratory effort (baseline SOB, normal for her she states not any worse ) and able to speak in complete sentences Auscultation: diminished lung sounds Cardio Jugular venous pressure: no JVD Rate: regular rate Rhythm: regular rhythm Heart Sounds: S1 normal GI Inspection: normal to inspection Palpation: soft Auscultation: normal bowel sounds General: No CVA tenderness and deferred Skin General skin exam: dry skin Lesions: lesion noted (left lower extremity) Neuro General: patient alert, patient awake and patient oriented x3 Speech: speech normal Gait: normal gait Extrem General: full ROM and no clubbing, cyanosis or edema Objective Last Vital Signs Temp 36.4 C L 09/09/21 07:15 Pulse 61 09/09/21 07:15 Resp 16 09/09/21 07:15 BP 129/64 09/09/21 07:15 Pulse Ox 94 09/09/21 07:15 Laboratory Results - last 24 hr 09/07/21 09/08/21 09/08/21 23:37 00:30 05:35 WBC RBC Hgb Cancelled Hct Cancelled MCV MCH MCHC RDW Plt Count MPV VBG pH Cancelled VBG pCO2 Cancelled VBG pO2 Cancelled VBG HCO3 Cancelled VBG Total CO2 Cancelled VBG O2 Saturation Cancelled VBG Base Excess Cancelled Sodium Cancelled Potassium Cancelled Chloride Cancelled Carbon Dioxide Cancelled Anion Gap Cancelled BUN Cancelled Creatinine Cancelled Estimated GFR/1.73 m2 Cancelled Glucose Cancelled Calcium Cancelled Total Bilirubin Cancelled AST Cancelled ALT Cancelled Alkaline Phosphatase Cancelled NT-Pro-B Natriuret Pep Cancelled Total Protein Cancelled Albumin Cancelled Procalcitonin 09/08/21 09/08/21 05:35 05:35 WBC Cancelled RBC Cancelled Hgb Cancelled Hct Cancelled MCV Cancelled MCH Cancelled MCHC Cancelled RDW Cancelled Plt Count Cancelled MPV Cancelled VBG pH VBG pCO2 VBG pO2 VBG HCO3 VBG Total CO2 VBG O2 Saturation VBG Base Excess Sodium Potassium Chloride Carbon Dioxide Anion Gap BUN Creatinine Estimated GFR/1.73 m2 Glucose Calcium Total Bilirubin AST ALT Alkaline Phosphatase NT-Pro-B Natriuret Pep Total Protein Albumin Procalcitonin Cancelled
[2021-09-09 10:34] LABS: Abs Immature Grans 0.12 10^3/uL (0.0-0.06); Absolute Basophil Count 0.01 10^3/uL (0.0-0.2); Absolute Eosinophil Count 0.03 10^3/uL (0.0-0.7); Absolute Lymphocyte Count 0.71 10^3/uL (1.2-3.4); Absolute Monocyte Count 0.28 10^3/uL (0.1-0.8); Absolute Neutrophil Count 9.27 10^3/uL (1.2-6.7); Basophils % 0.1; Eosinophils % 0.3; HCT 32.1 % (36.0-46.0); HGB 9.4 g/dL (11.2-15.7); Immature Grans % 1.2; Lymphocytes % 6.8; MCH 29.9 pg (27.0-33.0); MCHC 29.3 % (32.0-36.0); MCV 102.2 fL (80-95); Monocytes % 2.7; Neutrophils % 88.9; Nucleated RBC 0 %; Platelet Count 202 10^3/uL (130-400); RBC 3.14 10^6/uL (3.93-5.22); RDW 14.3 % (11.7-14.6); RDW-SD 53.3 fL; WBC 10.42 10^3/uL (4.4-10.8)
[2021-09-09 10:40] LABS: Anion Gap 0.6 mmol/L (3-11); BUN 27 mg/dL (7-18); CO2 36.4 mmol/L (21.0-32.0); CREATININE 1.1 mg/dL (0.55-1.02); Calcium 8.5 mg/dL (8.5-10.1); Chloride 109 mmol/L (98-107); Estimated GFR 48.55 (mL/min/1.73m2); Glucose 134 mg/dL (74-106); Sodium 146 mmol/L (136-145)
[2021-09-09] MEDS: AZITHROMYCIN 250 MG in Normal Saline 250 ML 125 MG IVPB (10:46)
[2021-09-09 10:50] LABS: Potassium 6.1 mmol/L (3.5-5.1)
--- NOTE | 2021-09-09 11:53 | PDOC.CMPRO ---
Care Management Progress Note S/O: Lauren was sitting in her chair when CM met with her. She did not engage well with CM and avoided eye contact. Lauren shares that she doesn't know if she can go back to her place at the [facility] since she is incontinent of urine and has no one to change her linens. On the flip side, she is unwilling to go to a SNF for rehab unless it is [facility] because they will let her drink alcohol and smoke. She is aware that they are closed to admissions. A: 75 year old female admitted to [facility] on 09/05/21 for NSTEMI?,transnaminitis, PNA P: Anticipate Lauren will return back to the [facility] where she currently lives with resumption of HH services via RCT when medically cleared by MD. She will follow up with community providers and plan of care as prescribed.
--- NOTE | 2021-09-09 15:18 | W.SPSTE ---
Date of service: 09/09/21 Time of Service: 15:19 Subjective Patient assessed in afternoon, seated upright in chair, stated I'll eat your dominic cracker, then get me real food, have you heard of it?, and requests refill of Mountain Dew (Level 0). Patient unwilling to participate in full CNE/OME, refuses Montgomery Swallow Protocol, however does agree to drinks of preferred beverage (Mountain Dew), via straw, and transitional solid (dominic cracker). Currently denies pharyngeal and/or esophageal globus, reports she can swallow fine and denies any odynophagia. Objective Objective Clinical (Bedside) Swallow Evaluation Speech Language Pathology Patient referred from Veronique Samayoa NP for clinical swallow evaluation given report of high choke/asp pna risk; pt also found to have liquid within esophagus on CT. Per documentation review, choking episode due to regurgitated food. Precautions: Full Code HPI: Patient is a 75-year-old female admitted to ED on 09/05/21 with hypoxia confusion and incontinence, with medical work-up diagnosing transnaminitis, CHF exacerbation, pneumonia, and NSTEMI. She had prior admission on 09/01/2021 for management of pneumonia, was treated and returned to her [place] [facility]. PMHX: Medical History (Updated 09/06/21 @ 00:25 by Veronique Samayoa NP) Auditory hallucination CAD (coronary artery disease) Cellulitis of both lower extremities CHF (congestive heart failure) Depressive disorder (02/19/12) DVT prophylaxis 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) 06/2008 FEV1 35% severe, nocturnal hypoxia; nocturnal O2 2.5LPM 10/2016 FEV1 26% difffusion mod reduced GERD (gastroesophageal reflux disease) Gout, unspecified (04/27/13) H/O ETOH abuse History of GI bleed Low back pain without sciatica (02/19/12) Macrocytosis (05/05/13) nl B12 Marginal ulcer Obesity, unspecified (02/19/12) Gastric Bypass Osteoarth NOS-unspec (02/19/12) Other and unspecified hyperlipidemia (04/27/13) ASCVD; LDL baseline 170-180 Oxygen dependent PAD (peripheral artery disease) RLS (restless legs syndrome) Sensorineural hearing loss Spinal stenosis Tobacco dependence syndrome (11/25/13) Surgical History Bariatric surgery status (07/08/17) EGD - MAC 08/2017-Dr. Thornton Extraction of cataract (08/28/15) right eye with lens implantation Dr. Landry History of umbilical hernia repair S/P carpal tunnel release S/P peripheral artery angioplasty Family History Mother , COPD at age 79. COPD (chronic obstructive pulmonary disease) Heart disease Father Diabetes Dementia Current Functional Limitations: Contact-guard with functional transfers and standing activities, independent with bed mobility Equipment Owned/DME: Wall-mounted oxygen, no walking device Social History/Home Situation: Pt lives with assist available in [place] [facility]; Dependent on 3 L of O2 at rest, 5 L with ambulation OBJECTIVE: Predisposing dysphagia risk factors: End stage COPD, CHF, NSTEMI, 02 need at baseline, Parkinsonism, hydrocephalus, GERD Clinical signs of possible chronic dysphagia: reported choking episode due to regurgitated food, hx PNA Precipitating dysphagia risk factors / triggering event: reported choking incident; community acquired PNA Temp: 97.7F Sp02: 92% RR: 18, on 3L 02 at rest Cranial nerve exam / Oral Motor: CN V: facial sensation DNT labial protrusion DNT labial coordination/ROM WFL Jaw excursion/lateralization intact mastication intact lingual/labial sensation intact CN VII: lateral sulcus residue absent anterior spillage not observed salivation intact CN IX/X: palatal elevation - unable to view Vocal Quality - WFL taste - WFL onset of swallow - suspect WFL pharyngeal residue - WFL per report nasopharyngeal regurgitation - denied by patient CN XII: bolus preparation/manipulation/control - WFL AP transit - WFL lingual protrusion patient refused, DNT lingual coordination/ROM patient refused, DNT lingual residue absent Dentition/Oral Structures/Hygiene: edentulous; some anterior dental roots visible oral hygiene appears poor Language: verbal expression/fluency, naming, repetition, and auditory comprehension WFL, comprehension is effected by SNHL Hearing: SNHL Mental Status: AAOx3, recall of current events intact Speech: WFL Laryngeal function exam: Secretions: WFL Vocal quality: WFL MPT: DNT S/Z ratio: DNT Pitch range: WFL Cough: (volitional) perceptually WFL PO intake IDDSI 0: (-) negative overt s/s aspiration via straw IDDSI 6: (-) negative overt s/s aspiration IDDSI 7: transitonal solid (-) overt s/s aspiration (dominic cracker) Montgomery Swallow Protocol: Patient refused Standardized: DNT Assessment IMPRESSIONS: Patient demonstrates oropharyngeal dysphagia as characterized by prolonged mastication (expected given edentulous status) and previous report of choking episode, suspected to be due to regurgitated solid food per documentation review, and likely reduced swallow-breath coordination/increased rate of intake; patient likely also has esophageal component given recent history of esophageal stasis seen on CT with liquids. Current dysphagia is likely chronic given suspected reduced swallow-breath coordination in context of end stage COPD, CHF, and documented Parkinsonism. Patient is at moderate risk for recurrent aspiration-related pulmonary complication, given poor oral hygiene/need for assist & presumed reduced immunocompetence; improvements in physical mobility and overall pulmonary function likely to further reduce this risk. Swallow prognosis is fair-guarded given relative improvements in overall medical status this admission paired with multiple comorbidities and refusal of services. Patient states she is not interested in continued [employer] services at this time; no further acute [employer] services warranted at this time. Provided education to patient/staff re: anatomy/physiology of swallowing mechanism, overt s/sx to monitor for re: potential aspiration of food / liquids, importance of thorough oral care, andrelationship between respiratory function changes and deglutition; provided printed recommendations on white board in patient's room, communicated recommendations to MD/RN/LINOTYPE WORKER/Case Mgmt Recommendations: Instrumentation: N/A Pt refuses per interview Diet Texture Modification(s): IDDSI Level(s) 6-Soft & Bite-Sized Solids; likely able to tolerate transitional solids well with outlined risk management+supervision/assist, 0-Thin Liquids Diet texture modification is ultimately per patient discretion and collaboration with medical team. Medication Intake: Whole with 0-Thin Liquids or as tolerated Alter medications only as advised by MD or Pharmacist RISK MANAGEMENT: Oral hygiene at least BID/2x per day and before/after PO intake using friction with toothbrush on all oral structures as tolerated HOB upright as tolerated; upright for all PO intake. Encourage physical mobility as tolerated. Level of Assistance/Supervision: 1:1 close supervision for all PO intake, assist as needed PO intake only when awake/alert Strategies/Adaptations/Assistive Equipment: Reduce auditory and/or visual distractions when eating, Provide verbal and/or visual cues to use recommended strategies, Small sips and bites when eating, Slow rate of intake, Alternate intake of liquids and solids, Sensory enhancement (flavor, texture, temperature), Small+frequent meals throughout day Posture/Positioning Needs: Maintain upright position at least 30 minutes after meals, Avoid meals/snacks 2-3 hours prior to reclining/sleeping, Sleep with head of bed elevated to reduce likelihood of nocturnal reflux Specialist referrals: Palliative Care Ancillary tests: N/A Therapy: N/A Plan Patient states she is not interested in continued [employer] services at this time, no further acute [employer] services warranted. Please re-consult PRN. Wilma Pedro MA CCC-[employer] [phone] [employer] CPT Code: 22963 Clinical Swallowing Evaluation Coding
--- NOTE | 2021-09-09 15:21 | PT.INTREAT ---
Date of service: 09/09/21 Time of Service: 10:41 PT Notes Visit Reasons: NSTEMI?,transnaminitis, PNA Inpatient Physical Therapy Treatment Note [facility] Date: 09/09/2021 PRECAUTIONS: Fall, activity as tolerated SUBJECTIVE: Lauren reports that she lives a sedentary lifestyle. I sit on my ass all day and play games on my computer. She is hesitant but eventually agrees to participating in PT. OBJECTIVE: Patient refused afternoon PT session stating I've already done that today and I don't want to do it again. But I do want food. PAIN: No c/o pain BED MOBILITY/TRANSFERS Supine-sit: I Sit-stand: CGA Stand-sit: SBA Bed-Chair: CGA GAIT Assistive Device: FWW Weight bearing: Full Assist: CGA Distance: 5' x2 + 10' Static standing x1 minute with SBA and FWW support THEREX: Declined TOILETING: Patient toileted with assist ASSESSMENT: Patient demonstrates independence with bed mobility at this time. She is able to ambulate short distances with FWW support and CGA at this time. She demonstrates poor activity tolerance. PLAN: Continue with general conditioning, and add global strengthening for improved activity tolerance. TREATMENT CODE/TIME: 28 minutes; 33299 x2 (10:41)
[2021-09-09] MEDS: Melatonin 3 MG TAB 6 MG PO (21:23)
[2021-09-10] VITALS (10 sets, daily range): BP systolic 105–135; BP diastolic 59–67; PULSE 53–74; RESP 16–20; TEMP 36.2–36.8; O2SAT 90–913
[2021-09-10] MEDS: Budesonide/Formoterol 80/4.5 6.9 GM 60 PUFF INH IH ×2 (07:23→20:09)
[2021-09-10] MEDS: Tiotropium Bromide-Respimat 10 PUFF INH 2 PUFF IH (07:23)
[2021-09-10] MEDS: dilTIAZem CD 120 MG CAPCR PO (08:01)
[2021-09-10] MEDS: predniSONE 20 MG TAB 40 MG PO (08:01)
[2021-09-10] MEDS: Pantoprazole 40 MG TABCR PO ×2 (08:01→20:09)
[2021-09-10] MEDS: Isosorbide Mononitrate 30 MG TABCR PO (08:01)
[2021-09-10] MEDS: Sucralfate 1 GM TAB PO ×4 (08:01→20:09)
[2021-09-10] MEDS: Normal Saline Flush 10 ML SYR IVP ×3 (08:02→20:15)
--- NOTE | 2021-09-10 08:43 | PDOC.CMPRO ---
- If Service Date Differs Date of service: 09/10/21 Time of Service: 08:43 Care Management Progress Note S/O: Lauren was lying in bed when CM met with her. She was A&O X 3, pleasant and easily engaged in conversation. Lauren agrees to have her labs drawn this afternoon, however she continues to refuse PT. Lauren reiterates that she is not an active person and will not start now. [facility] is the only SNF that Lauren will go to and they are closed to admissions. Lauren refuses CM's assistance with other SNF referrals and elects to go back to her room at the [facility] with resumption of [facility] RN (declines PT) when she is discharged. A: 75 year old female admitted to [facility] on 09/05/21 for NSTEMI?,transnaminitis, PNA P: Anticipate Lauren will return back to her room at the [facility] where she currently lives when medically cleared by MD. She will resume [facility] services SN (NO PT-per PT) and transport via [facility]. Lauren will follow up with community providers and discharge plan of care as prescribed.
[2021-09-10] MEDS: cefTRIAXone 1 GM/50 ML BAG IVPB (10:28)
--- NOTE | 2021-09-10 11:33 | W.NUTRFU ---
Date of service: 09/10/21 Time of Service: 11:33 Nutritional Follow up NOTE: PO intake is generally good on hearth healthy soft bite sized/thin with mildly thickened fluids. Weight is stable. BMI is 24 kg/m2 which is WNL. Will offer high protein liquid nutritional supplements to help facilitate eating. Would recommend changing therapeutic diet to regular. Will continue to follow progress. Will evaluate nutrition care plan ongoing and adjust as needed. Time Spent in Nutritional Counseling and Treatment: 0
--- NOTE | 2021-09-10 12:29 | W.PM.PROGNOT ---
Date of Service Date of service: 09/10/21 Time of Service: 12:29 Assessment and Plan Assessment and plan (1) Leukocytosis: Status: Acute Assessment and plan: completed 5 days of azithromycin and ceftriaxone for cap with no new respiratory c/o. states she's at her baseline. no fevers no other source of infection suspected at this time suspect d/t steroids. will monitor closely (2) Hyperkalemia: Status: Acute Assessment and plan: normalizing off potassium supplementation. will check again tomorrow. (3) Goals of care, counseling/discussion: Status: Acute Assessment and plan: palliative care consult placed patient is refusing blood work inconsistent with what she will allow and not, discussed code status, patient is a full code, she states she is not prepared to make any decisions. (4) Heme + stool: Status: Acute Assessment and plan: Found to have dark stool, heme positive All anticoagulation stopped will heme all stools SCD and TEDs PPI BID, Carafate, clears at this time. monitor. will likely need outpatient scope (5) Transaminitis: Status: Acute Assessment and plan: Hold all hepatoxic medications including statin, tylenol Abd u/s negative CTA revealed no PE however lung nodules that will need follow up with either PET or CT scan in 3 months (6) Pulmonary nodule: Status: Acute Assessment and plan: as above new finding Follow up with PET/CT scan in 3 months (7) Choking due to food (regurgitated): Status: Acute Assessment and plan: Speech consult completed. cleared for thin liquids and soft/bite sized foods. Qualifiers: Encounter type: initial encounter Qualified Code(s): T17.320A - Food in larynx causing asphyxiation, initial encounter (8) NSTEMI (non-ST elevated myocardial infarction): Status: Ruled-out Assessment and plan: R/o trops trending down ECHO revealing Conclusion Normal left ventricular wall thickness and chamber size. Estimated ejection fraction is 60%. Wall motion is normal Both atria are normal in size Normal right ventricular size and systolic function Structurally normal aortic valve without stenosis or regurgitation Mild mitral annular calcification. Moderate mitral regurgitation Normal tricuspid valve. Moderate tricuspid regurgitation. 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 Qualifiers: Laterality: left Lung location: lower lobe of lung Qualified Code(s): J18.9 - Pneumonia, unspecified organism (10) Acute right-sided CHF (congestive heart failure): Status: Chronic Assessment and plan: stable at this time, not in HF (11) End stage COPD: Status: Chronic Assessment and plan: Oxygen dependent. Continue home regimen on prednisone (12) Ambulatory dysfunction: Status: Chronic Assessment and plan: continue PT, recommend discharge back to [facility] with PT (13) DVT prophylaxis: Status: Acute Assessment and plan: due to bleeding contraindication with chemical anticoagulation therefore she will have Teds and SCDS (14) Discharge planning issues: Status: Acute Assessment and plan: Back to home when medically stable Discussed with Dr. Albert Subjective Subjective Patient reports: no new complaints, shortness of breath (at baseline) and afebrile Exam Const General: cooperative, comfortable, no acute distress and frail appearing Nutritional Appearance: thin Orientation: alert, awake, oriented x3 and other (cognitively slow) HENMT Ears: hearing grossly abnormal bilaterally and hearing grossly impaired bilaterally Mouth: moist mucous membranes abnormal (DRY) Eyes Eyelids: eyelids normal Pupils: PERRL EOM: EOM intact bilaterally Neck Neck: normal visual inspection, no lymphadenopathy and no JVD Lymphatic: no lymphadenopathy noted Resp Effort & Inspection: abnormal respiratory effort (baseline SOB, normal for her she states not any worse ) and able to speak in complete sentences Auscultation: diminished lung sounds Cardio Jugular venous pressure: no JVD Rate: regular rate Rhythm: regular rhythm Heart Sounds: S1 normal GI Inspection: normal to inspection Palpation: soft Auscultation: normal bowel sounds General: No CVA tenderness and deferred Skin General skin exam: dry skin Lesions: lesion noted (left lower extremity) Neuro General: patient alert, patient awake and patient oriented x3 Speech: speech normal Gait: normal gait Extrem General: full ROM and no clubbing, cyanosis or edema Objective Last Vital Signs Temp 36.2 C L 09/10/21 11:25 Pulse 72 09/10/21 11:25 Resp 18 09/10/21 11:25 BP 105/67 09/10/21 11:25 Pulse Ox 90 L 09/10/21 11:25 Laboratory Results - last 24 hr 09/09/21 17:05 Sodium Cancelled Potassium Cancelled Chloride Cancelled Carbon Dioxide Cancelled Anion Gap Cancelled BUN Cancelled Creatinine Cancelled Estimated GFR/1.73 m2 Cancelled Glucose Cancelled Calcium Cancelled
[2021-09-10 13:48] LABS: Abs Immature Grans 0.09 10^3/uL (0.0-0.06); Absolute Basophil Count 0.01 10^3/uL (0.0-0.2); Absolute Eosinophil Count 0.01 10^3/uL (0.0-0.7); Absolute Lymphocyte Count 0.33 10^3/uL (1.2-3.4); Absolute Monocyte Count 0.12 10^3/uL (0.1-0.8); Basophils % 0.1; Eosinophils % 0.1; HCT 32.1 % (36.0-46.0); HGB 9.6 g/dL (11.2-15.7); Immature Grans % 0.7; Lymphocytes % 2.5; MCH 29.7 pg (27.0-33.0); MCHC 29.9 % (32.0-36.0); MCV 99.4 fL (80-95); MPV 9.8 fL (8.0-11.0); Monocytes % 0.9; Neutrophils % 95.7; Nucleated RBC 0 %; Platelet Count 231 10^3/uL (130-400); RBC 3.23 10^6/uL (3.93-5.22); RDW 14.2 % (11.7-14.6); WBC 13.23 10^3/uL (4.4-10.8)
[2021-09-10 13:49] LABS: Absolute Neutrophil Count 12.66 10^3/uL (1.2-6.7)
[2021-09-10 13:50] LABS: Anion Gap 0.2 mmol/L (3-11); BUN 30 mg/dL (7-18); CO2 36.8 mmol/L (21.0-32.0); CREATININE 1.1 mg/dL (0.55-1.02); Calcium 8.1 mg/dL (8.5-10.1); Chloride 105 mmol/L (98-107); Estimated GFR 48.55 (mL/min/1.73m2); Glucose 183 mg/dL (74-106); Potassium 5.2 mmol/L (3.5-5.1); Sodium 142 mmol/L (136-145)
--- NOTE | 2021-09-10 14:45 | RT.EKG_ITS ---
APPROVED REPORT Exam: Resting ECG Reason for Exam: ? afib Patient Location: I HR:74 bpm ECG Measurements Heart Rate 74 AXIS TN 279 P 0 QRSd 122 QRS -62 QT 375 T 8 QTc 415 Conclusion LAFB Poor R wave progression, cannot exclude old anterior infarct
--- NOTE | 2021-09-10 15:13 | PT.INNT ---
Date of service: 09/10/21 Time of Service: 15:13 PT Notes Visit Reasons: NSTEMI?,transnaminitis, PNA 09/10/2021 Patient refused to participate in PT x3 today. She reports that she did not sleep well, and that she has no intention of getting stronger or gaining more stamina than her current baseline. I have end stage COPD, I'm dying. I don't need PT, I'd like to enjoy what time I have left. Provider aware. Will attempt to resume PT services tomorrow morning.
--- NOTE | 2021-09-10 16:45 | PHA.REVIEW ---
Pharmacy Admission Review - Admission Clinical Review (Last Updated 09/09/21 @ 16:08 by Wilma Pedro) Leukocytosis (Acute) Hyperkalemia (Acute) Goals of care, counseling/discussion (Acute) Heme + stool (Acute) Choking due to food (regurgitated) (Acute) Pulmonary nodule (Acute) Discharge planning issues (Acute) DVT prophylaxis (Acute) Transaminitis (Acute) chlorpromazine Allergy (Severe, Verified 09/05/21 14:16) Skin Rash Penicillins Allergy (Severe, Verified 09/05/21 14:16) HIVES oxycodone Allergy (Mild, Verified 09/05/21 14:16) RASH/VOMITING raspberry Allergy (Unknown, Verified 09/05/21 14:16) Resuscitation Status Full Code Height 4 ft 11 in Weight 53.9 kg - Renal Dosing Renal Dosing: BUN 30 mg/dL (7-18) H 09/10/21 13:35 Creatinine 1.1 mg/dL (0.55-1.02) H 09/10/21 13:35 Medications needing adjustments: Reviewed (CRCL ~32ML/MIN) - Anticoagulation Anticoagulation: Hgb 9.6 g/dL (11.2-15.7) L 09/10/21 13:35 Hct 32.1 % (36.0-46.0) L 09/10/21 13:35 Plt Count 231 10^3/uL (130-400) 09/10/21 13:35 INR 1.2 (0.9-1.1) H 09/05/21 13:35 Creatinine 1.1 mg/dL (0.55-1.02) H 09/10/21 13:35 DVT Prophylaxis: N/A (due to bleeding contraindication with chemical anticoag just using Teds and SCDS) Therapeutic Anticoagulation: N/A - Relevant Labs Sodium 142 mmol/L (136-145) 09/10/21 13:35 Potassium 5.2 mmol/L (3.5-5.1) H 09/10/21 13:35 Chloride 105 mmol/L (98-107) 09/10/21 13:35 Magnesium 2.1 mg/dL (1.8-2.4) 09/06/21 06:42 Electrolytes, C-Reactive P, ESR: Reviewed (PO KCL stopped) - DM Control DM Control: Glucose 183 mg/dL (74-106) H 09/10/21 13:35 Insulin Dosing: N/A - Heart Failure/VT Heart Failure/VT: Troponin I 0.09 ng/mL (<0.06) H* 09/07/21 09:44 NT-Pro-B Natriuret Pep Cancelled 09/08/21 05:35 - BP Control BP Control: Blood Pressure 116/63 Blood Pressure 105/67 Blood Pressure 132/59 - Home Meds Home Med List reviewed: Reviewed - Current meds Current Medication Order Review: Reviewed (not ordered: atorvastatin, KCL, furosemide) - Comments Comments/Follow Ups: Holding all hepatoxic medications including statin, tylenol. end stage COPD. palliative consult ordered
[2021-09-10] MEDS: Melatonin 3 MG TAB 6 MG PO (20:09)
[2021-09-10] MEDS: Divalproex 250 MG TABEC PO (20:09)
[2021-09-11 03:19] VITALS: BP 136/68; PULSE 74; RESP 18; TEMP 36.5; O2SAT 94
[2021-09-11 07:00] VITALS: PULSE 69
[2021-09-11 07:37] VITALS: BP 134/74; PULSE 65; RESP 18; TEMP 36.1; O2SAT 97
[2021-09-11] MEDS: Tiotropium Bromide-Respimat 10 PUFF INH 2 PUFF IH (08:23)
--- NOTE | 2021-09-11 08:57 | CMDISCH_ITS ---
- If Service Date Differs Date of service: 09/11/21 Time of Service: 08:57 Care Management Discharge Reason for Hospitalization: Transaminitis,NSTEMI,Community acquired pneumonia, Acute right-sided CHF Discharge Plan: Discharge home with resumption of [facility] SN (declines PT) via [facility].
[2021-09-11] MEDS: Normal Saline Flush 10 ML SYR IVP ×2 (08:58→21:02)
[2021-09-11] MEDS: predniSONE 20 MG TAB 40 MG PO (08:58)
[2021-09-11] MEDS: dilTIAZem CD 120 MG CAPCR PO (08:58)
[2021-09-11] MEDS: Sucralfate 1 GM TAB PO ×4 (08:58→21:03)
[2021-09-11] MEDS: Pantoprazole 40 MG TABCR PO ×2 (08:58→21:02)
[2021-09-11] MEDS: Isosorbide Mononitrate 30 MG TABCR PO (08:58)
[2021-09-11 11:27] VITALS: BP 111/66; PULSE 78; RESP 18; TEMP 36.9; O2SAT 90
[2021-09-11 13:36] LABS: Abs Immature Grans 0.13 10^3/uL (0.0-0.06); Absolute Basophil Count 0.02 10^3/uL (0.0-0.2); Absolute Lymphocyte Count 0.52 10^3/uL (1.2-3.4); Absolute Monocyte Count 0.17 10^3/uL (0.1-0.8); Basophils % 0.1; Eosinophils % 0.2; HCT 32.5 % (36.0-46.0); HGB 9.7 g/dL (11.2-15.7); Immature Grans % 0.8; Lymphocytes % 3.1; MCH 29.3 pg (27.0-33.0); MCHC 29.8 % (32.0-36.0); MCV 98.2 fL (80-95); MPV 10.1 fL (8.0-11.0); Neutrophils % 94.8; Nucleated RBC 0 %; Platelet Count 217 10^3/uL (130-400); RBC 3.31 10^6/uL (3.93-5.22); RDW 14.3 % (11.7-14.6); WBC 16.68 10^3/uL (4.4-10.8)
[2021-09-11 13:37] LABS: Absolute Eosinophil Count 0.03 10^3/uL (0.0-0.7); Absolute Neutrophil Count 15.81 10^3/uL (1.2-6.7)
[2021-09-11 13:40] LABS: BUN 29 mg/dL (7-18); Calcium 8.1 mg/dL (8.5-10.1); Chloride 104 mmol/L (98-107); Glucose 153 mg/dL (74-106); Potassium 4.8 mmol/L (3.5-5.1); Sodium 142 mmol/L (136-145)
--- NOTE | 2021-09-11 14:47 | PDOC.CMPRO ---
- If Service Date Differs Date of service: 09/11/21 Time of Service: 14:47 Care Management Progress Note S/O: Lauren was lying in bed when CM met with her. She has a frail appearance and shares that she is tired. Lauren was pleasant and engaged well in conversation with CM today. Her concerns that surround housing and being able to take care of herself at home independently, remain unchanged.However she will only be discharged to a place where she can have 2 beers a night and smoke. Lauren hasn't had either of these vices during her stay here, but they remain important to her discharge. Lauren doesn't know how her legs are going to work, however she refuses PT and refuses to try to get out of bed Today, Lauren is open to SNF placement after speaking to her ISABEL Juarez from [facility]. CM sent referrals to the [facility]. CM will continue to support discharge planning. A: 75 year old female admitted to [facility] on 09/05/21 for NSTEMI?,transnaminitis, PNA P: Anticipate Lauren will return back to her room at the [facility] when medically cleared by . CM sent referrals to the following SNF's: [facility], [facility] and [facility], however it is unlikely that patient will accept a bed at either if they wont allow her to drink and smoke. If Lauren returns home she will resume [facility] services SN (NO PT-per PT) and transport via [facility]. CM continues to support discharge planning.
--- NOTE | 2021-09-11 16:54 | PGE_ITS ---
Date of Service Date of service: 09/11/21 Time of Service: 16:54 Assessment and Plan Assessment and plan (1) Leukocytosis: Status: Acute Assessment and plan: completed 5 days of azithromycin and ceftriaxone for cap with no new respiratory c/o. states she's at her baseline. no fevers no other source of infection suspected at this time white count climbing originally thought d/t steroids. will monitor closely repeat in am (2) Hyperkalemia: Status: Resolved Assessment and plan: normalized off potassium supplementation. will check again tomorrow. (3) Goals of care, counseling/discussion: Status: Acute Assessment and plan: palliative care consult placed and awaiting patient was refusing blood work inconsistent with what she will allow and not, discussed code status, patient is a full code, she states she is not prepared to make any decisions. (4) Heme + stool: Status: Acute Assessment and plan: H&H stable. Found to have dark stool, heme positive All anticoagulation stopped will heme all stools SCD and TEDs PPI BID, Carafate, clears at this time. monitor. will likely need outpatient scope (5) Transaminitis: Status: Acute Assessment and plan: Hold all hepatoxic medications including statin, tylenol Abd u/s negative CTA revealed no PE however lung nodules that will need follow up with either PET or CT scan in 3 months (6) Pulmonary nodule: Status: Acute Assessment and plan: as above new finding Follow up with PET/CT scan in 3 months (7) Choking due to food (regurgitated): Status: Acute Assessment and plan: Speech consult completed. cleared for thin liquids and soft/bite sized foods. Qualifiers: Encounter type: initial encounter Qualified Code(s): T17.320A - Food in larynx causing asphyxiation, initial encounter (8) NSTEMI (non-ST elevated myocardial infarction): Status: Ruled-out Assessment and plan: R/o trops trending down ECHO revealing Conclusion Normal left ventricular wall thickness and chamber size. Estimated ejection fraction is 60%. Wall motion is normal Both atria are normal in size Normal right ventricular size and systolic function Structurally normal aortic valve without stenosis or regurgitation Mild mitral annular calcification. Moderate mitral regurgitation Normal tricuspid valve. Moderate tricuspid regurgitation. 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 Qualifiers: Laterality: left Lung location: lower lobe of lung Qualified Code(s): J18.9 - Pneumonia, unspecified organism (10) Acute right-sided CHF (congestive heart failure): Status: Chronic Assessment and plan: stable at this time, not in HF (11) End stage COPD: Status: Chronic Assessment and plan: Oxygen dependent. Continue home regimen on prednisone (12) Ambulatory dysfunction: Status: Chronic Assessment and plan: continue PT, recommend discharge back to nursing home with PT (13) DVT prophylaxis: Status: Acute Assessment and plan: due to bleeding contraindication with chemical anticoagulation therefore she will have Teds and SCDS (14) Discharge planning issues: Status: Acute Assessment and plan: Back to home when medically stable Discussed with Dr. Albert Subjective Subjective Patient reports: no new complaints, tolerating liquids well, tolerating a regular diet, shortness of breath (at baseline) and afebrile Interval history since last seen: refusing physical therapy. likely at her baseline Exam Const General: cooperative, comfortable, no acute distress and frail appearing Nutritional Appearance: thin Orientation: alert, awake, oriented x3 and other (cognitively slow) [facility] Ears: hearing grossly abnormal bilaterally and hearing grossly impaired bilaterally Mouth: moist mucous membranes abnormal (DRY) Eyes Eyelids: eyelids normal Pupils: PERRL EOM: EOM intact bilaterally Neck Neck: normal visual inspection, no lymphadenopathy and no JVD Lymphatic: no lymphadenopathy noted Resp Effort & Inspection: abnormal respiratory effort (baseline SOB, normal for her she states not any worse ) and able to speak in complete sentences Auscultation: diminished lung sounds Cardio Jugular venous pressure: no JVD Rate: regular rate Rhythm: regular rhythm Heart Sounds: S1 normal GI Inspection: normal to inspection Palpation: soft Auscultation: normal bowel sounds General: No CVA tenderness and deferred Skin General skin exam: dry skin Lesions: lesion noted (left lower extremity) Neuro General: patient alert, patient awake and patient oriented x3 Speech: speech normal Gait: normal gait Extrem General: full ROM and no clubbing, cyanosis or edema Objective Last Vital Signs Temp 36.9 C 09/11/21 11:27 Pulse 78 09/11/21 11:27 Resp 18 09/11/21 11:27 BP 111/66 09/11/21 11:27 Pulse Ox 90 L 09/11/21 11:27 Laboratory Results - last 24 hr 09/11/21 09/11/21 13:28 13:28 WBC 16.68 H RBC 3.31 L Hgb 9.7 L Hct 32.5 L MCV 98.2 H MCH 29.3 MCHC 29.8 L RDW 14.3 Plt Count 217 MPV 10.1 Immature Gran % 0.8 Neutrophils % 94.8 Lymphocytes % 3.1 Monocytes % 1.0 Eosinophils % 0.2 Basophils % 0.1 Nucleated RBC % 0 Absolute Neutrophils 15.81 H Absolute Lymphocytes 0.52 L Absolute Monocytes 0.17 Absolute Eosinophils 0.03 Absolute Basophils 0.02 Sodium 142 Potassium 4.8 Chloride 104 Carbon Dioxide 40.0 H Anion Gap Not Applicable BUN 29 H Creatinine 1.0 Estimated GFR/1.73 m2 54.20 Glucose 153 H Calcium 8.1 L
[2021-09-11 19:05] VITALS: BP 118/62; PULSE 74; RESP 17; TEMP 37.2; O2SAT 91
[2021-09-11] MEDS: Divalproex 250 MG TABEC PO (21:03)
[2021-09-11 23:28] VITALS: BP 106/69; PULSE 76; RESP 18; TEMP 36.6; O2SAT 91
[2021-09-12 06:44] LABS: Absolute Basophil Count 0.01 10^3/uL (0.0-0.2); Absolute Eosinophil Count 0.04 10^3/uL (0.0-0.7); Absolute Lymphocyte Count 1.13 10^3/uL (1.2-3.4); Absolute Monocyte Count 0.53 10^3/uL (0.1-0.8); Absolute Neutrophil Count 12.12 10^3/uL (1.2-6.7); Basophils % 0.1; Eosinophils % 0.3; HCT 31.7 % (36.0-46.0); HGB 9.6 g/dL (11.2-15.7); Immature Grans % 0.7; Lymphocytes % 8.1; MCH 29.5 pg (27.0-33.0); MCHC 30.3 % (32.0-36.0); MCV 97.5 fL (80-95); MPV 9.6 fL (8.0-11.0); Monocytes % 3.8; Nucleated RBC 0 %; Platelet Count 217 10^3/uL (130-400); RBC 3.25 10^6/uL (3.93-5.22); RDW 14.2 % (11.7-14.6); RDW-SD 50.3 fL; WBC 13.93 10^3/uL (4.4-10.8)
[2021-09-12 06:53] LABS: Anion Gap -4.7 mmol/L (3-11); BUN 26 mg/dL (7-18); CO2 42.7 mmol/L (21.0-32.0); CREATININE 0.9 mg/dL (0.55-1.02); Chloride 105 mmol/L (98-107); Glucose 80 mg/dL (74-106); Potassium 4.2 mmol/L (3.5-5.1); Sodium 143 mmol/L (136-145)
[2021-09-12] MEDS: Budesonide/Formoterol 80/4.5 6.9 GM 60 PUFF INH IH (08:04)
[2021-09-12] MEDS: Tiotropium Bromide-Respimat 10 PUFF INH 2 PUFF IH (08:04)
[2021-09-12 08:12] VITALS: BP 140/63; PULSE 62; RESP 18; TEMP 36.8; O2SAT 93
[2021-09-12] MEDS: Normal Saline Flush 10 ML SYR IVP ×2 (08:23→22:13)
[2021-09-12] MEDS: dilTIAZem CD 120 MG CAPCR PO (08:23)
[2021-09-12] MEDS: predniSONE 20 MG TAB 40 MG PO (08:23)
[2021-09-12] MEDS: Sucralfate 1 GM TAB PO ×4 (08:23→22:12)
[2021-09-12] MEDS: Pantoprazole 40 MG TABCR PO ×2 (08:24→22:13)
[2021-09-12] MEDS: Isosorbide Mononitrate 30 MG TABCR PO (08:24)
[2021-09-12 11:33] VITALS: BP 108/61; PULSE 72; RESP 19; TEMP 36.7; O2SAT 90
--- NOTE | 2021-09-12 13:32 | PDOC.CMIN ---
- If Service Date Differs Date of service: 09/12/21 Time of Service: 13:32
--- NOTE | 2021-09-12 13:36 | PDOC.CMPRO ---
- If Service Date Differs Date of service: 09/12/21 Time of Service: 13:37 Care Management Progress Note S/O: Lauren was sitting up in her chair when CM met with her. She has a frail appearance and shares that she is tired. Lauren was pleasant and engaged well in conversation with CM today. Her concerns that surround housing and being able to take care of herself at home independently, remain unchanged. She is willing to go to a SNF even if she is unable to drink or smoke. Today, she accepted SNF placement at [facility]. CM will arrange transportation at 10am tomorrow. PT feels that she will be able to go by [facility]. Vlad in [facility] will set her up with O2 before she leaves and Diane at [facility] will have 02 for her on arrival. CM will fax discharge orders to [facility] in the morning and continue to support discharge planning. 1600: Lauren no longer accepts SNF placement. Lauren reported that she worked it out with her sister and wants to go back to her room at the [facility]. She reported that her sister is ordering her [facility] and wants resumption of [facility] SN/INDIVIDUAL PENSION CONSULTANT/PT. Lauren worked with PT today and was able to ambulate. She reported that her legs work and she wants to be home. A: 75 year old female admitted to [facility] on 09/05/21 for NSTEMI?,transnaminitis, PNA P: Anticipate Lauren will return back to her room at the [facility] tomorrow despite CM's recommendation to go to a SNF. Lauren will transport via EMS ([facility])at 10:00am arranged by CM. She will resume [facility] SN/INDIVIDUAL PENSION CONSULTANT add PT. CM continues to support discharge planning needs.
--- NOTE | 2021-09-12 13:59 | CHAPLAIN ---
Lauren was sitting up in a chair when I visited. She had difficulty hearing me until I was speaking very loudly to her. She is frustrated about being discharged, she said, because her legs gave out on me and she is afraid that will happen again. According to Care Mangement notes, Lauren has refused to participate in PT. She asked about having some Mountain Dew soda and said staff has been purchasing the Mt. Dew for her.
--- NOTE | 2021-09-12 15:07 | W.PM.PROGNOT ---
Date of Service Date of service: 09/12/21 Time of Service: 15:07 Assessment and Plan Assessment and plan (1) Leukocytosis: Start date: 09/12/21 Start time: 15:08 Status: Acute Assessment and plan: completed 5 days of azithromycin and ceftriaxone for cap with no new respiratory c/o. states she's at her baseline. no fevers no other source of infection suspected at this time white count climbing originally thought d/t steroids. will monitor closely Today leukocytosis is decreasing to 13.93 from 16 , likely steroid induced. She has been accepted to [facility] d/c in am (2) Hyperkalemia: Start date: 09/12/21 Start time: 15:10 Status: Resolved Assessment and plan: normalized off potassium supplementation. will check again tomorrow. (3) Goals of care, counseling/discussion: Start date: 09/12/21 Start time: 15:10 Status: Acute Assessment and plan: palliative care consult placed can be seen as an outpatient. patient agreed to care today, blood work and working with PT, she is chooses when to work and not work with staff she is at baseline inconsistent with what she will allow and not, discussed code status, patient is a full code, she states she is not prepared to make any decisions. (4) Heme + stool: Start date: 09/12/21 Start time: 15:14 Status: Acute Assessment and plan: H&H stable. Found to have dark stool, heme positive All anticoagulation stopped will heme all stools SCD and TEDs PPI BID, Carafate, clears at this time. monitor. will likely need outpatient scope (5) Transaminitis: Start date: 09/12/21 Start time: 15:14 Status: Resolved Assessment and plan: In setting of levaquin. Abd u/s was negative CTA revealed no PE however lung nodules that will need follow up with either PET or CT scan in 3 months (6) Pulmonary nodule: Start date: 09/12/21 Start time: 15:15 Status: Acute Assessment and plan: as above new finding Follow up with PET/CT scan in 3 months (7) Choking due to food (regurgitated): Start date: 09/12/21 Start time: 15:15 Status: Acute Assessment and plan: Speech consult completed. cleared for thin liquids and soft/bite sized foods. Qualifiers: Encounter type: initial encounter Qualified Code(s): T17.320A - Food in larynx causing asphyxiation, initial encounter (8) NSTEMI (non-ST elevated myocardial infarction): Start date: 09/12/21 Start time: 15:15 Status: Ruled-out Assessment and plan: R/o trops trending down ECHO revealing Conclusion Normal left ventricular wall thickness and chamber size. Estimated ejection fraction is 60%. Wall motion is normal Both atria are normal in size Normal right ventricular size and systolic function Structurally normal aortic valve without stenosis or regurgitation Mild mitral annular calcification. Moderate mitral regurgitation Normal tricuspid valve. Moderate tricuspid regurgitation. 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 Qualifiers: Laterality: left Lung location: lower lobe of lung Qualified Code(s): J18.9 - Pneumonia, unspecified organism (10) Acute right-sided CHF (congestive heart failure): Start date: 09/12/21 Start time: 15:15 Status: Chronic Assessment and plan: stable at this time, not in HF (11) End stage COPD: Start date: 09/12/21 Start time: 15:15 Status: Chronic Assessment and plan: Oxygen dependent. Continue home regimen on prednisone continues to smoke (12) Ambulatory dysfunction: Start date: 09/12/21 Start time: 15:15 Status: Chronic Assessment and plan: continue PT, she has been [facility] (13) DVT prophylaxis: Start date: 09/12/21 Start time: 15:16 Status: Acute Assessment and plan: due to bleeding contraindication with chemical anticoagulation therefore she will have Teds and SCDS (14) Discharge planning issues: Start date: 09/12/21 Start time: 15:16 Status: Acute Assessment and plan: [facility]charge to [facility] Discussed with Dr. Albert Subjective Subjective Patient reports: no new complaints Interval history since last seen: At baseline. [facility] Leukocytosis improving. likely steroid induced. She did work with PT today. Exam Const General: cooperative, comfortable, no acute distress and frail appearing Nutritional Appearance: thin Orientation: alert, awake, oriented x3 and other (cognitively slow) [facility] Ears: hearing grossly abnormal bilaterally and hearing grossly impaired bilaterally Mouth: moist mucous membranes abnormal (DRY) Eyes Eyelids: eyelids normal Pupils: PERRL EOM: EOM intact bilaterally Neck Neck: normal visual inspection, no lymphadenopathy and no JVD Lymphatic: no lymphadenopathy noted Resp Effort & Inspection: abnormal respiratory effort (baseline SOB, normal for her she states not any worse ) and able to speak in complete sentences Auscultation: diminished lung sounds Cardio Jugular venous pressure: no JVD Rate: regular rate Rhythm: regular rhythm Heart Sounds: S1 normal GI Inspection: normal to inspection Palpation: soft Auscultation: normal bowel sounds General: No CVA tenderness and deferred Skin General skin exam: dry skin Lesions: lesion noted (left lower extremity) Neuro General: patient alert, patient awake and patient oriented x3 Speech: speech normal Gait: normal gait Extrem General: full ROM and no clubbing, cyanosis or edema Objective Last Vital Signs Temp 36.7 C 09/12/21 11:33 Pulse 72 09/12/21 11:33 Resp 19 09/12/21 11:33 BP 108/61 09/12/21 11:33 Pulse Ox 90 L 09/12/21 11:33 Laboratory Results - last 24 hr 09/12/21 09/12/21 06:27 06:27 WBC 13.93 H RBC 3.25 L Hgb 9.6 L Hct 31.7 L MCV 97.5 H MCH 29.5 MCHC 30.3 L RDW 14.2 Plt Count 217 MPV 9.6 Immature Gran % 0.7 Neutrophils % 87.0 Lymphocytes % 8.1 Monocytes % 3.8 Eosinophils % 0.3 Basophils % 0.1 Nucleated RBC % 0 Absolute Neutrophils 12.12 H Absolute Lymphocytes 1.13 L Absolute Monocytes 0.53 Absolute Eosinophils 0.04 Absolute Basophils 0.01 Sodium 143 Potassium 4.2 Chloride 105 Carbon Dioxide 42.7 H Anion Gap -4.7 L BUN 26 H Creatinine 0.9 Estimated GFR/1.73 m2 >= 60.00 Glucose 80 D Calcium 8.0 L
--- NOTE | 2021-09-12 15:16 | DSE_ITS ---
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 Afebrile. Leukocytosis trending down. on admission WBC was 8.49 after being on levaquin x 48 hours before having severe reaction With elevated AST and ALT Now having increased WBC, afebrile. Trending down, likely steroid induced. Prednisone was given x 10 days. 09/12 day 10 finished with script. She has been accepted to [facility] and therefore being discharged there. (2) Hyperkalemia: Start date: 09/12/21 Start time: 15:22 Status: Resolved Asessment and Plan: hypokalemia at one point, taken off of potassium supplementation and corrected on its own. (3) Goals of care, counseling/discussion: Start date: 09/12/21 Start time: 15:23 Status: Acute Asessment and Plan: She wants to be a full code even though she would be appropriate for hospice as she is end stage COPD and continues to smoke requiring oxygen She wants to smoke at [facility], she can not smoke but will order nicotrol inhalers, she also wants to drink She can have alcoholic beverages per facilities discretion (4) Heme + stool: Start date: 09/12/21 Start time: 15:24 Status: Acute Asessment and Plan: She would benefit from a colonoscopy as an outpatient. PPI and carafate, no anticoagulation due to heme stools. (5) Transaminitis: Start date: 09/12/21 Start time: 15:27 Status: Resolved Asessment and Plan: From levquin, no listed as allergy, given fluids overnight with improvement and then dcd and improved on their own. abd u/s was negative. (6) Pulmonary nodule: Start date: 09/12/21 Start time: 15:29 Status: Acute Asessment and Plan: CTA revealed no PE however lung nodules that will need follow up with either PET or CT scan in 3 months Follow up with PET/CT scan in 3 months (7) Choking due to food (regurgitated): Start date: 09/12/21 Start time: 15:29 Status: Acute Asessment and Plan: Evaluated by speech and cleared for thin liquids with soft bite size food (8) NSTEMI (non-ST elevated myocardial infarction): Start date: 09/12/21 Start time: 15:30 Status: Ruled-out Asessment and Plan: Initially troponins were 0.36 then trending down ECHO revealing Conclusion Normal left ventricular wall thickness and chamber size. Estimated ejection fraction is 60%. Wall motion is normal Both atria are normal in size Normal right ventricular size and systolic function Structurally normal aortic valve without stenosis or regurgitation Mild mitral annular calcification. Moderate mitral regurgitation Normal tricuspid valve. Moderate tricuspid regurgitation. Estimated right ventricular systolic pressure is 44 mmHg Mildly dilated ascending aorta 3.4 cm (9) Community acquired pneumonia: Start date: 09/12/21 Start time: 15:31 Status: Resolved Asessment and Plan: treated with 5 days antbx as above (10) Acute right-sided CHF (congestive heart failure): Start date: 09/12/21 Start time: 15:31 Status: Chronic Asessment and Plan: stable no signs of CHF (11) End stage COPD: Start date: 09/12/21 Start time: 15:31 Status: Chronic Asessment and Plan: stable, oxygen dependent continues to smoke continue home regimen (12) Ambulatory dysfunction: Start date: 09/12/21 Start time: 15:32 Status: Chronic Asessment and Plan: Worked with PT when she felt like it. Normally she just sits around, she is at baseline discussed with Dr. Albert Discharge Plan Disposition Patient Disposition: OTHER Condition: Stable Discharge Details Reason For Visit: NSTEMI?,Transnaminitis,PNA Admit Date/Time: 09/05/21 18:17 Admit Provider: Campbell Vazquez Attending Provider: Campbell Vazquez Primary Care Provider: Susana Apple Hospital Course Hospital Course: 75 y.o female with PMH of CHF, End stage COPD oxygen dependant, OA, Hydrocephalus, presented to ED from from assisted with question of hypoxia, confusion and incontinence. She was previously seen on 09/01 and diagnosed with LLL pneumonia, discharged home on levaquin and prednisone. Returning today. ED labs significant for no WBC on 09/01 noted to be 22 however creatinine is 1.7, elevated from baseline, Cardiac troponin of 0.36 second one was 0.32 will trend, BNP 17,537 with AST of 1084 and ALT of 903. Patient has been asked to be admitted to hospitalists group for further management. While in the hospital she was given IV hydration overnight that helped improve her ast and alt. IVF discontinued and lasix held. She continued to improve when taken off of levaquin. Abd u/s was negative. CTA did reveal lung nodule that will need f/u with PET or CT scan in 3 months. Some days she would refuse care other days she would work with staff. She did not want to return to assisted, placed referrals and she was accepted to [facility] for tomorrow. She finished a 5 day course of antibiotics for CAP and a 10 day course steroids. NSTEMI r/o by cardiology, DVT study negative. She is at baseline. She would like to smoke and drink at [facility]. Will order nicotrol inhaler for discharge, she can have alcohol at facility discretion. She wants to be a full code as she wants everything done, palliative care order placed and will have them follow her in the community. She is being discharged in the morning. She did have heme positive stools and would benefit from a colonoscopy as an outpatient. All anticoagulation has been stopped. Speech evaluated her as she was choking when eating and drinking they recommend thin liquids soft bite size foods. Home Meds and New Rx's Prescriptions: New sucralfate 1 gram Tablet 1 g PO AC & HS Qty: 120 RF: 0 melatonin 3 mg Tablet 6 mg PO HS Qty: 30 RF: 0 pantoprazole 40 mg Tablet,Delayed Release (Dr/Ec) 40 mg PO BID@ Qty: 60 RF: 0 Nicotrol 10 mg cartridge 1 inh inhalation 4-6XD PRNQty: 168 RF: 0 Continued divalproex [Depakote] 250 mg tablet,delayed release (DR/EC) 250 mg PO HS RF: 0 isosorbide mononitrate 30 mg tablet extended release 24 hr 30 mg PO DAILY RF: 0 atorvastatin 40 mg tablet 40 mg PO DAILY Qty: 90 RF: 3 budesonide-formoterol [Symbicort] 80-4.5 mcg/actuation HFA aerosol inhaler 2 puff Inhalation BID Qty: 3 RF: 4 Proair Digihaler 90 mcg/actuation aero powdr breath act w/sensor 180 mcg inhalation Q4H PRN (Reason: shortness of breath or wheezing) Qty: 1 RF: 12 port 02concentrator 0 Inhalation as directed Qty: 1 RF: 1 ondansetron HCl [Zofran] 4 mg tablet 4 mg PO Q8H PRN (Reason: nausea and vomiting) Qty: 20 RF: 0 magnesium oxide 400 mg (241.3 mg magnesium) tablet 400 mg PO DAILY Qty: 90 RF: 3 nitroglycerin 0.4 mg tablet, sublingual 0.4 mg Sublingual PRN PRN (Reason: chest pain) Qty: 25 RF: 12 diltiazem HCl [Tiazac] 120 mg capsule,extended release 24 hr 120 mg PO DAILY Qty: 90 RF: 0 furosemide 40 mg tablet 60 mg PO DAILY Qty: 135 RF: 0 acetaminophen [Tylenol] 325 mg Tablet 650 mg PO Q6H PRNRF: 0 Spiriva with HandiHaler 18 mcg capsule, w/inhalation device 18 mcg INHALATION BID RF: 0 Discontinued nicotine 21 mg/24 hr patch 24 hour 1 patch TD Q24H Qty: 28 RF: 1 pantoprazole 40 mg tablet,delayed release (DR/EC) 40 mg PO DAILY Qty: 30 RF: 2 potassium chloride 20 mEq tablet extended release 40 meq PO BID Qty: 180 RF: 1 ibuprofen 600 mg Tablet 600 mg PO Q6H PRNRF: 0 prednisone 20 mg tablet 40 mg PO DAILY Qty: 10 RF: 0 levofloxacin 750 mg tablet 750 mg PO DAILY Qty: 6 RF: 0 No Action (DME) Oxygen Tank See Rx Instructions .ROUTE .MEDSUPPLY Qty: 1 RF: 0 (DME) Depend Underwear For Women S-M Misc 1 ea Miscellaneous QID Qty: 150 RF: 12 Discharge Instructions Instructions: Acute Liver Failure (DC), Community Acquired Pneumonia (DC) Additional Instructions: Follow up PET or CT scan in 3 months No NSAID or ibuprofen d/t GI bleed Follow thin liquid with soft bite size food Patient may have alcoholic beverages per facility discretion. F/u with PCP in 1-2 weeks Recommend outpatient colonoscopy Palliative care to f/u as an outpatient. Activity:: Activity as Tolerated Equipment/Supplies:: Oxygen (L/min Below) Diet:: thin liquids/bite size soft Discharge Orders Discharge Orders: Discharge Order (Routine); Ordered 09/13/21 Ordered By: Veronique Samayoa DS: Summary Time Spent with Patient providing and/or coordinating discharge services: Greater than 30 minutes Status at Discharge Functional status at discharge: uses cane/walker Overall status at discharge: patient is back to baseline Mental Status: other (cognitively slow) Speech and Movement: speech and movement normal Mood: congruent mood Affect: normal affect Exam Const General: cooperative, comfortable, no acute distress and frail appearing Nutritional Appearance: thin Orientation: alert, awake, oriented x3 and other (cognitively slow) HENMT Ears: hearing grossly abnormal bilaterally and hearing grossly impaired bilaterally Mouth: moist mucous membranes abnormal (DRY) Eyes Eyelids: eyelids normal Pupils: PERRL EOM: EOM intact bilaterally Neck Neck: normal visual inspection, no lymphadenopathy and no JVD Lymphatic: no lymphadenopathy noted Resp Effort & Inspection: abnormal respiratory effort (baseline SOB, normal for her she states not any worse ) and able to speak in complete sentences Auscultation: diminished lung sounds Cardio Jugular venous pressure: no JVD Rate: regular rate Rhythm: regular rhythm Heart Sounds: S1 normal GI Inspection: normal to inspection Palpation: soft Auscultation: normal bowel sounds General: No CVA tenderness and deferred Skin General skin exam: dry skin Lesions: lesion noted (left lower extremity) Neuro General: patient alert, patient awake and patient oriented x3 Speech: speech normal Gait: normal gait Extrem General: full ROM and no clubbing, cyanosis or edema Psych Speech and Movement: speech and movement normal Mood: congruent mood Affect: normal affect DS: Data Vitals/I&O Vitals and I&O: Vital Signs Temperature 36.7 C 09/12/21 11:33 Temperature Source Tympanic 09/12/21 11:33 Pulse 72 09/12/21 11:33 Pulse Rhythm Regular 09/12/21 09:31 Pulse 74 09/05/21 19:20 Respiratory Rate 19 09/12/21 11:33 Respiratory Effort Non-Labored 09/12/21 09:31 Respiratory Depth Normal 09/12/21 09:31 Respiratory Pattern Normal 09/12/21 09:31 Blood Pressure 108/61 09/12/21 11:33 Blood Pressure Mean 91 09/05/21 19:16 Blood Pressure Position Sitting 09/05/21 13:25 Pulse Oximetry 90 L 09/12/21 11:33 Oxygen Delivery Method Nasal Cannula 09/12/21 11:33 Oxygen Flow Rate 2 09/12/21 11:33 Pain Level 0 09/12/21 11:33 Intake & Output 09/11/21 09/12/21 09/12/21 23:59 11:59 23:59 Intake Total 500 / 550 250 / 250 Balance 500 / 550 250 / 250 Weight 56 kg Intake: Oral 500 / 500 250 / 250 Other: Urine Color Yellow Urine Appearance Clear Urine Odor Strong Comment pT said again that she is fine and dry when i went in to do a check and change. Stool Size Moderate Stool Characteristics Soft Brown Voiding Methods Diaper Incontinent Data Completed and Pending Completed studies during hospitalization [Text1]: Exam(s) XR PORTABLE CHEST AP EXAM: XR PORTABLE CHEST AP CLINICAL HISTORY: Cough, hypoxia TECHNIQUE: 2D digital imaging was performed of the chest. One image was obtained. An AP view was obtained. COMPARISON: CR,XR XR PORTABLE CHEST AP from 09/01/2021 FINDINGS: MEDIASTINUM: Normal. HEART: Normal. PULMONARY VASCULATURE: Atherosclerosis of the thoracic aorta. LUNGS: No focal consolidating infiltrates. PLEURAL SPACE: No pleural effusion or pneumothorax. BONE:Within normal limits for the patient's age. OTHER FINDINGS:Normal. IMPRESSION: No acute pulmonary findings. Exam(s) US ABDOMEN EXAM: US ABDOMEN CLINICAL HISTORY: elevated liver enzymes TECHNIQUE: Ultrasound performed using standard protocol. COMPARISON: US ABDOMEN ULTRASOUND (P) from 08/13/2016 FINDINGS: Abdominal aorta is not well visualized due to overlying bowel gas. Liver is incompletely visualized due to patient's body habitus. However no focal abnormality of the liver is seen. There is no evidence of cholelithiasis or biliary dilatation. No gallbladder wall thickening seen. Portal venous flow is normal directional. Pancreas is unremarkable as visualized. Spleen appears intact. Kidneys are unremarkable in appearance with no evidence of hydronephrosis or nephrolithiasis. IMPRESSION: Negative abdominal ultrasound. Exam(s) US ABDOMEN EXAM: US ABDOMEN CLINICAL HISTORY: elevated liver enzymes TECHNIQUE: Ultrasound performed using standard protocol. COMPARISON: US ABDOMEN ULTRASOUND (P) from 08/13/2016 FINDINGS: Abdominal aorta is not well visualized due to overlying bowel gas. Liver is incompletely visualized due to patient's body habitus. However no focal abnormality of the liver is seen. There is no evidence of cholelithiasis or biliary dilatation. No gallbladder wall thickening seen. Portal venous flow is normal directional. Pancreas is unremarkable as visualized. Spleen appears intact. Kidneys are unremarkable in appearance with no evidence of hydronephrosis or nephrolithiasis. IMPRESSION: Negative abdominal ultrasound. Conclusion Normal left ventricular wall thickness and chamber size. Estimated ejection fraction is 60%. Wall motion is normal Both atria are normal in size Normal right ventricular size and systolic function Structurally normal aortic valve without stenosis or regurgitation Mild mitral annular calcification. Moderate mitral regurgitation Normal tricuspid valve. Moderate tricuspid regurgitation. Estimated right ventricular systolic pressure is 44 mmHg Mildly dilated ascending aorta 3.4 cm FINDINGS: CHEST: Less than optimal bolus timing PULMONARY ARTERIES: There are no obvious intraluminal filling defects to suggest acute pulmonary emboli. LUNGS: There are COPD emphysematous changes.. There is an area of infiltrate in superior segment of the left lower lobe. Also some subpleural infiltrate noted posteriorly in the left lower lobe, this measuring 10 x 9 millimeters. No associated left pleural effusion. Some scar-like infiltrate is seen in the right lung apex and sub apical region. Small right pleural effusion. No obvious focal findings in trachea and mainstem bronchi MEDIASTINUM: There is no hilar nor mediastinal adenopathy. Visualized thyroid unremarkable.Fluid seen in the esophagus. CARDIAC: Cardiomegaly. No obvious pericardial effusioncaliber of the thoracic aorta is within normal limits. RV/LV ratio is approximately 1-1. However, there is no significant shift of the interventricular septum. PARTIALLY VISUALIZED UPPERMOST ABDOMEN: No obvious findings OSSEOUS: No significant osseous lesions.. IMPRESSION: 1. No evidence of obvious acute pulmonary emboli.No pulmonary infarction. 2. COPD emphysematous changes with multiple nodular infiltrates as described above in the left lung and small amount of right pleural fluid. No intrathoracic adenopathy evident. Recommend repeat CT scan in 3 months to ensure stability of the above described lung findings. 3. Cardiomegaly. No pericardial effusion. No aortic dissection. Exam(s) PROCEDURE INFORMATION: Exam: US Duplex Lower Extremity Veins, Bilateral Exam date and time: 09/06/2021 1:35 PM Age: 75 years old Clinical indication: Edema, localized; Lower extremity, bilateral TECHNIQUE: Imaging protocol: Real-time duplex ultrasound of the extremities with 2-D mata scale, color Doppler flow and spectral waveform analysis with image documentation. Complete exam focused on the bilateral lower extremity veins. COMPARISON: CT Abdomen^ROUTINE ABDOMEN PELVIS WITH CONTRAST (Adult) 09/21/2018 10:20 AM FINDINGS: Right deep veins: Unremarkable. The common femoral, femoral, proximal profunda femoral and popliteal veins are patent without thrombus. Normal Doppler waveforms. Normal compressibility and/or augmentation response. Right superficial veins: Saphenofemoral junction is patent without thrombus. Left deep veins: Unremarkable. The common femoral, femoral, proximal profunda femoral and popliteal veins are patent without thrombus. Normal Doppler waveforms. Normal compressibility and/or augmentation response. Left superficial veins: Saphenofemoral junction is patent without thrombus. Soft tissues: There is a left popliteal cyst measuring 3.6 x 0.9 x 2.3 cm. IMPRESSION: No evidence of deep vein thrombosis. Left popliteal cyst. Exam(s) PROCEDURE INFORMATION: Exam: CTA Chest With Contrast Exam date and time: 09/06/2021 4:39 PM Age: 75 years old Clinical indication: Other: R/O pe TECHNIQUE: Imaging protocol: Computed tomographic angiography of the chest with contrast. 3D rendering (Not supervised by radiologist): MIP and/or 3D reconstructed images were created by the technologist. Radiation optimization: All CT scans at this facility use at least one of these dose optimization techniques: automated exposure control; mA and/or kV adjustment per patient size (includes targeted exams where dose is matched to clinical indication); or iterative reconstruction. Contrast material: OMNIPAQUE; Contrast volume: 62 ml; Contrast route: INTRAVENOUS (IV); COMPARISON: CT CHEST PE CTA 09/06/2021 11:26 AM FINDINGS: Pulmonary arteries: There is no evidence of a pulmonary embolus. Aorta: There are arteriosclerotic changes of the aorta. Lungs: The tracheobronchial tree is patent bilaterally. There is fibrosis and scarring within the right upper lobe. There are bilateral emphysematous changes. There is a focal area of increased interstitial markings within the superior segment of the left upper lobe. There is slight fibrosis and scarring within the left lower lobe. There is a nodule within the left lower lobe measuring approximately 1.0 cm. There is an additional nodule within the left lower lobe measuring approximately 6 mm. There are atelectatic changes at the right lung base. There is a nodule within the left upper lobe measuring approximately 8 mm. Pleural spaces: There is a small right pleural effusion. Heart: There is cardiomegaly. Mediastinal space: There is fluid within the esophagus. Lymph nodes: No enlarged lymph nodes. Bones/joints: There are degenerative changes of the thoracic spine. There is an anterior flowing osteophyte at multiple levels involving the thoracic spine. Soft tissues: Unremarkable. Other findings: The study is somewhat limited due to motion artifact. IMPRESSION: 1. No evidence of a pulmonary embolus. 2. Bilateral emphysematous changes. Chronic lung findings as above. 3. Pulmonary nodules as above.For both low risk and high risk patients, consider CT Chest at 3 months, PET/CT, or biopsy. (Reference: Robin). 4. Small right pleural effusion. 5. Cardiomegaly. Arteriosclerotic changes of the aorta. The 6. Limited study as above. 7. Fluid within the esophagus. Labs on day of discharge: Labs from last 24 hours 09/12/21 09/12/21 09/12/21 15:06 06:27 06:27 WBC 13.93 H RBC 3.25 L Hgb 9.6 L Hct 31.7 L MCV 97.5 H MCH 29.5 MCHC 30.3 L RDW 14.2 Plt Count 217 MPV 9.6 Immature Gran % 0.7 Neutrophils % 87.0 Lymphocytes % 8.1 Monocytes % 3.8 Eosinophils % 0.3 Basophils % 0.1 Nucleated RBC % 0 Absolute Neutrophils 12.12 H Absolute Lymphocytes 1.13 L Absolute Monocytes 0.53 Absolute Eosinophils 0.04 Absolute Basophils 0.01 Sodium 143 Potassium 4.2 Chloride 105 Carbon Dioxide 42.7 H Anion Gap -4.7 L BUN 26 H Creatinine 0.9 Estimated GFR/1.73 m2 >= 60.00 Glucose 80 D Calcium 8.0 L COVID-19 Source Pending SARS-CoV-2 (PCR) Pending [facility] Medical History Auditory hallucination CAD (coronary artery disease) Cellulitis of both lower extremities CHF (congestive heart failure) Depressive disorder (02/19/12) DVT prophylaxis Dysphagia 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) 06/2008 FEV1 35% severe, nocturnal hypoxia; nocturnal O2 2.5LPM 10/2016 FEV1 26% difffusion mod reduced GERD (gastroesophageal reflux disease) Gout, unspecified (04/27/13) H/O ETOH abuse History of GI bleed Low back pain without sciatica (02/19/12) Macrocytosis (05/05/13) nl B12 Marginal ulcer Obesity, unspecified (02/19/12) Gastric Bypass Osteoarth NOS-unspec (02/19/12) Other and unspecified hyperlipidemia (04/27/13) ASCVD; LDL baseline 170-180 Oxygen dependent PAD (peripheral artery disease) RLS (restless legs syndrome) Sensorineural hearing loss Spinal stenosis Tobacco dependence syndrome (11/25/13) Surgical History Bariatric surgery status (07/08/17) EGD - MAC 08/2017-Dr. Thornton Extraction of cataract (08/28/15) right eye with lens implantation Dr. Landry History of umbilical hernia repair S/P carpal tunnel release S/P peripheral artery angioplasty Family History Mother , COPD at age 79. 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
[2021-09-12 15:30] VITALS: BP 119/70; PULSE 71; RESP 18; TEMP 36.5; O2SAT 91
[2021-09-12 16:07] LABS: Source Nasal/Nares
--- NOTE | 2021-09-12 16:14 | PT.INTREAT ---
Date of service: 09/12/21 Time of Service: 10:28 PT Notes Visit Reasons: NSTEMI?,Transnaminitis,PNA Inpatient Physical Therapy Treatment Note [facility] Date: 09/12/2021 PRECAUTIONS: Activity as tolerated SUBJECTIVE: Lauren is pleasant and agreeable to participating in PT. She states that she doesn't need to do much at her current living situation, although she does not wish to return there. She states I wish I could stay here, I feel safe here. OBJECTIVE: PAIN: No c/o pain BED MOBILITY/TRANSFERS Sit-stand: S Stand-sit: S GAIT Assistive Device: FWW Weight bearing: Full Assist: S Distance: 10' Deviation: Thoracic kyphosis Stating standing x2 minutes THEREX: Patient was instructed in a seated UE and LE strengthening program, as per flow sheet. Patient requires occasional rest due to SOB with activity. ASSESSMENT: Patient tolerated session with c/o increased SOB with activity, which is reportedly her baseline. She would benefit from continued global strengthening and conditioning for improved activity tolerance. PLAN: Patient to discharge to SNF level rehab for continued strengthening and conditioning. TREATMENT CODE/TIME: 24 minutes; [id number], [id number] (10:28)
[2021-09-12 20:18] VITALS: BP 120/65; PULSE 78; RESP 18; TEMP 36.8; O2SAT 93
[2021-09-12 20:36] LABS: COVID-19 PCR Negative (Negative)
[2021-09-12] MEDS: Melatonin 3 MG TAB 6 MG PO (22:12)
[2021-09-12] MEDS: Divalproex 250 MG TABEC PO (22:13)
[2021-09-12 23:35] VITALS: BP 103/58; PULSE 59; RESP 17; TEMP 35.7; O2SAT 91
[2021-09-13] VITALS (7 sets, daily range): BP systolic 108–128; BP diastolic 46–79; PULSE 67–77; RESP 4–18; TEMP 36.2–37.2; O2SAT 90–95
[2021-09-13 07:43] LABS: Abs Immature Grans 0.06 10^3/uL (0.0-0.06); Absolute Eosinophil Count 0.04 10^3/uL (0.0-0.7); Absolute Lymphocyte Count 1.36 10^3/uL (1.2-3.4); Basophils % 0.2; Eosinophils % 0.3; HCT 29.9 % (36.0-46.0); Immature Grans % 0.5; Lymphocytes % 10.4; MCH 29.5 pg (27.0-33.0); MCHC 30.1 % (32.0-36.0); MPV 9.6 fL (8.0-11.0); Neutrophils % 84.6; Nucleated RBC 0 %; Platelet Count 234 10^3/uL (130-400); RBC 3.05 10^6/uL (3.93-5.22); RDW 14.3 % (11.7-14.6); RDW-SD 50.7 fL; WBC 13.11 10^3/uL (4.4-10.8)
[2021-09-13 07:45] LABS: Absolute Basophil Count 0.03 10^3/uL (0.0-0.2); Absolute Monocyte Count 0.52 10^3/uL (0.1-0.8); Absolute Neutrophil Count 11.09 10^3/uL (1.2-6.7)
[2021-09-13 08:03] LABS: ALT 99 U/L (14-59); AST 19 U/L (15-37); Albumin 2.2 g/dL (3.4-5.0); Alkaline Phosphatase 54 U/L (46-116); BUN 28 mg/dL (7-18); Bilirubin, Total 0.3 mg/dL (0.2-1.0); CREATININE 0.9 mg/dL (0.55-1.02); Calcium 7.8 mg/dL (8.5-10.1); Chloride 106 mmol/L (98-107); Glucose 77 mg/dL (74-106); Potassium 3.8 mmol/L (3.5-5.1); Sodium 145 mmol/L (136-145); Total Protein 4.8 g/dL (6.4-8.2)
[2021-09-13] MEDS: Pantoprazole 40 MG TABCR PO ×2 (08:26→22:21)
[2021-09-13] MEDS: Isosorbide Mononitrate 30 MG TABCR PO (08:26)
[2021-09-13] MEDS: Sucralfate 1 GM TAB PO ×4 (08:26→22:21)
[2021-09-13] MEDS: Normal Saline Flush 10 ML SYR IVP ×2 (08:27→22:22)
[2021-09-13] MEDS: dilTIAZem CD 120 MG CAPCR PO (08:27)
--- NOTE | 2021-09-13 08:54 | PDOC.CMDIS ---
- If Service Date Differs Date of service: 09/13/21 Time of Service: 08:54 LACE Index Scoring Tool - Questions: Length of Stay (in days): 7 - 13 Acuity (Admit via E.D.?): Yes Comorbidities: Congestive Heart Failure E.D. Visits: 2 - Answers: Total Score: 12 Risk of Readmission: High Risk Care Management Discharge Reason for Hospitalization: Transaminitis,NSTEMI,Community acquired pneumonia, Acute right-sided CHF Discharge Plan: Lauren will discharge home to the Dorsey's Daughter as she refused SNF bed offer at [facility]. Lauren will transport via [facility] arranged by CM. She will resume [facility] SN/INSTRUCTIONAL TECHNOLOGIST add PT/OT. Patient/Family Education Needs: Review discharge instructions, discuss Ask Me Three. Services Needed at Discharge: Home Health Care Services (Resume RN/INSTRUCTIONAL TECHNOLOGIST add PT/OT), Transportation ([facility]CT)
[2021-09-13] MEDS: Budesonide/Formoterol 80/4.5 6.9 GM 60 PUFF INH IH (09:30)
[2021-09-13] MEDS: Tiotropium Bromide-Respimat 10 PUFF INH 2 PUFF IH (09:30)
--- NOTE | 2021-09-13 09:33 | PDOC.HHF2F ---
Home Health Certification Home Health Certification: 1. Encounter Date and Reason I certify that Lauren Martel was seen by Velia De La Rosa on 09/13/21 and that I had a [id number] encounter with this patient that meets the physician face to face encounter requirements. 2. Clinical Findings Supporting Skilled Need and Homebound Status I certify that home health services are medically necessary, include either intermittent detention and/or physical/speech therapy, and that this patient is homebound in that absences from the home require considerable and taxing effort and are infrequent or of short duration, or are attributable to the need to receive medical care. [X] (a) Attached documentation from encounter provides clinical findings supporting skilled need and homebound status (including what assistance patient requires to leave the home). The encounter with the patient was in whole, or in part, for the following medical condition, which is the primary reason for home health care: NSTEMI?,Transnaminitis,PNA Nursing Home: routine nursing evaluation and medication oversight. Physical and Occupational Therapy: routine evaluation and treatment AUDIOLOGIST: routine management Homebound: unable to safely leave the house unattended d/t end stage COPD, ambulatory dysfunction. 3. Certification and Authentication I certify that I composed the above information based on my clinical judgement relating to this patient's medical condition and, if applicable, clinical findings communicated to me by the NPP or inpatient physician who performed the Home Health Referral. All further orders will be obtained through Susana Apple (Community Based Physician - PCP)
[2021-09-13] MEDS: Albuterol/Ipratropium 3 ML UPD VIAL UPD (09:35)
[2021-09-13] MEDS: Normal Saline 500 ML IV (10:41)
--- NOTE | 2021-09-13 16:20 | PGE_ITS ---
Date of Service Date of service: 09/13/21 Time of Service: 16:20 Assessment and Plan Assessment and plan (1) Hypotension: Status: Acute Assessment and plan: resolved with bolus IV fluids. will repeat orthostatic vital signs in am. If stable, can d/c home. (2) Leukocytosis: Status: Acute Assessment and plan: improving. no fevers no other source of infection suspected at this time white count climbing originally thought d/t steroids. (3) Hyperkalemia: Status: Resolved Assessment and plan: normalized off potassium supplementation. will check again tomorrow. (4) Goals of care, counseling/discussion: Status: Acute Assessment and plan: palliative care consult placed and awaiting patient was refusing blood work inconsistent with what she will allow and not, discussed code status, patient is a full code, she states she is not prepared to make any decisions. (5) Heme + stool: Status: Acute Assessment and plan: H&H stable. Found to have dark stool, heme positive All anticoagulation stopped will heme all stools SCD and TEDs PPI BID, Carafate, clears at this time. monitor. will likely need outpatient scope (6) Transaminitis: Status: Resolved Assessment and plan: Hold all hepatoxic medications including statin, tylenol Abd u/s negative CTA revealed no PE however lung nodules that will need follow up with either PET or CT scan in 3 months (7) Pulmonary nodule: Status: Acute Assessment and plan: as above new finding Follow up with PET/CT scan in 3 months (8) Choking due to food (regurgitated): Status: Acute Assessment and plan: Speech consult completed. cleared for thin liquids and soft/bite sized foods. Qualifiers: Encounter type: initial encounter Qualified Code(s): T17.320A - Food in larynx causing asphyxiation, initial encounter (9) NSTEMI (non-ST elevated myocardial infarction): Status: Ruled-out Assessment and plan: R/o trops trending down ECHO revealing Conclusion Normal left ventricular wall thickness and chamber size. Estimated ejection fraction is 60%. Wall motion is normal Both atria are normal in size Normal right ventricular size and systolic function Structurally normal aortic valve without stenosis or regurgitation Mild mitral annular calcification. Moderate mitral regurgitation Normal tricuspid valve. Moderate tricuspid regurgitation. 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 Qualifiers: Laterality: left Lung location: lower lobe of lung Qualified Code(s): J18.9 - Pneumonia, unspecified organism (11) Acute right-sided CHF (congestive heart failure): Status: Chronic Assessment and plan: stable at this time, not in HF (12) End stage COPD: Status: Chronic Assessment and plan: Oxygen dependent. Continue home regimen on prednisone (13) Ambulatory dysfunction: Status: Chronic Assessment and plan: continue PT, recommend discharge back to [facility] with PT (14) DVT prophylaxis: Status: Acute Assessment and plan: due to bleeding contraindication with chemical anticoagulation therefore she will have Teds and SCDS (15) Discharge planning issues: Status: Acute Assessment and plan: Back to home when medically stable Discussed with Dr. Albert Subjective Subjective Interval history since last seen: felt dizzy while sitting on side of bed, bp check shows sbp of 70. assisted back to lying position. no other c/o. given 500 cc bolus of fluid with resolution of her symptoms Exam Const General: cooperative, comfortable, no acute distress and frail appearing Nutritional Appearance: thin Orientation: alert, awake, oriented x3 and other (cognitively slow) [facility] Ears: hearing grossly abnormal bilaterally and hearing grossly impaired bilaterally Mouth: moist mucous membranes abnormal (DRY) Eyes Eyelids: eyelids normal Pupils: PERRL EOM: EOM intact bilaterally Neck Neck: normal visual inspection, no lymphadenopathy and no JVD Lymphatic: no lymphadenopathy noted Resp Effort & Inspection: abnormal respiratory effort (baseline SOB, normal for her she states not any worse ) and able to speak in complete sentences Auscultation: diminished lung sounds Cardio Jugular venous pressure: no JVD Rate: regular rate Rhythm: regular rhythm Heart Sounds: S1 normal GI Inspection: normal to inspection Palpation: soft Auscultation: normal bowel sounds General: No CVA tenderness and deferred Skin General skin exam: dry skin Lesions: lesion noted (left lower extremity) Neuro General: patient alert, patient awake and patient oriented x3 Speech: speech normal Gait: normal gait Extrem General: full ROM and no clubbing, cyanosis or edema Objective Last Vital Signs Temp 36.6 C 09/13/21 15:47 Pulse 72 09/13/21 15:47 Resp 18 09/13/21 15:47 BP 124/56 L 09/13/21 15:47 Pulse Ox 92 09/13/21 15:47 Laboratory Results - last 24 hr 09/12/21 09/13/21 09/13/21 16:00 07:10 07:10 WBC 13.11 H RBC 3.05 L Hgb 9.0 L Hct 29.9 L MCV 98.0 H MCH 29.5 MCHC 30.1 L RDW 14.3 Plt Count 234 MPV 9.6 Immature Gran % 0.5 Neutrophils % 84.6 Lymphocytes % 10.4 Monocytes % 4.0 Eosinophils % 0.3 Basophils % 0.2 Nucleated RBC % 0 Absolute Neutrophils 11.09 H Absolute Lymphocytes 1.36 Absolute Monocytes 0.52 Absolute Eosinophils 0.04 Absolute Basophils 0.03 Sodium 145 Potassium 3.8 Chloride 106 Carbon Dioxide 41.0 H Anion Gap -2.0 L BUN 28 H Creatinine 0.9 Estimated GFR/1.73 m2 >= 60.00 Glucose 77 Calcium 7.8 L Total Bilirubin 0.3 AST 19 ALT 99 H Alkaline Phosphatase 54 Total Protein 4.8 L Albumin 2.2 L SARS-CoV-2 (PCR) Negative
[2021-09-13] MEDS: Divalproex 250 MG TABEC PO (22:22)
[2021-09-14 03:33] VITALS: BP 119/59; PULSE 62; RESP 16; TEMP 36.2; O2SAT 97
[2021-09-14 08:00] VITALS: BP 135/77; PULSE 69; RESP 16; TEMP 36.3; O2SAT 95
[2021-09-14] MEDS: Tiotropium Bromide-Respimat 10 PUFF INH 2 PUFF IH (08:42)
[2021-09-14] MEDS: Pantoprazole 40 MG TABCR PO (09:15)
[2021-09-14] MEDS: Isosorbide Mononitrate 30 MG TABCR PO (09:15)
[2021-09-14] MEDS: dilTIAZem CD 120 MG CAPCR PO (09:15)
[2021-09-14] MEDS: Normal Saline Flush 10 ML SYR IVP (09:20)
[2021-09-14] MEDS: Budesonide/Formoterol 80/4.5 6.9 GM 60 PUFF INH IH (09:30)
[2021-09-14 10:06] VITALS: BP 111/61; BP 129/65; PULSE 62; PULSE 73
[2021-09-14 11:35] VITALS: BP 138/76; PULSE 66; RESP 18; TEMP 36.8; O2SAT 97
[2021-09-14] MEDS: Sucralfate 1 GM TAB PO (12:05)
--- NOTE | 2021-09-14 12:06 | DSE_ITS ---
Date of service: 09/14/21 Time of Service: 12:31 DS: Diagnosis Discharge Diagnosis (1) Hypotension: Status: Acute (2) Leukocytosis: Status: Acute (3) Hyperkalemia: Status: Resolved (4) Goals of care, counseling/discussion: Status: Acute (5) Heme + stool: Status: Acute (6) Transaminitis: Status: Resolved (7) Pulmonary nodule: Status: Acute (8) Choking due to food (regurgitated): Status: Acute (9) NSTEMI (non-ST elevated myocardial infarction): Status: Ruled-out (10) Community acquired pneumonia: Status: Resolved (11) Acute right-sided CHF (congestive heart failure): Status: Chronic (12) End stage COPD: Status: Chronic (13) Ambulatory dysfunction: Status: Chronic Discharge Plan Disposition Patient Disposition: HOME W/HOME HEALTH SERVICE Condition: Stable Discharge Details Reason For Visit: NSTEMI?,Transnaminitis,PNA Admit Date/Time: 09/05/21 18:17 Admit Provider: Campbell Vazquez Attending Provider: Campbell Vazquez Primary Care Provider: Susana Apple Hospital Course Hospital Course: 75 y.o female with PMH of CHF, End stage COPD oxygen dependant, OA, Hydrocephalus, presented to ED from from shelter with question of hypoxia, confusion and incontinence. She was previously seen on 09/01 and diagnosed with LLL pneumonia, discharged home on levaquin and prednisone. ED labs significant for no WBC on 09/01 noted to be 22 however creatinine is 1.7, elevated from baseline, Cardiac troponin of 0.36 second one was 0.32 will trend, BNP 17,537 with AST of 1084 and ALT of 903. Patient has been asked to be admitted to [facility] for further management. While in the hospital she was given IV hydration overnight that helped improve her ast and alt. IVF discontinued and lasix held. She continued to improve when taken off of levaquin. Abd u/s was negative. CTA did reveal lung nodule that will need f/u with PET or CT scan in 3 months. Some days she would refuse care other days she would work with staff. She did not want to return to senior care, placed referrals and she was accepted to [facility]. However, she refused SNF placement. She finished a 5 day course of antibiotics for CAP and a 10 day course steroids. NSTEMI r/o by cardiology, DVT study negative. She is at baseline. She had heme positive stools and would benefit from a colonoscopy as an outpatient. All anticoagulation has been stopped. Speech evaluated her as she was choking when eating and drinking they recommend thin liquids soft bite size foods. Her lungs are wheezy on auscultation, however, she denies feeling SOB or wheezing, she reports that her breathing feels normal to her. Lauren's Hgb was 9.0 at the time of discharge. She has been in the 9-10 range historically. She will have outpatient labs for follow up next week. Lauren was planned for discharge yesterday, however, her BP was low and she required IVF bolus. Her blood pressure is improved to 135/77 today. She worked with PT. PT recommended SNF for rehab, but Lauren refused placement. She was concerned about going home without [facility], but she met with Care management who gave her resources on setting it up with her manager community outreach. She is advised to follow up with her PCP next week. Home Meds and New Rx's Prescriptions: New sucralfate 1 gram Tablet 1 g PO AC & HS Qty: 120 RF: 0 melatonin 3 mg Tablet 6 mg PO HS Qty: 30 RF: 0 pantoprazole 40 mg Tablet,Delayed Release (Dr/Ec) 40 mg PO BID@0730,1999 Qty: 60 RF: 0 Nicotrol 10 mg cartridge 1 inh inhalation 4-6XD PRNQty: 168 RF: 0 Continued divalproex [Depakote] 250 mg tablet,delayed release (DR/EC) 250 mg PO HS RF: 0 isosorbide mononitrate 30 mg tablet extended release 24 hr 30 mg PO DAILY RF: 0 atorvastatin 40 mg tablet 40 mg PO DAILY Qty: 90 RF: 3 budesonide-formoterol [Symbicort] 80-4.5 mcg/actuation HFA aerosol inhaler 2 puff Inhalation BID Qty: 3 RF: 4 Proair Digihaler 90 mcg/actuation aero powdr breath act w/sensor 180 mcg inhalation Q4H PRN (Reason: shortness of breath or wheezing) Qty: 1 RF: 12 port 02concentrator 0 Inhalation as directed Qty: 1 RF: 1 ondansetron HCl [Zofran] 4 mg tablet 4 mg PO Q8H PRN (Reason: nausea and vomiting) Qty: 20 RF: 0 magnesium oxide 400 mg (241.3 mg magnesium) tablet 400 mg PO DAILY Qty: 90 RF: 3 nitroglycerin 0.4 mg tablet, sublingual 0.4 mg Sublingual PRN PRN (Reason: chest pain) Qty: 25 RF: 12 diltiazem HCl [Tiazac] 120 mg capsule,extended release 24 hr 120 mg PO DAILY Qty: 90 RF: 0 furosemide 40 mg tablet 60 mg PO DAILY Qty: 135 RF: 0 acetaminophen [Tylenol] 325 mg Tablet 650 mg PO Q6H PRNRF: 0 Spiriva with HandiHaler 18 mcg capsule, w/inhalation device 18 mcg INHALATION BID RF: 0 Discontinued nicotine 21 mg/24 hr patch 24 hour 1 patch TD Q24H Qty: 28 RF: 1 pantoprazole 40 mg tablet,delayed release (DR/EC) 40 mg PO DAILY Qty: 30 RF: 2 potassium chloride 20 mEq tablet extended release 40 meq PO BID Qty: 180 RF: 1 ibuprofen 600 mg Tablet 600 mg PO Q6H PRNRF: 0 prednisone 20 mg tablet 40 mg PO DAILY Qty: 10 RF: 0 levofloxacin 750 mg tablet 750 mg PO DAILY Qty: 6 RF: 0 No Action (DME) Oxygen Tank See Rx Instructions .ROUTE .MEDSUPPLY Qty: 1 RF: 0 (DME) Depend Underwear For Women S-M Misc 1 ea Miscellaneous QID Qty: 150 RF: 12 Discharge Instructions Instructions: Acute Liver Failure (DC), Community Acquired Pneumonia (DC) Additional Instructions: Follow up PET or CT scan in 3 months No NSAID or ibuprofen d/t GI bleed Follow thin liquid with soft bite size food F/u with PCP in 1-2 weeks Recommend outpatient colonoscopy Palliative care to f/u as an outpatient. You will have new home health services. They will draw your labs next week. Stand Alone Forms: Nursing Discharge Form Referrals: Susana Apple NP [Primary Care Provider] - 09/24/21 11:30 am Activity:: Activity as Tolerated Equipment/Supplies:: Oxygen (L/min Below) Diet:: thin liquids/bite size soft Discharge Orders Discharge Orders: Discharge Order (Routine); Ordered 09/14/21 Ordered By: Veronique Samayoa Other Ambulatory Orders: Complete Blood Count w/Diff (Routine) Timeframe: 4 Days Location: None Selected Ordered By: Madelaine Hinojosa DS: Summary Time Spent with Patient providing and/or coordinating discharge services: Greater than 30 minutes Status at Discharge Functional status at discharge: uses cane/walker Overall status at discharge: patient is progressing back to baseline Mental Status: mental status grossly normal Speech and Movement: speech and movement normal Mood: congruent mood Affect: normal affect Exam Narrative Exam Narrative: General: elderly female, sitting in the recliner, awake and alert, [place]. Answers questions appropriately. HEENT: normocephalic, atraumatic, EOMI, mucous membranes moist. Neck: supple, no JVD. Cardiovascular: heart sounds regular, nontachycardic. Respiratory: respirations appear unlabored, wearing O2, wheezes noted throughout lung valladares. GI: +BS, soft, nontender on palpation, nondistended. Extremities: no edema, moves all 4 extremities freely. Psych Mental Status: mental status grossly normal Speech and Movement: speech and movement normal Mood: congruent mood Affect: normal affect DS: Data Vitals/I&O Vitals and I&O: Vital Signs Temperature 36.3 C L 09/14/21 08:00 Temperature Source Tympanic 09/14/21 08:00 Pulse 62 09/14/21 10:06 Pulse Rhythm Regular 09/13/21 18:30 Pulse 74 09/05/21 19:20 Respiratory Rate 16 09/14/21 08:00 Respiratory Effort 09/14/21 04:39 Respiratory Depth Normal 09/14/21 04:39 Respiratory Pattern Normal 09/14/21 04:39 Blood Pressure 129/65 09/14/21 10:06 Blood Pressure Mean 91 09/05/21 19:16 Blood Pressure Position Sitting 09/05/21 13:25 Pulse Oximetry 95 09/14/21 08:00 Oxygen Delivery Method Nasal Cannula 09/14/21 08:00 Oxygen Flow Rate 3 09/14/21 08:00 Pain Level 0 09/14/21 03:33 Comment 09/12/21 23:35 Intake & Output 09/13/21 09/14/21 09/14/21 23:59 11:59 23:59 Intake Total 480 / 480 Balance 480 / 480 Weight 55.973 kg Intake: Oral 480 / 480 Other: Urine Color Yellow Urine Odor Strong Comment pT was dry when ENVIRONMENTAL TECHNICAL OFFICER went in to do a check and change. pT did not want to us the bathroom. Voiding Methods Diaper Incontinent Data Completed and Pending Completed studies during hospitalization [Text1]: 09/06/21 CT chest: IMPRESSION: 1. No evidence of obvious acute pulmonary emboli.No pulmonary infarction. 2. COPD emphysematous changes with multiple nodular infiltrates as described above in the left lung and small amount of right pleural fluid. No intrathoracic adenopathy evident. Recommend repeat CT scan in 3 months to ensure stability of the above described lung findings. 3. Cardiomegaly. No pericardial effusion. No aortic dissection. US BLE: MPRESSION: 1. No ultrasound evidence of DVT in either lower extremity. Incidentally noted is a Thomas cyst in the left popliteal fossa measuring 3.6 x 2.3 x 0.9 cm. ECHO Conclusion Normal left ventricular wall thickness and chamber size. Estimated ejection fraction is 60%. Wall motion is normal Both atria are normal in size Normal right ventricular size and systolic function Structurally normal aortic valve without stenosis or regurgitation Mild mitral annular calcification. Moderate mitral regurgitation Normal tricuspid valve. Moderate tricuspid regurgitation. Estimated right ventricular systolic pressure is 44 mmHg Mildly dilated ascending aorta 3.4 cm [facility] Medical History (Updated 09/14/21 @ 12:58 by Madelaine Hinojosa NP) Anemia Auditory hallucination CAD (coronary artery disease) Cellulitis of both lower extremities CHF (congestive heart failure) Depressive disorder (02/19/12) Dysphagia 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) 06/2008 FEV1 35% severe, nocturnal hypoxia; nocturnal O2 2.5LPM 10/2016 FEV1 26% difffusion mod reduced GERD (gastroesophageal reflux disease) Gout, unspecified (04/27/13) H/O ETOH abuse History of GI bleed Low back pain without sciatica (02/19/12) Macrocytosis (05/05/13) nl B12 Marginal ulcer Obesity, unspecified (02/19/12) Gastric Bypass Osteoarth NOS-unspec (02/19/12) Other and unspecified hyperlipidemia (04/27/13) ASCVD; LDL baseline 170-180 Oxygen dependent PAD (peripheral artery disease) RLS (restless legs syndrome) Sensorineural hearing loss Spinal stenosis Tobacco dependence syndrome (11/25/13) Surgical History Bariatric surgery status (07/08/17) EGD - MAC 08/2017-Dr. Thornton Extraction of cataract (08/28/15) right eye with lens implantation Dr. Landry History of umbilical hernia repair S/P carpal tunnel release S/P peripheral artery angioplasty Family History Mother , COPD at age 79. 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
--- NOTE | 2021-09-14 15:19 | CMDISCH_ITS ---
- If Service Date Differs Date of service: 09/14/21 Time of Service: 15:19 LACE Index Scoring Tool - Questions: Length of Stay (in days): 7 - 13 Acuity (Admit via E.D.?): Yes Comorbidities: Congestive Heart Failure E.D. Visits: 2 - Answers: Total Score: 12 Risk of Readmission: High Risk Care Management Discharge Reason for Hospitalization: Transaminitis,NSTEMI,Community acquired pneumonia, Acute right-sided CHF Discharge Plan: Lauren will return home today with new orders for HH RN, PT, OT, VET ASSISTANT. MARTI informed [facility] of her discharge today. She has an O2 tank from [facility], which was delivered to [facility] for her to discharge home with. Lauren inquired about [facility], which MARTI provided her information for, and suggested that her community health education coordinator, Katya Gayle, assist her with setting it up at home. Lauren's sister drove her home via private vehicle. She will follow up with her PCP and discharge plan of care. Patient/Family Education Needs: Review discharge instructions regarding activity levels and medications, discussion of self care needs including ask me three. Services Needed at Discharge: Home Health Care Services (new orders, HH Rn, PT, OT, VET ASSISTANT)
--- NOTE | 2021-09-17 18:00 | PT.INDS ---
Date of service: 09/17/21 PT Notes Visit Reasons: NSTEMI?,Transnaminitis,PNA Physical Therapy Inpatient Discharge Summary Date: 09/17/2021 Dates of service: 09/07/2021 through 09/10/2021. Refused PT services from 09/11/2020 through 09/13/2020. This is a clinical summary of care provided for the duration of dates listed above. No charge was made in the completion of this documentation. Referring Doctor: Veronique Samayoa PT Orders: PT CONSULT: Nonurgent Precautions: Standard, fall risk Patient Profile/Admitting Diagnosis: 75-year-old female patient admitted to ED on 09/05/21 with hypoxia confusion and incontinence, with medical work-up diagnosing transnaminitis, CHF exacerbation, pneumonia, and NSTEMI. She had prior admission on 09/01/2021 for management of pneumonia, was treated and returned to her [facility]. 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) Auditory hallucination CAD (coronary artery disease) Cellulitis of both lower extremities CHF (congestive heart failure) Depressive disorder (02/19/12) DVT prophylaxis 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) 06/2008 FEV1 35% severe, nocturnal hypoxia; nocturnal O2 2.5LPM 10/2016 FEV1 26% difffusion mod reduced GERD (gastroesophageal reflux disease) Gout, unspecified (04/27/13) H/O ETOH abuse History of GI bleed Low back pain without sciatica (02/19/12) Macrocytosis (05/05/13) nl B12 Marginal ulcer Obesity, unspecified (02/19/12) Gastric Bypass Osteoarth NOS-unspec (02/19/12) Other and unspecified hyperlipidemia (04/27/13) ASCVD; LDL baseline 170-180 Oxygen dependent PAD (peripheral artery disease) RLS (restless legs syndrome) Sensorineural hearing loss Spinal stenosis Tobacco dependence syndrome (11/25/13) Surgical History Bariatric surgery status (07/08/17) EGD - MAC 08/2017-Dr. Thornton Extraction of cataract (08/28/15) right eye with lens implantation Dr. Landry History of umbilical hernia repair S/P carpal tunnel release S/P peripheral artery angioplasty Family History Mother , COPD at age 79. COPD (chronic obstructive pulmonary disease) Heart disease Father Diabetes Dementia Social History/Home Situation: Resides at a [facility], primarily pending her daily is isolated to her room and on her oxygen. Only leaves her room to smoke a cigarette. Patient independent transferring from bed to chair, and with toileting. She is not happy with her home situation, offers little description of her home environment, irritated at request. She does not elaborate. Does not generally utilize an assistive device. Dependent on 3 L of O2 at rest, 5 L with ambulation. She does not have a portable O2 unit, limiting her activities outside of her room. At baseline, patient states she generally ambulates without assistive device. Current Functional Limitations: Contact-guard with functional transfers and standing activities, independent with bed mobility Equipment Owned/DME: Wall-mounted oxygen, no walking device Subjective: NT. See most recent STAFF MIDWIFE/APPRENTICESHIP DIRECTOR notes. Objective: General Observation: NT. See most recent STAFF MIDWIFE/APPRENTICESHIP DIRECTOR notes. Mental Status: NT. See most recent STAFF MIDWIFE/APPRENTICESHIP DIRECTOR notes. Pain: NT. See most recent STAFF MIDWIFE/APPRENTICESHIP DIRECTOR notes. Vital Signs: NT. See most recent STAFF MIDWIFE/APPRENTICESHIP DIRECTOR notes. ROM: NT Strength: NT Sensation: NT Bed Mobility/Transfers: Sit to stand to sit standby assist Stand to sit Bed to chair contact-guard assist Gait: Able to tolerate 5 feet x 2 +10 feet using front wheel walker with full weightbearing requiring contact-guard assist. Balance: Static Sitting: Good Dynamic Sitting: Poor Static Standing: Good Dynamic Standing: Fair Assessment: Patient continues to present with clinical signs and symptoms consistent with generalized weakness, poor activity tolerance and dependence on O2, and poor balance, demanding need for PT service to improve global strength and stability with functional transfers and functional ambulation. Goals: Goals X1 week 1. Supine-Sit independent MET 2. Sit-Supine independent MET 3. Sit-Stand independent NOT MET 4. Stand-Sit independent NOT MET 5. Bed-Chair independent NOT MET 6. Chair-Bed independent NOT MET 7. Gait 50 feet, distant supervision, SPC NOT MET 9. Stage IV balance test demonstrating ability to complete tandem for 10 seconds NOT MET DISCHARGE RECOMMENDATIONS: Return to home care center when medically stable. Home health PT would be of benefit to improve her physical capabilities and encourage physical activity. Patient to discuss with case management about her concerns of current living situation TREATMENT CODE/TIME: NC Thank you for the opportunity to participate in the care of this patient. Crystal Montoya PT, DPT, CLT [facility] [place], [place]
== END 2021-09-14 15:44 | disposition home health service (06) | DRG 190 ==
LOC: ER 18:32 → MS 19:56
PROVIDERS: Internal Medicine; Nurse Practitioner Acute Care; Nurse Practitioner Family; Admitting Provider Family Medicine; Emergency Provider Emergency Medicine; PCP Nurse Practitioner; Visit Provider Family Medicine
DX: J44.0 Chronic obstructive pulmonary disease with (acute) lower respiratory infection (principal); J18.9 Pneumonia, unspecified organism; K92.1 Melena; G91.9 Hydrocephalus, unspecified; I50.811 Acute right heart failure; E87.5 Hyperkalemia; R91.1 Solitary pulmonary nodule; R26.2 Difficulty in walking, not elsewhere classified; R74.01 Elevation of levels of liver transaminase levels; Z99.81 Dependence on supplemental oxygen; D64.9 Anemia, unspecified; I25.10 Atherosclerotic heart disease of native coronary artery without angina pectoris; I50.9 Heart failure, unspecified; K21.9 Gastro-esophageal reflux disease without esophagitis; M10.9 Gout, unspecified; F10.11 Alcohol abuse, in remission; M54.50 Low back pain, unspecified; Z98.84 Bariatric surgery status; E78.5 Hyperlipidemia, unspecified; I73.9 Peripheral vascular disease, unspecified; G25.81 Restless legs syndrome; F17.210 Nicotine dependence, cigarettes, uncomplicated; M48.00 Spinal stenosis, site unspecified; Z20.822 Contact with and (suspected) exposure to COVID-19; R13.12 Dysphagia, oropharyngeal phase; R09.89 Other specified symptoms and signs involving the circulatory and respiratory systems; T17.228A Food in pharynx causing other injury, initial encounter
CPT/HCPCS: 36410; 36415; 71275; 80048; 80053; 82550; 82805; 84145; 85027; 87040; 87635; 90662; 92610; 93005; 93306; 94640; 96374; 97110; 97162; 97530; 99285; 71045; 76700; 80329; 81003; 83605; 83735; 83880; 84484; 85014; 85018; 85025; 85379; 85610; 85730; 93010; 93970; 99223; 99232; 99233; 99239; 99284; J0456; J0696; J1650; J1940; J2930; J3490; J7512; J7613; J7620

== ENCOUNTER → 2021-09-06 08:53 | Outpatient (BNVA) | payer MEDICARE, MEDICAID, SELFPAY | PROVIDERS: PCP Nurse Practitioner; Referring Provider Nurse Practitioner; Visit Provider Internal Medicine Cardiovascular Disease | DX: R69 Illness, unspecified (principal) ==

== ENCOUNTER 2021-09-19 14:07 | Emergency (ER) | payer MEDICARE, MEDICAID, SELFPAY ==
[2021-09-19] VITALS (64 sets, daily range): BP systolic 106–126; BP diastolic 35–73; PULSE 53–85; RESP 16–26; TEMP 36.5–36.7; O2SAT 90–100
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
--- NOTE | 2021-09-19 14:40 | NUR.NOTE ---
Refuses Covid swab. States I was just tested. You will not do that again.Nursing Note:
[2021-09-19 14:46] LABS: Abs Immature Grans 0.03 10^3/uL (0.0-0.06); Absolute Basophil Count 0.02 10^3/uL (0.0-0.2); Absolute Eosinophil Count 0.07 10^3/uL (0.0-0.7); Absolute Lymphocyte Count 0.73 10^3/uL (1.2-3.4); Absolute Monocyte Count 0.57 10^3/uL (0.1-0.8); Absolute Neutrophil Count 7.15 10^3/uL (1.2-6.7); Basophils % 0.2; Eosinophils % 0.8; HCT 34.3 % (36.0-46.0); HGB 9.9 g/dL (11.2-15.7); Immature Grans % 0.4; Lymphocytes % 8.5; MCH 29.6 pg (27.0-33.0); MCHC 28.9 % (32.0-36.0); MCV 102.7 fL (80-95); Monocytes % 6.7; Neutrophils % 83.4; Nucleated RBC 0 %; Platelet Count 215 10^3/uL (130-400); RBC 3.34 10^6/uL (3.93-5.22); RDW 14.8 % (11.7-14.6); RDW-SD 55.9 fL; WBC 8.57 10^3/uL (4.4-10.8)
--- NOTE | 2021-09-19 14:49 | NUR.NOTE ---
Assisted out of bed with help of RN and ANDRIA. Attempt to collect clean catch urine specimen.Nursing Note:
[2021-09-19 15:00] LABS: ALT 50 U/L (14-59); AST 20 U/L (15-37); Alkaline Phosphatase 74 U/L (46-116); Anion Gap 3.7 mmol/L (3-11); BUN 14 mg/dL (7-18); Bilirubin, Total 0.4 mg/dL (0.2-1.0); CO2 38.3 mmol/L (21.0-32.0); CREATININE 0.8 mg/dL (0.55-1.02); Calcium 8.7 mg/dL (8.5-10.1); Chloride 105 mmol/L (98-107); Glucose 112 mg/dL (74-106); Potassium 3.6 mmol/L (3.5-5.1); Sodium 147 mmol/L (136-145); Total Protein 6.7 g/dL (6.4-8.2)
[2021-09-19 15:02] LABS: Source Nasal/Nares
[2021-09-19 15:02] LABS: VALPROIC ACID < 3 ug/mL
[2021-09-19 15:34] LABS: Bilirubin Negative (Negative); Blood Negative (Negative); Clarity Clear (Clear); Glucose Negative (Negative); Ketones Negative (Negative); Leukocyte Esterase Trace (Negative); Nitrite Negative (Negative); Specific Gravity 1.015 (1.005-1.025); Urobilinogen 0.2 EU/dL (Up TO 0.2)
[2021-09-19 15:45] LABS: Bacteria Negative HPF (Negative); C & S Indicated? Yes; Casts Negative LPF (Negative); Crystals Negative HPF (Negative); Epithelial Cells Few HPF (Negative); Mucus Negative (Negative); Other Cells Negative (Negative); RBC 0-2 HPF (0-2); WBC 0-2 HPF (0-5)
--- NOTE | 2021-09-19 17:17 | NUR.NOTE ---
Siting upright on cart. Updated on plan of care, patient to board in ED overnight and be admitted to facility in am. States Jesus. Franco. Wilmar. Why did they send me here in an ambulance if there were no beds for me?ursing Note:
[2021-09-19 17:41] LABS: COVID-19 PCR Negative (Negative)
--- NOTE | 2021-09-19 17:59 | NUR.NOTE ---
[facility] notified patient would like tuna sandwich and chips.Nursing Note:
--- NOTE | 2021-09-19 18:00 | NUR.NOTE ---
Assisted out of bed to commode. Tolerates movement with minimal complaint. Voids without difficulty. Performs independent roseanna care.Nursing Note:
--- NOTE | 2021-09-19 19:12 | NUR.NOTE ---
Patient ate 80% dinner tray and hot chocolate. Assisted back to bed. Call light in reach.Nursing Note:
[2021-09-19] MEDS: Pantoprazole 40 MG TABCR PO (20:04)
[2021-09-19] MEDS: Melatonin 3 MG TAB 6 MG PO (20:05)
[2021-09-19] MEDS: Atorvastatin 40 MG TAB PO (20:05)
--- NOTE | 2021-09-19 21:27 | NUR.NOTE ---
Patient spitting into emesis bag, thick,clear mucous noted. Reports the pills my fucking nurse made me take are making me sick. Josue lane aleksander. why did they bring me here. This isn't helping. I will never get better. Denies needs. Repositioned in bed. Warm blankets provided. Call light in reach. Lights off. Bed in lowest,locked position, side rails up x2.Nursing Note:
--- NOTE | 2021-09-19 22:02 | NUR.NOTE ---
HOB repositioned. Denies needs. Call light in reach. Nursing Note:
--- NOTE | 2021-09-19 23:33 | NUR.NOTE ---
Patient calls out to request bed be padded with pillows. Complains of pain from her spinal stenosis. Patient with small amount of brown emesis on bed linens. Patient assisted out of bed, into recliner. Tolerates movement well with stand by assist. Warm blankets and pillows provided. Call light in reach.Nursing Note:
--- NOTE | 2021-09-20 00:04 | NUR.NOTE ---
Report to IDRIS Charles for continued careNursing Note:
[2021-09-20 09:31] VITALS: BP 130/36; PULSE 75; RESP 22; TEMP 36.4; O2SAT 91
[2021-09-20] MEDS: FUROSEMIDE 40 MG, FUROSEMIDE 20 MG 60 MG PO (10:29)
[2021-09-20] MEDS: Isosorbide Mononitrate 30 MG TABCR PO (10:31)
[2021-09-20] MEDS: Pantoprazole 40 MG TABCR PO (10:31)
[2021-09-20] MEDS: dilTIAZem CD 120 MG CAPCR PO (10:32)
--- NOTE | 2021-09-23 10:35 | NUR.NOTE ---
talked to Adelita Healy-told that her covid is negative.Nursing Note:
== END 2021-09-20 11:03 | disposition other institution (70) ==
PROVIDERS: Emergency Medicine; Emergency Provider Emergency Medicine; PCP Nurse Practitioner
DX: R62.7 Adult failure to thrive (principal); Z75.1 Person awaiting admission to adequate facility elsewhere; R82.90 Unspecified abnormal findings in urine
CPT/HCPCS: 36415; 80053; 87635; 99283; 80164; 81003; 81015; 85025; 87086